=== PATIENT | female | born 1955 | race Caucasian/White ===

== ENCOUNTER → 2017-10-01 12:47 | Outpatient (CLI) | payer BC, SELFPAY ==
--- NOTE | 2017-10-01 12:58 | CT_ITS ---
STUDY: LOW DOSE CT LUNG CANCER SCREENING REASON FOR EXAM: Female, 62 years old. Tobacco use RADIATION DOSAGE (If Supplied By Facility): CTDIvol = ( 2.01 ) mGy, DLP = ( 61.43 ) mGycm TECHNIQUE: No contrast was administered. Low dose technique was utilized (average mAS-38 and kVp 120). 1.25 mm axial source images with a slice interval of 1.25-mm were reconstructed in lung windows. 2.5 mm axial source images with a slice interval of 2.5-mm were reconstructed in lung windows. 5.0 mm axial source images with a slice interval of 5.0-mm were reconstructed in soft tissue windows. Nodule measured using lung windows on PACS and/or independent workstation with automated measurement of minimum and maximum diameter. Nodule measurement reported as average diameter rounded to the nearest whole number. Growth is defined as an increase ins size of greater than 1.5 mm. COMPARISON: Chest, July 15, 2015. NODULES: Nodule #: 1 Density: Solid Lung location: Left upper lobe: Pleural-based Location in series: Series Number: 2 Image: 108 Size - D1 x D2 mm: 2 x 2 mm: 2 mm average diameter Margin: Smooth Shape: Round Calcification: Yes Fat: No Temporal comparison: None Total lung nodules (excluding granulomas): 0 Emphysema: There are mild emphysematous changes throughout the lungs. Endobronchial lesion: No Aorta: There is minimal atherosclerotic changes of the thoracic aorta without aneurysm. Coronary arteries: There are coronary artery calcifications. Heart: Normal in size. Pulmonary artery: Normal in size. Mediastinal nodes: None Other chest and abdominal findings: There are degenerative changes of the thoracic spine. CT/Low Dose CT Lung Screening IMPRESSION: Lung-RADS category 1 - Continue annual screening with LDCT in 12 months. IMPORTANT NOTES FOR USE: ACR Lung-RADS Version 1.0 Assessment Categories Release Date: October 30, 2013 Category: Coded 0-4 bases on nodule(s) with highest degree of suspicion. Negative screen is defined as categories 1 and 2; a positive screen is defined as categories 3 and 4. Category 3 and 4A nodules that are unchanged on interval CT should be coded as category 2, and individuals returned to screening in 12 months. Category 4X: Category 3 or 4 nodules with additional imaging findings that increase the suspicion of lung cancer, such as spiculation, GGN that doubles in size in 1 year, enlarged lymph notes, etc. Category Modifiers: S (significant finding unrelated to lung cancer) and C (prior history of treated lung cancer) may be added to the 0-4 Lung-RADS Electronically Signed: Pro Gregorio DO at 8:29 EDT Tel [phone], Service support ,
== END ==
PROVIDERS: Family Provider Family Medicine; PCP Family Medicine; Visit Provider Family Medicine
DX: Z12.2 Encounter for screening for malignant neoplasm of respiratory organs (principal); Z87.891 Personal history of nicotine dependence
CPT/HCPCS: G0297

== ENCOUNTER → 2018-03-29 14:45 | Outpatient (CLI) | payer BC, SELFPAY ==
[2018-03-29 17:43] LABS: Hematocrit 43.4 % (37-47); Hemoglobin 14.1 g/dl (12.0-15.0); Mean Corp Hgb Conc 32.5 g/gl (32-36); Mean Corpuscular Hgb 29.3 pg (27.0-32.0); Mean Platelet Vol. 10.4 fl (6.2-12.0); Platelet Count 262 K/mm3 (150-450); RBC Distribution Width CV 12.7 % (11.6-14.6); RBC Distribution Width SD 41.5 fl (35.1-43.9); Red Blood Count 4.82 M/mm3 (4.2-5.4); White Blood Count 9.5 K/mm3 (4.4-11.0)
[2018-03-29 17:46] LABS: Scan Indicated on CBC? Y/N NO
[2018-03-29 18:07] LABS: Vitamin D,25 Hydroxy 34.1 ng/mL (29.95-100.01)
[2018-03-29 18:29] LABS: ALB/GLOB Ratio 1.2 RATIO (0.9-2.4); AST(SGOT) 15 U/L (15-37); Alanine Aminotransfer ALT/SGPT 26 U/L (13-56); Alkaline Phosphatase 67 U/L (45-117); Anion Gap 11 (5-15); BUN 14 mg/dL (7-18); BUN/Creat Ratio 17.7 RATIO (10-20); Calcium,Total 9.5 mg/dL (8.5-10.1); Chloride 98 mmol/L (98-107); Creatinine, Serum 0.79 mg/dL (0.55-1.02); EST Glomerular Filtration Rate 79 mL/min (>60); Est Glom Filt Rate - Afr Amer 95 mL/min (>60); Globulin 3.3 g/dL (2.2-4.2); Glucose 84 mg/dL (74-106); Potassium 3.5 mmol/L (3.5-5.1); Protein, Total 7.3 g/dL (6.4-8.2); Sodium Level 136 mmol/L (136-145); T4 Free Direct 1.05 ng/dL (0.76-1.46); Thyroid Stim Hormone (TSH) 1.77 uIU/mL (0.358-3.74)
[2018-04-01 12:40] LABS: V-Zoster IgG (Immunity) 727 index (Immune >165)
== END ==
PROVIDERS: Family Provider Family Medicine; PCP Family Medicine; Visit Provider Family Medicine
DX: I10 Essential (primary) hypertension (principal); E03.9 Hypothyroidism, unspecified; R53.83 Other fatigue; Z78.9 Other specified health status
CPT/HCPCS: 36415; 80053; 82306; 84439; 84443; 85027; 86787

== ENCOUNTER → 2019-03-31 06:33 | Outpatient (CLI) | payer BC, SELFPAY ==
[2019-03-31 08:28] LABS: ALB/GLOB Ratio 1.5 RATIO (0.9-2.4); AST(SGOT) 10 U/L (15-37); Alanine Aminotransfer ALT/SGPT 18 U/L (13-56); Albumin, Serum 4.1 g/dL (3.2-5.0); Alkaline Phosphatase 64 U/L (45-117); Anion Gap 8 (5-15); BUN 14 mg/dL (7-18); BUN/Creat Ratio 17.6 RATIO (10-20); Calcium,Total 9.6 mg/dL (8.5-10.1); Chloride 102 mmol/L (98-107); Cholesterol 167 mg/dL (200); EST Glomerular Filtration Rate 78 mL/min (>60); Est Glom Filt Rate - Afr Amer 94 mL/min (>60); Globulin 2.8 g/dL (2.2-4.2); Glucose 98 mg/dL (74-106); High Density Lipoprotein 71 mg/dL; Potassium 3.6 mmol/L (3.5-5.1); Protein, Total 6.9 g/dL (6.4-8.2); Sodium Level 141 mmol/L (136-145); Thyroid Stim Hormone (TSH) 2.77 uIU/mL (0.358-3.74); Triglycerides 76 mg/dL; Very Low Density Lipoprotein 15 mg/dL (5-40)
[2019-03-31 09:21] LABS: Vitamin D,25 Hydroxy 41.8 ng/mL (29.95-100.01)
== END ==
PROVIDERS: Family Provider Family Medicine; PCP Family Medicine; Referring Provider Family Medicine; Visit Provider Family Medicine
DX: E03.9 Hypothyroidism, unspecified (principal); I10 Essential (primary) hypertension; Z13.1 Encounter for screening for diabetes mellitus; Z13.21 Encounter for screening for nutritional disorder; Z13.220 Encounter for screening for lipoid disorders
CPT/HCPCS: 36415; 80053; 80061; 82306; 84443

== ENCOUNTER → 2019-12-06 14:34 | Outpatient (CLI) | payer BC, SELFPAY ==
--- NOTE | 2019-12-06 14:37 | RAD_ITS ---
STUDY: X-RAY - RIGHT SHOULDER REASON FOR EXAM: Female, 64 years old. CHRONIC PAIN, NO INJURY TECHNIQUE: 4 view(s) of the shoulder. COMPARISON: July 15, 2015 chest x-ray FINDINGS: There is severe degenerative arthrosis of the glenohumeral articulation. There is minimal degenerative arthrosis of the acromioclavicular joint without inferior osseous spur formation. Normal acromion. There is degenerative change of the humeral head. There is a focal coarse calcification in the joint space or just inferior to the joint space suggesting a 2.4 x 1.8 cm osteochondral body. Normal visualized pulmonary apex. There is visualized degenerative change in the thoracic spine. RAD/Shoulder min 2 Views IMPRESSION: Advanced degenerative change of the right glenohumeral joint with osteochondral calcification or joint body. Electronically Signed: Daksha Meier MD at 0:56 EDT Tel , Service support ,
== END ==
PROVIDERS: PCP Family Medicine; Referring Provider Family Medicine; Visit Provider Family Medicine
DX: M25.511 Pain in right shoulder (principal); G89.29 Other chronic pain
CPT/HCPCS: 73030

== ENCOUNTER → 2020-03-20 14:20 | Outpatient (CLI) | payer BC, SELFPAY ==
--- NOTE | 2020-03-20 14:22 | RAD_ITS ---
STUDY: X-RAY - RIGHT FOOT CLINICAL: Right foot pain. TECHNIQUE: 3 view(s) of the foot. COMPARISON: None. FINDINGS: Normal talus, calcaneus, and tarsal bones. Normal visualized subtalar, talonavicular, calcaneocuboid, and tarsal articulations. There is joint space narrowing of the second and third tarsometatarsal articulations with dorsal osteophytes. Normal metatarsi. Normal metatarsophalangeal joint of the great toe. Normal tibial and fibular sesamoid bones. Normal interphalangeal joint of the great toe. Normal phalanges of the great toe. Normal second through fifth metatarsophalangeal joints. Normal interphalangeal joints and phalanges of the lesser toes. The soft tissue structures are unremarkable. RAD/Foot min 3 Views IMPRESSION: Arthrosis of the second and third tarsometatarsal articulations. Electronically Signed: Geovanni Barry MD at 15:21 EDT Tel , Service support ,
== END ==
PROVIDERS: PCP Family Medicine; Referring Provider Family Medicine; Visit Provider Family Medicine
DX: M19.071 Primary osteoarthritis, right ankle and foot (principal)
CPT/HCPCS: 73630

== ENCOUNTER → 2020-04-04 06:16 | Outpatient (CLI) | payer BC, SELFPAY ==
[2020-04-04 07:50] LABS: Anion Gap 3 (5-15); BUN 12 mg/dL (7-18); BUN/Creat Ratio 14.4 RATIO (10-20); Calcium,Total 10.2 mg/dL (8.5-10.1); Chloride 101 mmol/L (98-107); Cholesterol 209 mg/dL (200); Creatinine, Serum 0.84 mg/dL (0.55-1.02); EST Glomerular Filtration Rate 73 mL/min (>60); Est Glom Filt Rate - Afr Amer 88 mL/min (>60); Glucose 89 mg/dL (74-106); High Density Lipoprotein 79 mg/dL; Potassium 3.7 mmol/L (3.5-5.1); Sodium Level 137 mmol/L (136-145); Thyroid Stim Hormone (TSH) 4.77 uIU/mL (0.358-3.74); Triglycerides 91 mg/dL; Very Low Density Lipoprotein 18 mg/dL (5-40)
== END ==
PROVIDERS: PCP Family Medicine; Referring Provider Family Medicine; Visit Provider Family Medicine
DX: Z00.00 Encounter for general adult medical examination without abnormal findings (principal); I10 Essential (primary) hypertension; E03.9 Hypothyroidism, unspecified
CPT/HCPCS: 36415; 80048; 80061; 84443

== ENCOUNTER → 2020-07-25 14:20 | Outpatient (CLI) | payer BC, SELFPAY ==
[2020-07-25 17:31] LABS: Hematocrit 42.2 % (37-47); Hemoglobin 13.5 g/dL (12.0-15.0); Mean Corpuscular Hgb 27.4 pg (27.0-32.0); Mean Corpuscular Volume 85.8 fL (81-99); Mean Platelet Vol. 10.7 fl (6.2-12.0); Platelet Count 290 K/mm3 (150-450); RBC Distribution Width CV 12.4 % (11.6-14.6); RBC Distribution Width SD 38.8 fl (35.1-43.9); Red Blood Count 4.92 M/mm3 (4.2-5.4)
[2020-07-25 17:59] LABS: Erythrocyte Sedimentation Rate 2 mm/hr (0-30)
[2020-07-25 18:12] LABS: Iron 47 ug/dL (50-170); T4 Free Direct 1.36 ng/dL (0.76-1.46); Thyroid Stim Hormone (TSH) 0.37 uIU/mL (0.358-3.74); Vitamin B12 448 pg/mL (211-911)
[2020-07-31 15:27] LABS: Vitamin B1, Thiamine 118.4 nmol/L (66.5-200.0)
== END ==
PROVIDERS: PCP Family Medicine; Referring Provider Family Medicine; Visit Provider Family Medicine
DX: E03.9 Hypothyroidism, unspecified (principal); R53.83 Other fatigue
CPT/HCPCS: 36415; 82306; 82607; 83540; 84425; 84439; 84443; 85027; 85652

== ENCOUNTER 2020-09-17 17:21 | Outpatient (RCR) | payer BC, SELFPAY ==
[2020-09-17] MEDS: COVID-19 VACC, MRNA(PFIZER)/PF 30 MCG/0.3 ML SYRINGE IM (14:08)
[2020-10-08] MEDS: COVID-19 VACC, MRNA(PFIZER)/PF 30 MCG/0.3 ML SYRINGE IM (14:11)
== END 2020-09-17 23:59 ==
LOC: IMMUN 17:21
PROVIDERS: PCP Family Medicine; Visit Provider Family Medicine
DX: Z23 Encounter for immunization (principal)
CPT/HCPCS: 0001A; 0002A; 91300

== ENCOUNTER → 2020-11-11 07:45 | Outpatient (CLI) | payer BC, SELFPAY ==
--- NOTE | 2020-11-11 07:48 | CT_ITS ---
STUDY: CT RIGHT SHOULDER REASON FOR EXAM: Female, 65 years old. OSTEOARTHRITIS RADIATION DOSAGE (If Supplied By Facility): CTDIvol = ( 26.22 ) mGy, DLP = ( 511.11 ) mGycm TECHNIQUE: The patient was scanned in a multi detector CT scanner. High resolution transaxial imaging was performed without the administration of intravenous contrast material. Sagittal and coronal images were reconstructed. Individualized dose optimization techniques were used for this CT. COMPARISON: Comparison is made with prior shoulder radiograph dated 12/06/2019. FINDINGS: There is severe osteoarthritis, with severe articular joint space narrowing, osteoarthritic spurring, articular remodeling, and with articular erosions. There is evidence of subchondral sclerosis of the glenoid fossae with the a 1.3 cm subchondral cyst. There is evidence of degenerative spur formation involving the anterior and posterior aspects of the humeral head with subchondral cystic changes. There is a 2 cm x 2 cm partially ossified bony density in the inferior aspect of the right shoulder joint. This most likely represents an osteochondral ossification versus possible synovial osteochondromatosis. Normal visualized lateral clavicle. There is moderate osteoarthritis with articular joint space narrowing and with osteoarthritic spurring. There is a Type II morphology (curved), with a neutral orientation. Normal visualized muscles and soft tissue structures. CT/Extremity Upper without Contra IMPRESSION: Marked degree of joint space narrowing with degenerative changes of the glenohumeral joint involving both the humeral and glenoid components as described. 2 cm x 2 cm ossified density along the inferior aspect of the right shoulder joint. This may represent either an osteochondral body versus synovial osteochondromatosis. Electronically Signed: Bipin Pitt MD at 8:47 EDT , Service support ,
== END ==
PROVIDERS: PCP Family Medicine; Referring Provider Specialist; Visit Provider Specialist
DX: M19.211 Secondary osteoarthritis, right shoulder (principal)
CPT/HCPCS: 73200

== ENCOUNTER → 2020-12-13 15:51 | Outpatient (CLI) | payer BC, SELFPAY ==
--- NOTE | 2020-12-13 15:56 | RAD_ITS ---
STUDY: X-RAY CHEST REASON FOR EXAM: Female, 65 years old. encounter for other preprocedural examination TECHNIQUE: PA and lateral views of the chest. COMPARISON: 07/15/2015 FINDINGS: The lungs are clear and expanded. There is no demonstrated pleural abnormality. Normal size heart. Normal mediastinum and lily. Normal visualized pulmonary arteries. Normal visualized aortic arch and descending thoracic aorta. Normal visualized thoracic spine. Normal visualized ribs, clavicles, and shoulders. There is no demonstrated abnormality of the visualized soft tissue structures of the upper abdomen. RAD/Chest PA and Lateral IMPRESSION: Normal x-ray examination of the chest. Electronically Signed: Jake Perez MD at 12:15 EDT Tel , Service support ,
[2020-12-13 17:32] LABS: Hemoglobin 13.6 g/dL (12.0-15.0); Mean Corp Hgb Conc 33.2 g/dL (32-36); Mean Corpuscular Hgb 27.5 pg (27.0-32.0); Mean Platelet Vol. 10.7 fl (6.2-12.0); Platelet Count 306 K/mm3 (150-450); RBC Distribution Width CV 13.6 % (11.6-14.6); RBC Distribution Width SD 41.2 fl (35.1-43.9); Red Blood Count 4.94 M/mm3 (4.2-5.4); White Blood Count 9.3 K/mm3 (4.4-11.0)
[2020-12-13 17:41] LABS: Prothrombin Time (Protime)PT. 12.5 SECONDS (11.7-14.9)
[2020-12-13 17:42] LABS: Partial Thromboplast Time 28.1 Seconds (24.1-36.2)
[2020-12-13 18:01] LABS: Anion Gap 7 (5-15); BUN 15 mg/dL (7-18); BUN/Creat Ratio 22.7 RATIO (10-20); Calcium,Total 9.6 mg/dL (8.5-10.1); Chloride 102 mmol/L (98-107); Creatinine, Serum 0.66 mg/dL (0.55-1.02); EST Glomerular Filtration Rate 95 mL/min (>60); Est Glom Filt Rate - Afr Amer 115 mL/min (>60); Glucose 97 mg/dL (74-106); Potassium 3.8 mmol/L (3.5-5.1); Sodium Level 137 mmol/L (136-145)
== END ==
PROVIDERS: PCP Family Medicine; Referring Provider Family Medicine; Visit Provider Family Medicine
DX: I10 Essential (primary) hypertension (principal); E03.9 Hypothyroidism, unspecified; Z01.818 Encounter for other preprocedural examination
CPT/HCPCS: 36415; 71046; 80048; 84443; 85027; 85610; 85730

== ENCOUNTER → 2021-04-22 15:10 | Outpatient (CLI) | payer BC, SELFPAY ==
[2021-04-22 18:09] LABS: Hematocrit 44.4 % (37-47); Hemoglobin 14.1 g/dL (12.0-15.0); Mean Corp Hgb Conc 31.8 g/dL (32-36); Mean Corpuscular Hgb 27.2 pg (27.0-32.0); Mean Corpuscular Volume 85.7 fL (81-99); Mean Platelet Vol. 10.7 fl (6.2-12.0); Platelet Count 304 K/mm3 (150-450); RBC Distribution Width CV 13.3 % (11.6-14.6); RBC Distribution Width SD 41.3 fl (35.1-43.9); Red Blood Count 5.18 M/mm3 (4.2-5.4); White Blood Count 8.3 K/mm3 (4.4-11.0)
[2021-04-22 18:31] LABS: Erythrocyte Sedimentation Rate 2 mm/hr (0-30)
[2021-04-22 18:35] LABS: ALB/GLOB Ratio 1.4 RATIO (0.9-2.4); AST(SGOT) 13 U/L (15-37); Alanine Aminotransfer ALT/SGPT 19 U/L (13-56); Albumin, Serum 4.2 g/dL (3.2-5.0); Alkaline Phosphatase 67 U/L (45-117); Anion Gap 9 (5-15); BUN 9 mg/dL (7-18); BUN/Creat Ratio 13.5 RATIO (10-20); Chloride 99 mmol/L (98-107); Creatinine, Serum 0.67 mg/dL (0.55-1.02); EST Glomerular Filtration Rate 94 mL/min (>60); Est Glom Filt Rate - Afr Amer 114 mL/min (>60); Globulin 2.9 g/dL (2.2-4.2); Glucose 97 mg/dL (74-106); Iron 85 ug/dL (50-170); Potassium 3.6 mmol/L (3.5-5.1); Protein, Total 7.1 g/dL (6.4-8.2); Sodium Level 138 mmol/L (136-145); Thyroid Stim Hormone (TSH) 0.39 uIU/mL (0.358-3.74)
[2021-04-23 12:45] LABS: Vitamin B12 387 pg/mL (211-911); Vitamin D,25 Hydroxy 43.2 ng/mL
== END ==
PROVIDERS: PCP Family Medicine; Referring Provider Family Medicine; Visit Provider Family Medicine
DX: R53.83 Other fatigue (principal)
CPT/HCPCS: 36415; 80053; 82306; 82607; 83540; 84443; 85027; 85652

== ENCOUNTER → 2021-05-02 | Outpatient (CLI) | payer BC, SELFPAY | END | disposition home or self-care (01) | PROVIDERS: PCP Family Medicine; Visit Provider Family Medicine | DX: Z20.822 Contact with and (suspected) exposure to COVID-19 (principal) | CPT/HCPCS: 87635; U0005; U0003 ==

== ENCOUNTER → 2021-05-06 15:50 | Outpatient (CLI) | payer BC, SELFPAY ==
[2021-05-09 15:36] LABS: HPV APTIMA, High Risk Negative (Negative); HPV Reflexed? YES, CHARGE PATIENT
== END ==
PROVIDERS: PCP Family Medicine; Visit Provider Nurse Practitioner Family
DX: Z12.4 Encounter for screening for malignant neoplasm of cervix (principal)
CPT/HCPCS: 87624; 88175; G0145

== ENCOUNTER → 2021-05-14 06:29 | Outpatient (CLI) | payer BC, SELFPAY ==
--- NOTE | 2021-05-14 06:35 | MRI_ITS ---
STUDY: MRI BRAIN WITHOUT CONTRAST REASON FOR EXAM: Female, 66 years old. TONGUE DEVIATION, HEADACHES TECHNIQUE: Standardized multiplanar fat and water weighted pulse sequences were obtained. COMPARISON: None. FINDINGS: Normal size of the ventricles and extra-axial spaces for the patient''s age. Normal white matter tracts of the supratentorial brain. There is no evidence for recent intracranial ischemia or other cause of cytotoxic edema on diffusion weighted imaging (DWI). Normal T2* images of the brain without demonstrated susceptibility artifact. There is no demonstrated hemosiderin stain. Normal bilateral basal ganglia. Normal thalami. There is no extra-axial fluid accumulation. Normal flow voids within the major intracranial circulation suggesting patency by spin echo criteria. Normal sella turcica, pituitary gland, infundibular stalk, optic chiasm and hypothalamus. Normal tectal plate and pineal gland. Normal midbrain, delfin and medulla. Normal cerebellum. Normal basal cisterns. Normal bilateral temporal bones. Normal bilateral internal auditory canals. No demonstrated orbital abnormality, within the constraints of a routine brain study. Normal visualized paranasal sinuses. Normal calvarium and skull base. Normal visualized soft tissue structures. Normal visualized upper cervical spine. MRI/Brain without Contrast IMPRESSION: Involutional changes of the brain, as described above. Electronically Signed: Jake Perez MD at 10:28 EST Tel , Service support ,
== END ==
PROVIDERS: PCP Family Medicine; Referring Provider Family Medicine; Visit Provider Family Medicine
DX: K14.8 Other diseases of tongue (principal); Z87.891 Personal history of nicotine dependence
CPT/HCPCS: 70551

== ENCOUNTER → 2021-05-22 06:48 | Outpatient (CLI) | payer BC, SELFPAY ==
--- NOTE | 2021-05-22 06:52 | CT_ITS ---
STUDY: LOW DOSE CT LUNG CANCER SCREENING REASON FOR EXAM: Female, 66 years old. The patient smokes 1 pack per day for 30 years. RADIATION DOSAGE (If Supplied By Facility): CTDIvol = ( 2.01 ) mGy, DLP = ( 65.95 ) mGycm TECHNIQUE: No contrast was administered. Low dose technique was utilized (average mAS-38 and kVp 120). 1.25 mm axial source images with a slice interval of 1.25-mm were reconstructed in lung windows. 2.5 mm axial source images with a slice interval of 2.5-mm were reconstructed in lung windows. 5.0 mm axial source images with a slice interval of 5.0-mm were reconstructed in soft tissue windows. Nodule measured using lung windows on PACS and/or independent workstation with automated measurement of minimum and maximum diameter. Nodule measurement reported as average diameter rounded to the nearest whole number. Growth is defined as an increase ins size of greater than 1.5 mm. COMPARISON: Comparison is made with prior examination of 10/01/2017. The patient is status post right shoulder replacement. NODULES: Stable 2 mm calcified granuloma in the anterior lateral aspect of the left upper lobe. Emphysema: Hyperinflation. Emphysematous changes are seen in both lungs more prominent in the upper lobes. Endobronchial lesion: None Aorta: Atherosclerotic calcific plaque of the aortic arch and descending thoracic aorta. Coronary arteries: Coronary artery calcification. Heart: Unremarkable Pulmonary artery: Unremarkable Mediastinal nodes: Unremarkable Other chest and abdominal findings: CT/Low Dose CT Lung Screening IMPRESSION: Lung-RADS category 2 - Continue annual screening with LDCT in 12 months. IMPORTANT NOTES FOR USE: ACR Lung-RADS Version 1.1 Assessment Categories Release Date: 2018 Category: Coded 0-4 bases on nodule(s) with highest degree of suspicion. Negative screen is defined as categories 1 and 2; a positive screen is defined as categories 3 and 4. Category 3 and 4A nodules that are unchanged on interval CT should be coded as category 2, and individuals returned to screening in 12 months. Category 4X: Category 3 or 4 nodules with additional imaging findings that increase the suspicion of lung cancer, such as spiculation, GGN that doubles in size in 1 year, enlarged lymph notes, etc. Category Modifiers: S (significant finding unrelated to lung cancer) Electronically Signed: Bipin Pitt MD at 9:11 EST , Service support ,
== END ==
PROVIDERS: PCP Family Medicine; Referring Provider Family Medicine; Visit Provider Family Medicine
DX: Z87.891 Personal history of nicotine dependence (principal)
CPT/HCPCS: 71271

== ENCOUNTER → 2021-05-27 07:46 | Outpatient (CLI) | payer BC, SELFPAY ==
--- NOTE | 2021-05-27 07:48 | BI_ITS ---
MAMMOGRAPHY - BILATERAL SCREENING REASON FOR EXAM: Female, 66 years old. Routine annual screening examination. PERTINENT HISTORY: Aunt with breast cancer. TECHNIQUE: Digital bilateral breast marilu (3D mammographic acquisition) in the CC and MLO projections. 2-D mediolateral oblique (MLO) and craniocaudad (CC) views of both breasts were obtained. CAD: Full Field Digital Mammography with Computer Added Detection was performed. COMPARISON: Comparison is made with prior outside examination dated 11/06/2013. FINDINGS: Breast Composition: The breasts are almost entirely fatty. There are no dominant masses or suspicious calcifications stable small benign-appearing bilateral axillary lymph nodes. Stable 2 mm nodule in the upper lateral aspect of the right breast.. No other significant abnormalities are identified. There has been no significant change since the prior study. BI/SCREENING MAMM (CAD), BILAT IMPRESSION: Stable bilateral screening mammogram. Yearly follow-up mammogram recommended. (A) ASSESSMENT CATEGORY: BIRADS Category 2: Benign. A letter regarding these results will be sent to the patient by the facility within 30 days. Approximately 10% of breast cancers are not detected by mammography. A normal mammogram should not delay biopsy of a clinically suspicious abnormality. [id number] Electronically Signed: Bipin Pitt MD at 8:48 EST , Service support ,
--- NOTE | 2021-05-27 08:09 | BD_ITS ---
STUDY: DUAL ENERGY X-RAY ABSORPTIOMETRY / DXA REASON FOR EXAM: Female, 66 years old. [id number]. Patient is postmenopausal. TECHNIQUE: Bone Mineral Density (BMD) measurements of lumbar spine and bilateral hips were obtained. COMPARISON: Comparison is made with prior study dated 05/18/2017. FINDINGS: Lumbar Spine (L1-L4): g/cm2 (0.852) / T-score (-1.2) / Z-score (0.5) Findings are suggestive of osteopenia with a low fracture risk. Left Femur Total: g/cm2 (0.797) / T-score (-1.2) / Z-score (0.0) Left Femoral Neck: g/cm2 (0.643) / T-score (-1.9) / Z-score (-0.3) Right Femur Total: g/cm2 (0.852) / T-score (-0.7) / Z-score (0.5) Right Femoral Neck: g/cm2 (0.651) / T-score (-1.8) / Z-score (-0.3) The T-Scores on the most recent prior examination were: Lumbar Spine (L1-L4): There has been worsening of bone density since the previous examination. Left Femur Total: which represents a worsening of 7.6%. Right Femur Total: which represents a worsening of 1.9%. BD/Dexa Bone Density Study IMPRESSION: The patient is considered osteopenic as outlined below according to World Ulices Organization (WHO) criteria with a moderate fracture risk. There has been worsening of bone density since the previous examination. Reference Information: The T-score is the number of standard deviations above or below the standard which is normal for young adults at their peak bone mineral density. The World Health Organization (WHO) interprets the T-scores as follows: Above -1 Normal bone density Between -1 and -2.5 Osteopenia Equal to / or below -2.5 Osteoporosis As a practical clinical guideline, osteopenia may be graded as follows: Mild -1 through -1.5 Moderate -1.6 through -2.0 Severe -2.1 through -2.4 The Z-score is the number of standard deviations above or below age-matched controls. A Z-score of less than -1.5 would be considered abnormal. References: 1. NIH Osteoporosis and Related Bone Diseases www osteo.org 2. International Society for Clinical Densitometry www iscd.org 3. National Osteoporosis Foundation www nof.org Electronically Signed: Bipin Pitt MD at 14:21 EST , Service support ,
== END ==
PROVIDERS: PCP Family Medicine; Referring Provider Family Medicine; Visit Provider Family Medicine
DX: Z12.31 Encounter for screening mammogram for malignant neoplasm of breast (principal); Z78.0 Asymptomatic menopausal state
CPT/HCPCS: 77067; 77080

== ENCOUNTER → 2022-05-01 | Outpatient (CLI) | payer BC, SELFPAY ==
[2022-05-01 11:22] LABS: Hematocrit 42.2 % (37-47); Hemoglobin 14.2 g/dL (12.0-15.0); Mean Corp Hgb Conc 33.6 g/dL (32-36); Mean Corpuscular Hgb 28.3 pg (27.0-32.0); Mean Corpuscular Volume 84.2 fL (81-99); Mean Platelet Vol. 10.6 fl (6.2-12.0); Platelet Count 250 K/mm3 (150-450); RBC Distribution Width CV 13.2 % (11.6-14.6); RBC Distribution Width SD 40.7 fl (35.1-43.9); Red Blood Count 5.01 M/mm3 (4.2-5.4); White Blood Count 6.8 K/mm3 (4.4-11.0)
[2022-05-01 11:49] LABS: ALB/GLOB Ratio 1.3 RATIO (0.9-2.4); AST(SGOT) 16 U/L (15-37); Alanine Aminotransfer ALT/SGPT 23 U/L (13-56); Albumin, Serum 4.2 g/dL (3.2-5.0); Alkaline Phosphatase 68 U/L (45-117); Anion Gap 6 (5-15); BUN 11 mg/dL (7-18); BUN/Creat Ratio 15.6 RATIO (10-20); Calcium,Total 9.9 mg/dL (8.5-10.1); Chloride 102 mmol/L (98-107); Cholesterol 196 mg/dL (200); EST Glomerular Filtration Rate 88 mL/min (>60); Est Glom Filt Rate - Afr Amer 107 mL/min (>60); Globulin 3.2 g/dL (2.2-4.2); Glucose 94 mg/dL (74-106); High Density Lipoprotein 78 mg/dL; Potassium 3.6 mmol/L (3.5-5.1); Protein, Total 7.4 g/dL (6.4-8.2); Sodium Level 139 mmol/L (136-145); T4 Free Direct 1.28 ng/dL (0.76-1.46); Thyroid Stim Hormone (TSH) 1.35 uIU/mL (0.358-3.74); Triglycerides 93 mg/dL; Very Low Density Lipoprotein 19 mg/dL (5-40)
[2022-05-01 11:50] LABS: Vitamin B12 > 2000 pg/mL (211-911); Vitamin D,25 Hydroxy 31.4 ng/mL
[2022-05-05 18:30] LABS: H. Pylori Antibody (IgG) 0.41 (0.00-0.79); Zinc, Plasma or Serum 102 ug/dL (44-115)
== END | disposition home or self-care (01) ==
LOC: LAB 10:05
PROVIDERS: PCP Family Medicine; Referring Provider Family Medicine; Visit Provider Family Medicine
DX: R53.83 Other fatigue (principal); I10 Essential (primary) hypertension; K21.9 Gastro-esophageal reflux disease without esophagitis; E03.9 Hypothyroidism, unspecified; L65.9 Nonscarring hair loss, unspecified
CPT/HCPCS: 36415; 80053; 80061; 82306; 82607; 84439; 84443; 84630; 85027; 86677

== ENCOUNTER → 2022-06-04 | Outpatient (CLI) | payer BC, SELFPAY ==
--- NOTE | 2022-06-04 15:35 | BI_ITS ---
MAMMOGRAPHY - BILATERAL SCREENING REASON FOR EXAM: Female, 67 years old. Routine annual screening examination. PERTINENT HISTORY: Aunt with breast cancer. TECHNIQUE: Digital bilateral breast melva (3D mammographic acquisition) in the CC and MLO projections. 2-D mediolateral oblique (MLO) and craniocaudad (CC) views of both breasts were obtained. CAD: Full Field Digital Mammography with Computer Added Detection was performed. COMPARISON: Comparison is made with prior study dated 05/27/2021. FINDINGS: Breast Composition: The breasts are almost entirely fatty. There are no dominant masses or suspicious calcifications. Stable small benign appearing axillary lymph nodes. Stable 2 mm nodule in the lateral aspect of the right breast. This may represent a small lymph node. No other significant abnormalities are identified. There has been no significant change since the prior study. BI/SCRN MAMM (CAD)W/MELVA BILAT IMPRESSION: Stable bilateral screening mammogram. Yearly follow-up mammogram recommended. (A) ASSESSMENT CATEGORY: BIRADS Category 2: Benign. A letter regarding these results will be sent to the patient by the facility within 30 days. Approximately 10% of breast cancers are not detected by mammography. A normal mammogram should not delay biopsy of a clinically suspicious abnormality. [id number] Electronically Signed: Bipin Pitt MD at 8:37 EST ,
== END | disposition home or self-care (01) ==
LOC: OPBI 15:34
PROVIDERS: PCP Family Medicine; Referring Provider Family Medicine; Visit Provider Family Medicine
DX: Z12.31 Encounter for screening mammogram for malignant neoplasm of breast (principal)
CPT/HCPCS: 77063; 77067

== ENCOUNTER → 2023-04-29 | Outpatient (CLI) | payer BC, SELFPAY ==
[2023-04-29 10:58] LABS: Hematocrit 39.6 % (37-47); Mean Corp Hgb Conc 30.3 g/dL (32-36); Mean Corpuscular Hgb 25.2 pg (27.0-32.0); Mean Corpuscular Volume 83.2 fL (81-99); Mean Platelet Vol. 10.9 fl (6.2-12.0); Platelet Count 279 K/mm3 (150-450); RBC Distribution Width CV 14.5 % (11.6-14.6); RBC Distribution Width SD 43.8 fl (35.1-43.9); Red Blood Count 4.76 M/mm3 (4.2-5.4); White Blood Count 6.8 K/mm3 (4.4-11.0)
[2023-04-29 11:31] LABS: Vitamin B12 408 pg/mL (211-911)
[2023-04-29 11:40] LABS: Anion Gap 4 (5-15); BUN 14 mg/dL (7-18); BUN/Creat Ratio 20.7 RATIO (10-20); Calcium,Total 9.6 mg/dL (8.5-10.1); Chloride 103 mmol/L (98-107); Cholesterol 167 mg/dL (200); Creatinine, Serum 0.68 mg/dL (0.55-1.02); EST Glomerular Filtration Rate 93 mL/min (>60); Est Glom Filt Rate - Afr Amer 112 mL/min (>60); Glucose 103 mg/dL (74-106); High Density Lipoprotein 69 mg/dL; Potassium 3.6 mmol/L (3.5-5.1); Sodium Level 138 mmol/L (136-145); Thyroid Stim Hormone (TSH) 0.47 uIU/mL (0.358-3.74); Triglycerides 81 mg/dL; Very Low Density Lipoprotein 16 mg/dL (5-40)
== END | disposition home or self-care (01) ==
LOC: MFPLAB 09:24
PROVIDERS: PCP Family Medicine; Visit Provider Family Medicine
DX: I10 Essential (primary) hypertension (principal); E03.9 Hypothyroidism, unspecified; E53.8 Deficiency of other specified B group vitamins; D64.9 Anemia, unspecified
CPT/HCPCS: 36415; 80048; 80061; 82607; 84443; 85027

== ENCOUNTER → 2024-07-29 | Outpatient (CLI) | payer BC, SELFPAY ==
[2024-07-29 10:01] LABS: Hematocrit 34.2 % (37-47); Hemoglobin 10.3 g/dL (12.0-15.0); Mean Corp Hgb Conc 30.1 g/dL (32-36); Mean Corpuscular Hgb 22.4 pg (27.0-32.0); Mean Corpuscular Volume 74.5 fL (81-99); Mean Platelet Vol. 9.6 fl (6.2-12.0); Platelet Count 310 K/mm3 (150-450); RBC Distribution Width CV 15.4 % (11.6-14.6); RBC Distribution Width SD 41.4 fl (35.1-43.9); Red Blood Count 4.59 M/mm3 (4.2-5.4); White Blood Count 7.4 K/mm3 (4.4-11.0)
[2024-07-29 10:38] LABS: ALB/GLOB Ratio 1.2 RATIO (0.9-2.4); AST(SGOT) 22 U/L (15-37); Alanine Aminotransfer ALT/SGPT 22 U/L (13-56); Albumin, Serum 3.7 g/dL (3.2-5.0); Alkaline Phosphatase 69 U/L (45-117); Anion Gap 4 (5-15); BUN 8 mg/dL (7-18); BUN/Creat Ratio 11.5 RATIO (10-20); Calcium,Total 9.5 mg/dL (8.5-10.1); Chloride 104 mmol/L (98-107); Cholesterol 164 mg/dL (200); Creatinine, Serum 0.69 mg/dL (0.55-1.02); EST Glomerular Filtration Rate 89 mL/min (>60); Est Glom Filt Rate - Afr Amer 108 mL/min (>60); Ferritin 4 ng/mL (8-252); Glucose 104 mg/dL (74-106); High Density Lipoprotein 66 mg/dL; Iron 21 ug/dL (50-170); Potassium 3.8 mmol/L (3.5-5.1); Protein, Total 6.7 g/dL (6.4-8.2); Sodium Level 138 mmol/L (136-145); Triglycerides 83 mg/dL; Very Low Density Lipoprotein 17 mg/dL (5-40)
[2024-07-31 12:58] LABS: Vitamin B12 575 pg/mL (211-911)
== END | disposition home or self-care (01) ==
LOC: LAB 09:31
PROVIDERS: PCP Family Medicine; Referring Provider Family Medicine; Visit Provider Family Medicine
DX: I10 Essential (primary) hypertension (principal); E03.9 Hypothyroidism, unspecified; D64.9 Anemia, unspecified; M85.80 Other specified disorders of bone density and structure, unspecified site
CPT/HCPCS: 36415; 80053; 80061; 82607; 82728; 83540; 84439; 84443; 85027

== ENCOUNTER → 2024-08-04 | Outpatient (CLI) | payer BC, SELFPAY ==
--- NOTE | 2024-08-04 14:57 | CT_ITS ---
PROCEDURE: LOW DOSE CT LUNG SCREENING REASON FOR EXAM: Nicotine dependence. 50 pack-year history TECHNIQUE: Low Dose CT Lung Screening without contrast COMPARISON: No prior examinations are currently available for comparison. FINDINGS: PULMONARY NODULES: (Only nodules >6mm are reported) Nodules described below are on series 2 unless otherwise specified. Pulmonary Nodules: No concerning pulmonary nodules. Hardware:Right shoulder arthroplasty. Lymph Nodes:No mediastinal hilar or axillary lymphadenopathy. Heart and Vasculature:Normal heart size. No pericardial effusion.Vascular calcifications within the thoracic aorta. Main pulmonary artery is of normal caliber. Coronary artery calcifications are noted. Lungs and Airways: [id number]-[id number] emphysematous changes most prominent of the upper lobes. Linear atelectasis or scarring within the lingula. No focal airspace consolidation identified. Pleura:No pleural effusion. No pneumothorax. Upper Abdomen:Visualized upper abdomen appears within normal limits. Bones:Osseous thorax appears intact. Mild spondylotic change involving the thoracic spine. Right shoulder arthroplasty. CT/Low Dose CT Lung Screening IMPRESSION: 1. BASED ON THE ACR LUNG RADS FOR THE MOST SUSPICIOUS NODULE (IF ANY) DESCRIBE D IN THIS REPORT, THE OVERALL LUNG RADS SCORE IS 1. RECOMMEND 12-MONTH SCREENING LDCT.. 2. SMOKING CESSATION COUNSELING IS RECOMMENDED IF THE PATIENT IS STILL SMOKING . 3. Umim-de-tnrushef emphysematous changes most prominent of the upper lobes. No focal airspace consolidation. 4. Right shoulder arthroplasty.. One or more dose reduction techniques were used (e.g., Automated exposure contr ol, adjustment of the mA and/or kV according to patient size, use of iterative reconstruction technique). The following information is provided for reference:Lung-RADS 202 Assessment C ategories. Additional information involving Lung-RADS is available at www.acr.org. 0-INCOMPLETE 1-NEGATIVE:No nodules or definitely benign nodules. Complete, central, popcorn , or centric ring calcifications OR fat containing 2-BENIGN APPEARANCE (based on imaging features or indolent behavior). Juxtaple ural nodule: < 10mm AND solid; smooth margins; oval, lentiform, or triangular shape Solid nodule: <6mm at baseline or new< 4mm Part solid Nodule: < 6mm total mean diameter at baseline Nonsolid nodule:(GGN) < 30mm OR >=30mm stable or slowly growing Airway nodule, subsegmental at baseline, new, or stable Category 3 nodule stabl e or decreased in size at 6-month follow-up CT or Category 3 or 4A nodules that resolve on follow-up OR category 4B findings prov en to be benign following diagnotic work up. 3 - Probably Benign (Based on imaging features or behavior) Solid Nodule: >= 6 to <8mm at baseline OR new 4 to <6mm Part-solid nodule: >= 6mm toal mean diam. with solid component <6mm at baseline OR new < 6mm total mean diam. Non-solid nodule: GGN >= 30mm at baseline or new Atypical pulmonary cyst: Growing cystic component (mean diam.) of thick-walled cyst Category 4A nodule stable or decreased in size at 3-month follow-up CT (excl.ai rway). 4A - Suspicious Solid nodule: >=8 to < 15mm at baseline OR growing < 8mm OR new 6 to < 8mm Part solid nodule: >= 6mm total mean diam. w/ solid component >=6mm to < 8mm at baseline OR new or growing < 4mm solid component Airway nodule, segmental or more proximal at baseline or new Atypical pulmonary cyst: Thick-walled OR multilocular at baseline OR becomes mu ltilocular 4B - Very Suspicious Airway nodule, segmental or more proximal, and stable or growing Solid nodule: >= 15mm at baseline OR new or growing >= 8mm Part solid nodule: Solid component >= 8mm OR new or growing >= 4mm solid compon ent Atypical pulmonary cyst: Thick-walled with growing wall thickness/nodularity OR Growing multilocular (mean diam.) OR Multilocular with increased loculation or new/increased opacity Slow-growing solid or part solid nodule w/ growth over multiple screening exams 4X - Very Suspicious Category 3 or 4 nodules with additional features that increase the suspicion fo r lung cancer. S - Clinically Significant or potentially significant findings (non-lung cancer ) Reading [facility]
== END | disposition home or self-care (01) ==
LOC: CT 14:55
PROVIDERS: PCP Family Medicine; Referring Provider Family Medicine; Visit Provider Family Medicine
DX: Z87.891 Personal history of nicotine dependence (principal)
CPT/HCPCS: 71271

== ENCOUNTER → 2024-08-15 | Outpatient (CLI) | payer BC, SELFPAY ==
--- NOTE | 2024-08-15 15:18 | BI_ITS ---
PROCEDURE: SCRN MAMM (CAD)W/MELVA BILAT REASON FOR EXAM: F, Age 69 y/o, routine annual mammogram. Aunt with breast cancer. TECHNIQUE: Bilateral screening digital breast tomosynthesis with 2D and 3D images. Computer aided detection. COMPARISON: Prior exam(s) dating back to May 27, 2021 in June 04, 2022... FINDINGS: The breasts are almost entirely fatty. Stable 2 mm well-defined nodule in the upper deep lateral aspect of the right breast. No suspicious masses, areas of developing architectural distortion, or suspicious calcifications. Stable examination. BI/SCRN MAMM (CAD)W/MELVA BILAT IMPRESSION: BI-RADS 2: BENIGN. RECOMMEND ANNUAL MAMMOGRAPHIC SCREENING. Follow-up code: Routine Follow-up The patient will be notified of the results by letter. Reading Location: [place] [id number]
--- NOTE | 2024-08-15 15:22 | BD_ITS ---
PROCEDURE: DEXA BONE DENSITY STUDY REASON FOR EXAM: F, age 69 y/o . Postmenopausal. TECHNIQUE: DEXA scan of the lumbar spine and both hips. COMPARISON: Comparison is made with prior study dated May 27, 2021. FINDINGS: Lumbar Spine (L1-L4): g/cm2 (0.912)/T-score (-0.6)/Z-score (1.3) findings are suggestive of normal with a low fracture risk. Left Femur Total: g/cm2 (0.784)/T-score (-1.3)/Z-score (0.1) Left Femoral Neck: g/cm2 (0.621)/T-score (-2.1)/Z-score (-0.4) Right Femur Total: g/cm2 (0.841)/T-score (-0.8)/Z-score (0.6) Right Femoral Neck: g/cm2 (0.649)/T-score (-1.8)/Z-score (-0.1) The T-Scores on the most recent prior examination were: Lumbar Spine (L1-L4): There has been improvement of bone density since the previous examination. Left Femur Total: Loss of 1.6%. Right Femur Total: Loss of 1.3%. BD/Dexa Bone Density Study IMPRESSION: The patient is considered osteopenia as outlined below according to World Ulices Organization (WHO) criteria with a moderate fracture risk. There has been worsening of bone density since the previous exa mination. Reading Location: [place] [address]
== END | disposition home or self-care (01) ==
LOC: OPBD 15:17
PROVIDERS: PCP Family Medicine; Referring Provider Family Medicine; Visit Provider Family Medicine
DX: Z12.31 Encounter for screening mammogram for malignant neoplasm of breast (principal); Z78.0 Asymptomatic menopausal state; M85.80 Other specified disorders of bone density and structure, unspecified site; Z80.3 Family history of malignant neoplasm of breast
CPT/HCPCS: 77063; 77067; 77080

== ENCOUNTER 2024-10-08 09:23 | Emergency (ER) | payer BC, SELFPAY ==
[2024-10-08 09:24] VITALS: BP 166/77; PULSE 72; RESP 16; TEMP 35.8; O2SAT 99; BMI 22.6
--- NOTE | 2024-10-08 09:35 | ED.VIS.LOWEX ---
HPI History of Present Illness HPI Narrative: Patient presents with left foot pain that began after a fall 3 days ago. Patient states she was on a step and she fell off of that. Patient is unsure if she inverted or everted her foot. Patient states the pain is sharp. Patient states pain is worse with any weightbearing. Patient states the pain radiates up the lateral aspect of her left lower leg. Patient denies any paresthesias or weakness. Patient states she did hit her head but denies any loss of consciousness. Patient denies any other injuries. Chief Complaint: Lower Extremity Injury Informant: patient Occured/Mechanism Mechanism/Context: Yes fall Onset/Context/Timing Onset: Days (3 days ago) Context: Sudden Onset Timing: Continuous Quality of Pain: Sharp Location: Left foot Worsened by: Weightbearing Relieved by: Rest Associated Symptoms Associated Symptoms: Negative for Parasthesia, Weakness or Loss of Funtion PFSH PFSH Medical History (Updated 10/08/24 @ 10:[address] Tuan Jean, ) Insomnia Anxiety Hyperthyroidism GERD (gastroesophageal reflux disease) Hypertension Medical History no medical history Home Medications ?Medication ?Instructions ?Recorded ?Last Taken ?Type Omeprazole [Prilosec] 40 mg PO DAILY 07/15/15 07/14/15 History hydrochlorothiazide 25 mg tablet 25 mg PO DAILY 07/15/15 07/14/15 History levothyroxine 50 mcg tablet 50 mcg PO DAILY 07/15/15 07/14/15 History celecoxib 100 mg capsule 100 mg PO BID 10/08/24 Unknown History hydrocodone-acetaminophen 5-325mg 1 tab PO Q6H PRN PRN Pain 3 days 10/08/24 Unknown Rx 5mg-325mg #10 TABLETS levothyroxine 88 mcg tablet 88 mcg PO DAILY 10/08/24 Unknown History (Synthroid) trazodone 100 mg tablet 150 mg PO DAILY 10/08/24 Unknown History Allergy/AdvReac Type Severity Reaction Status Date / Time No Known Allergies Allergy Verified 07/15/15 01:40 Family History no significant family his Surgical History (Updated 10/08/24 @ 09:38 by Bryanna Gonsalves) History of right shoulder replacement Surgical History no surgical history Social History Smoking Status: Former smoker ROS ROS ED Constitutional Constitutional ED: Denies chills or fever(s) Eyes Eyes: Denies blurry vision or change in vision ENT ENT ED: Denies rhinorrhea or sore throat Cardiovascular Cardiovascular: Denies chest pain or palpitations Respiratory/Chest Respiratory/Chest: Denies cough or dyspnea Gastrointestinal Gastrointestinal: Denies abdominal pain Musculoskeletal Musculoskeletal: Denies back pain or neck pain Integumentary Denies abscess or rash Neurologic Neurologic: Denies headache(s) or weakness Allergic/Immunologic Allergic/Immunologic ED: Denies mouth swelling or urticaria EXAM Physical Exam Const Vital Signs: 10/08/24 09:24 10/08/24 10:39 Temperature 96.4 F L 96.4 F L Temperature Source Temporal Pulse Rate 72 72 Respiratory Rate 16 16 Blood Pressure 166/77 H 166/77 H Blood Pressure Mean 106 106 Pulse Ox 99 99 Oxygen Delivery Method Room Air Positive well nourished and well developed Constitutional Narrative: BMI is 22.6 General Appearance ED: well developed and NAD HEENT Reports moist mucous membranes Neck full ROM and supple Extremity Extremity Narrative: There is tenderness, edema, and ecchymosis of the distal metatarsals of the left foot. There is no obvious deformity noted. Range of motion was limited in all motions of the left foot secondary to pain. Sensation was intact to light touch in all digits. Capillary refill was less than 2 seconds in all digits. Pedal pulses are equal bilaterally. Neuro oriented x3, CN's II-XII intact bilaterally, moves all extremities and no sensory deficits noted Sensorium / Orientation: alert Motor Exam: strength 5/5 throughout Psych mental status grossly normal MDM MDM MDM Narrative Medical decision making narrative: Differential diagnosis includes fracture, sprain, and contusion. X-rays of the left foot will be obtained to assess for fracture. Patient was concerned that there is a blood clot in her left leg. Patient was advised that since she has no calf tenderness or lower extremity edema, I do not feel that there is a DVT. I feel that her pain that is radiating up from her foot is due to muscle strain. Patient understands and is agreeable with this. Radiography Diagnostic Testing: Clinical Impression(s) from Imaging Studies Foot X-Ray 10/08/24 09:41 IMPRESSION: See above. Reading [facility] X-rays of the left foot were obtained. There are 3 views. On my independent interpretation, there is a oblique fracture of the shaft of the fifth metatarsal. There is minimal displacement. There is no angulation. Radiologist also interpreted the x-ray and agrees. Treatment and Re-Evaluation Narrative: Patient was advised of her findings. Patient was instructed to ice and elevate the left foot. Patient was given a walking boot and crutches. Patient was given a prescription for [place]. Patient was given a referral for podiatry for follow-up care. Patient was instructed to return if worse in any way. Patient understood and was agreeable with the plan. All questions were answered. Discharge Plan Triage Chief Complaint: Lower Extremity Injury ED Provider: Tuan Jean Dx/Rx/DC Orders Clinical Impression: Closed nondisplaced fracture of fifth left metatarsal bone, Fall Instructions: ED Fracture, Foot Prescriptions: New hydrocodone-acetaminophen 5-325 mg tablet 1 tab PO Q6H PRN PRN (Reason: Pain) 3 Days Qty: 10 0RF No Action levothyroxine 50 MCG tablet 50 mcg PO DAILY hydrochlorothiazide 25 MG tablet 25 mg PO DAILY Omeprazole [Prilosec] 40 MG capsule 40 mg PO DAILY levothyroxine [Synthroid] 88 mcg tablet 88 mcg PO DAILY trazodone 100 mg tablet 150 mg PO DAILY celecoxib 100 mg capsule 100 mg PO BID Primary Care Provider: Monty Talley Referrals: Monty Talley MD [Primary Care Provider] - 5-7 Days Pastor Faust DPM [Med Staff - Active Staff] - 3-5 Days Print Language: Moroccan Disposition Disposition: Home, Self Care
--- NOTE | 2024-10-08 09:41 | RAD_ITS ---
EXAM: Left foot radiographic evaluation, three views CLINICAL HISTORY: Bruise on top and bottom left foot after fall on . Initial encounter. COMPARISON: None. TECHNIQUE: AP frontal, oblique and lateral radiographs obtained of the left foot. FINDINGS: Oblique fracture, mildly displaced goes through the distal half of the 5th metatarsal. No dislocation. RAD/Foot min 3 Views IMPRESSION: See above. Reading Location: [facility]
[2024-10-08 10:39] VITALS: BP 166/77; PULSE 72; RESP 16; TEMP 35.8; O2SAT 99
== END 2024-10-08 11:07 | disposition home or self-care (01) ==
PROVIDERS: Emergency Provider Emergency Medicine; PCP Family Medicine; Visit Provider Emergency Medicine
DX: S92.352A Displaced fracture of fifth metatarsal bone, left foot, initial encounter for closed fracture (principal); W10.9XXA Fall (on) (from) unspecified stairs and steps, initial encounter; I10 Essential (primary) hypertension; E05.90 Thyrotoxicosis, unspecified without thyrotoxic crisis or storm; K21.9 Gastro-esophageal reflux disease without esophagitis; Z79.890 Hormone replacement therapy; Z79.899 Other long term (current) drug therapy; Z87.891 Personal history of nicotine dependence
CPT/HCPCS: 73630; 99284

== ENCOUNTER → 2024-12-29 | Outpatient (CLI) | payer BC, SELFPAY ==
[2024-12-29 15:02] LABS: Hematocrit 39.2 % (37-47); Hemoglobin 12.8 g/dL (12.0-15.0); Mean Corp Hgb Conc 32.7 g/dL (32-36); Mean Corpuscular Hgb 26.9 pg (27.0-32.0); Mean Corpuscular Volume 82.5 fL (81-99); Mean Platelet Vol. 9.3 fl (6.2-12.0); Platelet Count 346 K/mm3 (150-450); RBC Distribution Width SD 59.6 fl (35.1-43.9); Red Blood Count 4.75 M/mm3 (4.2-5.4); Reticulocyte Count 2.39 % (0.5-1.5); White Blood Count 7.5 K/mm3 (4.4-11.0)
[2024-12-29 15:57] LABS: Anion Gap 10 (5-15); BUN 9 mg/dL (4-19); Calcium,Total 10.2 mg/dL (7.6-11.0); Chloride 93 mmol/L (98-108); Creatinine, Serum 0.61 mg/dL (0.70-1.20); EST Glomerular Filtration Rate 97 (>60); Ferritin 45 ng/mL (22-378); Glucose 118 mg/dL (70-99); Iron 52 ug/dL (50-170); Potassium 3.2 mmol/L (3.3-5.1); Sodium Level 132 mmol/L (133-145); Thyroid Stim Hormone (TSH) 0.653 uIU/mL (0.300-4.200)
--- OUTSIDE RECORDS SUMMARY | 2024-12-29 19:30 | XMS RPT_ITS | CCD ---
Author Organization [facility] Care Team Providers Care Donkey Doctor Name Role Phone GERRI HENSLEY, DR TALBOT Primary Care Physician Gerri HENSLEY, Antione Bach Primary Care Provider Gerri HENSLEY, Antione Bach Primary Care Provider Antione Talley MD Primary Care Provider Gerri HENSLEY, Dr. Talbot Primary Care Provider Gerri HENSLEY, Dr. Talbot Attending Provider Dr. Antione Talley MD Referring Provider 1( [phone] Dr. Tuan Jean DO Emergency Provider Antione Talley Attending Unavailable Antione Talley Referring Unavailable Antione Talley Primary Care Unavailable Antione Talley Referring Unavailable Antione Talley Primary Care Unavailable Antione Talley Attending Unavailable Antione Talley Primary Care Unavailable Tuan Jean Attending Unavailable Antione Talley Attending Unavailable Antione Talley Referring Unavailable Antione Talley Primary Care Unavailable GERRI HENSLEY, DR TALBOT Primary Care Physician GERRI HENSLEY, DR TALBOT Primary Care TIAGO Kong DO Attending Unavailable REJI HENSLEY, BRIE Admitting Unavailable REJI HENSLEY, BRIE Consulting Unavailable MIGUEL ANGEL DUCKWORTH DO Consulting Unavailgal HOWE MD, SABI Mitchell Consulting Unavailable EDER HENSLEY, DR GUERRERO Consulting Unavailable NUHA HENSLEY, JORY Guillen Consulting Unavailable GERRI HENSLEY, DR TALBOT Primary Care Toi GEORGE MD, DR ASHLEY Santo Attending Unavailab lida MENDOZA MD, BRIE Consulting Unavailable GERRI HENSLEY, DR TALBOT Primary Care Toi VEGA MD, GAYLE Murphy Attending Gabriela GEORGE MD, DR ASHLEY Santo Attending Navarro Sandoval MD, DR TALBOT Primary Care Toi TALLEY MD, DR TALBOT Primary Care Toi GEORGE MD, DR ASHLEY Santo Attending Navarro Sandoval MD, DR TALBOT Primary Care Toi GEORGE MD, DR ASHLEY Santo Attending Navarro hilton Allergies Allergy Classification Reported Allergen(s) Allergy Type Date of Onset Reaction(s) Facility (6 sources) Amoxicillin; Translations: [amoxicillin] Drug Allergy [facility] Medications Current Medications Medication Drug Class(es) Dates Sig (Normalized) Sig (Original) acetaminophen 500 mg oral tablet (3 sources) Start: 12-12-2024 take 1 tablet by mouth once daily Tylenol Extra Strength 500 mg oral tablet Dose : 1,000 mg = 2 tab(s), Oral, TID, not to exceed 3000 mg/day Start Date: 12/12/24 Status: Ordered Repeat number: 1 acetaminophen 325 mg / HYDROcodone bitartrate 5 mg oral tablet (1 source) Opioid Agonist Start: 10-08-2024 take 1 tablet by mouth every six hours as needed for pain Hydrocodone-Aceta minophen 5-325 mg tablet Active 1 {tbl} PO EVERY 6 HOURS NEEDED as needed for Pain 10 October 08, 2024 Start: 10-08-2024 take 1 tablet by phani th every six hours as needed for pain Hydrocodone-Acetaminophen 5-325 mg table t Active 1 {tbl} PO EVERY 6 HOURS NEEDED as needed for Pain 10 October 08, 2024 aspirin 81 mg delayed release oral tablet (3 sources) Platelet Aggregation Inhibitor, Nonsteroidal Anti-inflammatory Drug Start: 12-13-2024 End: 12-26-2024 aspirin 81 mg oral delayed release tablet Dose : 81 mg = 1 tab(s), Oral, BID Start Date: 12/13/24 Stop Date: 12/26/24 Status: Ordered Repeat number: 1 celecoxib 100 mg oral capsule (1 source) Nonsteroidal Anti-inflammatory Drug Start: 10-08-2024 take 1 capsule by mouth twice daily Celecoxib 100 mg capsule Active 100 mg PO TWICE A DAY October 08, 2024 12:00am diphenhydrAMINE hydrochloride 25 mg oral capsule (3 sources) Histamine-1 Receptor Antagonist Start: 12-12-2024 Benadryl 25 mg oral capsule Dose : 25 mg = 1 cap(s), Oral, q6hr, PRN as needed for itching, 0 Refill(s) Start Date: 12/12/24 Status: Ordered Repeat number: 1 famotidine 20 mg oral tablet (3 sources) Histamine-2 Receptor Antagonist Start: 12-12-2024 End: 12-26-2024 famotidine 20 mg oral tablet Dose : 20 mg = 1 tab(s), Oral, qDay Start Date: 12/12/24 Stop Date: 12/26/24 Status: Ordered Repeat number: 1 herbal/nutritional product (6 sources) Start: 12-20-2020 take 1 capsule by mouth once daily herbal/nutritio nal product 1 capsule, Oral, Daily, 0 Refill(s) Start Date: 12/20/20 Status: Ordered Repeat number: 1 Start: 12-20-2020 take 1 capsule by [facility] once daily herbal/nutritional product 1 capsule, Oral, Daily, 0 Refill(s) Start Date: 12/20/20 Status: Ordered hydroCHLOROthiazide 25 mg oral tablet (12 sources) Thiazide Diuretic Start: 07-15-2015 hydroCHLOROthiazide 25 mg oral tablet Dose : 25 mg = 1 tab(s), Oral, Daily, 0 Refill(s) Start Date: 12/20/20 Status: Ordered Repeat number: 1 Comment on above: Take 1 tablet by [facility] once daily. lactulose 667 mg/ml oral solution (1 source) Osmotic Laxative Start: 12-16-2024 lactulose 10 g/15 mL oral syrup Dose : 20 gram(s) = 30 mL, Oral, qDay, PRN as needed for constipation, Okay to change quantity based on packaging, # 500 mL, 0 Refill(s), 152.4, cm, 12/13/24 22:04:00 EDT, Height, kg, 12/13/24 22:04:00 EDT, Dosing Weight Start Date: 12/16/24 Status: Ordered Quantity: 500.0 Unit: mL Repeat number: 1 levothyroxine sodium 0.075 mg oral tablet (15 sources) l-Thyroxine Start: 12-16-2024 Synthroid 75 m cg (0.075 mg) oral tablet Dose : 75 mcg = 1 tab(s), Oral, qDayAC, # 30 tab(s), 0 Refill(s), 152.4, cm, 12/13/24 22:04:00 EDT, Height, kg, 12/13/24 22:04:00 EDT, Dosing Weight Start Date: 12/16/24 Status: Ordered Quantity: 30.0 Unit: tab(s) Repeat number: 1 Start: 10-08-2024 take 1 tablet by phani th once daily Levothyroxine (Levothyroxine 88 Mcg Tablet) 88 mcg tablet Active 88 ug PO DAILY October 08, 2024 12:00am Start: 03-27-2022 take 1 tablet by phani th once daily SYNTHROID 88 mcg tablet Take 88 mcg by mouth once daily. 03/27/2022 Active Start: 12-20-2020 Synthroid 88 m cg (0.088 mg) oral tablet Dose : 88 mcg = 1 tab(s), Oral, qDayAC, 0 Refill(s) Start Date: 12/20/20 Status: Ordered Repeat number: 1 Start: 12-11-2016 End: 04-15-2022 SYNTHROID 75 mcg tablet Start: 07-15-2015 take 1 tablet by phani th once daily Levothyroxine 50 MCG tablet Active 50 ug PO DAILY July 15, 2015 1:00am Comment on above: Take 88 mcg by mouth once daily. lisinopril 20 mg oral tablet (13 sources) Angiotensin Converting Enzyme Inhibitor Start: 07-15-2015 End: 10-08-2024 lisinopril 20 mg oral tablet Dose : 20 mg = 1 tab(s), Oral, Daily, 0 Refill(s) Start Date: 07/15/15 Status: Ordered Repeat number: 1 Comment on above: Take 1 tablet by phani th once daily. meloxicam 7.5 mg oral tablet (6 sources) Nonsteroidal Anti-inflammatory Drug Start: 11-13-2024 meloxicam 7.5 mg oral tablet Dose : 7.5 mg = 1 tab(s), Oral, BID, Take with food/milk. Start 12/13/24, # 30 tab(s), 0 Refill(s) Start Date: 11/13/24 Status: Ordered Quantity: 30.0 Unit: tab(s) Repeat number: 1 Start: 12-20-2020 meloxicam 15 m g oral tablet Dose : 15 mg = 1 tab(s), Oral, qDay, Take with food/milk, # 30 tab(s), 0 Refill(s) Start Date: 12/20/20 Status: Ordered Milk of Magnesia 8% oral suspension (3 sources) Start: 12-12-2024 Milk of Magnesia 8% oral suspension 2.4 gram(s) Dose = 30 mL, Oral, qHS, PRN for constipation, 0 Refill(s) Start Date: 12/12/24 Status: Ordered Repeat number: 1 omeprazole 40 mg delayed release oral capsule (13 sources) Proton Pump Inhibitor Start: 07-15-2015 omeprazole 40 mg oral delayed release capsule (NF) Dose : 40 mg = 1 cap(s), Oral, qDayAC, 0 Refill(s) Start Date: 07/15/15 Status: Ordered Repeat number: 1 Comment on above: Take 1 capsule by [facility] once daily. ondansetron 4 mg disintegrating oral tablet (3 sources) Serotonin-3 Receptor Antagonist Start: 12-12-2024 ondansetron 4 mg oral tablet, disintegrating Dose : 4 mg = 1 tab(s), Oral, TID, PRN Pain, 1-2 tabs, 0 Refill(s) Start Date: 12/12/24 Status: Ordered Repeat number: 1 oxyCODONE hydrochloride 5 mg oral tablet (3 sources) Opioid Agonist Start: 12-12-2024 oxyCODONE 5 mg oral tablet ( IMMEDIATE release ) Dose : 5 mg = 1 tab(s), Oral, q4h, PRN as needed for pain, 1-2 tabs, 0 Refill(s), 53 Start Date: 12/12/24 Status: Ordered Repeat number: 1 polyethylene glycol 3350 [id number] mg powder for oral solution (1 source) Osmotic Laxative Start: 12-16-2024 take 17 doses by mouth once daily MiraLax oral powder for reconstitution Dose : 17 gram(s) =, Oral, Daily, OTC okay, okay to change quantity based on packaging, # 238 gram(s), 0 Refill(s), 152.4, cm, 12/13/24 22:04:00 EDT, Height, kg, 12/13/24 22:04:00 EDT, Dosing Weight Start Date: 12/16/24 Status: Ordered Quantity: 238.0 Unit: g Repeat number: 1 sennosides, residential 8.6 mg oral tablet (3 sources) Start: 12-12-2024 Senokot 8.6 mg oral tablet Dose : 17.2 mg = 2 tab(s), Oral, BID, PRN as needed for constipation Start Date: 12/12/24 Status: Ordered Repeat number: 1 traMADol hydrochloride 50 mg oral tablet (3 sources) Opioid Agonist Start: 12-20-2020 traMADol 50 mg oral tablet Dose : 50 mg = 1 tab(s), Oral, q6h, PRN for pain, # 12 tab(s), 0 Refill(s), 58.9 Start Date: 12/20/20 Status: Ordered Quantity: 12.0 Unit: tab(s) Repeat number: 1 traZODone hydrochloride 100 mg oral tablet (12 sources) Serotonin Reuptake Inhibitor Start: 10-08-2024 Trazodone 100 mg tablet Active 150 mg PO DAILY October 08, 2024 12:00am Start: 03-27-2022 traZODone (ROBERTO YREL) 100 mg tablet Take 50 mg by mouth daily at bedtime. 0 03/27/2022 Active Start: 12-20-2020 traZODone 100 mg oral tablet Dose : 100 mg = 1 tab(s), Oral, qHS, 0 Refill(s) Start Date: 12/20/20 Status: Ordered Repeat number: 1 Start: 11-25-2015 End: 09-01-2022 take 1 tablet by mouth once daily at bedtime traZODone (DESYREL) 50 mg tablet Take 1 tablet by mouth daily at bedtime. 90 tablet 3 11/25/2015 09/01/2022 Discontinued Comment on above: Take 1 tablet by phani th daily at bedtime. Take 50 mg by mouth daily at bedtime. Take 100 mg by mouth daily at bedtime. Vitamin D3 (5 sources) Start: 11-13-2024 Vitamin D3 Dos e : 100 mcg = 1 tab(s), Oral, Daily, # 90 tab(s), 0 Refill(s) Start Date: 11/13/24 Status: Ordered Quantity: 90.0 Unit: tab(s) Repeat number: 1 Completed/Discontinued Medications Medication Drug Class(es) Dates Sig (Normalized) Sig (Original) Calcium Carbonate / vitamin D3 (2 sources) End: 09-01-2022 calcium carbonate/vitamin D3 (CALCIUM WITH VITAMIN D3 ORAL) Take by mouth once daily. 0 09/01/2022 Discontinued calcium carbonat e/vitamin D3 (CALCIUM WITH VITAMIN D3 ORAL) Take by mouth once daily. 0 Active Comment on above: Take by mouth once d aily. ferrous gluconate 324 mg oral tablet (1 source) Start: 10-19-2012 End: 04-15-2022 take 1 tablet by mouth once daily Ferrous Gluconate 324 mg (36 mg iron) Tab Indications: Iron deficiency anemia, unspecified Take 1 tablet by mouth once daily. 30 tablet 11 10/19/2012 04/15/2022 Discontinued Comment on above: Take 1 tablet by phani once daily. ferrous sulfate 325 mg oral tablet (4 sources) Start: 07-15-2015 End: 10-08-2024 take 1 tablet by mouth once daily Ferrous Sulfate 325 MG tablet Discontinued 325 mg PO DAILY July 15, 2015 1:00am October 08, 2024 9:38am iron/vit B comp/liver extract ([id number] ORAL) (2 sources) End: 09-01-2022 take 2500 ug by mouth once daily iron/vit B comp/liver extract ([id number] ORAL) Take 2,500 mcg by mouth once daily. 0 09/01/2022 Discontinued take 2500 ug by mouth once daily iron/vit B comp/liver extract ([id number] ORAL) Take 2,500 mcg by mouth once daily. 0 Active Comment on above: Take 2,500 mcg by mo [facility] once daily. sucralfate 1000 mg oral tablet (1 source) Aluminum Complex Start: 12-16-2024 End: 12-30-2024 Carafate 1 g oral tablet Dose : 1 gram(s) = 1 tab(s), Oral, QID, # 56 tab(s), 0 Refill(s), 152.4, cm, 12/13/24 22:04:00 EDT, Height, kg, 12/13/24 22:04:00 EDT, Dosing Weight Start Date: 12/16/24 Stop Date: 12/30/24 Status: Ordered Quantity: 56.0 Unit: tab(s) Repeat number: 1 Problems Active Problems Problem Classification Problem Date Documented Date Episodic/Chronic Abdominal hernia (3 sources) Diaphragmatic hernia; Translations: [Diaphragmatic hernia without obstruction or gangrene] 06-10-2007 Episodic Biliary tract disease (2 sources) Cholelithiasis without obstruction; Translations: [Calculus of gallbladder without cholecystitis without obstruction] Onset: 12-13-2024 Episodic Disorders of lipid metabolism (3 sources) Hyperlipidemia; Translations: [Hyperlipidemia, unspecified] Onset: 06-10-2007 06-10-2007 Chronic Diverticulosis and diverticulitis (2 sources) Diverticula of intestine; Translations: [Diverticulosis of large intestine without perforation or abscess without bleeding] Onset: 12-13-2024 Chronic E Codes: Fall (1 source) Fall; Translations: [Unspecified fall, initial encounter] 10-08-2024 Episodic Esophageal disorders (10 sources) Gastroesophageal reflux disease; Translations: [Gastro-esophageal reflux disease without esophagitis] 07-16-2015 Chronic Essential hypertension (12 sources) Hypertensive disorder; Translations: [Benign essential hypertension] Onset: 08-15-2024 07-16-2015 Chronic Fluid and electrolyte disorders (14 sources) Hyponatremia; Translations: [Acute hyponatremia] Onset: 07-15-2015 07-16-2015 Episodic Fracture of lower limb (1 source) Closed fracture of fifth metatarsal bone; Translations: [Nondisplaced fracture of fifth metatarsal bone, left foot, initial encounter for closed fracture] 10-08-2024 Episodic Gastritis and duodenitis (1 source) Chronic superficial gastritis; Translations: [Chronic superficial gastritis without bleeding] Chronic Headache; including migraine (3 sources) Tension-type headache; Translations: [Tension-type headache, unspecified, not intractable] 09-29-2012 Chronic Mood disorders (1 source) Depressive disorder; Translations: [Depression, unspecified] Chronic Mood disorders (1 source) Mood disorders; Translations: [Depression, unspecified] Onset: 12-13-2024 Nausea and vomiting (4 sources) Nausea and vomiting; Translations: [Nausea with vomiting, unspecified] 07-16-2015 Episodic Other aftercare (1 source) Drug therapy finding; Translations: [Other remote computer terminal operator (current) drug therapy] Episodic Other connective tissue disease (1 source) Shoulder joint prosthesis present; 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] Chronic Other connective tissue disease (1 source) Pain in left foot; Translations: [Pain in left foot] Onset: 10-12-2024 Episodic Other diseases of kidney and ureters (1 source) Disorder of kidney and/or ureter; Translations: [Other specified disorders of kidney and ureter] Chronic Other diseases of kidney and ureters (1 source) Other specified disorders of kidney and ureter; Translations: [Other specified disorders of kidney and ureter] Onset: 12-13-2024 Chronic Other screening for suspected conditions (not mental disorders or infectious disease) (2 sources) Patient encounter status; Translations: [Encounter for screening for malignant neoplasm of colon] Onset: 08-29-2024 Episodic Other upper respiratory disease (3 sources) Chronic rhinitis; Translations: [Chronic rhinitis] Onset: 06-10-2007 06-10-2007 Chronic Screening and history of mental health and substance abuse codes (1 source) Personal history of nicotine dependence; Translations: [Personal history of nicotine dependence] Onset: 08-17-2024 Episodic Substance-related disorders (3 sources) Tobacco user; Translations: [Nicotine dependence, unspecified, uncomplicated] Onset: 07-30-2008 07-30-2008 Chronic Thyroid disorders (11 sources) Hypothyroidism; Translations: [Hypothyroidism, unspecified] Onset: 06-10-2007 07-16-2015 Chronic Unclassified (3 sources) PMH - PAST MEDICAL HISTORY OF 06-10-2007 Past or Other Problems Problem Classification Problem Date Documented Da te Episodic/Chronic Deficiency and other anemia (3 sources) Iron deficiency anemia; Translations: [Iron deficiency anemia, unspecified] Onset: 09-04-2011 09-04-2011 Episodic Gastritis and duodenitis (4 sources) Intestinal metaplasia of gastric mucosa; Translations: [Gastritis, unspecified, without bleeding] Onset: 09-04-2011 Episodic Other and unspecified benign neoplasm (3 sources) Benign neoplasm of colon; Translations: [Benign neoplasm of colon, unspecified] Onset: 09-04-2011 09-04-2011 Episodic Residual codes; unclassified (5 sources) Family history of cancer of colon; Translations: [Family history of malignant neoplasm of digestive organs] Onset: 08-12-2011 Episodic Skin and subcutaneous tissue infections (1 source) Abscess; Translations: [Cellulitis, unspecified] Onset: 09-02-2009 Resolved: 08-12-2011 08-12-2011 Episodic Results Test Name Value Interpretation Reference Range Facility .Auto Diffon 12-16-2024 Basophil, Absolute 0.0 10 3/mcL Normal 0.0-0.3 [facility] Comment on above: Performed By: #### A TERESA, ADIFF, PHOS, MORPH, CAION, GFR, CBC, MG, CMP ####[address] [address] Basophils/100 WBC (Bld) 0.6 % Normal 0.0-2.5 [facility] Comment on above: Performed By: #### A TERESA, ADIFF, PHOS, MORPH, CAION, GFR, CBC, MG, CMP ####[address] [address] Eosinophil, Absolute 0.1 10 3/mcL Normal 0.0-0.7 [facility] Comment on above: Performed By: #### A TERESA, ADIFF, PHOS, MORPH, CAION, GFR, CBC, MG, CMP ####[address] [address] Eosinophils/100 WBC (Bld) 1.6 % Normal 0.0-6.0 [facility] Comment on above: Performed By: #### A TERESA, ADIFF, PHOS, MORPH, CAION, GFR, CBC, MG, CMP ####[address] [address] Lymphocyte, Absolute 0.9 10 3/mcL Normal 0.9-4.3 [facility] Comment on above: Performed By: #### A TERESA, ADIFF, PHOS, MORPH, CAION, GFR, CBC, MG, CMP ####[address] [address] Lymphocytes/100 WBC (Bld) 14.8 % Low 20.0-40.0 [facility] Comment on above: Performed By: #### A TERESA, ADIFF, PHOS, MORPH, CAION, GFR, CBC, MG, CMP ####[address] [address] Monocyte, Absolute 0.8 10 3/mcL Normal 0.1-1.4 [facility] Comment on above: Performed By: #### A TERESA, ADIFF, PHOS, MORPH, CAION, GFR, CBC, MG, CMP ####[address] [address] Monocytes/100 WBC (Bld) 12.7 % Normal 2.0-13.0 [facility] Comment on above: Performed By: #### A TERESA, ADIFF, PHOS, MORPH, CAION, GFR, CBC, MG, CMP ####[address] [address] Neutrophils/100 WBC (Bld) 70.3 % Normal 50.0-75.0 [facility] Comment on above: Performed By: #### A TERESA, ADIFF, PHOS, MORPH, CAION, GFR, CBC, MG, CMP ####[place] [id number] .GFRon 12-16-2024 Estimated Glomerular Filtration Rate 107 ml/min/1.73sqm [facility] MAIN Comment on above: Result Comment: Stages of Chronic Kidney Disease (CKD) Stage Description eGFR(ml/min/1.73 sq.m.) CKD 1 Normal kidney function or >=90 normal kindney function with possible kidney damage (ex. Proteinuria) CKD 2 Kidney damage with mild loss 60-89 of kidney function CKD 3a Mild to moderate loss of kidney 45-59 function CKD 3b Moderate to severe loss of 30-44 of kindey function CKD 4 Severe loss of kidney function 15-29 CKD 5 Kidney failure <15 Note: (go live 2024) the eGFR calculation was updated to the 2020 CKD-EPI creatinine equation without a race factor to calculate the eGFR results. Performed By: #### A TERESA, ADIFF, PHOS, MORPH, CAION, GFR, CBC, MG, CMP ####[address] [address] .Morphon 12-16-2024 Anisocytosis Ql (Bld) 2+ Normal [facility] MA[facility] Comment on above: Performed By: #### A TERESA, ADIFF, PHOS, MORPH, CAION, GFR, CBC, MG, CMP ####[place] [address] Microcytosis 1+ Normal [facility] Comment on above: Performed By: #### A TERESA, ADIFF, PHOS, MORPH, CAION, GFR, CBC, MG, CMP ####[place] [address] Platelet Estimate Normal Normal [facility] Comment on above: Performed By: #### A TERESA, ADIFF, PHOS, MORPH, CAION, GFR, CBC, MG, CMP ####[place] [address] .NEUABSon 12-16-2024 Neutrophil, Absolute 4.2 10 3/mcL Normal 2.3-8.1 [facility] Comment on above: Performed By: #### A TERESA, ADIFF, PHOS, MORPH, CAION, GFR, CBC, MG, CMP ####[place] [address] CAIONon 12-16-2024 Calcium Ionized 1.28 mmol/L Normal 1.12-1.32 [facility] Comment on above: Performed By: #### A TERESA, ADIFF, PHOS, MORPH, CAION, GFR, CBC, MG, CMP ####[place] [address] CBCon 12-16-2024 Erythrocyte distribution width (RBC) [Ratio] 25.5 % High 11.5-15.5 [facility] Comment on above: Performed By: #### A TERESA, ADIFF, PHOS, MORPH, CAION, GFR, CBC, MG, CMP ####[place] [address] Hematocrit (Bld) [Volume fraction] 36.8 % Normal 34.0-46.0 [facility] Comment on above: Performed By: #### A TERESA, ADIFF, PHOS, MORPH, CAION, GFR, CBC, MG, CMP ####[place] [address] Hgb 12.5 G/dL Normal 12.0-16.0 [facility] Comment on above: Performed By: #### A TERESA, ADIFF, PHOS, MORPH, CAION, GFR, CBC, MG, CMP ####[place] [address] MCH (RBC) [Entitic mass] 26.7 pg Low 27.0-33.0 [facility] Comment on above: Performed By: #### A TERESA, ADIFF, PHOS, MORPH, CAION, GFR, CBC, MG, CMP ####[place] [address] MCHC 33.9 G/dL Normal 32.0-36.0 [facility] Comment on above: Performed By: #### A TERESA, ADIFF, PHOS, MORPH, CAION, GFR, CBC, MG, CMP ####[place] [address] MCV (RBC) [Entitic vol] 78.8 fL Low 80.0-99.0 [facility] Comment on above: Performed By: #### A TERESA, ADIFF, PHOS, MORPH, CAION, GFR, CBC, MG, CMP ####[place] [address] Platelet 196 10 3/mcL Normal 150-450 [facility] Comment on above: Performed By: #### A TERESA, ADIFF, PHOS, MORPH, CAION, GFR, CBC, MG, CMP ####[place] [address] Platelet mean volume (Bld) [Entitic vol] 7.6 fL Normal 6.6-10.5 [facility] Comment on above: Performed By: #### A TERESA, ADIFF, PHOS, MORPH, CAION, GFR, CBC, MG, CMP ####[place] [address] RBC 4.67 10 6/mcL Normal 4.10-5.30 [facility] Comment on above: Performed By: #### A TERESA, ADIFF, PHOS, MORPH, CAION, GFR, CBC, MG, CMP ####[place] [id number] WBC 6.0 10 3/mcL Normal 4.5-10.8 [facility] Comment on above: Performed By: #### A TERESA, ADIFF, PHOS, MORPH, CAION, GFR, CBC, MG, CMP ####[place] [id number] CMPon 12-16-2024 Albumin Level 3.3 G/dL Normal 3.2-4.8 [facility] Comment on above: Performed By: #### A TERESA, ADIFF, PHOS, MORPH, CAION, GFR, CBC, MG, CMP ####[place] [address] Albumin/Globulin [Mass ratio] 1.3 {ratio} Normal 0.9-1.6 [facility] Comment on above: Performed By: #### A TERESA, ADIFF, PHOS, MORPH, CAION, GFR, CBC, MG, CMP ####[place] [address] ALP [Catalytic activity/Vol] 47 U/L Normal 38-126 [facility] Comment on above: Performed By: #### A TERESA, ADIFF, PHOS, MORPH, CAION, GFR, CBC, MG, CMP ####[place] [address] ALT [Catalytic activity/Vol] 9 U/L Low 10-49 [facility] Comment on above: Performed By: #### A TERESA, ADIFF, PHOS, MORPH, CAION, GFR, CBC, MG, CMP ####[place] [id number] AST [Catalytic activity/Vol] 13 U/L Normal 8-34 [facility] Comment on above: Performed By: #### A TERESA, ADIFF, PHOS, MORPH, CAION, GFR, CBC, MG, CMP ####[place] [address] Bili Total 0.50 mg/dL Normal 0.20-1.20 [facility] Comment on above: Result Comment: Use of this assay is not recommended for patients undergoing treatment with eltrombopag due to the potential for falsely elevated results. Performed By: #### A TERESA, ADIFF, PHOS, MORPH, CAION, GFR, CBC, MG, CMP ####[place] [id number] Calcium [Mass/Vol] 9.9 mg/dL Normal 8.7-10.4 [facility] Comment on above: Performed By: #### A TERESA, ADIFF, PHOS, MORPH, CAION, GFR, CBC, MG, CMP ####[place] [id number] Chloride [Moles/Vol] 99 mmol/L Normal 98-110 [facility] MA[facility] Comment on above: Performed By: #### A TERESA, ADIFF, PHOS, MORPH, CAION, GFR, CBC, MG, CMP ####[place] [id number] CO2 [Moles/Vol] 26 mmol/L Normal 22-32 [facility] Comment on above: Performed By: #### A TERESA, ADIFF, PHOS, MORPH, CAION, GFR, CBC, MG, CMP ####[place] [address] Creatinine [Mass/Vol] 0.41 mg/dL Low 0.50-1.20 [facility] Comment on above: Result Comment: Test ing performed on [employer] analyzer using enzymatic creatinine methodology. Performed By: #### A TERESA, ADIFF, PHOS, MORPH, CAION, GFR, CBC, MG, CMP ####[place] [address] Electrolyte Balance 10.0 mEq/L Normal 4.0-15.0 [facility] Comment on above: Performed By: #### A TERESA, ADIFF, PHOS, MORPH, CAION, GFR, CBC, MG, CMP ####[place] [address] Globulin 2.6 G/dL Normal 2.5-4.2 [facility] Comment on above: Performed By: #### A TERESA, ADIFF, PHOS, MORPH, CAION, GFR, CBC, MG, CMP ####[place] [address] Glucose [Mass/Vol] 100 mg/dL Normal 82-115 [facility] Comment on above: Performed By: #### A TERESA, ADIFF, PHOS, MORPH, CAION, GFR, CBC, MG, CMP ####[address] [address] Potassium [Moles/Vol] 3.5 mmol/L Normal 3.5-5.0 [facility] Comment on above: Performed By: #### A TERESA, ADIFF, PHOS, MORPH, CAION, GFR, CBC, MG, CMP ####[place] [address] Sodium [Moles/Vol] 135 mmol/L Low 136-145 [facility] Comment on above: Performed By: #### A TERESA, ADIFF, PHOS, MORPH, CAION, GFR, CBC, MG, CMP ####[place] [address] Total Protein 5.9 G/dL Normal 5.7-8.2 [facility] Comment on above: Performed By: #### A TERESA, ADIFF, PHOS, MORPH, CAION, GFR, CBC, MG, CMP ####[address] [address] Urea nitrogen [Mass/Vol] mg/dL Low 8.0-22.0 [facility] Comment on above: Performed By: #### A TERESA, ADIFF, PHOS, MORPH, CAION, GFR, CBC, MG, CMP ####[address] [address] Urea nitrogen/Creatinine [Mass ratio] mg/mg Normal 10.0-22.0 [facility] Comment on above: Performed By: #### A TERESA, ADIFF, PHOS, MORPH, CAION, GFR, CBC, MG, CMP ####[place] [address] CT ABDOMEN/PELVIS W/ORAL CON TRAST ONLYon 12-16-2024 CT ABDOMEN/PELVIS W/ORAL CONTRAST ONLY ORIGINAL EXAMINATION: CT OF THE ABDOMEN AND PELVIS WITHOUT CONTRAST 12/15/2024 9:27 pm TECHNIQUE: CT of the abdomen and pelvis was performed without the administration of intravenous contrast. Multiplanar reformatted images are provided for review. Automated exposure control, iterative reconstruction, and/or weight based adjustment of the mA/kV was utilized to reduce the radiation dose to as low as reasonably achievable. COMPARISON: 12/13/2024. HISTORY: ORDERING SYSTEM PROVIDED HISTORY: Reason for Exam: r/o bowel obstruction, complains of abd pain, n/v Bowel obstruction suspected FINDINGS: Mild atelectatic changes, right lung base. Trace right pleural effusion. Tiny nonobstructive right renal calculus Cholelithiasis. No bowel dilatation or bowel wall edema. Normal appendix. Scattered diverticulosis. Focal soft tissue swelling, left lower ventral abdominal wall, likely related to injection. IMPRESSION: No evidence of bowel obstruction. No acute findings. Improved pleural effusions, trace fluid remaining on the right Interpreted by: Frantz Ramirez Preliminary Report By: Frantz Ramirez Electronically signed By Frantz Ramirez Dictated Date: 12/16/2024 7:40:49 AM Prelim Date: 12/16/2024 7:47:00 AM Sign Date: 12/16/2024 7:47:00 AM Ordering Provider: TIAGO MOORE [facility] MAIN LABORATORYOrdered By: SYSTEM SYSTEM on 12-16-2024 Albumin BCP dye [Mass/Vol] 3.3 G/dL Normal 3.2 - 4.8 G/dL ADM SS Albumin/Globulin [Mass ratio] 1.3 {ratio} Normal 0.9 - 1.6 ratio ADM SS ALP [Catalytic activity/Vol] 47 U/L Normal 38 - 126 U/L ADM SS ALT No additional P-5'-P [Catalytic activity/Vol] 9 U/L Low 10 - 49 U/L ADM SS Anisocytosis Ql (Bld) 2+ *NA* (12/16/24 5:16 AM) Invalid Interpretation Code Workflow SS AST [Catalytic activity/Vol] 13 U/L Normal 8 - 34 U/L AH ADM SS Basophils (Bld) [#/Vol] 0.0 103/mcL Normal 0.0 - 0.3 10^3/mcL AH Workflow SS Basophils/100 WBC (Bld) 0.6 % Normal 0.0 - 2.5 % AH Workflow SS Bilirubin [Mass/Vol] 0.50 mg/dL Normal 0.20 - 1.20 mg/dL ADM SS Comment on above: Interpretive Data: U se of this assay is not recommended for patients undergoing treatment with eltrombopag due to the potential for falsely elevated results. Calcium [Mass/Vol] 9.9 mg/dL Normal 8.7 - 10. 4 mg/dL ADM SS Chloride [Moles/Vol] 99 mmol/L Normal 98 - 11 0 mEq/L ADM SS CO2 [Moles/Vol] 26 mmol/L Normal 22 - 32 mEq/L ADM SS Creatinine [Mass/Vol] 0.41 mg/dL Low 0.50 - 1.20 mg/dL ADM SS Comment on above: Interpretive Data: T esting performed on [employer] analyzer using enzymatic creatinine methodology. Electrolyte Balance 10.0 mEq/L Normal 4.0 - 15 .0 mEq/L ADM SS Eosinophils (Bld) [#/Vol] 0.1 103/mcL Normal 0.0 - 0.7 10^3/mcL Workflow SS Eosinophils/100 WBC (Bld) 1.6 % Normal 0.0 - 6.0 % Workflow SS Erythrocyte distribution width (RBC) [Ratio] 25.5 % High 11.5 - 15.5 % Workflow SS Estimated Glomerular Filtration Rate 107 ml/min/1.73sqm Invalid Interpretation Code Chemistry S Comment on above: Interpretive Data: Stages of Chronic Kidney Disease (CKD) Stage Description eGFR(ml/min/1.73 sq.m.) CKD 1 Normal kidney function or >=90 normal kindney function with possible kidney damage (ex. Proteinuria) CKD 2 Kidney damage with mild loss 60-89 of kidney function CKD 3a Mild to moderate loss of kidney 45-59 function CKD 3b Moderate to severe loss of 30-44 of kindey function CKD 4 Severe loss of kidney function 15-29 CKD 5 Kidney failure <15 Note: (go live 2024) the eGFR calculation was updated to the 2020 CKD-EPI creatinine equation without a race factor to calculate the eGFR results. Globulin 2.6 G/dL Normal 2.5 - 4.2 G/dL ADM SS Glucose [Mass/Vol] 100 mg/dL Normal 82 - 115 mg/dL ADM SS Hematocrit (Bld) [Volume fraction] 36.8 % Normal 34.0 - 46.0 % Workflow SS Hemoglobin (Bld) [Mass/Vol] 12.5 G/dL Normal 12.0 - 16.0 G/dL AH Workflow SS Lymphocytes (Bld) [#/Vol] 0.9 103/mcL Normal 0.9 - 4.3 10^3/mcL AH Workflow SS Lymphocytes/100 WBC (Bld) 14.8 % Low 20.0 - 40.0 % AH Workflow SS Magnesium [Mass/Vol] 2.3 mg/dL Normal 1.6 - 2 .4 mg/dL AH ADM SS MCH (RBC) [Entitic mass] 26.7 pg Low 27.0 - 33.0 pg AH Workflow SS MCHC 33.9 G/dL Normal 32.0 - 36.0 G/dL AH Workflow SS MCV (RBC) [Entitic vol] 78.8 fL Low 80.0 - 99.0 fL AH Workflow SS Microcytes Ql (Bld) 1+ *NA* (12/16/24 5:16 AM) Invalid Interpretation Code Workflow SS Monocytes (Bld) [#/Vol] 0.8 103/mcL Normal 0.1 - 1.4 10^3/mcL AH Workflow SS Monocytes/100 WBC (Bld) 12.7 % Normal 2.0 - 13.0 % AH Workflow SS Neutrophils (Bld) [#/Vol] 4.2 103/mcL Normal 2.3 - 8.1 10^3/mcL AH Workflow SS Neutrophils/100 WBC (Bld) 70.3 % Normal 50.0 - 75.0 % AH Workflow SS Phosphate [Mass/Vol] 2.4 mg/dL Normal 2.4 - 5 .1 mg/dL ADM SS Platelet mean volume (Bld) [Entitic vol] 7.6 fL Normal 6.6 - 10.5 fL AH Workflow SS Platelets (Bld) [#/Vol] 196 103/mcL Normal 150 - 450 10^3/mcL AH Workflow SS Platelets LM Ql (Bld) Normal *NA* (12/16/24 5:16 AM) Invalid Interpretation Code Workflow SS Potassium [Moles/Vol] 3.5 mmol/L Normal 3.5 - 5.0 mEq/L ADM SS Protein [Mass/Vol] 5.9 G/dL Normal 5.7 - 8.2 G/dL ADM SS RBC (Bld) [#/Vol] 4.67 106/mcL Normal 4.10 - 5.3 0 10^6/mcL AH Workflow SS Sodium [Moles/Vol] 135 mmol/L Low 136 - 145 mEq/L AH ADM SS Urea nitrogen [Mass/Vol] mg/dL Low 8.0 - 22.0 mg/dL AH ADM SS Urea nitrogen/Creatinine [Mass ratio] ratio Normal 10.0 - 22.0 ratio AH ADM SS WBC (Bld) [#/Vol] 6.0 103/mcL Normal 4.5 - 10.8 10^3/mcL AH Workflow SS LABORATORYOrdered By: Kitty Constantino on 12-16-2024 Calcium Ionized 1.28 mmol/L Normal 1.12 - 1.32 mmol/L Main Rapid Comm SS MGon 12-16-2024 Magnesium [Mass/Vol] 2.3 mg/dL Normal 1.6-2.4 [facility] Comment on above: Performed By: #### A TERESA, ADIFF, PHOS, MORPH, CAION, GFR, CBC, MG, CMP ####[place] [address] PHOSon 12-16-2024 Phosphate [Mass/Vol] 2.4 mg/dL Normal 2.4-5.1 [facility] Comment on above: Performed By: #### A TERESA, ADIFF, PHOS, MORPH, CAION, GFR, CBC, MG, CMP ####[place] [address] US ABDOMEN COMPLETEon 2024 US ABDOMEN COMPLETE ORIGINAL EXAMINATION: COMPLETE ABDOMINAL ULTRASOUND 12/15/2024 4:55 pm COMPARISON: None. HISTORY: ORDERING SYSTEM PROVIDED HISTORY: Reason for Exam: intractable nausea vomiting FINDINGS: LIVER: The liver demonstrates normal echogenicity without evidence of intrahepatic biliary ductal dilatation. BILIARY SYSTEM: Gallbladder appropriately distended containing shadowing stones. There is no sludge or pericholecystic edema. Negative sonographic Leija's sign. Common bile duct is within normal limits measuring 2.9 mm. KIDNEYS: The kidneys are unremarkable in appearance without evidence of hydronephrosis. Right and left kidneys measure 10.6 x 5.7 x 4.5 cm, and 10.7 x 5.1 x 5.0 cm respectively. PANCREAS: Visualized portions of the pancreas are unremarkable. SPLEEN: The spleen is unremarkable in appearance. Spleen is within normal limits in size. IVC: The IVC is patent. AORTA: Aorta is patent without aneurysm. OTHER: No evidence of ascites. IMPRESSION: Cholelithiasis without evidence for acute cholecystitis. Interpreted by: Yo Torres DO Preliminary Report By: Yo Torres DO Electronically signed By Yo Torres DO Dictated Date: 12/16/2024 8:57:58 AM Prelim Date: 12/16/2024 9:10:04 AM Sign Date: 12/16/2024 9:10:04 AM Ordering Provider: TIAGO Salinas [facility] .Auto Diffon 12-15-2024 Basophil, Absolute 0.0 10 3/mcL Normal 0.0-0.3 [facility] MAIN Comment on above: Performed By: #### M ORPH, OSMOS, ALC, MG, FT4, CBC, LIPID, LAC, ADIFF, ANEU, TSHR, CMP, GFR #### [address] [address] Basophils/100 WBC (Bld) 0.6 % Normal 0.0-2.5 [facility] MAIN Comment on above: Performed By: #### M ORPH, OSMOS, ALC, MG, FT4, CBC, LIPID, LAC, ADIFF, ANEU, TSHR, CMP, GFR #### [address] [address] Eosinophil, Absolute 0.1 10 3/mcL Normal 0.0-0.7 [facility] MAIN Comment on above: Performed By: #### M ORPH, OSMOS, ALC, MG, FT4, CBC, LIPID, LAC, ADIFF, ANEU, TSHR, CMP, GFR #### [address] [address] Eosinophils/100 WBC (Bld) 2.0 % Normal 0.0-6.0 [facility] Comment on above: Performed By: #### M ORPH, OSMOS, ALC, MG, FT4, CBC, LIPID, LAC, ADIFF, ANEU, TSHR, CMP, GFR #### [address] [address] Lymphocyte, Absolute 1.0 10 3/mcL Normal 0.9-4.3 [facility] Comment on above: Performed By: #### M ORPH, OSMOS, ALC, MG, FT4, CBC, LIPID, LAC, ADIFF, ANEU, TSHR, CMP, GFR #### [address] [address] Lymphocytes/100 WBC (Bld) 13.5 % Low 20.0-40.0 [facility] Comment on above: Performed By: #### M ORPH, OSMOS, ALC, MG, FT4, CBC, LIPID, LAC, ADIFF, ANEU, TSHR, CMP, GFR #### [address] [address] Monocyte, Absolute 1.0 10 3/mcL Normal 0.1-1.4 [facility] MAIN Comment on above: Performed By: #### M ORPH, OSMOS, ALC, MG, FT4, CBC, LIPID, LAC, ADIFF, ANEU, TSHR, CMP, GFR #### [address] [address] Monocytes/100 WBC (Bld) 13.4 % High 2.0-13.0 [facility] Comment on above: Performed By: #### M ORPH, OSMOS, ALC, MG, FT4, CBC, LIPID, LAC, ADIFF, ANEU, TSHR, CMP, GFR #### [address] [address] Neutrophils/100 WBC (Bld) 70.5 % Normal 50.0-75.0 [facility] Comment on above: Performed By: #### M ORPH, OSMOS, ALC, MG, FT4, CBC, LIPID, LAC, ADIFF, ANEU, TSHR, CMP, GFR #### [address] [address] .GFRon 12-15-2024 Estimated Glomerular Filtration Rate 105 ml/min/1.73sqm [facility] MAIN Comment on above: Result Comment: Stages of Chronic Kidney Disease (CKD) Stage Description eGFR(ml/min/1.73 sq.m.) CKD 1 Normal kidney function or >=90 normal kindney function with possible kidney damage (ex. Proteinuria) CKD 2 Kidney damage with mild loss 60-89 of kidney function CKD 3a Mild to moderate loss of kidney 45-59 function CKD 3b Moderate to severe loss of 30-44 of kindey function CKD 4 Severe loss of kidney function 15-29 CKD 5 Kidney failure <15 Note: ( live 08/08/2024) the eGFR calculation was updated to the 2020 CKD-EPI creatinine equation without a race factor to calculate the eGFR results. Performed By: #### M ORPH, OSMOS, ALC, MG, FT4, CBC, LIPID, LAC, ADIFF, ANEU, TSHR, CMP, GFR #### [place] [address] Estimated Glomerular Filtration Rate 107 ml/min/1.73sqm [facility] MAIN Comment on above: Result Comment: Stages of Chronic Kidney Disease (CKD) Stage Description eGFR(ml/min/1.73 sq.m.) CKD 1 Normal kidney function or >=90 normal kindney function with possible kidney damage (ex. Proteinuria) CKD 2 Kidney damage with mild loss 60-89 of kidney function CKD 3a Mild to moderate loss of kidney 45-59 function CKD 3b Moderate to severe loss of 30-44 of kindey function CKD 4 Severe loss of kidney function 15-29 CKD 5 Kidney failure <15 Note: ( live 08/08/2024) the eGFR calculation was updated to the 2020 CKD-EPI creatinine equation without a race factor to calculate the eGFR results. Performed By: #### M ORPH, OSMOS, ALC, MG, FT4, CBC, LIPID, LAC, ADIFF, ANEU, TSHR, CMP, GFR #### [address] [address] .Morphon 12-15-2024 Anisocytosis Ql (Bld) 2+ Normal [facility] MAIN Comment on above: Performed By: #### M ORPH, OSMOS, ALC, MG, FT4, CBC, LIPID, LAC, ADIFF, ANEU, TSHR, CMP, GFR #### [address] [address] Microcytosis 1+ Normal [facility] Comment on above: Performed By: #### M ORPH, OSMOS, ALC, MG, FT4, CBC, LIPID, LAC, ADIFF, ANEU, TSHR, CMP, GFR #### [address] [address] Platelet Estimate Normal Normal [facility] Comment on above: Performed By: #### M ORPH, OSMOS, ALC, MG, FT4, CBC, LIPID, LAC, ADIFF, ANEU, TSHR, CMP, GFR #### [address] [address] .NEUABSon 12-15-2024 Neutrophil, Absolute 5.1 10 3/mcL Normal 2.3-8.1 [facility] MAIN Comment on above: Performed By: #### M ORPH, OSMOS, ALC, MG, FT4, CBC, LIPID, LAC, ADIFF, ANEU, TSHR, CMP, GFR #### [address] [address] BMPon 12-15-2024 Calcium [Mass/Vol] 10.0 mg/dL Normal 8.7-10.4 [facility] MAIN Comment on above: Order Comment: Call Nephrology (Dr. Duckworth) at [phone] if Na < 123 or > 130. Performed By: #### B MP, GFR ####[place] [address] Chloride [Moles/Vol] 89 mmol/L Low 98-110 [facility] MAIN Comment on above: Order Comment: Call Nephrology (Dr. Duckworth) at [phone] if Na < 123 or > 130. Performed By: #### B MP, GFR ####[place] [id number] CO2 [Moles/Vol] 27 mmol/L Normal 22-32 [facility] Comment on above: Order Comment: Call Nephrology (Dr. Duckworth) at [phone] if Na < 123 or > 130. Performed By: #### B MP, GFR ####[place] [id number] Creatinine [Mass/Vol] 0.45 mg/dL Low 0.50-1.20 [facility] MAIN Comment on above: Order Comment: Call Nephrology (Dr. Duckworth) at [phone] if Na < 123 or > 130. Result Comment: Test ing performed on [employer] analyzer using enzymatic creatinine methodology. Performed By: #### B MP, GFR ####[place] [address] Electrolyte Balance 9.0 mEq/L Normal 4.0-15.0 [facility] MAIN Comment on above: Order Comment: Call Nephrology (Dr. Duckworth) at [phone] if Na < 123 or > 130. Performed By: #### B MP, GFR ####[place] [address] Glucose [Mass/Vol] 108 mg/dL Normal 82-115 [facility] MAIN Comment on above: Order Comment: Call Nephrology (Dr. Duckworth) at [phone] if Na < 123 or > 130. Performed By: #### B MP, GFR ####[place] [address] Potassium [Moles/Vol] 4.1 mmol/L Normal 3.5-5.0 [facility] Comment on above: Order Comment: Call Nephrology (Dr. Duckworth) at [phone] if Na < 123 or > 130. Performed By: #### B MP, GFR ####[place] [address] Sodium [Moles/Vol] 125 mmol/L Low 136-145 [facility] MA[facility] Comment on above: Order Comment: Call Nephrology (Dr. Duckworth) at [phone] if Na < 123 or > 130. Performed By: #### B MP, GFR ####[place] [address] Urea nitrogen [Mass/Vol] mg/dL Low 8.0-22.0 [facility] Comment on above: Order Comment: Call Nephrology (Dr. Duckworth) at [phone] if Na < 123 or > 130. Performed By: #### B MP, GFR ####[place] [address] BUN/Creatinine Ratio see comment Normal 10.0-22.0 [facility] MAIN Comment on above: Order Comment: Call Nephrology (Dr. Duckworth) at [phone] if Na < 123 or > 130. Result Comment: Unab le to calculate this test result accurately. Results used to calculate this test are outside the reportable range. Performed By: #### B MP, GFR ####[place] [address] BUN/Creatinine Ratio Unable to Calculate Normal 10.0-2 2.0 [facility] Comment on above: Result Comment: Unab le to calculate this test result accurately. Results used to calculate this test are outside the reportable range. Performed By: #### M ORPH, OSMOS, ALC, MG, FT4, CBC, LIPID, LAC, ADIFF, ANEU, TSHR, CMP, GFR #### [address] [address] Urea nitrogen [Mass/Vol] mg/dL Low 8.0-22.0 [facility] Comment on above: Performed By: #### M ORPH, OSMOS, ALC, MG, FT4, CBC, LIPID, LAC, ADIFF, ANEU, TSHR, CMP, GFR #### [place] [id number] Calcium [Mass/Vol] 8.7 mg/dL Normal 8.7-10.4 [facility] MAIN Comment on above: Performed By: #### M ORPH, OSMOS, ALC, MG, FT4, CBC, LIPID, LAC, ADIFF, ANEU, TSHR, CMP, GFR #### [address] [address] Chloride [Moles/Vol] 91 mmol/L Low 98-110 [facility] MAIN Comment on above: Performed By: #### M ORPH, OSMOS, ALC, MG, FT4, CBC, LIPID, LAC, ADIFF, ANEU, TSHR, CMP, GFR #### [address] [address] CO2 [Moles/Vol] 28 mmol/L Normal 22-32 [facility] Comment on above: Performed By: #### M ORPH, OSMOS, ALC, MG, FT4, CBC, LIPID, LAC, ADIFF, ANEU, TSHR, CMP, GFR #### [address] [address] Creatinine [Mass/Vol] 0.41 mg/dL Low 0.50-1.20 [facility] MAIN Comment on above: Result Comment: Test ing performed on [employer] analyzer using enzymatic creatinine methodology. Performed By: #### M ORPH, OSMOS, ALC, MG, FT4, CBC, LIPID, LAC, ADIFF, ANEU, TSHR, CMP, GFR #### [place] [address] Electrolyte Balance 4.0 mEq/L Normal 4.0-15.0 [facility] MAIN Comment on above: Performed By: #### M ORPH, OSMOS, ALC, MG, FT4, CBC, LIPID, LAC, ADIFF, ANEU, TSHR, CMP, GFR #### [place] [address] Glucose [Mass/Vol] 112 mg/dL Normal 82-115 [facility] Comment on above: Performed By: #### M ORPH, OSMOS, ALC, MG, FT4, CBC, LIPID, LAC, ADIFF, ANEU, TSHR, CMP, GFR #### [place] [address] Potassium [Moles/Vol] 3.7 mmol/L Normal 3.5-5.0 [facility] MAIN Comment on above: Performed By: #### M ORPH, OSMOS, ALC, MG, FT4, CBC, LIPID, LAC, ADIFF, ANEU, TSHR, CMP, GFR #### [place] [id number] Sodium [Moles/Vol] 123 mmol/L Low 136-145 [facility] MA[facility] Comment on above: Performed By: #### M ORPH, OSMOS, ALC, MG, FT4, CBC, LIPID, LAC, ADIFF, ANEU, TSHR, CMP, GFR #### [place] [id number] CBCon 12-15-2024 Erythrocyte distribution width (RBC) [Ratio] 25.3 % High 11.5-15.5 [facility] Comment on above: Performed By: #### M ORPH, OSMOS, ALC, MG, FT4, CBC, LIPID, LAC, ADIFF, ANEU, TSHR, CMP, GFR #### [place] [id number] Hematocrit (Bld) [Volume fraction] 34.8 % Normal 34.0-46.0 [facility] Comment on above: Performed By: #### M ORPH, OSMOS, ALC, MG, FT4, CBC, LIPID, LAC, ADIFF, ANEU, TSHR, CMP, GFR #### [place] [id number] Hgb 12.0 G/dL Normal 12.0-16.0 [facility] Comment on above: Performed By: #### M ORPH, OSMOS, ALC, MG, FT4, CBC, LIPID, LAC, ADIFF, ANEU, TSHR, CMP, GFR #### [place] [id number] MCH (RBC) [Entitic mass] 26.8 pg Low 27.0-33.0 [facility] Comment on above: Performed By: #### M ORPH, OSMOS, ALC, MG, FT4, CBC, LIPID, LAC, ADIFF, ANEU, TSHR, CMP, GFR #### [place] [id number] MCHC 34.4 G/dL Normal 32.0-36.0 [facility] Comment on above: Performed By: #### M ORPH, OSMOS, ALC, MG, FT4, CBC, LIPID, LAC, ADIFF, ANEU, TSHR, CMP, GFR #### [place] [id number] MCV (RBC) [Entitic vol] 78.1 fL Low 80.0-99.0 [facility] MAIN Comment on above: Performed By: #### M ORPH, OSMOS, ALC, MG, FT4, CBC, LIPID, LAC, ADIFF, ANEU, TSHR, CMP, GFR #### [place] [id number] Platelet 170 10 3/mcL Normal 150-450 [facility] Comment on above: Performed By: #### M ORPH, OSMOS, ALC, MG, FT4, CBC, LIPID, LAC, ADIFF, ANEU, TSHR, CMP, GFR #### [address] [address] Platelet mean volume (Bld) [Entitic vol] 8.2 fL Normal 6.6-10.5 [facility] Comment on above: Performed By: #### M ORPH, OSMOS, ALC, MG, FT4, CBC, LIPID, LAC, ADIFF, ANEU, TSHR, CMP, GFR #### [place] [id number] [address] [place] [address] RBC 4.45 10 6/mcL Normal 4.10-5.30 [facility] Comment on above: Performed By: #### M ORPH, OSMOS, ALC, MG, FT4, CBC, LIPID, LAC, ADIFF, ANEU, TSHR, CMP, GFR #### [place] [address] WBC 7.3 10 3/mcL Normal 4.5-10.8 [facility] Comment on above: Performed By: #### M ORPH, OSMOS, ALC, MG, FT4, CBC, LIPID, LAC, ADIFF, ANEU, TSHR, CMP, GFR #### [place] [address] LABORATORYOrdered By: SYSTEM SYSTEM on 12-15-2024 Calcium [Mass/Vol] 10.0 mg/dL Normal 8.7 - 10. 4 mg/dL ADM SS Chloride [Moles/Vol] 89 mmol/L Low 98 - 11 0 mEq/L ADM SS CO2 [Moles/Vol] 27 mmol/L Normal 22 - 32 mEq/L ADM SS Creatinine [Mass/Vol] 0.45 mg/dL Low 0.50 - 1.20 mg/dL ADM SS Comment on above: Interpretive Data: T esting performed on [employer] analyzer using enzymatic creatinine methodology. Electrolyte Balance 9.0 mEq/L Normal 4.0 - 15 .0 mEq/L ADM SS Estimated Glomerular Filtration Rate 105 ml/min/1.73sqm Invalid Interpretation Code Chemistry S Comment on above: Interpretive Data: Stages of Chronic Kidney Disease (CKD) Stage Description eGFR(ml/min/1.73 sq.m.) CKD 1 Normal kidney function or >=90 normal kindney function with possible kidney damage (ex. Proteinuria) CKD 2 Kidney damage with mild loss 60-89 of kidney function CKD 3a Mild to moderate loss of kidney 45-59 function CKD 3b Moderate to severe loss of 30-44 of kindey function CKD 4 Severe loss of kidney function 15-29 CKD 5 Kidney failure <15 Note: (go live 2024) the eGFR calculation was updated to the 2020 CKD-EPI creatinine equation without a race factor to calculate the eGFR results. Glucose [Mass/Vol] 108 mg/dL Normal 82 - 115 mg/dL AH ADM SS Potassium [Moles/Vol] 4.1 mmol/L Normal 3.5 - 5.0 mEq/L AH ADM SS Sodium [Moles/Vol] 125 mmol/L Low 136 - 145 mEq/L AH ADM SS Urea nitrogen [Mass/Vol] mg/dL Low 8.0 - 22.0 mg/dL AH ADM SS Anisocytosis Ql (Bld) 2+ *NA* (12/15/24 6:51 AM) Invalid Interpretation Code AH Workflow SS Basophils (Bld) [#/Vol] 0.0 103/mcL Normal 0.0 - 0.3 10^3/mcL AH Workflow SS Basophils/100 WBC (Bld) 0.6 % Normal 0.0 - 2.5 % AH Workflow SS Calcium [Mass/Vol] 8.7 mg/dL Normal 8.7 - 10. 4 mg/dL AH ADM SS Chloride [Moles/Vol] 91 mmol/L Low 98 - 11 0 mEq/L AH ADM SS CO2 [Moles/Vol] 28 mmol/L Normal 22 - 32 mEq/L AH ADM SS Creatinine [Mass/Vol] 0.41 mg/dL Low 0.50 - 1.20 mg/dL AH ADM SS Comment on above: Interpretive Data: T esting performed on [employer] CH analyzer using enzymatic creatinine methodology. Electrolyte Balance 4.0 mEq/L Normal 4.0 - 15 .0 mEq/L AH ADM SS Eosinophils (Bld) [#/Vol] 0.1 103/mcL Normal 0.0 - 0.7 10^3/mcL AH Workflow SS Eosinophils/100 WBC (Bld) 2.0 % Normal 0.0 - 6.0 % Workflow SS Erythrocyte distribution width (RBC) [Ratio] 25.3 % High 11.5 - 15.5 % AH Workflow SS Estimated Glomerular Filtration Rate 107 ml/min/1.73sqm Invalid Interpretation Code [facility] SS Comment on above: Interpretive Data: Stages of Chronic Kidney Disease (CKD) Stage Description eGFR(ml/min/1.73 sq.m.) CKD 1 Normal kidney function or >=90 normal kindney function with possible kidney damage (ex. Proteinuria) CKD 2 Kidney damage with mild loss 60-89 of kidney function CKD 3a Mild to moderate loss of kidney 45-59 function CKD 3b Moderate to severe loss of 30-44 of kindey function CKD 4 Severe loss of kidney function 15-29 CKD 5 Kidney failure <15 Note: (go live 2024) the eGFR calculation was updated to the 2020 CKD-EPI creatinine equation without a race factor to calculate the eGFR results. Glucose [Mass/Vol] 112 mg/dL Normal 82 - 115 mg/dL [facility] SS Hematocrit (Bld) [Volume fraction] 34.8 % Normal 34.0 - 46.0 % Workflow SS Hemoglobin (Bld) [Mass/Vol] 12.0 G/dL Normal 12.0 - 16.0 G/dL Workflow SS Lipase [Catalytic activity/Vol] 17 U/L Normal 12 - 53 U/L [facility] SS Lymphocytes (Bld) [#/Vol] 1.0 103/mcL Normal 0.9 - 4.3 10^3/mcL Workflow SS Lymphocytes/100 WBC (Bld) 13.5 % Low 20.0 - 40.0 % Workflow SS Magnesium [Mass/Vol] 1.8 mg/dL Normal 1.6 - 2 .4 mg/dL [facility] SS MCH (RBC) [Entitic mass] 26.8 pg Low 27.0 - 33.0 pg Workflow SS MCHC 34.4 G/dL Normal 32.0 - 36.0 G/dL Workflow SS MCV (RBC) [Entitic vol] 78.1 fL Low 80.0 - 99.0 fL Workflow SS Microcytes Ql (Bld) 1+ *NA* (12/15/24 6:51 AM) Invalid Interpretation Code Workflow SS Monocytes (Bld) [#/Vol] 1.0 103/mcL Normal 0.1 - 1.4 10^3/mcL Workflow SS Monocytes/100 WBC (Bld) 13.4 % High 2.0 - 13.0 % Workflow SS Neutrophils (Bld) [#/Vol] 5.1 103/mcL Normal 2.3 - 8.1 10^3/mcL Workflow SS Neutrophils/100 WBC (Bld) 70.5 % Normal 50.0 - 75.0 % Workflow SS Platelet mean volume (Bld) [Entitic vol] 8.2 fL Normal 6.6 - 10.5 fL AH Workflow SS Platelets (Bld) [#/Vol] 170 103/mcL Normal 150 - 450 10^3/mcL Workflow SS Platelets LM Ql (Bld) Normal *NA* (12/15/24 6:51 AM) Invalid Interpretation Code Workflow SS Potassium [Moles/Vol] 3.7 mmol/L Normal 3.5 - 5.0 mEq/L ADM SS RBC (Bld) [#/Vol] 4.45 106/mcL Normal 4.10 - 5.3 0 10^6/mcL Workflow SS Sodium [Moles/Vol] 123 mmol/L Low 136 - 145 mEq/L ADM SS WBC (Bld) [#/Vol] 7.3 103/mcL Normal 4.5 - 10.8 10^3/mcL Workflow SS LABORATORYOrdered By: Antoinette Upton on 12-15-2024 Urea nitrogen/Creatinine [Mass ratio] see comment Invalid Interpretation Code 10.0 - 22.0 Chemistry S Comment on above: Result Comment: Unab le to calculate this test result accurately. Results used to calculate this test are outside the reportable range. LABORATORYOrdered By: Nneka webb on 12-15-2024 Urea nitrogen [Mass/Vol] mg/dL Low 8.0 - 22.0 mg/dL [facility] Urea nitrogen/Creatinine [Mass ratio] Unable to Calculate Invalid Interpretation Code 10.0 - 22.0 [facility] Comment on above: Result Comment: Unab le to calculate this test result accurately. Results used to calculate this test are outside the reportable range. LIPon 12-15-2024 Lipase Level 17 U/L Normal 12-53 [facility] Comment on above: Performed By: #### M ORPH, OSMOS, ALC, MG, FT4, CBC, LIPID, LAC, ADIFF, ANEU, TSHR, CMP, GFR #### [facility] [address] [place] [id number] MGon 12-15-2024 Magnesium [Mass/Vol] 1.8 mg/dL Normal 1.6-2.4 [facility] MAIN Comment on above: Performed By: #### M ORPH, OSMOS, ALC, MG, FT4, CBC, LIPID, LAC, ADIFF, ANEU, TSHR, CMP, GFR #### [address] [address] XR CHEST 1 VIEWon 12-15-2024 XR CHEST 1 VIEW ORIGINAL EXAMINATION: ONE XRAY VIEW OF THE CHEST TECHNIQUE: CHEST ONE VIEW AP/PA COMPARISON: None. HISTORY: ORDERING SYSTEM PROVIDED HISTORY: Reason for Exam: nausea/vomiting, rule out atypical PNA FINDINGS: The cardiomediastinal silhouette is within normal limits. There is no focal consolidation or pneumothorax. Small right pleural effusion and right basilar atelectasis. No central vascular congestion. No aggressive osseous lesions. Bilateral shoulder replacements. IMPRESSION: Small right pleural effusion and right basilar atelectasis. I have personally reviewed the images of this examination and agree with the resident's findings and interpretation. Interpreted by: Yo Torres DO Preliminary Report By: Duncan Urrutia Electronically signed By Yo Torres DO Dictated Date: 12/15/2024 11:03:33 AM Prelim Date: 12/15/2024 11:17:53 AM Sign Date: 12/15/2024 11:17:53 AM Ordering Provider: TIAGO Salinas [facility] .Auto Diffon 12-14-2024 Basophil, Absolute 0.0 10 3/mcL Normal 0.0-0.3 [facility] Comment on above: Performed By: #### M ORPH, OSMOS, ALC, MG, FT4, CBC, LIPID, LAC, ADIFF, ANEU, TSHR, CMP, GFR #### [address] [address] Basophils/100 WBC (Bld) 0.3 % Normal 0.0-2.5 [facility] Comment on above: Performed By: #### M ORPH, OSMOS, ALC, MG, FT4, CBC, LIPID, LAC, ADIFF, ANEU, TSHR, CMP, GFR #### [address] [address] Eosinophil, Absolute 0.0 10 3/mcL Normal 0.0-0.7 [facility] Comment on above: Performed By: #### M ORPH, OSMOS, ALC, MG, FT4, CBC, LIPID, LAC, ADIFF, ANEU, TSHR, CMP, GFR #### [address] [address] Eosinophils/100 WBC (Bld) 0.3 % Normal 0.0-6.0 [facility] Comment on above: Performed By: #### M ORPH, OSMOS, ALC, MG, FT4, CBC, LIPID, LAC, ADIFF, ANEU, TSHR, CMP, GFR #### [place] [id number] Lymphocyte, Absolute 1.1 10 3/mcL Normal 0.9-4.3 [facility] Comment on above: Performed By: #### M ORPH, OSMOS, ALC, MG, FT4, CBC, LIPID, LAC, ADIFF, ANEU, TSHR, CMP, GFR #### [address] [address] Lymphocytes/100 WBC (Bld) 11.1 % Low 20.0-40.0 [facility] Comment on above: Performed By: #### M ORPH, OSMOS, ALC, MG, FT4, CBC, LIPID, LAC, ADIFF, ANEU, TSHR, CMP, GFR #### [address] [address] Monocyte, Absolute 1.2 10 3/mcL Normal 0.1-1.4 [facility] Comment on above: Performed By: #### M ORPH, OSMOS, ALC, MG, FT4, CBC, LIPID, LAC, ADIFF, ANEU, TSHR, CMP, GFR #### [address] [address] Monocytes/100 WBC (Bld) 12.6 % Normal 2.0-13.0 [facility] Comment on above: Performed By: #### M ORPH, OSMOS, ALC, MG, FT4, CBC, LIPID, LAC, ADIFF, ANEU, TSHR, CMP, GFR #### [address] [address] Neutrophils/100 WBC (Bld) 75.7 % High 50.0-75.0 [facility] Comment on above: Performed By: #### M ORPH, OSMOS, ALC, MG, FT4, CBC, LIPID, LAC, ADIFF, ANEU, TSHR, CMP, GFR #### [address] [address] Basophil, Absolute 0.0 10 3/mcL Normal 0.0-0.3 [facility] Comment on above: Performed By: #### M ORPH, OSMOS, ALC, MG, FT4, CBC, LIPID, LAC, ADIFF, ANEU, TSHR, CMP, GFR ####[address] [address] Basophils/100 WBC (Bld) 0.3 % Normal 0.0-2.5 [facility] Comment on above: Performed By: #### M ORPH, OSMOS, ALC, MG, FT4, CBC, LIPID, LAC, ADIFF, ANEU, TSHR, CMP, GFR ####[address] [address] Eosinophil, Absolute 0.0 10 3/mcL Normal 0.0-0.7 [facility] Comment on above: Performed By: #### M ORPH, OSMOS, ALC, MG, FT4, CBC, LIPID, LAC, ADIFF, ANEU, TSHR, CMP, GFR ####[address] [address] Eosinophils/100 WBC (Bld) 0.2 % Normal 0.0-6.0 [facility] Comment on above: Performed By: #### M ORPH, OSMOS, ALC, MG, FT4, CBC, LIPID, LAC, ADIFF, ANEU, TSHR, CMP, GFR ####[address] [address] Lymphocyte, Absolute 0.8 10 3/mcL Low 0.9-4.3 [facility] Comment on above: Performed By: #### M ORPH, OSMOS, ALC, MG, FT4, CBC, LIPID, LAC, ADIFF, ANEU, TSHR, CMP, GFR ####[place] [id number] [address] [place] [address] Lymphocytes/100 WBC (Bld) 8.9 % Low 20.0-40.0 [facility] Comment on above: Performed By: #### M ORPH, OSMOS, ALC, MG, FT4, CBC, LIPID, LAC, ADIFF, ANEU, TSHR, CMP, GFR ####[address] [address] Monocyte, Absolute 0.7 10 3/mcL Normal 0.1-1.4 [facility] Comment on above: Performed By: #### M ORPH, OSMOS, ALC, MG, FT4, CBC, LIPID, LAC, ADIFF, ANEU, TSHR, CMP, GFR ####[address] [address] Monocytes/100 WBC (Bld) 8.3 % Normal 2.0-13.0 [facility] Comment on above: Performed By: #### M ORPH, OSMOS, ALC, MG, FT4, CBC, LIPID, LAC, ADIFF, ANEU, TSHR, CMP, GFR ####[address] [address] Neutrophils/100 WBC (Bld) 82.3 % High 50.0-75.0 [facility] Comment on above: Performed By: #### M ORPH, OSMOS, ALC, MG, FT4, CBC, LIPID, LAC, ADIFF, ANEU, TSHR, CMP, GFR ####[address] [address] .GFRon 12-14-2024 Estimated Glomerular Filtration Rate 101 ml/min/1.73sqm Normal [facility] Comment on above: Result Comment: Stages of Chronic Kidney Disease (CKD) Stage Description eGFR(ml/min/1.73 sq.m.) CKD 1 Normal kidney function or >=90 normal kindney function with possible kidney damage (ex. Proteinuria) CKD 2 Kidney damage with mild loss 60-89 of kidney function CKD 3a Mild to moderate loss of kidney 45-59 function CKD 3b Moderate to severe loss of 30-44 of kindey function CKD 4 Severe loss of kidney function 15-29 CKD 5 Kidney failure <15 Note: ( live 08/08/2024) the eGFR calculation was updated to the 2020 CKD-EPI creatinine equation without a race factor to calculate the eGFR results. Performed By: #### M ORPH, OSMOS, ALC, MG, FT4, CBC, LIPID, LAC, ADIFF, ANEU, TSHR, CMP, GFR #### [address] [address] Estimated Glomerular Filtration Rate 103 ml/min/1.73sqm [facility] MAIN Comment on above: Result Comment: Stages of Chronic Kidney Disease (CKD) Stage Description eGFR(ml/min/1.73 sq.m.) CKD 1 Normal kidney function or >=90 normal kindney function with possible kidney damage (ex. Proteinuria) CKD 2 Kidney damage with mild loss 60-89 of kidney function CKD 3a Mild to moderate loss of kidney 45-59 function CKD 3b Moderate to severe loss of 30-44 of kindey function CKD 4 Severe loss of kidney function 15-29 CKD 5 Kidney failure <15 Note: ([facility] 08/08/2024) the eGFR calculation was updated to the 2020 CKD-EPI creatinine equation without a race factor to calculate the eGFR results. Performed By: #### B MP, GFR ####[address] [address] Estimated Glomerular Filtration Rate 104 ml/min/1.73sqm [facility] MAIN Comment on above: Result Comment: Stages of Chronic Kidney Disease (CKD) Stage Description eGFR(ml/min/1.73 sq.m.) CKD 1 Normal kidney function or >=90 normal kindney function with possible kidney damage (ex. Proteinuria) CKD 2 Kidney damage with mild loss 60-89 of kidney function CKD 3a Mild to moderate loss of kidney 45-59 function CKD 3b Moderate to severe loss of 30-44 of kindey function CKD 4 Severe loss of kidney function 15-29 CKD 5 Kidney failure <15 Note: ( live 08/08/2024) the eGFR calculation was updated to the 2020 CKD-EPI creatinine equation without a race factor to calculate the eGFR results. Performed By: #### M ORPH, OSMOS, ALC, MG, FT4, CBC, LIPID, LAC, ADIFF, ANEU, TSHR, CMP, GFR #### [place] [address] Estimated Glomerular Filtration Rate 102 ml/min/1.73sqm [facility] MAIN Comment on above: Result Comment: Stages of Chronic Kidney Disease (CKD) Stage Description eGFR(ml/min/1.73 sq.m.) CKD 1 Normal kidney function or >=90 normal kindney function with possible kidney damage (ex. Proteinuria) CKD 2 Kidney damage with mild loss 60-89 of kidney function CKD 3a Mild to moderate loss of kidney 45-59 function CKD 3b Moderate to severe loss of 30-44 of kindey function CKD 4 Severe loss of kidney function 15-29 CKD 5 Kidney failure <15 Note: (go live 2024) the eGFR calculation was updated to the 2020 CKD-EPI creatinine equation without a race factor to calculate the eGFR results. Performed By: #### B MP, GFR ####[place] [address] .Morphon 12-14-2024 Anisocytosis Ql (Bld) 2+ Normal [facility] MAIN Comment on above: Performed By: #### M ORPH, OSMOS, ALC, MG, FT4, CBC, LIPID, LAC, ADIFF, ANEU, TSHR, CMP, GFR #### [place] [address] Microcytosis 1+ [facility] MAIN Comment on above: Performed By: #### M ORPH, OSMOS, ALC, MG, FT4, CBC, LIPID, LAC, ADIFF, ANEU, TSHR, CMP, GFR #### [place] [address] Platelet Estimate Normal [facility] MAIN Comment on above: Performed By: #### M ORPH, OSMOS, ALC, MG, FT4, CBC, LIPID, LAC, ADIFF, ANEU, TSHR, CMP, GFR #### [place] [address] Anisocytosis Ql (Bld) 1+ Normal [facility] MA[facility] Comment on above: Performed By: #### M ORPH, OSMOS, ALC, MG, FT4, CBC, LIPID, LAC, ADIFF, ANEU, TSHR, CMP, GFR ####[place] [address] Microcytosis 1+ Normal [facility] Comment on above: Performed By: #### M ORPH, OSMOS, ALC, MG, FT4, CBC, LIPID, LAC, ADIFF, ANEU, TSHR, CMP, GFR ####[place] [address] Platelet Estimate Normal Normal [facility] Comment on above: Performed By: #### M ORPH, OSMOS, ALC, MG, FT4, CBC, LIPID, LAC, ADIFF, ANEU, TSHR, CMP, GFR ####[place] [address] .NEUABSon 12-14-2024 Neutrophil, Absolute 7.2 10 3/mcL Normal 2.3-8.1 [facility] MA[facility] Comment on above: Performed By: #### M ORPH, OSMOS, ALC, MG, FT4, CBC, LIPID, LAC, ADIFF, ANEU, TSHR, CMP, GFR #### [place] [address] Neutrophil, Absolute 7.2 10 3/mcL Normal 2.3-8.1 [facility] MA[facility] Comment on above: Performed By: #### M ORPH, OSMOS, ALC, MG, FT4, CBC, LIPID, LAC, ADIFF, ANEU, TSHR, CMP, GFR ####[place] [address] BMPon 12-14-2024 BUN/Creatinine Ratio 11.5 ratio Normal 10.0-22.0 [facility] MA[facility] Comment on above: Performed By: #### M ORPH, OSMOS, ALC, MG, FT4, CBC, LIPID, LAC, ADIFF, ANEU, TSHR, CMP, GFR #### [place] [address] Calcium [Mass/Vol] 8.9 mg/dL Normal 8.7-10.4 [facility] Comment on above: Performed By: #### M ORPH, OSMOS, ALC, MG, FT4, CBC, LIPID, LAC, ADIFF, ANEU, TSHR, CMP, GFR #### [address] [address] Chloride [Moles/Vol] 94 mmol/L Low 98-110 [facility] MA[facility] Comment on above: Performed By: #### M ORPH, OSMOS, ALC, MG, FT4, CBC, LIPID, LAC, ADIFF, ANEU, TSHR, CMP, GFR #### [address] [address] CO2 [Moles/Vol] 30 mmol/L Normal 22-32 [facility] Comment on above: Performed By: #### M ORPH, OSMOS, ALC, MG, FT4, CBC, LIPID, LAC, ADIFF, ANEU, TSHR, CMP, GFR #### [place] [id number] Creatinine [Mass/Vol] 0.52 mg/dL Normal 0.50-1.20 [facility] MA[facility] Comment on above: Result Comment: Test ing performed on [employer] analyzer using enzymatic creatinine methodology. Performed By: #### M ORPH, OSMOS, ALC, MG, FT4, CBC, LIPID, LAC, ADIFF, ANEU, TSHR, CMP, GFR #### [place] [id number] Electrolyte Balance 4.0 mEq/L Normal 4.0-15.0 [facility] MAIN Comment on above: Performed By: #### M ORPH, OSMOS, ALC, MG, FT4, CBC, LIPID, LAC, ADIFF, ANEU, TSHR, CMP, GFR #### [address] [address] Glucose [Mass/Vol] 93 mg/dL Normal 82-115 [facility] MAIN Comment on above: Performed By: #### M ORPH, OSMOS, ALC, MG, FT4, CBC, LIPID, LAC, ADIFF, ANEU, TSHR, CMP, GFR #### [address] [address] Potassium [Moles/Vol] 4.0 mmol/L Normal 3.5-5.0 [facility] Comment on above: Performed By: #### M ORPH, OSMOS, ALC, MG, FT4, CBC, LIPID, LAC, ADIFF, ANEU, TSHR, CMP, GFR #### [address] [address] Sodium [Moles/Vol] 128 mmol/L Low 136-145 [facility] MA[facility] Comment on above: Performed By: #### M ORPH, OSMOS, ALC, MG, FT4, CBC, LIPID, LAC, ADIFF, ANEU, TSHR, CMP, GFR #### [address] [address] Urea nitrogen [Mass/Vol] 6.0 mg/dL Low 8.0-22.0 [facility] Comment on above: Performed By: #### M ORPH, OSMOS, ALC, MG, FT4, CBC, LIPID, LAC, ADIFF, ANEU, TSHR, CMP, GFR #### [address] [address] BUN/Creatinine Ratio Unable to Calculate Normal 10.0-2 2.0 [facility] Comment on above: Result Comment: Unab le to calculate this test result accurately. Results used to calculate this test are outside the reportable range. Performed By: #### B MP, GFR ####[address] [address] Urea nitrogen [Mass/Vol] mg/dL Low 8.0-22.0 [facility] Comment on above: Performed By: #### B MP, GFR ####[address] [address] Calcium [Mass/Vol] 9.6 mg/dL Normal 8.7-10.4 [facility] MA[facility] Comment on above: Performed By: #### B MP, GFR ####[address] [address] Chloride [Moles/Vol] 94 mmol/L Low 98-110 [facility] MA[facility] Comment on above: Performed By: #### B MP, GFR ####[address] [address] CO2 [Moles/Vol] 31 mmol/L Normal 22-32 [facility] Comment on above: Performed By: #### B MP, GFR ####[address] [address] Creatinine [Mass/Vol] 0.48 mg/dL Low 0.50-1.20 [facility] MA[facility] Comment on above: Result Comment: Test ing performed on [employer] analyzer using enzymatic creatinine methodology. Performed By: #### B MP, GFR ####[address] [address] Electrolyte Balance 5.0 mEq/L Normal 4.0-15.0 [facility] MAIN Comment on above: Performed By: #### B MP, GFR ####[address] [address] Glucose [Mass/Vol] 130 mg/dL High 82-115 [facility] MA[facility] Comment on above: Performed By: #### B MP, GFR ####[address] [address] Potassium [Moles/Vol] 3.7 mmol/L Normal 3.5-5.0 [facility] MA[facility] Comment on above: Performed By: #### B MP, GFR ####[place] [phone] Sodium [Moles/Vol] 130 mmol/L Low 136-145 [facility] Comment on above: Performed By: #### B MP, GFR ####[place] [phone] BUN/Creatinine Ratio 10.6 ratio Normal 10.0-22.0 [facility] MA[facility] Comment on above: Performed By: #### M ORPH, OSMOS, ALC, MG, FT4, CBC, LIPID, LAC, ADIFF, ANEU, TSHR, CMP, GFR #### [address] [address] Calcium [Mass/Vol] 9.4 mg/dL Normal 8.7-10.4 [facility] Comment on above: Performed By: #### M ORPH, OSMOS, ALC, MG, FT4, CBC, LIPID, LAC, ADIFF, ANEU, TSHR, CMP, GFR #### [address] [address] Chloride [Moles/Vol] 96 mmol/L Low 98-110 [facility] MA[facility] Comment on above: Performed By: #### M ORPH, OSMOS, ALC, MG, FT4, CBC, LIPID, LAC, ADIFF, ANEU, TSHR, CMP, GFR #### [address] [address] CO2 [Moles/Vol] 27 mmol/L Normal 22-32 [facility] Comment on above: Performed By: #### M ORPH, OSMOS, ALC, MG, FT4, CBC, LIPID, LAC, ADIFF, ANEU, TSHR, CMP, GFR #### [place] [id number] Creatinine [Mass/Vol] 0.47 mg/dL Low 0.50-1.20 [facility] MA[facility] Comment on above: Result Comment: Test ing performed on [employer] analyzer using enzymatic creatinine methodology. Performed By: #### M ORPH, OSMOS, ALC, MG, FT4, CBC, LIPID, LAC, ADIFF, ANEU, TSHR, CMP, GFR #### [place] [id number] Electrolyte Balance 10.0 mEq/L Normal 4.0-15.0 [facility] MA[facility] Comment on above: Performed By: #### M ORPH, OSMOS, ALC, MG, FT4, CBC, LIPID, LAC, ADIFF, ANEU, TSHR, CMP, GFR #### [place] [id number] Glucose [Mass/Vol] 93 mg/dL Normal 82-115 [facility] Comment on above: Performed By: #### M ORPH, OSMOS, ALC, MG, FT4, CBC, LIPID, LAC, ADIFF, ANEU, TSHR, CMP, GFR #### [place] [phone] Potassium [Moles/Vol] 3.6 mmol/L Normal 3.5-5.0 [facility] Comment on above: Performed By: #### M ORPH, OSMOS, ALC, MG, FT4, CBC, LIPID, LAC, ADIFF, ANEU, TSHR, CMP, GFR #### [place] [id number] Sodium [Moles/Vol] 133 mmol/L Low 136-145 [facility] Comment on above: Performed By: #### M ORPH, OSMOS, ALC, MG, FT4, CBC, LIPID, LAC, ADIFF, ANEU, TSHR, CMP, GFR #### [address] [address] Urea nitrogen [Mass/Vol] 5.0 mg/dL Low 8.0-22.0 [facility] Comment on above: Performed By: #### M ORPH, OSMOS, ALC, MG, FT4, CBC, LIPID, LAC, ADIFF, ANEU, TSHR, CMP, GFR #### [address] [address] BUN/Creatinine Ratio 10.0 ratio Normal 10.0-22.0 [facility] Comment on above: Performed By: #### B MP, GFR ####[place] [address] Calcium [Mass/Vol] 9.6 mg/dL Normal 8.7-10.4 [facility] Comment on above: Performed By: #### B MP, GFR ####[address] [address] Chloride [Moles/Vol] 94 mmol/L Low 98-110 [facility] Comment on above: Performed By: #### B MP, GFR ####[address] [address] CO2 [Moles/Vol] 26 mmol/L Normal 22-32 [facility] Comment on above: Performed By: #### B MP, GFR ####[address] [address] Creatinine [Mass/Vol] 0.50 mg/dL Normal 0.50-1.20 [facility] Comment on above: Result Comment: Test ing performed on [employer] analyzer using enzymatic creatinine methodology. Performed By: #### B MP, GFR ####[address] [address] Electrolyte Balance 8.0 mEq/L Normal 4.0-15.0 [facility] Comment on above: Performed By: #### B MP, GFR ####[address] [address] Glucose [Mass/Vol] 97 mg/dL Normal 82-115 [facility] Comment on above: Performed By: #### B MP, GFR ####[place] [address] Potassium [Moles/Vol] 3.5 mmol/L Normal 3.5-5.0 [facility] Comment on above: Performed By: #### B MP, GFR ####[place] [address] Sodium [Moles/Vol] 128 mmol/L Low 136-145 [facility] Comment on above: Performed By: #### B MP, GFR ####[place] [address] Urea nitrogen [Mass/Vol] 5.0 mg/dL Low 8.0-22.0 [facility] Comment on above: Performed By: #### B MP, GFR ####[place] [address] CBCon 12-14-2024 Erythrocyte distribution width (RBC) [Ratio] 25.4 % High 11.5-15.5 [facility] Comment on above: Performed By: #### M ORPH, OSMOS, ALC, MG, FT4, CBC, LIPID, LAC, ADIFF, ANEU, TSHR, CMP, GFR #### [place] [address] Hematocrit (Bld) [Volume fraction] 37.4 % Normal 34.0-46.0 [facility] Comment on above: Performed By: #### M ORPH, OSMOS, ALC, MG, FT4, CBC, LIPID, LAC, ADIFF, ANEU, TSHR, CMP, GFR #### [place] [address] Hgb 12.7 G/dL Normal 12.0-16.0 [facility] Comment on above: Performed By: #### M ORPH, OSMOS, ALC, MG, FT4, CBC, LIPID, LAC, ADIFF, ANEU, TSHR, CMP, GFR #### [place] [address] MCH (RBC) [Entitic mass] 26.3 pg Low 27.0-33.0 [facility] Comment on above: Performed By: #### M ORPH, OSMOS, ALC, MG, FT4, CBC, LIPID, LAC, ADIFF, ANEU, TSHR, CMP, GFR #### [place] [address] MCHC 34.1 G/dL Normal 32.0-36.0 [facility] Comment on above: Performed By: #### M ORPH, OSMOS, ALC, MG, FT4, CBC, LIPID, LAC, ADIFF, ANEU, TSHR, CMP, GFR #### [place] [address] MCV (RBC) [Entitic vol] 77.1 fL Low 80.0-99.0 [facility] Comment on above: Performed By: #### M ORPH, OSMOS, ALC, MG, FT4, CBC, LIPID, LAC, ADIFF, ANEU, TSHR, CMP, GFR #### [place] [address] Platelet 227 10 3/mcL Normal 150-450 [facility] Comment on above: Performed By: #### M ORPH, OSMOS, ALC, MG, FT4, CBC, LIPID, LAC, ADIFF, ANEU, TSHR, CMP, GFR #### [place] [address] Platelet mean volume (Bld) [Entitic vol] 8.0 fL Normal 6.6-10.5 [facility] Comment on above: Performed By: #### M ORPH, OSMOS, ALC, MG, FT4, CBC, LIPID, LAC, ADIFF, ANEU, TSHR, CMP, GFR #### [place] [address] RBC 4.85 10 6/mcL Normal 4.10-5.30 [facility] Comment on above: Performed By: #### M ORPH, OSMOS, ALC, MG, FT4, CBC, LIPID, LAC, ADIFF, ANEU, TSHR, CMP, GFR #### [facility] [address] [place] [id number] WBC 9.5 10 3/mcL Normal 4.5-10.8 [facility] Comment on above: Performed By: #### M ORPH, OSMOS, ALC, MG, FT4, CBC, LIPID, LAC, ADIFF, ANEU, TSHR, CMP, GFR #### [facility] [address] [place] [id number] LABORATORYOrdered By: SYSTEM SYSTEM on 12-14-2024 Lactate [Moles/Vol] 1.7 mmol/L Normal 0.5 - 2. 2 mmol/L ADM SS Lactate [Moles/Vol] 1.1 mmol/L Normal 0.5 - 2. 2 mmol/L ADM SS Anisocytosis Ql (Bld) 2+ *NA* (12/14/24 2:49 AM) Invalid Interpretation Code Workflow SS Basophils (Bld) [#/Vol] 0.0 103/mcL Normal 0.0 - 0.3 10^3/mcL Workflow SS Basophils/100 WBC (Bld) 0.3 % Normal 0.0 - 2.5 % Workflow SS Eosinophils (Bld) [#/Vol] 0.0 103/mcL Normal 0.0 - 0.7 10^3/mcL Workflow SS Eosinophils/100 WBC (Bld) 0.3 % Normal 0.0 - 6.0 % Workflow SS Erythrocyte distribution width (RBC) [Ratio] 25.4 % High 11.5 - 15.5 % Workflow SS Hematocrit (Bld) [Volume fraction] 37.4 % Normal 34.0 - 46.0 % AH Workflow SS Hemoglobin (Bld) [Mass/Vol] 12.7 G/dL Normal 12.0 - 16.0 G/dL Workflow SS Lactate [Moles/Vol] 1.1 mmol/L Normal 0.5 - 2. 2 mmol/L ADM SS Lymphocytes (Bld) [#/Vol] 1.1 103/mcL Normal 0.9 - 4.3 10^3/mcL Workflow SS Lymphocytes/100 WBC (Bld) 11.1 % Low 20.0 - 40.0 % Workflow SS Magnesium [Mass/Vol] 2.3 mg/dL Normal 1.6 - 2 .4 mg/dL AH ADM SS MCH (RBC) [Entitic mass] 26.3 pg Low 27.0 - 33.0 pg AH Workflow SS MCHC 34.1 G/dL Normal 32.0 - 36.0 G/dL AH Workflow SS MCV (RBC) [Entitic vol] 77.1 fL Low 80.0 - 99.0 fL AH Workflow SS Microcytes Ql (Bld) 1+ *NA* (12/14/24 2:49 AM) Invalid Interpretation Code AH Workflow SS Monocytes (Bld) [#/Vol] 1.2 103/mcL Normal 0.1 - 1.4 10^3/mcL AH Workflow SS Monocytes/100 WBC (Bld) 12.6 % Normal 2.0 - 13.0 % AH Workflow SS Neutrophils (Bld) [#/Vol] 7.2 103/mcL Normal 2.3 - 8.1 10^3/mcL AH Workflow SS Neutrophils/100 WBC (Bld) 75.7 % High 50.0 - 75.0 % AH Workflow SS Platelet mean volume (Bld) [Entitic vol] 8.0 fL Normal 6.6 - 10.5 fL AH Workflow SS Platelets (Bld) [#/Vol] 227 103/mcL Normal 150 - 450 10^3/mcL AH Workflow SS Platelets LM Ql (Bld) Normal *NA* (12/14/24 2:49 AM) Invalid Interpretation Code Workflow SS RBC (Bld) [#/Vol] 4.85 106/mcL Normal 4.10 - 5.3 0 10^6/mcL AH Workflow SS WBC (Bld) [#/Vol] 9.5 103/mcL Normal 4.5 - 10.8 10^3/mcL Workflow SS LACon 12-14-2024 Lactic Acid Lvl 1.7 mmol/L Normal 0.5-2.2 [facility] Comment on above: Performed By: #### M ORPH, OSMOS, ALC, MG, FT4, CBC, LIPID, LAC, ADIFF, ANEU, TSHR, CMP, GFR #### [facility] [address] [place] [address] Lactic Acid Lvl 1.1 mmol/L Normal 0.5-2.2 [facility] Comment on above: Performed By: #### M ORPH, OSMOS, ALC, MG, FT4, CBC, LIPID, LAC, ADIFF, ANEU, TSHR, CMP, GFR #### [place] [address] Lactic Acid Lvl 1.1 mmol/L Normal 0.5-2.2 [facility] Comment on above: Performed By: #### M ORPH, OSMOS, ALC, MG, FT4, CBC, LIPID, LAC, ADIFF, ANEU, TSHR, CMP, GFR #### [place] [address] MGon 12-14-2024 Magnesium [Mass/Vol] 2.3 mg/dL Normal 1.6-2.4 [facility] Comment on above: Performed By: #### M ORPH, OSMOS, ALC, MG, FT4, CBC, LIPID, LAC, ADIFF, ANEU, TSHR, CMP, GFR #### [place] [address] .GFRon 12-13-2024 Estimated Glomerular Filtration Rate 104 ml/min/1.73sqm [facility] Comment on above: Result Comment: Stages of Chronic Kidney Disease (CKD) Stage Description eGFR(ml/min/1.73 sq.m.) CKD 1 Normal kidney function or >=90 normal kindney function with possible kidney damage (ex. Proteinuria) CKD 2 Kidney damage with mild loss 60-89 of kidney function CKD 3a Mild to moderate loss of kidney 45-59 function CKD 3b Moderate to severe loss of 30-44 of kindey function CKD 4 Severe loss of kidney function 15-29 CKD 5 Kidney failure <15 Note: (go live 2024) the eGFR calculation was updated to the 2020 CKD-EPI creatinine equation without a race factor to calculate the eGFR results. Performed By: #### M ORPH, OSMOS, ALC, MG, FT4, CBC, LIPID, LAC, ADIFF, ANEU, TSHR, CMP, GFR #### [place] [address] Estimated Glomerular Filtration Rate 101 ml/min/1.73sqm Normal [facility] Comment on above: Result Comment: Stages of Chronic Kidney Disease (CKD) Stage Description eGFR(ml/min/1.73 sq.m.) CKD 1 Normal kidney function or >=90 normal kindney function with possible kidney damage (ex. Proteinuria) CKD 2 Kidney damage with mild loss 60-89 of kidney function CKD 3a Mild to moderate loss of kidney 45-59 function CKD 3b Moderate to severe loss of 30-44 of kindey function CKD 4 Severe loss of kidney function 15-29 CKD 5 Kidney failure <15 Note: (go live 2024) the eGFR calculation was updated to the 2020 CKD-EPI creatinine equation without a race factor to calculate the eGFR results. Performed By: #### A YOON BRUMFIELD #### [place] [address] .MDWon 12-13-2024 Monocyte Distribution Width 20.39 High 0.00-20.00 [facility] Comment on above: Result Comment: For adults in ED, MDW>20.0 may be associated with a higher risk of sepsis during the first 12hrs of hospital admission Performed By: #### A YOON BRUMFIELD #### [place] [address] .Manual Diffon 12-13-2024 Bands 1.0 % Normal 0.0-5.0 [facility] Comment on above: Performed By: #### A YOON BRUMFIELD #### [place] [address] Basophil %, Manual 0.0 % Normal 0.0-2.[address] [facility] Comment on above: Performed By: #### A YOON BRUMFIELD #### [place] [address] Basophil, Abs Manual 0.0 10 3/mcL Normal 0.0-0.3 [facility] Comment on above: Performed By: #### A YOON BRUMFIELD #### [place] [address] Eosinophil %, Manual 0.0 % Normal 0.0-6.0 [facility] Comment on above: Performed By: #### A YOON BRUMFIELD #### [place] [address] [place], [place] [address] Eosinophil, Abs Manual 0.0 10 3/mcL Normal 0.0-0.7 [facility] Comment on above: Performed By: #### A BRISSA ABSGEL #### [address] [address] Lymphocyte %, Manual 3.0 % Low 20.0-40.0 [facility] Comment on above: Performed By: #### A BRISSA ABSGEL #### [address] [address] Lymphocyte, Abs Manual 0.4 10 3/mcL Low 0.9-4.3 [facility] Comment on above: Performed By: #### A BRISSA ABSGEL #### [place] [address] Monocyte %, Manual 7.0 % Normal 2.0-13.[address] [facility] Comment on above: Performed By: #### A BRISSA ABSGEL #### [place] [address] Monocyte, Abs Manual 0.9 10 3/mcL Normal 0.1-1.4 [facility] Comment on above: Performed By: #### A BRISSA ABSGEL #### [address] [address] Neutrophil %, Manual 89.0 % High 50.0-75.0 [facility] Comment on above: Performed By: #### A BRISSA ABSGEL #### [address] [address] Neutrophil, Abs Manual 11.5 10 3/mcL High 2.3-8.1 [facility] Comment on above: Performed By: #### A BRISSA ABSGEL #### [place] [address] Nucleated RBC 0.0 /100 WBC Normal [facility] Comment on above: Performed By: #### A BRISSA ABSGEL #### [place] [address] .Morphon 12-13-2024 Anisocytosis Ql (Bld) 2+ Normal [facility] Comment on above: Performed By: #### A YOON BRUMFIELD #### [address] [address] Platelet Estimate Normal Normal [facility] Comment on above: Performed By: #### A YOON BRUMFIELD #### [place] [address] [place], [place] [address] Jesus 12-13-2024 Ethanol Level <10.0 Normal [facility] Comment on above: Performed By: #### M ORPH, OSMOS, ALC, MG, FT4, CBC, LIPID, LAC, ADIFF, ANEU, TSHR, CMP, GFR #### [place] [id number] CBCon 12-13-2024 Erythrocyte distribution width (RBC) [Ratio] 25.4 % High 11.5-15.5 [facility] Comment on above: Performed By: #### M ORPH, OSMOS, ALC, MG, FT4, CBC, LIPID, LAC, ADIFF, ANEU, TSHR, CMP, GFR #### [place] [address] Hematocrit (Bld) [Volume fraction] 35.8 % Normal 34.0-46.0 [facility] Comment on above: Performed By: #### M ORPH, OSMOS, ALC, MG, FT4, CBC, LIPID, LAC, ADIFF, ANEU, TSHR, CMP, GFR #### [place] [address] Hgb 12.4 G/dL Normal 12.0-16.0 [facility] Comment on above: Performed By: #### M ORPH, OSMOS, ALC, MG, FT4, CBC, LIPID, LAC, ADIFF, ANEU, TSHR, CMP, GFR #### [place] [id number] MCH (RBC) [Entitic mass] 26.2 pg Low 27.0-33.0 [facility] Comment on above: Performed By: #### M ORPH, OSMOS, ALC, MG, FT4, CBC, LIPID, LAC, ADIFF, ANEU, TSHR, CMP, GFR #### [place] [id number] MCHC 34.6 G/dL Normal 32.0-36.0 [facility] Comment on above: Performed By: #### M ORPH, OSMOS, ALC, MG, FT4, CBC, LIPID, LAC, ADIFF, ANEU, TSHR, CMP, GFR #### [place] [address] MCV (RBC) [Entitic vol] 75.8 fL Low 80.0-99.0 [facility] Comment on above: Performed By: #### M ORPH, OSMOS, ALC, MG, FT4, CBC, LIPID, LAC, ADIFF, ANEU, TSHR, CMP, GFR #### [place] [address] Platelet 210 10 3/mcL Normal 150-450 [facility] Comment on above: Performed By: #### M ORPH, OSMOS, ALC, MG, FT4, CBC, LIPID, LAC, ADIFF, ANEU, TSHR, CMP, GFR #### [place] [address] Platelet mean volume (Bld) [Entitic vol] 8.1 fL Normal 6.6-10.5 [facility] Comment on above: Performed By: #### M ORPH, OSMOS, ALC, MG, FT4, CBC, LIPID, LAC, ADIFF, ANEU, TSHR, CMP, GFR #### [place] [id number] RBC 4.72 10 6/mcL Normal 4.10-5.30 [facility] Comment on above: Performed By: #### M ORPH, OSMOS, ALC, MG, FT4, CBC, LIPID, LAC, ADIFF, ANEU, TSHR, CMP, GFR #### [place] [address] WBC 8.8 10 3/mcL Normal 4.5-10.8 [facility] Comment on above: Performed By: #### M ORPH, OSMOS, ALC, MG, FT4, CBC, LIPID, LAC, ADIFF, ANEU, TSHR, CMP, GFR #### [facility] [address] [place] [address] Erythrocyte distribution width (RBC) [Ratio] 25.4 % High 11.5-15.5 [facility] Comment on above: Performed By: #### A YOON BRUMFIELD #### [place] [address] [place], [place] [address] Hematocrit (Bld) [Volume fraction] 35.0 % Normal 34.0-46.0 [facility] Comment on above: Performed By: #### A YOON BRUMFIELD #### [address] [address] Hgb 12.0 G/dL Normal 12.0-16.0 [facility] Comment on above: Performed By: #### A YOON BRUMFIELD #### [address] [address] MCH (RBC) [Entitic mass] 26.3 pg Low 27.0-33.0 [facility] Comment on above: Performed By: #### A YOON BRUMFIELD #### [address] [address] MCHC 34.2 G/dL Normal 32.0-36.0 [facility] Comment on above: Performed By: #### A YOON BRUMFIELD #### [address] [address] MCV (RBC) [Entitic vol] 76.7 fL Low 80.0-99.0 [facility] Comment on above: Performed By: #### A YOON BRUMFIELD #### [address] [address] Platelet 208 10 3/mcL Normal 150-450 [facility] Comment on above: Performed By: #### A YOON BRUMFIELD #### [address] [address] Platelet mean volume (Bld) [Entitic vol] 7.8 fL Normal 6.6-10.5 [facility] Comment on above: Performed By: #### A YOON BRUMFIELD #### [place] [address] [place], [place] [address] RBC 4.57 10 6/mcL Normal 4.10-5.30 [facility] Comment on above: Performed By: #### A YOON BRUMFIELD #### [place] [address] [place], [place] [address] WBC 12.8 10 3/mcL High 4.5-10.8 [facility] Comment on above: Performed By: #### A YOON BRUMFIELD #### [address] [address] CMPon 12-13-2024 Albumin Level 3.7 G/dL Normal 3.2-4.8 [facility] Comment on above: Performed By: #### M ORPH, OSMOS, ALC, MG, FT4, CBC, LIPID, LAC, ADIFF, ANEU, TSHR, CMP, GFR #### [address] [address] Albumin/Globulin [Mass ratio] 1.6 {ratio} Normal 0.9-1.6 [facility] Comment on above: Performed By: #### M ORPH, OSMOS, ALC, MG, FT4, CBC, LIPID, LAC, ADIFF, ANEU, TSHR, CMP, GFR #### [address] [address] ALP [Catalytic activity/Vol] 47 U/L Normal 38-126 [facility] Comment on above: Performed By: #### M ORPH, OSMOS, ALC, MG, FT4, CBC, LIPID, LAC, ADIFF, ANEU, TSHR, CMP, GFR #### [address] [address] ALT [Catalytic activity/Vol] 11 U/L Normal 10-49 [facility] Comment on above: Performed By: #### M ORPH, OSMOS, ALC, MG, FT4, CBC, LIPID, LAC, ADIFF, ANEU, TSHR, CMP, GFR #### [address] [address] AST [Catalytic activity/Vol] 21 U/L Normal 8-34 [facility] Comment on above: Performed By: #### M ORPH, OSMOS, ALC, MG, FT4, CBC, LIPID, LAC, ADIFF, ANEU, TSHR, CMP, GFR #### [place] [id number] Bili Total 0.90 mg/dL Normal 0.20-1.20 [facility] Comment on above: Result Comment: Use of this assay is not recommended for patients undergoing treatment with eltrombopag due to the potential for falsely elevated results. Performed By: #### M ORPH, OSMOS, ALC, MG, FT4, CBC, LIPID, LAC, ADIFF, ANEU, TSHR, CMP, GFR #### [place] [address] BUN/Creatinine Ratio 13.0 ratio Normal 10.0-22.0 [facility] Comment on above: Performed By: #### M ORPH, OSMOS, ALC, MG, FT4, CBC, LIPID, LAC, ADIFF, ANEU, TSHR, CMP, GFR #### [place] [address] Calcium [Mass/Vol] 9.7 mg/dL Normal 8.7-10.4 [facility] Comment on above: Performed By: #### M ORPH, OSMOS, ALC, MG, FT4, CBC, LIPID, LAC, ADIFF, ANEU, TSHR, CMP, GFR #### [place] [id number] Chloride [Moles/Vol] 89 mmol/L Low 98-110 [facility] Comment on above: Performed By: #### M ORPH, OSMOS, ALC, MG, FT4, CBC, LIPID, LAC, ADIFF, ANEU, TSHR, CMP, GFR #### [address] [address] CO2 [Moles/Vol] 26 mmol/L Normal 22-32 [facility] Comment on above: Performed By: #### M ORPH, OSMOS, ALC, MG, FT4, CBC, LIPID, LAC, ADIFF, ANEU, TSHR, CMP, GFR #### [address] [address] Creatinine [Mass/Vol] 0.46 mg/dL Low 0.50-1.20 [facility] Comment on above: Result Comment: Test ing performed on [employer] analyzer using enzymatic creatinine methodology. Performed By: #### M ORPH, OSMOS, ALC, MG, FT4, CBC, LIPID, LAC, ADIFF, ANEU, TSHR, CMP, GFR #### [place] [id number] Electrolyte Balance 9.0 mEq/L Normal 4.0-15.0 [facility] Comment on above: Performed By: #### M ORPH, OSMOS, ALC, MG, FT4, CBC, LIPID, LAC, ADIFF, ANEU, TSHR, CMP, GFR #### [place] [id number] Globulin 2.3 G/dL Low 2.5-4.2 [facility] Comment on above: Performed By: #### M ORPH, OSMOS, ALC, MG, FT4, CBC, LIPID, LAC, ADIFF, ANEU, TSHR, CMP, GFR #### [place] [id number] Glucose [Mass/Vol] 111 mg/dL Normal 82-115 [facility] Comment on above: Performed By: #### M ORPH, OSMOS, ALC, MG, FT4, CBC, LIPID, LAC, ADIFF, ANEU, TSHR, CMP, GFR #### [place] [id number] Potassium [Moles/Vol] 3.4 mmol/L Low 3.5-5.0 [facility] Comment on above: Performed By: #### M ORPH, OSMOS, ALC, MG, FT4, CBC, LIPID, LAC, ADIFF, ANEU, TSHR, CMP, GFR #### [place] [id number] Sodium [Moles/Vol] 124 mmol/L Low 136-145 [facility] Comment on above: Performed By: #### M ORPH, OSMOS, ALC, MG, FT4, CBC, LIPID, LAC, ADIFF, ANEU, TSHR, CMP, GFR #### [address] [address] Total Protein 6.0 G/dL Normal 5.7-8.2 [facility] Comment on above: Performed By: #### M ORPH, OSMOS, ALC, MG, FT4, CBC, LIPID, LAC, ADIFF, ANEU, TSHR, CMP, GFR #### [address] [address] Urea nitrogen [Mass/Vol] 6.0 mg/dL Low 8.0-22.0 [facility] Comment on above: Performed By: #### M ORPH, OSMOS, ALC, MG, FT4, CBC, LIPID, LAC, ADIFF, ANEU, TSHR, CMP, GFR #### [place] [address] Albumin Level 3.2 G/dL Low 3.4-4.8 [facility] Comment on above: Performed By: #### A YOON BRUMFIELD #### [address] [address] Albumin/Globulin [Mass ratio] 1.2 {ratio} Normal 1.1-2.5 [facility] Comment on above: Performed By: #### YOON LAN #### [address] [address] ALP [Catalytic activity/Vol] 50 U/L Normal 40-135 [facility] Comment on above: Performed By: #### A YOON BRUMFIELD #### [address] [address] ALT [Catalytic activity/Vol] 21 U/L Normal 14-59 [facility] Comment on above: Performed By: #### A YOON BRUMFIELD #### [address] [address] AST [Catalytic activity/Vol] 15 U/L Normal 10-40 [facility] Comment on above: Performed By: #### A YOON BRUMFIELD #### [address] [address] Bili Total 0.9 mg/dL Normal 0.2-1.0 [facility] Comment on above: Result Comment: Use of this assay is not recommended for patients undergoing treatment with eltrombopag due to the potential for falsely elevated results. Performed By: #### A YOON BRUMFIELD #### [address] [address] BUN/Creatinine Ratio 12 ratio Normal 7-27 [facility] Comment on above: Performed By: #### A YOON BRUMFIELD #### [address] [address] Calcium [Mass/Vol] 9.0 mg/dL Normal 8.4-10.[address] [facility] Comment on above: Performed By: #### A YOON BRUMFIELD #### [address] [address] Chloride [Moles/Vol] 82 mmol/L Low 98-107 [facility] Comment on above: Performed By: #### A YOON BRUMFIELD #### [address] [address] CO2 [Moles/Vol] 28 mmol/L Normal 23-31 [facility] Comment on above: Performed By: #### A YOON BRUMFIELD #### [address] [address] Creatinine [Mass/Vol] 0.52 mg/dL Normal 0.51-0.95 [facility] Comment on above: Performed By: #### A YOON BRUMFIELD #### [address] [address] Electrolyte Balance 6.0 mEq/L Normal 4.0-15.0 [facility] Comment on above: Performed By: #### A YOON BRUMFIELD #### [address] [address] Globulin 2.6 G/dL Low 2.7-4.4 [facility] Comment on above: Performed By: #### A YOON BRUMFIELD #### [place] [address] [place], [place] [address] Glucose [Mass/Vol] 129 mg/dL High 80-[address] [facility] Comment on above: Performed By: #### A YOON BRUMFIELD #### [place] [address] [place], [place] [address] Potassium [Moles/Vol] 3.6 mmol/L Normal 3.5-5.1 [facility] Comment on above: Performed By: #### A YOON BRUMFIELD #### [place] [address] [place], [place] [address] Sodium [Moles/Vol] 116 mmol/L Critically abnormal 136-145 [facility] Comment on above: Performed By: #### A YOON BRUMFIELD #### [address] [address] Total Protein 5.8 G/dL Low 6.4-8.2 [facility] Comment on above: Performed By: #### A YOON BRUMFIELD #### [address] [address] Urea nitrogen [Mass/Vol] 6 mg/dL Low 7-18 [facility] Comment on above: Performed By: #### A YOON BRUMFIELD #### [address] [address] CRURon 12-13-2024 U Creatinine 7.4 mg/dL Normal [facility] Comment on above: Performed By: #### M ORPH, OSMOS, ALC, MG, FT4, CBC, LIPID, LAC, ADIFF, ANEU, TSHR, CMP, GFR #### [address] [address] [address] ABD/PELVIS W/ IV CONTRAST ONLYon 12-13-2024 CT ABD/PELVIS W/ IV CONTRAST ONLY ORIGINAL EXAMINATION: CT OF THE ABDOMEN AND PELVIS WITH CONTRAST 12/13/2024 6:20 pm TECHNIQUE: CT of the abdomen and pelvis was performed with the administration of intravenous contrast. Multiplanar reformatted images are provided for review. Automated exposure control, iterative reconstruction, and/or weight based adjustment of the mA/kV was utilized to reduce the radiation dose to as low as reasonably achievable. COMPARISON: None. HISTORY: ORDERING SYSTEM PROVIDED HISTORY: Reason for Exam: Abdominal pain, acute, nonlocalized FINDINGS: Lower Chest: Lower thorax demonstrates small right basilar effusion. There is mild bibasilar atelectasis. There are coronary arterial calcifications. Correlation with clinical findings may be useful. Organs: There is normal in size without biliary duct dilatation. There is mild periportal edema. There is small hypodense region at the anterior liver adjacent to falciform fissure compatible with focal fatty infiltration. There are small calcified gallstones without gross wall thickening. There is small volume fluid at the liver hilum in gallbladder fossa. The pancreas demonstrates no evidence of mass, ductal dilatation, or inflammatory process. Spleen is normal in size. Adrenal glands are normal in size. The kidneys demonstrate no hydronephrosis or renal calculi. There are small bilateral renal cortical hypodense cysts, largest at the medial left kidney measuring 1.2 x 1.1 cm. There is mild bilateral perinephric stranding. Ureters are normal in caliber bilaterally. GI/Bowel: Stomach and duodenal sweep demonstrate no acute abnormality. Small bowel and colon are normal in caliber. There is moderate sigmoid diverticulosis without diverticulitis. Appendix is normal in caliber without gross wall thickening or inflammatory change. Pelvis: Urinary bladder is within normal limits. Uterus and ovaries are grossly normal in morphology. Peritoneum/Retroperito neum: Aorta is normal in caliber without acute abnormality. There are moderate calcified plaques of the aorta. Bones/Soft Tissues: Osseous structures are intact with degenerative changes. IMPRESSION: 1. Cholelithiasis without gross cholecystitis. Follow-up ultrasound study may be useful for further evaluation, as clinically indicated. 2. Moderate sigmoid diverticulosis without diverticulitis. 3. Mild bilateral perinephric stranding. Correlate with urinalysis to exclude urinary tract infection. Interpreted by: Con Gomez Preliminary Report By: Con Gomez Electronically signed By Con Gomez Dictated Date: 12/13/2024 6:36:19 PM Prelim Date: 12/13/2024 6:48:05 PM Sign Date: 12/13/2024 6:48:05 PM Ordering Provider: PATTI LEIJA [facility] FT4on 12-13-2024 Free T4 [Mass/Vol] 2.29 ng/dL High 0.89-1.76 [facility] Comment on above: Order Comment: Order ed by Discern Result Comment: No te - New Reference Range in effect 20 Performed By: #### M ORPH, OSMOS, ALC, MG, FT4, CBC, LIPID, LAC, ADIFF, ANEU, TSHR, CMP, GFR ####[facility] [place] [address] LABORATORYOrdered By: SYSTEM SYSTEM on 12-13-2024 Albumin BCP dye [Mass/Vol] 3.7 G/dL Normal 3.2 - 4.8 G/dL AH ADM SS Albumin/Globulin [Mass ratio] 1.6 {ratio} Normal 0.9 - 1.6 ratio AH ADM SS ALP [Catalytic activity/Vol] 47 U/L Normal 38 - 126 U/L AH ADM SS ALT No additional P-5'-P [Catalytic activity/Vol] 11 U/L Normal 10 - 49 U/L AH ADM SS AST [Catalytic activity/Vol] 21 U/L Normal 8 - 34 U/L AH ADM SS Bilirubin [Mass/Vol] 0.90 mg/dL Normal 0.20 - 1.20 mg/dL AH ADM SS Comment on above: Interpretive Data: U se of this assay is not recommended for patients undergoing treatment with eltrombopag due to the potential for falsely elevated results. Ethanol [Mass/Vol] mg/dL Invalid Interpretation Code AH ADM SS Free T4 [Mass/Vol] 2.29 ng/dL High 0.89 - 1. 76 ng/dL AH ADM SS Comment on above: Interpretive Data: * *Note - New Reference Range in effect 20 Globulin 2.3 G/dL Low 2.5 - 4.2 G/dL AH ADM SS Protein [Mass/Vol] 6.0 G/dL Normal 5.7 - 8.2 G/dL AH ADM SS TSH Qn 0.537 mIU/mL Low 0.550 - 4.780 mIU/mL AH ADM SS Albumin BCP dye [Mass/Vol] 3.2 G/dL Low 3.4 - 4.8 G/dL AO ADM SS Albumin/Globulin [Mass ratio] 1.2 {ratio} Normal 1.1 - 2.5 ratio AO ADM SS ALP [Catalytic activity/Vol] 50 U/L Normal 40 - 135 U/L AO ADM SS ALT With P-5'-P [Catalytic activity/Vol] 21 U/L Normal 14 - 59 U/L AO ADM SS Anisocytosis Ql (Bld) 2+ *NA* (12/13/24 5:53 PM) Invalid Interpretation Code AO Workflow SS AST With P-5'-P [Catalytic activity/Vol] 15 U/L Normal 10 - 40 U/L AO ADM SS Band form neutrophils/100 WBC (Bld) 1.0 % Normal 0.0 - 5.0 % AO Workflow SS Basophil %, Manual 0.0 % Normal 0.0 - 2.5 % AO Wo rkflow SS Basophils (Bld) [#/Vol] 0.0 103/mcL Normal 0.0 - 0.3 10^3/mcL AO Workflow SS Bilirubin [Mass/Vol] 0.9 mg/dL Normal 0.2 - 1 .0 mg/dL AO ADM SS Comment on above: Interpretive Data: U se of this assay is not recommended for patients undergoing treatment with eltrombopag due to the potential for falsely elevated results. Calcium [Mass/Vol] 9.0 mg/dL Normal 8.4 - 10. 2 mg/dL AO ADM SS Chloride [Moles/Vol] 82 mmol/L Low 98 - 10 7 mmol/L AO ADM SS CO2 [Moles/Vol] 28 mmol/L Normal 23 - 31 mmol/L AO ADM SS Creatinine [Mass/Vol] 0.52 mg/dL Normal 0.51 - 0.95 mg/dL AO ADM SS Electrolyte Balance 6.0 mEq/L Normal 4.0 - 15 .0 mEq/L AO ADM SS Eosinophil %, Manual 0.0 % Normal 0.0 - 6.0 % AO Workflow SS Eosinophils (Bld) [#/Vol] 0.0 103/mcL Normal 0.0 - 0.7 10^3/mcL AO Workflow SS Erythrocyte distribution width (RBC) [Ratio] 25.4 % High 11.5 - 15.5 % AO Workflow SS Estimated Glomerular Filtration Rate 101 ml/min/1.73sqm Invalid Interpretation Code AO Chemistry S Comment on above: Interpretive Data: Stages of Chronic Kidney Disease (CKD) Stage Description eGFR(ml/min/1.73 sq.m.) CKD 1 Normal kidney function or >=90 normal kindney function with possible kidney damage (ex. Proteinuria) CKD 2 Kidney damage with mild loss 60-89 of kidney function CKD 3a Mild to moderate loss of kidney 45-59 function CKD 3b Moderate to severe loss of 30-44 of kindey function CKD 4 Severe loss of kidney function 15-29 CKD 5 Kidney failure <15 Note: (go live 2024) the eGFR calculation was updated to the 2020 CKD-EPI creatinine equation without a race factor to calculate the eGFR results. Globulin 2.6 G/dL Low 2.7 - 4.4 G/dL AO ADM SS Glucose [Mass/Vol] 129 mg/dL High 80 - 115 mg/dL AO ADM SS Hematocrit (Bld) [Volume fraction] 35.0 % Normal 34.0 - 46.0 % AO Workflow SS Hemoglobin (Bld) [Mass/Vol] 12.0 G/dL Normal 12.0 - 16.0 G/dL AO Workflow SS Lipase [Catalytic activity/Vol] 11 U/L Low 16 - 77 U/L AO ADM SS Lymphocytes (Bld) [#/Vol] 0.4 103/mcL Low 0.9 - 4.3 10^3/mcL AO Workflow SS Lymphocytes/100 WBC (Bld) 3.0 % Low 20.0 - 40.0 % AO Workflow SS MCH (RBC) [Entitic mass] 26.3 pg Low 27.0 - 33.0 pg AO Workflow SS MCHC 34.2 G/dL Normal 32.0 - 36.0 G/dL AO Workflow SS MCV (RBC) [Entitic vol] 76.7 fL Low 80.0 - 99.0 fL AO Workflow SS Monocyte distribution width Auto (Bld) [Entitic vol] 20.39 1 High 0.00 - 20.00 AO Workflow SS Comment on above: Result Comment: For adults in ED, MDW>20.0 may be associated with a higher risk of sepsis during the first 12hrs of hospital admission Monocytes (Bld) [#/Vol] 0.9 103/mcL Normal 0.1 - 1.4 10^3/mcL AO Workflow SS Monocytes/100 WBC (Bld) 7.0 % Normal 2.0 - 13.0 % AO Workflow SS Neutrophils (Bld) [#/Vol] 11.5 103/mcL High 2.3 - 8.1 10^3/mcL AO Workflow SS Neutrophils/100 WBC (Bld) 89.0 % High 50.0 - 75.0 % AO Workflow SS Nucleated RBC 0.0 /100 WBC Invalid Interpretation Code AO Workflow SS Platelet mean volume (Bld) [Entitic vol] 7.8 fL Normal 6.6 - 10.5 fL AO Workflow SS Platelets (Bld) [#/Vol] 208 103/mcL Normal 150 - 450 10^3/mcL AO Workflow SS Platelets LM Ql (Bld) Normal *NA* (12/13/24 5:53 PM) Invalid Interpretation Code AO Workflow SS Potassium [Moles/Vol] 3.6 mmol/L Normal 3.5 - 5.1 mmol/L AO ADM SS Protein [Mass/Vol] 5.8 G/dL Low 6.4 - 8.2 G/dL AO ADM SS RBC (Bld) [#/Vol] 4.57 106/mcL Normal 4.10 - 5.3 0 10^6/mcL AO Workflow SS Sodium [Moles/Vol] 116 mmol/L Invalid Interpretation Code 136 - 145 mmol/L AO ADM SS Urea nitrogen [Mass/Vol] 6 mg/dL Low 7 - 18 mg/dL AO ADM SS Urea nitrogen/Creatinine [Mass ratio] 12 ratio Normal 7 - 27 ratio AO ADM SS WBC (Bld) [#/Vol] 12.8 103/mcL High 4.5 - 10.8 10^3/mcL AO Workflow SS LABORATORYOrdered By: Connie Shelley on 12-13-2024 Cholesterol [Mass/Vol] 144 mg/dL Normal 50 - 199 mg/dL AH ADM SS Comment on above: Interpretive Data: C holesterol Reference Interval: Less than 200 Desirable 200-239 Borderline high risk 240 and above High risk Cholesterol in HDL [Mass/Vol] 60 mg/dL High 40 - 59 mg/dL AH ADM SS Cholesterol in LDL [Mass/Vol] 63 mg/dL Normal 0 - 129 mg/dL AH ADM SS Triglyceride [Mass/Vol] 103 mg/dL Normal 3 - 149 mg/dL AH ADM SS Creatinine (U) [Mass/Vol] 7.4 mg/dL Invalid Interpretation Code AH ADM SS Sodium (U) [Moles/Vol] 24 mmol/L Invalid Interpretation Code AH ADM SS LABORATORYOrdered By: Kitty Constantino on 12-13-2024 Osmolality [Osmolality] 254 mosm/kg Low 275 - 300 mOsm/kg Manual Chem SS Appearance (U) Clear (12/13/24 10:22 PM) Normal Clear AH Auto Urine SS Bilirubin Ql (U) Negative (12/13/24 10:22 PM) Normal Neg-Trace AH Auto Urine SS Color (U) Yellow (12/13/24 10:22 PM) Normal AH Auto Urine SS Glucose Test strip (U) [Mass/Vol] Negative Normal Negative AH Auto Urine SS Hemoglobin Auto test strip (U) [Mass/Vol] Negative (12/13/24 10:22 PM) Normal Neg-Trace AH Auto Urine SS Ketones Ql (U) Negative Normal Neg-Trace AH Auto Urine SS Osmolality (U) [Osmolality] 94 mosm/kg Low 390 - 1090 mOsm/kg Manual Chem SS UA Leuk Est Negative (12/13/24 10:22 PM) Normal Negative Auto Urine SS UA Nitrite Negative (12/13/24 10:22 PM) Normal Negative AH Auto Urine SS UA pH 7.5 (12/13/24 10:22 PM) Normal 5.0 - 8.0 AH Auto Urine SS UA Protein Negative Normal Negative AH Auto Urine SS UA Spec Grav <=1.005 *ABN* (12/13/24 10:22 PM) Invalid Interpretation Code 1.006-1.029 AH Auto Urine SS UA Specimen Type Clean Catch (12/13/24 10:22 PM) Normal Auto Urine SS UA Urobilinogen 0.2 E.U./dL Normal 0.2-1.0 Auto Urine SS LABORATORYOrdered By: Robyn Frances on 12-13-2024 Blood Glucose Testing Reason Routine (12/13/24 9:39 PM) [facility] Work Phone: Glucose [Mass/Vol] 123 mg/dL High 82 - 115 mg/dL [facility] Work Phone: LACon 12-13-2024 Lactic Acid Lvl 1.0 mmol/L Normal 0.5-2.2 [facility] Comment on above: Performed By: #### M ORPH, OSMOS, ALC, MG, FT4, CBC, LIPID, LAC, ADIFF, ANEU, TSHR, CMP, GFR #### [facility] [address] [place] [address] LIPon 12-13-2024 Lipase Level 11 U/L Low 16-77 [facility] Comment on above: Performed By: #### A YOON BRUMFIELD #### [facility] [address] [place], [place] [address] LIPIDon 12-13-2024 Cholesterol [Mass/Vol] 144 mg/dL Normal 50-199 [facility] Comment on above: Result Comment: Chol esterol Reference Interval: Less than 200 Desirable 200-239 Borderline high risk 240 and above High risk Performed By: #### M ORPH, OSMOS, ALC, MG, FT4, CBC, LIPID, LAC, ADIFF, ANEU, TSHR, CMP, GFR ####[address] [address] Cholesterol in HDL [Mass/Vol] 60 mg/dL High 40-59 [facility] Comment on above: Performed By: #### M ORPH, OSMOS, ALC, MG, FT4, CBC, LIPID, LAC, ADIFF, ANEU, TSHR, CMP, GFR ####[address] [address] Cholesterol in LDL [Mass/Vol] 63 mg/dL Normal 0-129 [facility] Comment on above: Performed By: #### M ORPH, OSMOS, ALC, MG, FT4, CBC, LIPID, LAC, ADIFF, ANEU, TSHR, CMP, GFR ####[address] [address] Triglyceride [Mass/Vol] 103 mg/dL Normal 3-149 [facility] Comment on above: Performed By: #### M ORPH, OSMOS, ALC, MG, FT4, CBC, LIPID, LAC, ADIFF, ANEU, TSHR, CMP, GFR ####[address] [address] MGon 12-13-2024 Magnesium [Mass/Vol] 1.5 mg/dL Low 1.6-2.4 [facility] Comment on above: Performed By: #### M ORPH, OSMOS, ALC, MG, FT4, CBC, LIPID, LAC, ADIFF, ANEU, TSHR, CMP, GFR #### [address] [address] NAURon 12-13-2024 Sodium [Moles/Vol] 24 mmol/L Normal [facility] Comment on above: Performed By: #### M ORPH, OSMOS, ALC, MG, FT4, CBC, LIPID, LAC, ADIFF, ANEU, TSHR, CMP, GFR #### [place] [id number] OSMOSon 12-13-2024 Osmolality [Osmolality] 254 mosm/kg Low 275-300 [facility] Comment on above: Performed By: #### M ORPH, OSMOS, ALC, MG, FT4, CBC, LIPID, LAC, ADIFF, ANEU, TSHR, CMP, GFR ####[place] [address] OSMOUon 12-13-2024 U Osmolality 94 mOsm/kg Low 390-1090 [facility] Comment on above: Performed By: #### M ORPH, OSMOS, ALC, MG, FT4, CBC, LIPID, LAC, ADIFF, ANEU, TSHR, CMP, GFR #### [address] [address] TSHRon 12-13-2024 TSH 0.537 mIU/mL Low 0.550-4.780 [facility] Comment on above: Performed By: #### M ORPH, OSMOS, ALC, MG, FT4, CBC, LIPID, LAC, ADIFF, ANEU, TSHR, CMP, GFR #### [address] [address] UAon 12-13-2024 Color (U) Yellow Normal [facility] Comment on above: Performed By: #### M ORPH, OSMOS, ALC, MG, FT4, CBC, LIPID, LAC, ADIFF, ANEU, TSHR, CMP, GFR #### [place] [id number] Glucose (U) [Mass/Vol] Negative Normal Negative [facility] Comment on above: Performed By: #### M ORPH, OSMOS, ALC, MG, FT4, CBC, LIPID, LAC, ADIFF, ANEU, TSHR, CMP, GFR #### [place] [address] Ketones Ql (U) Negative Normal Neg-Trace [facility] Comment on above: Performed By: #### M ORPH, OSMOS, ALC, MG, FT4, CBC, LIPID, LAC, ADIFF, ANEU, TSHR, CMP, GFR #### [place] [address] UA Appear Clear Normal Clear [facility] Comment on above: Performed By: #### M ORPH, OSMOS, ALC, MG, FT4, CBC, LIPID, LAC, ADIFF, ANEU, TSHR, CMP, GFR #### [place] [address] UA Blood Negative Normal Neg-Trace [facility] Comment on above: Performed By: #### M ORPH, OSMOS, ALC, MG, FT4, CBC, LIPID, LAC, ADIFF, ANEU, TSHR, CMP, GFR #### [place] [address] UA Leuk Est Negative Normal Negative [facility] Comment on above: Performed By: #### M ORPH, OSMOS, ALC, MG, FT4, CBC, LIPID, LAC, ADIFF, ANEU, TSHR, CMP, GFR #### [place] [address] UA Nitrite Negative Normal Negative [facility] Comment on above: Performed By: #### M ORPH, OSMOS, ALC, MG, FT4, CBC, LIPID, LAC, ADIFF, ANEU, TSHR, CMP, GFR #### [place] [address] UA pH 7.5 Normal 5.0 - 8.0 [facility] Comment on above: Performed By: #### M ORPH, OSMOS, ALC, MG, FT4, CBC, LIPID, LAC, ADIFF, ANEU, TSHR, CMP, GFR #### [place] [address] UA Protein Negative Normal Negative [facility] Comment on above: Performed By: #### M ORPH, OSMOS, ALC, MG, FT4, CBC, LIPID, LAC, ADIFF, ANEU, TSHR, CMP, GFR #### [place] [address] UA Spec Grav <=1.005 Abnormal 1.006-1.029 [facility] Comment on above: Performed By: #### M ORPH, OSMOS, ALC, MG, FT4, CBC, LIPID, LAC, ADIFF, ANEU, TSHR, CMP, GFR #### [place] [address] UA Specimen Type Clean Catch Normal [facility] Comment on above: Performed By: #### M ORPH, OSMOS, ALC, MG, FT4, CBC, LIPID, LAC, ADIFF, ANEU, TSHR, CMP, GFR #### [place] [address] UA Urobilinogen 0.2 E.U./dL Normal 0.2-1.0 [facility] Comment on above: Performed By: #### M ORPH, OSMOS, ALC, MG, FT4, CBC, LIPID, LAC, ADIFF, ANEU, TSHR, CMP, GFR #### [place] [address] Urobilinogen (U) [Mass/Vol] Negative Normal Neg-Trace [facility] Comment on above: Performed By: #### M ORPH, OSMOS, ALC, MG, FT4, CBC, LIPID, LAC, ADIFF, ANEU, TSHR, CMP, GFR #### [place] [address] XR SHOULDER MINIMUM 2 VIEWS LEFTon 12-13-2024 XR SHOULDER MINIMUM 2 VIEWS LEFT ORIGINAL EXAMINATION: TWO XRAY VIEWS OF THE LEFT SHOULDER 12/12/2024 9:43 am COMPARISON: CT 11/13/2024 HISTORY: ORDERING SYSTEM PROVIDED HISTORY: Reason for Exam: Status Post Arthroplasty FINDINGS: Status post left reverse total shoulder arthroplasty. Appropriate alignment. Expected postoperative soft tissue swelling and air. IMPRESSION: Left reverse TSA Interpreted by: Frantz Ramirez Preliminary Report By: Frantz Ramirez Electronically signed By Frantz Ramirez Dictated Date: 12/13/2024 7:12:42 AM Prelim Date: 12/13/2024 7:13:43 AM Sign Date: 12/13/2024 7:13:43 AM Ordering Provider: ASHLEY GEORGE Normal [facility] ABO/Rh (Gel)on 12-12-2024 ABO/Rh Interp Negative Invalid Interpretation Code [facility] Comment on above: Performed By: #### A BRISSA ABSGEL #### [address] [address] ABS (Gel)on 12-12-2024 ABSC Interp (Gel) Negative Normal [facility] Comment on above: Performed By: #### A BRISSA ABSGEL #### [address] [address] LABORATORYOrdered By: Iliana Starr on 12-12-2024 ABO and Rh group Nom (Bld) Blood group A Rh(D) negative Invalid Interpretation Code AO BB Auto SS Blood group antibody screen Ql Negative ABSC (12/12/24 6:59 AM) Normal AO BB Auto SS US ANESTHESIA BLOCKon 2024 US ANESTHESIA BLOCK ORIGINAL Images acquired, not reported on this accession number. Normal [facility] .Auto Diffon 11-13-2024 Basophil, Absolute 0.1 10 3/mcL Normal 0.0-0.3 [facility] Comment on above: Performed By: #### A BSGEL, BMP, ALB, GFR, CBC, ADIFF, ANEU, ABOGEL #### [address] [address] Basophils/100 WBC (Bld) 1.1 % Normal 0.0-2.5 [facility] Comment on above: Performed By: #### A BSGEL, BMP, ALB, GFR, CBC, ADIFF, ANEU, ABOGEL #### [address] [address] Eosinophil, Absolute 0.2 10 3/mcL Normal 0.0-0.7 [facility] Comment on above: Performed By: #### A BSGEL, BMP, ALB, GFR, CBC, ADIFF, ANEU, ABOGEL #### [place] [address] [place], [place] [address] Eosinophils/100 WBC (Bld) 2.0 % Normal 0.0-6.0 [facility] Comment on above: Performed By: #### A BSGEL, BMP, ALB, GFR, CBC, ADIFF, ANEU, ABOGEL #### [address] [address] Lymphocyte, Absolute 1.4 10 3/mcL Normal 0.9-4.3 [facility] Comment on above: Performed By: #### A BSGEL, BMP, ALB, GFR, CBC, ADIFF, ANEU, ABOGEL #### [address] [address] Lymphocytes/100 WBC (Bld) 17.1 % Low 20.0-40.0 [facility] Comment on above: Performed By: #### A BSGEL, BMP, ALB, GFR, CBC, ADIFF, ANEU, ABOGEL #### [address] [address] Monocyte, Absolute 0.8 10 3/mcL Normal 0.1-1.4 [facility] Comment on above: Performed By: #### A BSGEL, BMP, ALB, GFR, CBC, ADIFF, ANEU, ABOGEL #### [address] [address] Monocytes/100 WBC (Bld) 10.3 % Normal 2.0-13.0 [facility] Comment on above: Performed By: #### A BSGEL, BMP, ALB, GFR, CBC, ADIFF, ANEU, ABOGEL #### [address] [address] Neutrophils/100 WBC (Bld) 69.5 % Normal 50.0-75.0 [facility] Comment on above: Performed By: #### A BSGEL, BMP, ALB, GFR, CBC, ADIFF, ANEU, ABOGEL #### [address] [address] .GFRon 11-13-2024 Estimated Glomerular Filtration Rate 94 ml/min/1.73sqm Normal [facility] Comment on above: Result Comment: Stages of Chronic Kidney Disease (CKD) Stage Description eGFR(ml/min/1.73 sq.m.) CKD 1 Normal kidney function or >=90 normal kindney function with possible kidney damage (ex. Proteinuria) CKD 2 Kidney damage with mild loss 60-89 of kidney function CKD 3a Mild to moderate loss of kidney 45-59 function CKD 3b Moderate to severe loss of 30-44 of kindey function CKD 4 Severe loss of kidney function 15-29 CKD 5 Kidney failure <15 Note: (go live 2024) the eGFR calculation was updated to the 2020 CKD-EPI creatinine equation without a race factor to calculate the eGFR results. Performed By: #### A BSGEL, BMP, ALB, GFR, CBC, ADIFF, ANEU, ABOGEL #### [address] [address] .NEUABSon 11-13-2024 Neutrophil, Absolute 5.5 10 3/mcL Normal 2.3-8.1 [facility] Comment on above: Performed By: #### A BSGEL, BMP, ALB, GFR, CBC, ADIFF, ANEU, ABOGEL #### [address] [address] ABO/Rh (Gel)on 11-13-2024 ABO/Rh Interp Negative Invalid Interpretation Code [facility] Comment on above: Order Comment: SURG MARVIN 6/10 -AC Performed By: #### A BSGEL, BMP, ALB, GFR, CBC, ADIFF, ANEU, ABOGEL #### [address] [address] ABS (Gel)on 11-13-2024 ABSC Interp (Gel) Negative Normal [facility] Comment on above: Order Comment: SURG MARVIN 6/10 -AC Performed By: #### A BOGEL, ABSGEL #### [address] [address] ALBon 11-13-2024 Albumin Level 4.0 G/dL Normal 3.4-4.8 [facility] Comment on above: Performed By: #### A BSGEL, BMP, ALB, GFR, CBC, ADIFF, ANEU, ABOGEL #### [address] [address] BMPon 11-13-2024 BUN/Creatinine Ratio 16 ratio Normal 7-27 [facility] Comment on above: Performed By: #### A BSGEL, BMP, ALB, GFR, CBC, ADIFF, ANEU, ABOGEL #### [address] [address] Calcium [Mass/Vol] 9.9 mg/dL Normal 8.4-10.[address] [facility] Comment on above: Performed By: #### A BSGEL, BMP, ALB, GFR, CBC, ADIFF, ANEU, ABOGEL #### [place] [address] Chloride [Moles/Vol] 99 mmol/L Normal 98-107 [facility] Comment on above: Performed By: #### A BSGEL, BMP, ALB, GFR, CBC, ADIFF, ANEU, ABOGEL #### [place] [address] CO2 [Moles/Vol] 31 mmol/L Normal 23-31 [facility] Comment on above: Performed By: #### A BSGEL, BMP, ALB, GFR, CBC, ADIFF, ANEU, ABOGEL #### [address] [address] Creatinine [Mass/Vol] 0.69 mg/dL Normal 0.51-0.95 [facility] Comment on above: Performed By: #### A BSGEL, BMP, ALB, GFR, CBC, ADIFF, ANEU, ABOGEL #### [address] [address] Electrolyte Balance 8.0 mEq/L Normal 4.0-15.0 [facility] Comment on above: Performed By: #### A BSGEL, BMP, ALB, GFR, CBC, ADIFF, ANEU, ABOGEL #### [place] [address] Glucose [Mass/Vol] 97 mg/dL Normal 80-[address] [facility] Comment on above: Performed By: #### A BSGEL, BMP, ALB, GFR, CBC, ADIFF, ANEU, ABOGEL #### [address] [address] Potassium [Moles/Vol] 3.9 mmol/L Normal 3.5-5.1 [facility] Comment on above: Performed By: #### A BSGEL, BMP, ALB, GFR, CBC, ADIFF, ANEU, ABOGEL #### [place] [address] Sodium [Moles/Vol] 138 mmol/L Normal 136-[address] [facility] Comment on above: Performed By: #### A BSGEL, BMP, ALB, GFR, CBC, ADIFF, ANEU, ABOGEL #### [place] [address] Urea nitrogen [Mass/Vol] 11 mg/dL Normal 7-18 [facility] Comment on above: Performed By: #### A BSGEL, BMP, ALB, GFR, CBC, ADIFF, ANEU, ABOGEL #### [place] [address] CBCon 11-13-2024 Erythrocyte distribution width (RBC) [Ratio] 18.4 % High 11.5-15.5 [facility] Comment on above: Order Comment: Pre-A dmission Testing Performed By: #### A BSGEL, BMP, ALB, GFR, CBC, ADIFF, ANEU, ABOGEL #### [place] [address] Hematocrit (Bld) [Volume fraction] 33.2 % Low 34.0-46.0 [facility] Comment on above: Order Comment: Pre-A dmission Testing Performed By: #### A BSGEL, BMP, ALB, GFR, CBC, ADIFF, ANEU, ABOGEL #### [place] [address] Hgb 10.6 G/dL Low 12.0-16.0 [facility] Comment on above: Order Comment: Pre-A dmission Testing Performed By: #### A BSGEL, BMP, ALB, GFR, CBC, ADIFF, ANEU, ABOGEL #### [address] [address] MCH (RBC) [Entitic mass] 22.3 pg Low 27.0-33.0 [facility] Comment on above: Order Comment: Pre-A dmission Testing Performed By: #### A BSGEL, BMP, ALB, GFR, CBC, ADIFF, ANEU, ABOGEL #### [address] [address] MCHC 32.0 G/dL Normal 32.0-36.0 [facility] Comment on above: Order Comment: Pre-A dmission Testing Performed By: #### A BSGEL, BMP, ALB, GFR, CBC, ADIFF, ANEU, ABOGEL #### [address] [address] MCV (RBC) [Entitic vol] 69.8 fL Low 80.0-99.0 [facility] Comment on above: Order Comment: Pre-A dmission Testing Performed By: #### A BSGEL, BMP, ALB, GFR, CBC, ADIFF, ANEU, ABOGEL #### [address] [address] Platelet 289 10 3/mcL Normal 150-450 [facility] Comment on above: Order Comment: Pre-A dmission Testing Performed By: #### A BSGEL, BMP, ALB, GFR, CBC, ADIFF, ANEU, ABOGEL #### [address] [address] Platelet mean volume (Bld) [Entitic vol] 8.3 fL Normal 6.6-10.5 [facility] Comment on above: Order Comment: Pre-A dmission Testing Performed By: #### A BSGEL, BMP, ALB, GFR, CBC, ADIFF, ANEU, ABOGEL #### [address] [address] RBC 4.75 10 6/mcL Normal 4.10-5.30 [facility] Comment on above: Order Comment: Pre-A dmission Testing Performed By: #### A BSGEL, BMP, ALB, GFR, CBC, ADIFF, ANEU, ABOGEL #### [facility] [address] [place], [place] [address] WBC 7.9 10 3/mcL Normal 4.5-10.8 [facility] Comment on above: Order Comment: Pre-A dmission Testing Performed By: #### A BSGEL, BMP, ALB, GFR, CBC, ADIFF, ANEU, ABOGEL #### [facility] [address] [place], [place] [address] CT SHOULDER W/O CONTRAST LEF Ton 11-13-2024 CT SHOULDER W/O CONTRAST LEFT ORIGINAL EXAMINATION: CT OF THE LEFT SHOULDER WITHOUT CONTRAST 11/13/2024 2:33 pm TECHNIQUE: CT of the left shoulder was performed without the administration of intravenous contrast. Multiplanar reformatted images are provided for review. Automated exposure control, iterative reconstruction, and/or weight based adjustment of the mA/kV was utilized to reduce the radiation dose to as low as reasonably achievable. COMPARISON: None. HISTORY ORDERING SYSTEM PROVIDED HISTORY: Reason for Exam: OSTEOARTHRITIS OF LEFT SHOULDER chronic shoulder pain. 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 There is no suspicious lytic or blastic osseous lesion. There is no aggressive periosteal reaction. Mild AC joint degenerative changes. Severe joint degenerative change most pronounced in the posterior joint space where there is subchondral sclerosis, bony hypertrophy and subchondral cysts. Type 1 acromial undersurface. There is no evidence of solid or cystic soft tissue mass. No definite joint effusion. Limited evaluation of the neurovascular structures lack of contrast. Aortic atherosclerosis. Partially visualized coronary artery calcifications. There is a 4 mm left apical subpleural ground-glass opacity on series 3, image 55 IMPRESSION: 1. Severe glenohumeral joint degenerative change in patient presenting for preop planning. 2. 4 mm left apical subpleural ground-glass opacity. 3. Additional incidental findings as above. Interpreted by: Tab Nicholas Preliminary Report By: Tab Nicholas Electronically signed By Tab Nicholas Dictated Date: 11/13/2024 2:46:36 PM Prelim Date: 11/13/2024 2:53:21 PM Sign Date: 11/13/2024 2:53:21 PM Ordering Provider: ASHLEY Salinas [facility] LABORATORYOrdered By: Edwin Leija on 11-13-2024 ABO and Rh group Nom (Bld) Blood group A Rh(D) negative Invalid Interpretation Code AO BB Auto SS Blood group antibody screen Ql Negative ABSC (11/13/24 2:02 PM) Normal AO BB Auto SS LABORATORYOrdered By: SYSTEM SYSTEM on 11-13-2024 Albumin BCP dye [Mass/Vol] 4.0 G/dL Normal 3.4 - 4.8 G/dL AO ADM SS Basophils (Bld) [#/Vol] 0.1 103/mcL Normal 0.0 - 0.3 10^3/mcL AO Workflow SS Basophils/100 WBC (Bld) 1.1 % Normal 0.0 - 2.5 % AO Workflow SS Calcium [Mass/Vol] 9.9 mg/dL Normal 8.4 - 10. 2 mg/dL AO ADM SS Chloride [Moles/Vol] 99 mmol/L Normal 98 - 10 7 mmol/L AO ADM SS CO2 [Moles/Vol] 31 mmol/L Normal 23 - 31 mmol/L AO ADM SS Creatinine [Mass/Vol] 0.69 mg/dL Normal 0.51 - 0.95 mg/dL AO ADM SS Electrolyte Balance 8.0 mEq/L Normal 4.0 - 15 .0 mEq/L AO ADM SS Eosinophil, Absolute 0.2 103/mcL Normal 0.0 - 0 .7 10^3/mcL AO Workflow SS Eosinophils/100 WBC (Bld) 2.0 % Normal 0.0 - 6.0 % AO Workflow SS Erythrocyte distribution width (RBC) [Ratio] 18.4 % High 11.5 - 15.5 % AO Workflow SS Estimated Glomerular Filtration Rate 94 ml/min/1.73sqm Invalid Interpretation Code AO Chemistry S Comment on above: Interpretive Data: Stages of Chronic Kidney Disease (CKD) Stage Description eGFR(ml/min/1.73 sq.m.) CKD 1 Normal kidney function or >=90 normal kindney function with possible kidney damage (ex. Proteinuria) CKD 2 Kidney damage with mild loss 60-89 of kidney function CKD 3a Mild to moderate loss of kidney 45-59 function CKD 3b Moderate to severe loss of 30-44 of kindey function CKD 4 Severe loss of kidney function 15-29 CKD 5 Kidney failure <15 Note: (go live 2024) the eGFR calculation was updated to the 2020 CKD-EPI creatinine equation without a race factor to calculate the eGFR results. Glucose [Mass/Vol] 97 mg/dL Normal 80 - 115 mg/dL AO ADM SS Hematocrit (Bld) [Volume fraction] 33.2 % Low 34.0 - 46.0 % AO Workflow SS Hemoglobin (Bld) [Mass/Vol] 10.6 G/dL Low 12.0 - 16.0 G/dL AO Workflow SS Lymphocytes (Bld) [#/Vol] 1.4 103/mcL Normal 0.9 - 4.3 10^3/mcL AO Workflow SS Lymphocytes/100 WBC (Bld) 17.1 % Low 20.0 - 40.0 % AO Workflow SS MCH (RBC) [Entitic mass] 22.3 pg Low 27.0 - 33.0 pg AO Workflow SS MCHC 32.0 G/dL Normal 32.0 - 36.0 G/dL AO Workflow SS MCV (RBC) [Entitic vol] 69.8 fL Low 80.0 - 99.0 fL AO Workflow SS Monocytes (Bld) [#/Vol] 0.8 103/mcL Normal 0.1 - 1.4 10^3/mcL AO Workflow SS Monocytes/100 WBC (Bld) 10.3 % Normal 2.0 - 13.0 % AO Workflow SS Neutrophils (Bld) [#/Vol] 5.5 103/mcL Normal 2.3 - 8.1 10^3/mcL AO Workflow SS Neutrophils/100 WBC (Bld) 69.5 % Normal 50.0 - 75.0 % AO Workflow SS Platelet mean volume (Bld) [Entitic vol] 8.3 fL Normal 6.6 - 10.5 fL AO Workflow SS Platelets (Bld) [#/Vol] 289 103/mcL Normal 150 - 450 10^3/mcL AO Workflow SS Potassium [Moles/Vol] 3.9 mmol/L Normal 3.5 - 5.1 mmol/L AO ADM SS RBC (Bld) [#/Vol] 4.75 106/mcL Normal 4.10 - 5.3 0 10^6/mcL AO Workflow SS Sodium [Moles/Vol] 138 mmol/L Normal 136 - 145 mmol/L AO ADM SS Urea nitrogen [Mass/Vol] 11 mg/dL Normal 7 - 18 mg/dL AO ADM SS Urea nitrogen/Creatinine [Mass ratio] 16 ratio Normal 7 - 27 ratio AO ADM SS WBC (Bld) [#/Vol] 7.9 103/mcL Normal 4.5 - 10.8 10^3/mcL AO Workflow SS LABORATORYOrdered By: Anthony Nguyen on 11-13-2024 MRSA (PCR) Not Detected 1 (11/13/24 2:02 PM) Normal Not Detected Auto Viro/Sero SS Comment on above: Result Comment: [place] [id number] MRSA PCR Int MRSA DNA not detecte d by Real-Time Polymerase Chain Reaction (PCR). A negative result may be due to intermittent colonization. Colonization may vary depending on patient treatment, patient status, or exposure to high-risk environments. As with all PCR based in vitro diagnostic tests, extremely low levels of target below the limit of detection of the assay may be detected, but results may not be reproducible. Invalid Interpretation Code Auto Viro/Sero SS MRSAPCRon 11-13-2024 MRSA (PCR) Not detected Normal Not Detected [facility] Comment on above: Result Comment: Note [place] [id number] Performed By: #### M RSAPCR #### [address] [address] MRSA PCR Int Normal [facility] Comment on above: Result Comment: MRSA DNA not detected by Real-Time Polymerase Chain Reaction (PCR). A negative result may be due to intermittent colonization. Colonization may vary depending on patient treatment, patient status, or exposure to high-risk environments. As with all PCR based in vitro diagnostic tests, extremely low levels of target below the limit of detection of the assay may be detected, but results may not be reproducible. See Below Performed By: #### M RSAPCR #### [address] [address] Emergency Department Summary on 10-08-2024 Emergency Department Summary [facility] Medical Records Department [address] [place] [address] Emergency Department Summary 10/08/24 MR#: [id number] Acct: [id number] Name: GLORIA TORIBIO Rep #: [id number] : 1955 69 From: Tuan Jean DO PCP: Dr. Antione Talley MD Status:DEP ER Location: ED HPI History of Present Illness HPI Narrative: Patient presents with left foot pain that began after a fall 3 days ago. Patient states she was on a step and she fell off of that. Patient is unsure if she inverted or everted her foot. Patient states the pain is sharp. Patient states pain is worse with any weightbearing. Patient states the pain radiates up the lateral aspect of her left lower leg. Patient denies any paresthesias or weakness. Patient states she did hit her head but denies any loss of consciousness. Patient denies any other injuries. Chief Complaint: Lower Extremity Injury Informant: patient Occured/Mechanism Mechanism/Context: Yes fall Onset/Context/Timing Onset: Days (3 days ago) Context: Sudden Onset Timing: Continuous Quality of Pain: Sharp Location: Left foot Worsened by: Weightbearing Relieved by: Rest Associated Symptoms Associated Symptoms: Negative for Parasthesia, Weakness or Loss of Funtion PFSH PFS Medical History (Updated 10/08/24 @ 10:[address] Tuan Jean, ) Insomnia Anxiety Hyperthyroidism GERD (gastroesophageal reflux disease) Hypertension Medical History no medical history Home Medications ???Medication ???Instructions ???Recorded ???Last Taken ???Type Omeprazole [Prilosec] 40 mg PO DAILY 07/15/15 07/14/15 H istory hydrochlorothiazide 25 mg tablet 25 mg PO DAILY 07/15/15 07/14/15 H istory levothyroxine 50 mcg tablet 50 mcg PO DAILY 07/15/15 07/14/15 History celecoxib 100 mg capsule 100 mg PO BID 10/08/24 Unknown His tory hydrocodone-acetaminop hen 5-325mg 1 tab PO Q6H PRN PRN Pain 3 days 10/08/24 Unknown Rx 5mg-325mg #10 TABLETS levothyroxine 88 mcg tablet 88 mcg PO DAILY 10/08/24 Unknown H istory (Synthroid) trazodone 100 mg tablet 150 mg PO DAILY 10/08/24 Unknown H istory Allergy/AdvReac Type Severity Reaction Status Date / Time No Known Allergies Allergy Verified 07/15/15 01:40 Family History no significant family his Surgical History (Updated 10/08/24 @ 09:38 by Bryanna Gonsalves) History of right shoulder replacement Surgical History no surgical history Social History Smoking Status: Former smoker ROS ROS ED Constitutional Constitutional ED: Denies chills or fever(s) Eyes Eyes: Denies blurry vision or change in vision ENT ENT ED: Denies rhinorrhea or sore throat Cardiovascular Cardiovascular: Denies chest pain or palpitations Respiratory/Chest Respiratory/Chest: Denies cough or dyspnea Gastrointestinal Gastrointestinal: Denies abdominal pain Musculoskeletal Musculoskeletal: Denies back pain or neck pain Integumentary Denies abscess or rash Neurologic Neurologic: Denies headache(s) or weakness Allergic/Immunologic Allergic/Immunologic ED: Denies mouth swelling or urticaria EXAM Physical Exam Const Vital Signs: 10/08/24 09:24 10/08/24 10:39 Temperature 96.4 F L 96.4 F L Temperature Source Temporal Pulse Rate 72 72 Respiratory Rate 16 16 Blood Pressure 166/77 H 166/77 H Blood Pressure Mean 106 106 Pulse Ox 99 99 Oxygen Delivery Method Room Air Positive well nourished and well developed Constitutional Narrative: BMI is 22.6 General Appearance ED: well developed and NAD HEENT Reports moist mucous membranes Neck full ROM and supple Extremity Extremity Narrative: There is tenderness, edema, and ecchymosis of the distal metatarsals of the left foot. There is no obvious deformity noted. Range of motion was limited in all motions of the left foot secondary to pain. Sensation was intact to light touch in all digits. Capillary refill was less than 2 seconds in all digits. Pedal pulses are equal bilaterally. Neuro oriented x3, CN's II-XII intact bilaterally, moves all extremities and no sensory deficits noted Sensorium / Orientation: alert Motor Exam: strength 5/5 throughout Psych mental status grossly normal MDM MDM MDM Narrative Medical decision making narrative: Differential diagnosis includes fracture, sprain, and contusion. X-rays of the left foot will be obtained to assess for fracture. Patient was concerned that there is a blood clot in her left leg. Patient was advised that since she has no calf tenderness or lower extremity edema, I do not feel that there is a DVT. I feel that her pain that is radiating up from her foot is due to muscle strain. Patient understands and is agreeable with this. Radiography Diagnos (more content not included)... Normal [facility] Foot min 3 Viewson 5 Foot min 3 Views [facility] Imaging Services [address] [place] [address] Foot min 3 Views MR#: [id number] Acct: [id number] Name: GLORIA TORIBIO Rep #: [id number] : 1955 F 69 From: Kulwinder Hurd DO PCP: Dr. Antione Talley MD Status: REG ER Study: Foot min 3 Views Date of Exam: 10/08/24 Exam# [id number] Ordering Dr: Tuan Jean DO EXAM: Left foot radiographic evaluation, three views CLINICAL HISTORY: Bruise on top and bottom left foot after fall on . Initial encounter. COMPARISON: None. TECHNIQUE: AP frontal, oblique and lateral radiographs obtained of the left foot. FINDINGS: Oblique fracture, mildly displaced goes through the distal half of the 5th metatarsal. No dislocation. RAD/Foot min 3 Views IMPRESSION: See above. Reading [facility] CC: Dr. Antione Talley MD; Dr. Tuan Jean DO Wharf Labourer: Signed Normal [facility] Dexa Bone Density Studyon Dexa Bone Density Study [facility] Imaging Services [address] [place], [place] [address] Dexa Bone Density Study MR#: [id number] Acct: [id number] Name: GLORIA TORIBIO Rep #: [id number] : 1955 F 69 From: Bipin ruiz MD PCP: Dr. Antione Talley MD Status: REG CLI Study: Dexa Bone Density Study Date of Exam: 08/15/24 Exam# [id number] Ordering Dr: Antione Talley PROCEDURE: DEXA BONE DENSITY STUDY REASON FOR EXAM: F, age 69 y/o . Postmenopausal. TECHNIQUE: DEXA scan of the lumbar spine and both hips. COMPARISON: Comparison is made with prior study dated May 27, 2021. FINDINGS: Lumbar Spine (L1-L4): g/cm2 (0.912)/T-score (-0.6)/Z-score (1.3) findings are suggestive of normal with a low fracture risk. Left Femur Total: g/cm2 (0.784)/T-score (-1.3)/Z-score (0.1) Left Femoral Neck: g/cm2 (0.621)/T-score (-2.1)/Z-score (-0.4) Right Femur Total: g/cm2 (0.841)/T-score (-0.8)/Z-score (0.6) Right Femoral Neck: g/cm2 (0.649)/T-score (-1.8)/Z-score (-0.1) The T-Scores on the most recent prior examination were: Lumbar Spine (L1-L4): There has been improvement of bone density since the previous examination. Left Femur Total: Loss of 1.6%. Right Femur Total: Loss of 1.3%. BD/Dexa Bone Density Study IMPRESSION: The patient is considered osteopenia as outlined below according to World U[employer] Organization (WHO) criteria with a moderate fracture risk. There has been worsening of bone density since the previous examination. Reading Location: [place] [address] CC: Dr. Antione Talley MD Wharf Labourer: Signed Normal [facility] SCRN MAMM (CAD)W/MELVA BILATo n 08-15-2024 SCRN MAMM (CAD)W/MELVA BILAT [facility] Imaging Services [address] [place], [place] [id number] SCRN MAMM (CAD)W/MELVA BILAT MR#: [id number] Acct: [id number] Name: GLORIA TORIBIO Rep #: [id number] : 1955 F 69 From: Bipin ruiz MD PCP: Dr. Antione Talley MD Status: REG I Study: SCRN MAMM (CAD)W/MELVA BILAT Date of Exam: 08/05 07/29 Exam# [id number] Ordering Dr: Antione Talley PROCEDURE: SCRN MAMM (CAD)W/MELVA BILAT REASON FOR EXAM: F, Age 69 y/o, routine annual mammogram. Aunt with breast cancer. TECHNIQUE: Bilateral screening digital breast tomosynthesis with 2D and 3D images. Computer aided detection. COMPARISON: Prior exam(s) dating back to May 27, 2021 in June 04, 2022... FINDINGS: The breasts are almost entirely fatty. Stable 2 mm well-defined nodule in the upper deep lateral aspect of the right breast. No suspicious masses, areas of developing architectural distortion, or suspicious calcifications. Stable examination. BI/SCRN MAMM (CAD)W/MELVA BILAT IMPRESSION: BI-RADS 2: BENIGN. RECOMMEND ANNUAL MAMMOGRAPHIC SCREENING. Follow-up code: Routine Follow-up The patient will be notified of the results by letter. Reading Location: [place] [address] CC: Dr. 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 Electronically faxed to . 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 - traZODone (DESYREL) 100 mg tablet Take 100 mg by mouth daily at bedtime. - hydrochlorothiazide (HYDRODIURIL, ESIDRIX) 25 mg tablet Take 1 tablet by mouth once daily. - lisinopril (ZESTRIL, PRINIVIL) 20 mg tablet Take 1 tablet by mouth once daily. - Omeprazole (PRILOSEC) 40 mg capsule Take 1 capsule by mouth once daily. Problem List As Of Date 08/11/2024 Noted Resolved BENIGN HYPERTENSION [I10] DIAPHRAGMATIC HERNIA [K44.9] ESOPHAGEAL REFLUX [K21.9] PMH - PAST MEDICAL HISTORY OF Tension type headache [G44.209] HYPERLIPIDEMIA [E78.5] 06/10/2007 HYPOTHYROIDISM PRIMARY [E03.9] 06/10/2007 CHRONIC RHINITIS [J31.0] 06/10/2007 TOBACCO USE DISORDER [F17.200] 07/30/2008 Cellulitis and abscess of unspecified site [L03*09/02/2009 08/12/2011 Family history of colon cancer [Z80.0] 08/12/2011 Gastritis/duodenitis [K29.70, K29.90] 09/04/2011 Benign neoplasm of colon [D12.6] 09/04/2011 Iron deficiency anemia, unspecified [D50.9] 09/04/2011 Encounter Status:Closed by KELLI CRUZ on 08/11/24 Normal [facility] Low Dose CT Lung Screeningon 08-04-[address] Lung Screening [facility] Imaging Services [address] [place] [address] Lung Screening MR#: [id number] Acct: [id number] Name: GLORIA TORIBIO Rep #: [id number] : 1955 F 69 From: Felix Krmaer DO PCP: Dr. Antione Talley MD Status: [facility] CL Study: Low Dose CT Lung Screening Date of Exam: 08/04 Exam# [id number] Ordering Dr: Antione Talley PROCEDURE: LOW DOSE CT LUNG SCREENING REASON FOR EXAM: Nicotine dependence. 50 pack-year history TECHNIQUE: Low Dose CT Lung Screening without contrast COMPARISON: No prior examinations are currently available for comparison. FINDINGS: PULMONARY NODULES: (Only nodules >6mm are reported) Nodules described below are on series 2 unless otherwise specified. Pulmonary Nodules: No concerning pulmonary nodules. Hardware:Right shoulder arthroplasty. Lymph Nodes:No mediastinal hilar or axillary lymphadenopathy. Heart and Vasculature:Normal heart size. No pericardial effusion.Vascular calcifications within the thoracic aorta. Main pulmonary artery is of normal caliber. Coronary artery calcifications are noted. Lungs and Airways: Xsdf-pr-kcahavjy emphysematous changes most prominent of the upper lobes. Linear atelectasis or scarring within the lingula. No focal airspace consolidation identified. Pleura:No pleural effusion. No pneumothorax. Upper Abdomen:Visualized upper abdomen appears within normal limits. Bones:Osseous thorax appears intact. Mild spondylotic change involving the thoracic spine. Right shoulder arthroplasty. CT/Low Dose CT Lung Screening IMPRESSION: 1. BASED ON THE ACR LUNG RADS FOR THE MOST SUSPICIOUS NODULE (IF ANY) DESCRIBED IN THIS REPORT, THE OVERALL LUNG RADS SCORE IS 1. RECOMMEND 12-MONTH SCREENING LDCT.. 2. SMOKING CESSATION COUNSELING IS RECOMMENDED IF THE PATIENT IS STILL SMOKING. 3. Ynhj-mb-donxqssb emphysematous changes most prominent of the upper lobes. No focal airspace consolidation. 4. Right shoulder arthroplasty.. One or more dose reduction techniques were used (e.g., Automated exposure control, adjustment of the mA and/or kV according to patient size, use of iterative reconstruction technique). The following information is provided for reference:Lung-RADS 2022 Assessment Categories. Additional information involving Lung-RADS is available at www.acr.org. 0-INCOMPLETE 1-NEGATIVE:No nodules or definitely benign nodules. Complete, central, popcorn, or centric ring calcifications OR fat containing 2-BENIGN APPEARANCE (based on imaging features or indolent behavior). Juxtapleural nodule: < 10mm AND solid; smooth margins; oval, lentiform, or triangular shape Solid nodule: <6mm at baseline or new< 4mm Part solid Nodule: < 6mm total mean diameter at baseline Nonsolid nodule:(GGN) < 30mm OR >=30mm stable or slowly growing Airway nodule, subsegmental at baseline, new, or stable Category 3 nodule stable or decreased in size at 6-month follow-up CT or Category 3 or 4A nodules that resolve on follow-up OR category 4B findings proven to be benign following diagnotic work up. 3 - Probably Benign (Based on imaging features or behavior) Solid Nodule: >= 6 to <8mm at baseline OR new 4 to <6mm Part-solid nodule: >= 6mm toal mean diam. with solid component <6mm at baseline OR new < 6mm total mean diam. Non-solid nodule: GGN >= 30mm at baseline or new Atypical pulmonary cyst: Growing cystic component (mean diam.) of thick-walled cyst Category 4A nodule stable or decreased in size at 3-month follow-up CT (excl.airway). 4A - Suspicious Solid nodule: >=8 to < 15mm at baseline OR growing < 8mm OR new 6 to < 8mm Part solid nodule: >= 6mm total mean diam. w/ solid component >=6mm to < 8mm at baseline OR new or growing < 4mm solid component Airway nodule, segmental or more proximal at baseline or new Atypical pulmonary cyst: Thick-walled OR multilocular at baseline OR becomes multilocular 4B - Very Suspicious Airway nodule, segmental or more proximal, and stable or growing Solid nodule: >= 15mm at baseline OR new or growing >= 8mm Part solid nodule: Solid component >= 8mm OR new or growing >= 4mm solid component Atypical pulmonary cyst: Thick-walled with growing wall thickness/nodularity OR Growing multilocular (mean diam.) OR Multilocular with increased loculation or new/increased opacity Slow-growing solid or part solid nodule w/ growth over multiple screening exams 4X - Very Suspicious Category 3 or 4 nodules with additional features that increase the suspicion for lung cancer. S - Clinically Significant or potentially significant findings (non-lung cancer) Reading Location: [place] CC: Dr. 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 Order Date: 07/17/24 Order Info: [id number] - B12 Order Info: [id number] - VITD25 Performed By: #### L 503.0105, L500.4100, L500.4050, L506.0400, L503.6150, L503.6550, L501.9520, L100.0500 #### [facility] Laboratory [address] [place], [address] Albumin to globulin ratioOrd ered By: Antione Talley on 07-29-2024 Albumin/Globulin [Mass ratio] 1.2 {ratio} 0.9-2.4 [facility] Bilirubin, totalOrdered By: Antione Talley on 07-29-2024 Bilirubin [Mass/Vol] 0.50 mg/dL 0.20-1.00 [facility] Comment on above: For patients on eltr ombopag therapy, use of Dimension [place] TBIL is not recommended. Blood urea nitrogen (BUN)/cr eatinine ratioOrdered By: Antione Talley on 07-29-2024 Urea nitrogen/Creatinine [Mass ratio] 11.5 mg/mg 10-20 [facility] CBC-Complete Blood Cnt No Di ffon 07-29-2024 Erythrocyte distribution width (RBC) [Ratio] 15.4 % High 11.6-14.6 [facility] Comment on above: Order Comment: Order Date: 07/17/24 Order Info: [id number] - CBC Performed By: #### L 503.0105, L500.4100, L500.4050, L506.0400, L503.6150, L503.6550, L501.9520, L100.0500 #### [facility] [address] [place], [address] Hematocrit (Bld) [Volume fraction] 34.2 % Low 37-47 [facility] Comment on above: Order Comment: Order Date: 07/17/24 Order Info: [id number] - CBC Performed By: #### L 503.0105, L500.4100, L500.4050, L506.0400, L503.6150, L503.6550, L501.9520, L100.0500 #### [facility] [address] [place], [address] Hemoglobin (Bld) [Mass/Vol] 10.3 g/dL Low 12.0-15.0 [facility] Comment on above: Order Comment: Order Date: 07/17/24 Order Info: [id number] - CBC Performed By: #### L 503.0105, L500.4100, L500.4050, L506.0400, L503.6150, L503.6550, L501.9520, L100.0500 #### [facility] [address] [place], [address] MCH (RBC) [Entitic mass] 22.4 pg Low 27.0-32.0 [facility] Comment on above: Order Comment: Order Date: 07/17/24 Order Info: [id number] - CBC Performed By: #### L 503.0105, L500.4100, L500.4050, L506.0400, L503.6150, L503.6550, L501.9520, L100.0500 #### [facility] [address] [place], [address] MCHC (RBC) [Mass/Vol] 30.1 g/dL Low 32-36 [facility] Comment on above: Order Comment: Order Date: 07/17/24 Order Info: [id number] - CBC Performed By: #### L 503.0105, L500.4100, L500.4050, L506.0400, L503.6150, L503.6550, L501.9520, L100.0500 #### [facility] [address] [place], [address] MCV (RBC) [Entitic vol] 74.5 fL Low 81-99 [facility] Comment on above: Order Comment: Order Date: 07/17/24 Order Info: [id number] - CBC Performed By: #### L 503.0105, L500.4100, L500.4050, L506.0400, L503.6150, L503.6550, L501.9520, L100.0500 #### [facility] [address] [place], [address] Platelet mean volume (Bld) [Entitic vol] 9.6 fL Normal 6.2-12.0 [facility] Comment on above: Order Comment: Order Date: 07/17/24 Order Info: [id number] - CBC Performed By: #### L 503.0105, L500.4100, L500.4050, L506.0400, L503.6150, L503.6550, L501.9520, L100.0500 #### [facility] [address] [place], [address] Platelets (Bld) [#/Vol] 310 10*3/uL Normal 150-450 [facility] Comment on above: Order Comment: Order Date: 07/17/24 Order Info: [id number] - CBC Performed By: #### L 503.0105, L500.4100, L500.4050, L506.0400, L503.6150, L503.6550, L501.9520, L100.0500 #### [facility] [address] [place], [address] RBC (Bld) [#/Vol] 4.59 10*6/uL Normal 4.2-5.4 [facility] Comment on above: Order Comment: Order Date: 07/17/24 Order Info: [id number] - CBC Performed By: #### L 503.0105, L500.4100, L500.4050, L506.0400, L503.6150, L503.6550, L501.9520, L100.0500 #### [facility] [address] [place], [address] RDW SD 41.4 fl Normal 35.1-43.9 [facility] Comment on above: Order Comment: Order Date: 07/17/24 Order Info: [id number] - CBC Performed By: #### L 503.0105, L500.4100, L500.4050, L506.0400, L503.6150, L503.6550, L501.9520, L100.0500 #### [facility] [address] [place], [address] WBC (Bld) [#/Vol] 7.4 10*3/uL Normal 4.4-11.0 [facility] Comment on above: Order Comment: Order Date: 07/17/24 Order Info: [id number] - CBC Performed By: #### L 503.0105, L500.4100, L500.4050, L506.0400, L503.6150, L503.6550, L501.9520, L100.0500 #### [facility] [address] [place], [place], [address] Carbon dioxide measurementOr dered By: Antione Talley on 07-29-2024 CO2 [Moles/Vol] 30.0 mmol/L 21.0-32.0 [facility] Chloride measurementOrdered By: Antione Talley on 07-29-2024 Chloride [Moles/Vol] 104 mmol/L 98-107 [facility] Comprehensive Metabolic Prof ilon 07-29-2024 Albumin [Mass/Vol] 3.7 g/dL Normal 3.2-5.0 [facility] Comment on above: Order Comment: Order Date: 07/17/24 Order Info: [id number] - CMP Order Info: [id number] - LIPID Order Info: [id number] - TSH Order Info: 2498-4 - FE Order Info: 2276-4 - MARTIN Order Info: 3024-7 - T4F Performed By: #### L 503.0105, L500.4100, L500.4050, L506.0400, L503.6150, L503.6550, L501.9520, L100.0500 #### [facility] [address] [place], [place], [address] Albumin/Globulin [Mass ratio] 1.2 {ratio} Normal 0.9-2.4 [facility] Comment on above: Order Comment: Order Date: 07/17/24 Order Info: 86-1 - CMP Order Info: [id number] - LIPID Order Info: 3 - TSH Order Info: [id number] - FE Order Info: [id number] - MARTIN Order Info: [id number] - T4F Performed By: #### L 503.0105, L500.4100, L500.4050, L506.0400, L503.6150, L503.6550, L501.9520, L100.0500 #### [facility] [address] [place], [address] ALK P 69 U/L Normal 45-117 [facility] Comment on above: Order Comment: Order Date: 07/17/24 Order Info: [id number]- - CMP Order Info: - LIPID Order Info: 3 - TSH Order Info: [id number] - FE Order Info: [id number] - MARTIN Order Info: [id number] - T4F Performed By: #### L 503.0105, L500.4100, L500.4050, L506.0400, L503.6150, L503.6550, L501.9520, L100.0500 #### [facility] [address] [place], [address] ALT [Catalytic activity/Vol] 22 U/L Normal 13-56 [facility] Comment on above: Order Comment: Order Date: 07/17/24 Order Info: 86-1 - CMP Order Info: [id number] - LIPID Order Info: 3 - TSH Order Info: [id number] - FE Order Info: [id number] - MARTIN Order Info: 3024-7 - T4F Performed By: #### L 503.0105, L500.4100, L500.4050, L506.0400, L503.6150, L503.6550, L501.9520, L100.0500 #### [facility] [address] [place], [place], [address] AST [Catalytic activity/Vol] 22 U/L Normal 15-37 [facility] Comment on above: Order Comment: Order Date: 07/17/24 Order Info: [id number]- - CMP Order Info: [id number] - LIPID Order Info: 3 - TSH Order Info: [id number] - FE Order Info: [id number] - MARTIN Order Info: [id number] - T4F Performed By: #### L 503.0105, L500.4100, L500.4050, L506.0400, L503.6150, L503.6550, L501.9520, L100.0500 #### [facility] [address] [address] [place], [place], [id number] Bilirubin [Mass/Vol] 0.50 mg/dL Normal 0.20-1.00 [facility] Comment on above: Order Comment: Order Date: 07/17/24 Order Info: 0786 - CMP Order Info: - LIPID Order Info: [id number] - TSH Order Info: 2497-10 - FE Order Info: 2275-10 - MARTIN Order Info: 3024-01 - T4F Result Comment: For patients on eltrombopag therapy, use of Dimension [place] TBIL is not recommended. Performed By: #### L 503.0105, L500.4100, L500.4050, L506.0400, L503.6150, L503.6550, L501.9520, L100.0500 #### [facility] [address] [place], [place], [id number] BUN/CRE 11.5 RATIO Normal 10-20 [facility] Comment on above: Order Comment: Order Date: 07/17/24 Order Info: [id number] - CMP Order Info: [id number] - LIPID Order Info: 3 - TSH Order Info: 2497-10 - FE Order Info: 2275-10 - MARTIN Order Info: 3024-01 - T4F Performed By: #### L 503.0105, L500.4100, L500.4050, L506.0400, L503.6150, L503.6550, L501.9520, L100.0500 #### [facility] [address] [place], [address] CA,Total 9.5 mg/dL Normal 8.5-10.1 [facility] Comment on above: Order Comment: Order Date: 07/17/24 Order Info: 86-1 - CMP Order Info: [id number] - LIPID Order Info: [id number] - TSH Order Info: 2497-10 - FE Order Info: 4 - MARTIN Order Info: 3024-7 - T4F Performed By: #### L 503.0105, L500.4100, L500.4050, L506.0400, L503.6150, L503.6550, L501.9520, L100.0500 #### [facility] [address] [place], [address] Chloride [Moles/Vol] 104 mmol/L Normal 98-107 [facility] Comment on above: Order Comment: Order Date: 07/17/24 Order Info: 785-1 - CMP Order Info: [id number] - LIPID Order Info: [id number] - TSH Order Info: 2497-10 - FE Order Info: 2275-10 - MARTIN Order Info: 4-7 - T4F Performed By: #### L 503.0105, L500.4100, L500.4050, L506.0400, L503.6150, L503.6550, L501.9520, L100.0500 #### [facility] [address] [place], [address] CO2 [Moles/Vol] 30.0 mmol/L Normal 21.0-32.0 [facility] Comment on above: Order Comment: Order Date: 07/17/24 Order Info: 86-1 - CMP Order Info: [id number] - LIPID Order Info: [id number] - TSH Order Info: 24902-05 - FE Order Info: 2275-10 - MARTIN Order Info: 3024-7 - T4F Performed By: #### L 503.0105, L500.4100, L500.4050, L506.0400, L503.6150, L503.6550, L501.9520, L100.0500 #### [facility] [address] [place], [address] Creatinine [Mass/Vol] 0.69 mg/dL Normal 0.55-1.02 [facility] Comment on above: Order Comment: Order Date: 07/17/24 Order Info: 0786-1 - CMP Order Info: [id number] - LIPID Order Info: [id number] - TSH Order Info: 2497-10 Order Info: 2275-10 MARTIN Order Info: 3024-01 - T4 Result Comment: The validity of the calculated GFR GFRAA in patients over 70 years has not been determined. Clinical correlation is essential. Performed By: #### L 503.0105, L500.4100, L500.4050, L506.0400, L503.6150, L503.6550, L501.9520, L100.0500 #### [facility] [address] [place], [address] EST GFR - AA 108 mL/min Normal >60 [facility] Comment on above: Order Comment: Order Date: 07/17/24 Order Info: 0786-1 - CMP Order Info: [id number] - LIPID Order Info: [id number] - TSH Order Info: 2497-10 Order Info: 2275-10 MARTIN Order Info: 3024-01 T4 Result Comment: Afri can [place] GFR Calc Performed By: #### L 503.0105, L500.4100, L500.4050, L506.0400, L503.6150, L503.6550, L501.9520, L100.0500 #### [facility] [address] [place], [address] GAP 4 Low 5-15 [facility] Comment on above: Order Comment: Order Date: 07/17/24 Order Info: 0786- - CMP Order Info: [id number] - LIPID Order Info: [id number] - TSH Order Info: 2497-10 - FE Order Info: 2275-10 - MARTIN Order Info: 3024-01 - T4F Performed By: #### L 503.0105, L500.4100, L500.4050, L506.0400, L503.6150, L503.6550, L501.9520, L100.0500 #### [facility] [address] [place], [place], [phone] GFR/1.73 sq M.predicted among non-blacks MDRD (S/P/Bld) [Vol rate/Area] 89 mL/min/{1.73_m2} Normal >60 [facility] Comment on above: Order Comment: Order Date: 07/17/24 Order Info: 07 - CMP Order Info: - LIPID Order Info: [id number] - TSH Order Info: 2497-10 - FE Order Info: 2275-10 - MARTIN Order Info: 3024-01 - T4F Result Comment: Non- GFR Calc Performed By: #### L 503.0105, L500.4100, L500.4050, L506.0400, L503.6150, L503.6550, L501.9520, L100.0500 #### [facility] [address] [place], [address] Globulin (S) [Mass/Vol] 3.0 g/dL Normal 2.2-4.2 [facility] Comment on above: Order Comment: Order Date: 07/17/24 Order Info: 0786 - CMP Order Info: - LIPID Order Info: [id number] - TSH Order Info: 2497-10 - FE Order Info: 2275-10 - MARTIN Order Info: 3024-01 - T4F Performed By: #### L 503.0105, L500.4100, L500.4050, L506.0400, L503.6150, L503.6550, L501.9520, L100.0500 #### [facility] [address] [place], [address] Glucose [Mass/Vol] 104 mg/dL Normal 74-106 [facility] Comment on above: Order Comment: Order Date: 07/17/24 Order Info: 0786-1 - CMP Order Info: [id number] - LIPID Order Info: 6-3 - TSH Order Info: 4 - FE Order Info: 4 - MARTIN Order Info: 3024-7 - T4F Result Comment: Fast ing Glucose result from 100 to 125 mg/dL suggests IMPAIRED HOMEOSTASIS per A.D.A. criteria. Performed By: #### L 503.0105, L500.4100, L500.4050, L506.0400, L503.6150, L503.6550, L501.9520, L100.0500 #### [facility] [address] [place], [address] Potassium [Moles/Vol] 3.8 mmol/L Normal 3.5-5.1 [facility] Comment on above: Order Comment: Order Date: 07/17/24 Order Info: 0786-1 - CMP Order Info: [id number] - LIPID Order Info: 3 - TSH Order Info: 2497-10 - FE Order Info: 4 - MARTIN Order Info: 3024-7 - T4F Performed By: #### L 503.0105, L500.4100, L500.4050, L506.0400, L503.6150, L503.6550, L501.9520, L100.0500 #### [facility] [address] [place], [address] Sodium [Moles/Vol] 138 mmol/L Normal 136-145 [facility] Comment on above: Order Comment: Order Date: 07/17/24 Order Info: 0786-1 - CMP Order Info: [id number] - LIPID Order Info: [id number] - TSH Order Info: 2497-10 - FE Order Info: 4 - MARTIN Order Info: 3024-7 - T4F Performed By: #### L 503.0105, L500.4100, L500.4050, L506.0400, L503.6150, L503.6550, L501.9520, L100.0500 #### [facility] [address] [place], [place], [id number] T PROT 6.7 g/dL Normal 6.4-8.2 [facility] Comment on above: Order Comment: Order Date: 07/17/24 Order Info: 0786-1 - CMP Order Info: [id number] - LIPID Order Info: 3 - TSH Order Info: 2497-10 - FE Order Info: 2275-10 - MARTIN Order Info: 3024-01 - T4F Performed By: #### L 503.0105, L500.4100, L500.4050, L506.0400, L503.6150, L503.6550, L501.9520, L100.0500 #### [facility] [address] [place], [place], [id number] Urea nitrogen [Mass/Vol] 8 mg/dL Normal 7-18 [facility] Comment on above: Order Comment: Order Date: 07/17/24 Order Info: 0786-1 - CMP Order Info: [id number] - LIPID Order Info: 3 - TSH Order Info: 2497-10 - FE Order Info: 2275-10 - MARTIN Order Info: 7 - T4F Performed By: #### L 503.0105, L500.4100, L500.4050, L506.0400, L503.6150, L503.6550, L501.9520, L100.0500 #### [facility] [address] [place], [place], [id number] Direct serum free thyroxine (FT4) measurementOrdered By: Antione Talley on 07-29-2024 Free T4 [Mass/Vol] 1.40 ng/dL 0.76-1.46 [facility] Erythrocyte distribution wid th (RBC) [Ratio]Ordered By: Antione Talley on 07-29-2024 Erythrocyte distribution width (RBC) [Entitic vol] 41.4 fL 35.1-43.9 [facility] Erythrocyte distribution wid th ratioOrdered By: Antione Talley on 07-29-2024 Erythrocyte distribution width (RBC) [Ratio] 15.4 % High 11.6-14.6 [facility] Estimated glomerular filtrat ion rate (GFR) AmericanOrdered By: Antione Talley on 07-29-2024 Estimated GFR (MDRD) Amer 108 mL/min >60 [facility] Comment on above: GFR Calc Ferritinon 07-29-2024 Ferritin [Mass/Vol] 4 ng/mL Low 8-252 [facility] Comment on above: Order Comment: Order Date: 07/17/24 Order Info: 0786-1 - CMP Order Info: [id number] - LIPID Order Info: [id number] - TSH Order Info: 2498-4 - FE Order Info: 2276-4 - MARTIN Order Info: 3024-7 - T4F Performed By: #### L 503.0105, L500.4100, L500.4050, L506.0400, L503.6150, L503.6550, L501.9520, L100.0500 #### [facility] [address] [facility] [place], [address] Ferritin measurementOrdered By: Antione Talley on 07-29-2024 Ferritin [Mass/Vol] 4 ng/mL Low 8-252 [facility] Glomerular filtration rate ( GFR) estimationOrdered By: Antione Talley on 07-29-2024 Estimated GFR (MDRD) Non-Af Amer 89 mL/min >60 [facility] Comment on above: Non- GFR Calc Glucose measurementOrdered B y: Antione Talley on 07-29-2024 Glucose [Mass/Vol] 104 mg/dL 74-106 [facility] Comment on above: Fasting Glucose resu lt from 100 to 125 mg/dL suggests IMPAIRED HOMEOSTASIS per A.D.A. criteria. Hematocrit Auto (Bld) [Volum e fraction]Ordered By: Antione Talley on 07-29-2024 Hematocrit (Bld) [Volume fraction] 34.2 % Low 37-47 [facility] Hemoglobin measurementOrdere d By: Antione Talley on 07-29-2024 Hemoglobin (Bld) [Mass/Vol] 10.3 g/dL Low 12.0-15.0 [facility] High density lipoprotein (HD L) measurementOrdered By: Antione Talley on 07-29-2024 Cholesterol in HDL [Mass/Vol] 66 mg/dL >40 [facility] Comment on above: The drugs N-Acetylcy steine and Metamizole may falsely depress this assay. Reference Range HDL <40 mg/dL Low HDL Cholesterol HDL >or= 60 mg/dL High HDL Cholesterol Ironon 07-29-2024 Iron [Mass/Vol] 21 ug/dL Low 50-170 [facility] Comment on above: Order Comment: Order Date: 07/17/24 Order Info: 0786-1 - CMP Order Info: [id number] - LIPID Order Info: [id number] - TSH Order Info: 2498-4 - FE Order Info: 2276-4 - MARTIN Order Info: 3024-7 - T4F Performed By: #### L 503.0105, L500.4100, L500.4050, L506.0400, L503.6150, L503.6550, L501.9520, L100.0500 #### [facility] [place], [address] Iron (Unsp spec) [Mass/Mass] Ordered By: Antione Talley on 07-29-2024 Iron [Mass/Vol] 21 ug/dL Low 50-170 [facility] - Chemistry and C hemistry - challengeOrdered By: Antione Talley on 07-29-2024 AST [Catalytic activity/Vol] 22 U/L 15-37 [facility] Lipid Profileon 07-29-2024 Cholesterol [Mass/Vol] 164 mg/dL Normal 200 [facility] Comment on above: Order Comment: Order Date: 07/17/24 Order Info: 0786-1 - CMP Order Info: [id number] - LIPID Order Info: [id number] - TSH Order Info: 2498-4 - FE Order Info: 2275-10 MARTIN Order Info: 3024-01 T4F Result Comment: <200 mg/dL Desirable 200-240 mg/dL Borderline >240 mg/dL High Risk Performed By: #### L 503.0105, L500.4100, L500.4050, L506.0400, L503.6150, L503.6550, L501.9520, L100.0500 #### [facility] [address] [place], [address] Cholesterol in HDL [Mass/Vol] 66 mg/dL Normal [facility] Comment on above: Order Comment: Order Date: 07/17/24 Order Info: 0786- - CMP Order Info: [id number] - LIPID Order Info: [id number] - TSH Order Info: 2497-10 Order Info: 2275-10 MARTIN Order Info: 3024-01 T4F Result Comment: The drugs N-Acetylcysteine and Metamizole may falsely depress this assay. Reference Range HDL <40 mg/dL Low HDL Cholesterol HDL >or= 60 mg/dL High HDL Cholesterol Performed By: #### L 503.0105, L500.4100, L500.4050, L506.0400, L503.6150, L503.6550, L501.9520, L100.0500 #### [facility] [address] [place], [address] Cholesterol in LDL [Mass/Vol] 81 mg/dL Normal 0-130 [facility] Comment on above: Order Comment: Order Date: 07/17/24 Order Info: 0786- - CMP Order Info: [id number] - LIPID Order Info: [id number] - TSH Order Info: 2497-10 Order Info: 2275-10 MARTIN Order Info: 3024-01 T4F Performed By: #### L 503.0105, L500.4100, L500.4050, L506.0400, L503.6150, L503.6550, L501.9520, L100.0500 #### [facility] [address] [place], [place], [address] Cholesterol in VLDL [Mass/Vol] 17 mg/dL Normal 5-40 [facility] Comment on above: Order Comment: Order Date: 07/17/24 Order Info: 0786-1 - CMP Order Info: [id number] - LIPID Order Info: [id number] - TSH Order Info: 2497-10 - FE Order Info: 2275-10 - MARTIN Order Info: 3023-7 - T4F Performed By: #### L 503.0105, L500.4100, L500.4050, L506.0400, L503.6150, L503.6550, L501.9520, L100.0500 #### [facility] [address] [place], [place], [id number] Triglyceride [Mass/Vol] 83 mg/dL Normal [facility] Comment on above: Order Comment: Order Date: 07/17/24 Order Info: 0786-1 - CMP Order Info: [id number] - LIPID Order Info: 301-3 - TSH Order Info: 2497-10 - FE Order Info: 4 - MARTIN Order Info: 7 - T4F Result Comment: The drugs N-Acetylcysteine and Metamizole may falsely depress this assay. Serum Triglycerides Reference Interval Normal <150 mg/dL Borderline high 150 - 199 mg/dL High 200 - 499 mg/dL Very High > or = 500 mg/dL Performed By: #### L 503.0105, L500.4100, L500.4050, L506.0400, L503.6150, L503.6550, L501.9520, L100.0500 #### [facility] [address] [place], [place], [id number] Low density lipoprotein (LDL ) cholesterol measurementOrdered By: Antione Talley on 07-29-2024 Cholesterol in LDL [Mass/Vol] 81 mg/dL 0-130 [facility] MCV (mean corpuscular volume ) determinationOrdered By: Antione Talley on 07-29-2024 MCV (RBC) [Entitic vol] 74.5 fL Low 81-99 [facility] Mean corpuscular hemoglobin (MCH) determinationOrdered By: Antione Talley on 07-29-2024 MCH (RBC) [Entitic mass] 22.4 pg Low 27.0-32.0 [facility] Mean corpuscular hemoglobin concentration (MCHC) determinationOrdered By: Antione Talley on 07-29-2024 MCHC (RBC) [Mass/Vol] 30.1 g/dL Low 32-36 [facility] Mean platelet volume determi nationOrdered By: Antione Talley on 07-29-2024 Platelet mean volume (Bld) [Entitic vol] 9.6 fL 6.2-12.0 [facility] Platelet countOrdered By: Valarie Talley on 07-29-2024 Platelets (Bld) [#/Vol] 310 10*3/uL 150-450 [facility] Potassium measurementOrdered By: Antione Talley on 07-29-2024 Potassium [Moles/Vol] 3.8 mmol/L 3.5-5.1 [facility] RBC Auto (Bld) [#/Vol]Ordere d By: Antione Talley on 07-29-2024 RBC (Bld) [#/Vol] 4.59 10*6/uL 4.2-5.4 [facility] Serum anion gap measurementO rdered By: Antione Talley on 07-29-2024 Anion gap [Moles/Vol] 4 mmol/L Low 5-15 [facility] Serum globulin measurementOr dered By: Antione Talley on 07-29-2024 Globulin (S) [Mass/Vol] 3.0 g/dL 2.2-4.2 [facility] Serum or plasma alanine burks otransferase (ALT) measurementOrdered By: Antione Talley on 07-29-2024 ALT [Catalytic activity/Vol] 22 U/L 13-56 [facility] Serum or plasma albumin simone urement (mass/volume)Ordered By: Antione Talley on 07-29-2024 Albumin [Mass/Vol] 3.7 g/dL 3.2-5.0 [facility] Serum or plasma alkaline ryann sphatase measurementOrdered By: Antione Talley on 07-29-2024 ALP [Catalytic activity/Vol] 69 U/L 45-117 [facility] Serum or plasma calcium simone urement (mass/volume)Ordered By: Antione Talley on 07-29-2024 Calcium [Mass/Vol] 9.5 mg/dL 8.5-10.1 [facility] Serum or plasma cholesterol measurement (mass/volume)Ordered By: Antione Talley on 07-29-2024 Cholesterol [Mass/Vol] 164 mg/dL <200 [facility] Comment on above: <200 mg/dL Desirable 200-240 mg/dL Borderline >240 mg/dL High Risk Serum or plasma creatinine m easurement (mass/volume)Ordered By: Antione Talley on 07-29-2024 Creatinine [Mass/Vol] 0.69 mg/dL 0.55-1.02 [facility] Comment on above: The validity of the calculated GFR & GFRAA in patients over 70 years has not been determined. Clinical correlation is essential. Serum or plasma urea nitroge n measurement (mass/volume)Ordered By: Antione Talley on 07-29-2024 Urea nitrogen [Mass/Vol] 8 mg/dL 7-18 [facility] Sodium levelOrdered By: Morgan Talley on 07-29-2024 Sodium [Moles/Vol] 138 mmol/L 136-145 [facility] T4 Free Directon 07-29-2024 T4 FREE DIRECT 1.40 ng/dL Normal 0.76-1.46 [facility] Comment on above: Order Comment: Order Date: 07/17/24 Order Info: 0786-1 - CMP Order Info: [id number] - LIPID Order Info: [id number] - TSH Order Info: 2498-4 - FE Order Info: 2276-4 - MARTIN Order Info: 3024-7 - T4F Performed By: #### L 503.0105, L500.4100, L500.4050, L506.0400, L503.6150, L503.6550, L501.9520, L100.0500 #### [facility] [address] [place], [place], [id number] TSH QnOrdered By: Calvin Talley on 07-29-2024 Thyroid Stimulating Hormone (TSH) 0.890 uIU/mL 0.358-3.740 [facility] Thyroid Stim Hormone (TSH)on 07-29-2024 TSH 0.890 uIU/mL Normal 0.358-3.740 [facility] Comment on above: Order Comment: Order Date: 07/17/24 Order Info: [id number] - CMP Order Info: [id number] - LIPID Order Info: [id number] - TSH Order Info: 2498-4 - FE Order Info: 2276-4 - MARTIN Order Info: 3024-7 - T4F Performed By: #### L 503.0105, L500.4100, L500.4050, L506.0400, L503.6150, L503.6550, L501.9520, L100.0500 #### [facility] [address] [place], [place], [id number] Total proteinOrdered By: Lela Talley on 07-29-2024 Protein [Mass/Vol] 6.7 g/dL 6.4-8.2 [facility] Triglycerides measurementOrd ered By: Antione Talley on 07-29-2024 Triglyceride [Mass/Vol] 83 mg/dL <199 [facility] Comment on above: The drugs N-Acetylcy steine and Metamizole may falsely depress this assay.Serum Triglycerides Reference Interval Normal <150 mg/dL Borderline high 150 - 199 mg/dL High 200 - 499 mg/dL Very High > or = 500 mg/dL Very low density lipoprotein (VLDL) cholesterol measurementOrdered By: Antione Talley on 07-29-2024 VLDL Cholesterol 17 mg/dL 5-40 [facility] Vitamin B12 measurementOrder ed By: Antione Talley on 07-29-2024 Cobalamin (Vitamin B12) [Mass/Vol] 575 pg/mL 211-911 [facility] White blood cell (WBC) count Ordered By: Antione Talley on 07-29-2024 WBC (Bld) [#/Vol] 7.4 10*3/uL 4.4-11.0 [facility] Basophil percentageOrdered B y: Calvin Talley on 04-29-2023 Chloride [Moles/Vol] 103 mmol/L 98-107 [facility] Cholesterol [Mass/Vol] 167 mg/dL <200 [facility] Comment on above: <200 mg/dL Desirable 200-240 mg/dL Borderline >240 mg/dL High Risk Glucose [Mass/Vol] 103 mg/dL 74-106 [facility] Comment on above: Fasting Glucose resu lt from 100 to 125 mg/dL suggests IMPAIRED HOMEOSTASIS per A.D.A. criteria. Potassium [Moles/Vol] 3.6 mmol/L 3.5-5.1 [facility] Sodium [Moles/Vol] 138 mmol/L 136-145 [facility] Triglyceride [Mass/Vol] 81 mg/dL <199 [facility] Comment on above: The drugs N-Acetylcy steine and Metamizole may falsely depress this assay.Serum Triglycerides Reference Interval Normal <150 mg/dL Borderline high 150 - 199 mg/dL High 200 - 499 mg/dL Very High > or = 500 mg/dL WBC (Bld) [#/Vol] 6.8 10*3/uL 4.4-11.0 [facility] Blood erythrocytes count (nu mber/volume)Ordered By: Calvin Talley on 04-29-2023 RBC (Bld) [#/Vol] 4.76 10*6/uL 4.2-5.4 [facility] Blood hemoglobin measurement (mass/volume)Ordered By: Calvin Talley on 04-29-2023 Hemoglobin (Bld) [Mass/Vol] 12.0 g/dL 12.0-15.0 [facility] Blood platelet mean volumeOr dered By: Calvin Talley on 04-29-2023 Platelet mean volume (Bld) [Entitic vol] 10.9 fL 6.2-12.0 [facility] Determination of erythrocyte mean corpuscular volume (MCV)Ordered By: Calvin Talley on 04-29-2023 MCV (RBC) [Entitic vol] 83.2 fL 81-99 [facility] Hematocrit Auto (Bld) [Volum e fraction]Ordered By: Calvin Talley on 04-29-2023 Hematocrit (Bld) [Volume fraction] 39.6 % 37-47 [facility] - Chemistry and C hemistry - challengeOrdered By: Calvin Talley on 04-29-2023 CO2 [Moles/Vol] 31.0 mmol/L 21.0-32.0 [facility] Cobalamin (Vitamin B12) [Mass/Vol] 408 pg/mL 211-911 [facility] Urea nitrogen/Creatinine [Mass ratio] 20.7 mg/mg 10-20 [facility] - Hematology and Cell countsOrdered By: Calvin Talley on 04-29-2023 Erythrocyte distribution width (RBC) [Entitic vol] 43.8 fL 35.1-43.9 [facility] Erythrocyte distribution width (RBC) [Ratio] 14.5 % 11.6-14.6 [facility] MCH (RBC) [Entitic mass] 25.2 pg 27.0-32.0 [facility] MCHC Auto (RBC) [Mass/Vol]Or dered By: Calvin Talley on 04-29-2023 MCHC (RBC) [Mass/Vol] 30.3 g/dL 32-36 [facility] No Panel InformationOrdered By: Calvin Talley on 04-29-2023 Estimated GFR (MDRD) Amer 112 mL/min >60 [facility] Comment on above: GFR Calc Estimated GFR (MDRD) Non-Af Amer 93 mL/min >60 [facility] Comment on above: Non- GFR Calc Thyroid Stimulating Hormone (TSH) 0.47 uIU/mL 0.358-3.74 [facility] Platelets bldOrdered By: Lela Talley on 04-29-2023 Platelets (Bld) [#/Vol] 279 10*3/uL 150-450 [facility] Serum or plasma calcium simone urement (mass/volume)Ordered By: Calvin Talley on 04-29-2023 Calcium [Mass/Vol] 9.6 mg/dL 8.5-10.1 [facility] Serum or plasma cholesterol in HDL measurement (mass/volume)Ordered By: Calvin Talley on 04-29-2023 Cholesterol in HDL [Mass/Vol] 69 mg/dL >40 [facility] Comment on above: The drugs N-Acetylcy steine and Metamizole may falsely depress this assay. Reference Range HDL <40 mg/dL Low HDL Cholesterol HDL >or= 60 mg/dL High HDL Cholesterol Serum or plasma cholesterol in VLDL measurement (mass/volume)Ordered By: Calvin Talley on 04-29-2023 Cholesterol in VLDL [Mass/Vol] 16 mg/dL 5-40 [facility] Serum or plasma creatinine m easurement (mass/volume)Ordered By: Calvin Talley on 04-29-2023 Creatinine [Mass/Vol] 0.68 mg/dL 0.55-1.02 [facility] Comment on above: The validity of the calculated GFR & GFRAA in patients over 70 years has not been determined. Clinical correlation is essential. Serum or plasma low density lipoprotein (LDL) cholesterol measurement (mass/volume)Ordered By: Calvin Talley on 04-29-2023 Cholesterol in LDL [Mass/Vol] 82 mg/dL 0-130 [facility] Serum or plasma urea nitroge n measurement (mass/volume)Ordered By: Calvin Talley on 04-29-2023 Urea nitrogen [Mass/Vol] 14 mg/dL 7-18 [facility] Thin prep Papanicolaou smear with manual screeningOrdered By: Calvin Talley on 04-29-2023 Thin prep Papanicolaou smear with manual screening 4 5-15 [facility] Basophil percentageon 2021 Bilirubin [Mass/Vol] 0.50 mg/dL 0.20-1.00 [facility] Work Phone: Comment on above: For patients on eltr ombopag therapy, use of Dimension [place] TBIL is not recommended. Chloride [Moles/Vol] 102 mmol/L 98-107 [facility] Work Phone: Cholesterol [Mass/Vol] 196 mg/dL <200 [facility] Work Phone: Comment on above: <200 mg/dL Desirable 200-240 mg/dL Borderline >240 mg/dL High Risk Glucose [Mass/Vol] 94 mg/dL 74-106 [facility] Work Phone: Potassium [Moles/Vol] 3.6 mmol/L 3.5-5.1 [facility] Work Phone: [phone] Protein [Mass/Vol] 7.4 g/dL 6.4-8.2 [facility] Work Phone: [phone] Sodium [Moles/Vol] 139 mmol/L 136-145 [facility] Work Phone: [phone] Triglyceride [Mass/Vol] 93 mg/dL <199 [facility] Work Phone: [phone] Comment on above: The drugs N-Acetylcy steine and Metamizole may falsely depress this assay.Serum Triglycerides Reference Interval Normal <150 mg/dL Borderline high 150 - 199 mg/dL High 200 - 499 mg/dL Very High > or = 500 mg/dL WBC (Bld) [#/Vol] 6.8 10*3/uL 4.4-11.0 [facility] Work Phone: [phone] Blood erythrocytes count (nu mber/volume)on 05-01-2022 RBC (Bld) [#/Vol] 5.01 10*6/uL 4.2-5.4 [facility]: [phone] Blood hemoglobin measurement (mass/volume)on 05-01-2022 Hemoglobin (Bld) [Mass/Vol] 14.2 g/dL 12.0-15.0 [facility] Work Phone: [phone] Blood platelet mean volumeon 05-01-2022 Platelet mean volume (Bld) [Entitic vol] 10.6 fL 6.2-12.0 [facility] Work Phone: [phone] Determination of erythrocyte mean corpuscular volume (MCV)on 05-01-2022 MCV (RBC) [Entitic vol] 84.2 fL 81-99 [facility] Work Phone: [phone] Hematocrit Auto (Bld) [Volum e fraction]on 05-01-2022 Hematocrit (Bld) [Volume fraction] 42.2 % 37-47 [facility] Work Phone: [phone] Laboratory - Chemistry and C hemistry - challengeon 05-01-2022 ALP [Catalytic activity/Vol] 68 U/L 45-117 [facility] Work Phone: [phone] ALT [Catalytic activity/Vol] 23 U/L 13-56 [facility] Work Phone: [phone] CO2 [Moles/Vol] 31.0 mmol/L 21.0-32.0 [facility] Work Phone: [phone] Free T4 [Mass/Vol] 1.28 ng/dL 0.76-1.46 [facility] Work Phone: [phone] Globulin (S) [Mass/Vol] 3.2 g/dL 2.2-4.2 [facility] Work Phone: [phone] Urea nitrogen/Creatinine [Mass ratio] 15.6 mg/mg 10-20 [facility] Work Phone: [phone] Laboratory - Hematology and Cell countson 05-01-2022 Erythrocyte distribution width (RBC) [Entitic vol] 40.7 fL 35.1-43.9 [facility] Work Phone: [phone] Erythrocyte distribution width (RBC) [Ratio] 13.2 % 11.6-14.6 [facility] Work Phone: [phone] MCH (RBC) [Entitic mass] 28.3 pg 27.0-32.0 [facility] Work Phone: [phone] MCHC Auto (RBC) [Mass/Vol]on 05-01-2022 MCHC (RBC) [Mass/Vol] 33.6 g/dL 32-36 [facility] Work Phone: [phone] No Panel Informationon 05-01 Estimated GFR (MDRD) Amer 107 mL/min >60 [facility] Work Phone: [phone] Comment on above: GFR Calc Estimated GFR (MDRD) Non-Af Amer 88 mL/min >60 [facility] Work Phone: [phone] Comment on above: Non- GFR Calc Thyroid Stimulating Hormone (TSH) 1.35 uIU/mL 0.358-3.74 [facility] Work Phone: [phone] Vitamin B12 Level > 2000 pg/mL 211-911 [facility] Work Phone: [phone] Vitamin D 25-Hydroxy 31.4 ng/mL [facility] Work Phone: Comment on above: Vitamin D 25(OH) Sta tus Range Deficiency <20 ng/mL (50nmol/L) Insufficiency 20 - 30 ng/mL (50 - 75 nmol/L) Sufficiency 30 - 100 ng/mL (75 - 250 nmol/L) Toxicity >100 ng/mL (>250 nmol/L) Platelets bldon 05-01-2022 Platelets (Bld) [#/Vol] 250 10*3/uL 150-450 [facility] Work Phone: [phone] Serum Helicobacter pylori Ig G antibody assay (units/volume)on 05-01-2022 H. pylori IgG Qn (S) 0.41 0.00-0.79 [facility] Work Phone: Comment on above: Result Units: Index Value Negative <0.80 Equivocal 0.80 - 0.89 Positive >0.89 Serum or plasma albumin simone urement (mass/volume)on 05-01-2022 Albumin [Mass/Vol] 4.2 g/dL 3.2-5.0 [facility] Work Phone: [phone] Serum or plasma albumin/glob ulin mass ratioon 05-01-2022 Albumin/Globulin [Mass ratio] 1.3 {ratio} 0.9-2.4 [facility] Work Phone: [phone] Serum or plasma calcium simone urement (mass/volume)on 05-01-2022 Calcium [Mass/Vol] 9.9 mg/dL 8.5-10.1 [facility] Work Phone: [phone] Serum or plasma cholesterol in HDL measurement (mass/volume)on 05-01-2022 Cholesterol in HDL [Mass/Vol] 78 mg/dL >40 [facility] Work Phone: Comment on above: The drugs N-Acetylcy steine and Metamizole may falsely depress this assay. Reference Range HDL <40 mg/dL Low HDL Cholesterol HDL >or= 60 mg/dL High HDL Cholesterol Serum or plasma cholesterol in VLDL measurement (mass/volume)on 05-01-2022 Cholesterol in VLDL [Mass/Vol] 19 mg/dL 5-40 [facility] Work Phone: Serum or plasma creatinine m easurement (mass/volume)on 05-01-2022 Creatinine [Mass/Vol] 0.70 mg/dL 0.55-1.02 [facility] Work Phone: Comment on above: The validity of the calculated GFR & GFRAA in patients over 70 years has not been determined. Clinical correlation is essential. Serum or plasma low density lipoprotein (LDL) cholesterol measurement (mass/volume)on 05-01-2022 Cholesterol in LDL [Mass/Vol] 99 mg/dL 0-130 [facility] Work Phone: Serum or plasma urea nitroge n measurement (mass/volume)on 05-01-2022 Urea nitrogen [Mass/Vol] 11 mg/dL 7-18 [facility] Work Phone: Serum or plasma zinc measure ment (mass/volume)on 05-01-2022 Zinc [Mass/Vol] 102 ug/dL 44-115 [facility] Work Phone: Comment on above: Detection Limit = 5P erformed at: [facility] [address] [id number] Director: Joel Pascual PhD, Phone: [phone] at: [facility] [address] [id number] Director: Phill Acosta MD, Phone: [phone] Thin prep Papanicolaou smear with manual screeningon 05-01-2022 Thin prep Papanicolaou smear with manual screening 16 U/L 15-37 [facility] Work Phone: [phone] Thin prep Papanicolaou smear with manual screening 6 5-15 [facility] Work Phone: XR SHOULDER MINIMUM 2 VIEWS RIGHTon 01-07-2021 XR SHOULDER MINIMUM 2 VIEWS RIGHT ORIGINAL EXAMINATION: TWO XRAY VIEWS OF THE RIGHT SHOULDER 01/07/2021 9:51 am COMPARISON: None. 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 Postoperative soft tissue edema and subcutaneous emphysema is present. IMPRESSION: Right shoulder reverse arthroplasty with anatomic alignment. Interpreted by: Rylan Mcdaniels MD Preliminary Report By: Rylan Mcdaniels MD Electronically signed By Rylan Mcdaniels MD Dictated Date: 01/07/2021 9:53:58 AM Prelim Date: 01/07/2021 9:57:06 AM Sign Date: 01/07/2021 9:57:06 AM Ordering Provider: ASHLEY Salinas [facility] ([place]) Vital Signs Date Time Vital Sign Value Performing Clinician Guillaume piper 11-13-2024 13:40-[address] ASHLEY GEORGE MD [facility] 11-13-2024 13:40-[address] ASHLEY GEORGE MD [facility] 11-13-2024 13:40-0400 Body height [address] ASHLEY GEORGE MD [facility] 11-13-2024 13:40-0400 Body weight [address] ASHLEY GEORGE MD [facility] 11-13-2024 13:40-0400 Body weight 22.64 kg/m2 DR ASHLEY GEORGE MD [facility] 11-13-2024 13:40-0400 Diastolic Blood Pressure Non-Invasive 82 mm[Hg] DR ASHLEY GEORGE MD [facility] 11-13-2024 13:40-0400 Heart rate 70 /min DR ASHLEY GEORGE MD [facility] 11-13-2024 13:40-0400 Respiratory rate 18 /min DR ASHLEY GEORGE MD [facility] 11-13-2024 13:40-0400 Systolic Blood Pressure Non-Invasive 145 mm[Hg] DR ASHLEY GEORGE MD [facility] 10-08-2024 10:39-0400 Body temperature 96.4 [degF] Dr. Antione Talley MD Work Phone: [facility] 10-08-2024 10:39-0400 Diastolic blood pressure 77 mm[Hg] Dr. Antione Talley MD Work Phone: [facility] 10-08-2024 10:39-0400 Heart rate 72 /min Dr. Antione Talley MD Work Phone: [facility] 10-08-2024 10:39-0400 Respiratory rate 16 /min Dr. Antione Talley MD Work Phone: [facility] 10-08-2024 10:39-0400 SaO2% (BldA) [Mass fraction] 99 % Dr. Antione Talley MD Work Phone: [facility] 10-08-2024 10:39-0400 Systolic blood pressure 166 mm[Hg] Dr. Antione Talley MD Work Phone: [facility] 10-08-2024 09:24-0400 Body height [address] Antione Talley MD Work Phone: [facility] 10-08-2024 09:24-0400 Body mass index (BMI) [Ratio] 22.6 kg/m2 Dr. Antione Talley MD Work Phone: [facility] 10-08-2024 09:24-0400 Body weight 53.[address] Antione Talley MD Work Phone: [facility] 09-01-2022 14:57-0500 Body height 152.4 cm Kylee RENE-C Work Phone: [facility] 09-01-2022 14:57-0500 Body temperature 98.4 [degF] Kylee Frederica PA-C Work Phone: [facility] 09-01-2022 14:57-0500 Body weight 50.35 kg Kylee Sallie PA-C Work Phone: [facility] 09-01-2022 14:57-0500 Diastolic blood pressure 88 mm[Hg] Kylee Sallie PA-C Work Phone: [facility] 09-01-2022 14:57-0500 Heart rate 83 /min Kylee Sallie PA-C Work Phone: [facility] 09-01-2022 14:57-0500 SaO2% (BldA) [Mass fraction] 97 % Kylee Frederica PA-C Work Phone: [facility] 09-01-2022 14:57-0500 Systolic blood pressure 138 mm[Hg] Kylee Sallie PA-C Work Phone: [facility] 04-15-2022 14:18-0400 Diastolic blood pressure 78 mm[Hg] Kylee Sallie PA-C Work Phone: [facility] 04-15-2022 14:18-0400 Systolic blood pressure 142 mm[Hg] Kylee Sallie PA-C Work Phone: [facility] 04-15-2022 13:35-0400 Body height 154.3 cm Kylee Sallie PA-C Work Phone: [facility] 04-15-2022 13:35-0400 Body temperature 97.59 [degF] Kylee Sallie PA-C Work Phone: [facility] 04-15-2022 13:35-0400 Body weight 50.17 kg Kylee Frederica PA-C Work Phone: [facility] 04-15-2022 13:35-0400 Heart rate 67 /min Kylee Sallie PA-C Work Phone: [facility] 04-15-2022 13:35-0400 SaO2% (BldA) [Mass fraction] 96 % Kylee Frederica PA-C Work Phone: [facility] Encounters Encounter Date Encounter Type Care Provider Facility Start: 12-27-[address] ANTIONE TALLEY MD Facility:[facility] Start: 12-13-2024 End: 12-16-2024 Evaluation and management of inpatient BIRE MENDOZA MD [facility] Start: 12-13-2024 End: 12-13-2024 Emergency department patient visit SHANE SEE DO [facility] Start: 12-11-2024 End: 12-12-[address] ASHLEY GEORGE MD Facility:[facility] Start: 12-11-2024 End: 12-12-[address] ASHLEY GEORGE MD [facility] Start: 11-13-2024 End: 11-13-[address] ASHLEY GEORGE MD [facility] Start: 11-13-2024 End: 11-13-[address] ASHLEY GEORGE MD [facility] Start: 11-13-2024 End: 11-13-[address] ANTIONE TALLEY MD Facility:[facility] Start: 10-08-2024 End: 10-08-2024 Emergency department patient visit Dr. Antione Talley MD Work Phone: -Emergency Department Work Phone: Start: 08-15-2024 End: 08-15-[address] Antione Talley MD -Outpatient Bone Densitometry Work Phone: Start: 08-15-2024 End: 08-15-2024 ambulatory Antione Talley Facility:[facility] Start: 08-11-2024 End: 08-11-2024 Telephone encounter Rosalio Pedraza MD Work Phone: General Surgery Comment on above: [employer] - [employer] Start: 08-04-2024 End: 08-04-[address] Antione Talley MD -Cat Scan, [facility] Work Phone: Start: 08-04-2024 End: 08-04-2024 [facility] Facility[facility] Start: 07-29-2024 End: 07-29-[address] Antione Talley MD -Laboratory Work Phone: Start: 07-29-2024 End: 07-29-[facility] Start: 04-29-2023 End: 04-29-2023 ambulatory [facility] Work Phone: Start: 04-29-2023 End: 04-29-2023 Patient encounter procedure [facility]-Laboratory, [facility] Start: 09-01-2022 End: 09-01-2022 Patient encounter procedure Kylee Rizo PA-C Work Phone: General Surgery Comment on above: Family history of co lin cancer (Primary Dx); Gastroesophageal reflux disease with esophagitis without hemorrhage; Chronic superficial gastritis without bleeding Start: 06-04-2022 End: 06-04-2022 ambulatory [facility] Work Phone: Start: 06-04-2022 End: 06-04-2022 Patient encounter procedure [facility]-Outpatient Breast Imaging Start: 05-01-2022 End: 05-01-2022 ambulatory [facility] Work Phone: Start: 05-01-2022 End: 05-01-2022 Patient encounter procedure [facility]-Laboratory Start: 04-15-2022 End: 04-15-2022 Patient encounter procedure Kylee Rizo PA-C Work Phone: General Surgery Comment on above: 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 Antione Talley MD Work Phone: Start: 08-15-2024 Dual energy X-ray absorptiometry Dr. Antione Talley MD Work Phone: Start: 08-15-2024 Screening mammography Gwendolyn Talley MD Work Phone: Start: 08-04-[address] Abelardo Talley MD Work Phone: Start: 08-25-2022 Colonoscopy Kylee Gra f PA-C Work Phone: Start: 06-04-2022 Screening mammography Start: 01-07-2021 Arthroplasty of righ t shoulder RAY ESHENAUR PA-C Start: 04-02-2017 Colonoscopy Kylee Gra f PA-C Work Phone: Start: 12-07-2015 Lipid 1996 panel - S seymour or Plasma Rosalio Pedraza MD Work Phone: Start: 11-06-2013 Mammography Kylee Gra f PA-C Work Phone: Colonoscopy RAY ESHENAUR PA -C Decompression of med greg nerve RAY ESHENAUR PA-C Comment on above: Right Excision of bunion RAY ESHEN AUR PA-C Comment on above: Left Laparoscopic excisio n of cyst of right ovary RAY ESHENAUR PA-C Nasal septoplasty RAY ESHENA UR PA-C Tonsillectomy JEANIE Lazo Urethroplasty rcnstj female urethra JEANIE DAVIS PA-C Plan of Treatment Date Care Activity Detail Author Start: 2031 RSV Vaccine (1 - 1-d ose 75+ series) RSV Vaccine (1 - 1-dose 75+ series) [facility] Start: 04-06-2029 Urine microalbumin profile DTaP,Tdap,Td Vaccine (3 - Td or Tdap) [facility] Start: 08-25-2027 Colonoscopy COLONOSCOPY [facility] Start: 08-25-2027 COLORECTAL CANCER SCREENING COLORECTAL CANCER SCREENING [facility] Start: 08-25-2027 Screening for malign ant neoplasm of colon [facility] Start: 10-08-2024 [facility] Start: 07-05-2024 Advance Directive Discussion Advance Directive Discussion [facility] Start: 03-05-2024 Covid-19 Vaccine () Covid-19 Vaccine () [facility] Start: 03-05-2024 Influenza vaccination Influenza Vacc ine (#1) [facility] Start: 07-05-2022 ADVANCE DIRECTIVE DISCUSSION ADVANCE DIRECTIVE DISCUSSION [facility] Start: 07-05-2022 DEPRESSION ASSESSMENT DEPRESSION ASS ESSMENT [facility] Start: 04-22-2022 Pneumococcal Vaccine : 50+ (2 of 2 - PCV) Pneumococcal Vaccine: 50+ (2 of 2 - PCV) [facility] Start: 04-02-2022 Colonoscopy COLONOSCOPY [facility] Start: 04-02-2022 COLORECTAL CANCER SCREENING COLORECTAL CANCER SCREENING [facility] Start: 03-05-2022 Influenza vaccination INFLUENZA (#1) [facility] Start: 09-17-2021 COVID-19 VACCINE (5 - Booster for Pfizer series) COVID-19 VACCINE (5 - Booster for Pfizer series) [facility] Start: 07-05-2021 ADVANCE DIRECTIVE DISCUSSION ADVANCE DIRECTIVE DISCUSSION [facility] Start: 07-05-2021 DEPRESSION ASSESSMENT DEPRESSION ASS ESSMENT [facility] Start: 2021 BONE DENSITY BONE DENSITY [facility] Start: 2021 Screening for osteoporosis Bone Density Screening [facility] Start: 12-06-2020 Lipid panel Lipid Screening [facility] Start: 12-06-2020 LIPID SCREEN LIPID SCREEN [facility] Start: 12-06-2018 DIABETES SCREEN DIABETES SCREEN [facility] Start: 12-06-2018 Diabetes Screening Diabetes Screenin g [facility] Start: 06-10-2017 Urine microalbumin profile DTAP,TDAP,TD (2 - Td or Tdap) [facility] Start: 11-17-2015 PNEUMOCOCCAL: 65+ (2 - PCV) PNEUMOCOCCAL: 65+ (2 - PCV) [facility] Start: 11-06-2014 Mammography MAMMOGRAM [facility] Start: 11-06-2014 Screening for malign ant neoplasm of breast Mammogram Screening [facility] Start: 08-19-2012 FECAL OCCULT BLOOD FECAL OCCULT BLOO D [facility] Start: 08-19-2012 Screening for malign ant neoplasm of colon Fecal Occult Blood [facility] Start: 2006 SHINGRIX VACCINE (1 of 2) SHINGRIX VACCINE (1 of 2) [facility] Start: 2001 COLOGUARD (FIT-DNA) COLOGUARD (FIT-D NA) [facility] Start: [address] COLONOGRAPHY [facility] Start: 2001 Screening for malign ant neoplasm of colon [facility] Start: 2001 SIGMOIDOSCOPY SIGMOIDOSCOPY [facility] Start: 1974 ANNUAL PCP TEAM CURTAIN STITCHER JASON DISEASE VISIT ANNUAL PCP TEAM CHRONIC DISEASE VISIT [facility] Start: 1974 Anxiety Screening Anxiety Screening [facility] Start: 1974 BP CONTROLLED (<130/80) BP CONTROLLE D (<130/80) [facility] Start: 1974 Depression Screening Depression Scre ening [facility] End: 04-21-2023 EGD DIAGNOSTIC EGD DIAGNOSTIC Endoscopy Routine Gastritis with intestinal metaplasia of stomach Current use of proton pump inhibitor 1 Occurrences starting 04/21/2022 until 04/21/2023 [facility] Work Phone: Comment on above: 1 Occurrences starti ng 04/21/2022 until 04/21/2023 Patient Education ED Fracture, [facility] Work Phone: [facility] Immun[facility] Immunization Date Immunization Notes Care Provider Fa cility 04-28-2022 influenza virus vacc ine, unspecified formulation Rosalio Pedraza MD Work Phone: [facility] 10-08-2020 Covid (Pfizer) [facility] 09-17-2020 Covid (Pfizer) [facility] 11-16-2014 pneumococcal polysaccharide vaccine, 23 valent Kylee RENE-Kevin Work Phone: [facility] 06-10-2007 influenza virus vacc ine, unspecified formulation Kylee RENE-Kevin Work Phone: [facility] Work Phone: 06-10-2007 tetanus toxoid, redu hayden diphtheria toxoid, and acellular pertussis vaccine, adsorbed Kylee RENE-Kevin Work Phone: [facility] Work Phone: Payers Date Payer Category Payer Medicare [id number] 2024 Medicare [id number] 2024 Private Health Insurance [facility] [id number] 2024 Self-pay [id number] 2024 Self-pay [id number] 2016 Unknown [id number] 2008 Unknown [id number] 1956 Unknown [id number] 2.16. [id number] 1956 Unknown [id number] 2.16. [id number] 1956 Unknown [id number] 2.16. [id number] 1956 Unknown [id number] 2.16. [id number] 1956 Unknown [id number] 2.16.8 [id number] 1956 Unknown [id number] 2.16.8 [id number] Unknown [id number] 2.16.8 [id number] Unknown [id number] 2.16.8 [id number] Unknown [id number] 2.16.8 [id number] Unknown [id number] 2.16.8 [id number] Social History Date Type Detail Facility Start: 12-20-2020 Light tobacco smoker (finding) [facility] Sex Assigned At [facility] Start: 04-15-2022 End: 10-08-2024 Tobacco smoking status NHIS Ex-smoker [facility] History of tobacco use Current smoker [facility] History of tobacco use Cigarette Smoker C [facility] Start: 04-15-2022 End: 07-20-2022 Cigarettes smoked current (pack per day) - Reported 0.5 [facility] Start: 04-15-2022 End: 08-25-2022 Tobacco use and exposure Smokeless tobacco non-user [facility] Start: 04-15-2022 End: 09-08-2022 Alcohol intake Current drinker of alcohol (finding) [facility] Start: 04-15-2022 Tobacco Comment now 1/2 ppd or less [facility] Start: 1955 Sex Assigned At Not on file C [facility] Start: 04-05-2022 End: 04-15-2022 Exposure to SARS-CoV-2 (event) Not sure [facility] Start: 07-15-2015 End: 07-15-2015 Tobacco smoking status NHIS Unknown if ever smoked [facility] Start: 1955 Sex Assigned At Female [facility] Start: 08-25-2022 Tobacco smoking stat us NHIS Occasional tobacco smoker [facility] Start: 08-25-2022 Tobacco Comment couple cigs per day [facility] Start: 07-20-2022 End: 09-08-2022 Tobacco use panel [facility] National Score (1-10 0), lower number is lower risk 47 [facility] Start: 07-15-2015 End: 10-08-2024 Sex Female (finding) [facility] Functional Status Date Assessment Result Facility 11-13-2024 Functional Status Sensory Deficits None A [facility] Clinical Notes 09-02-2009 to 12-16-2024 Note Date & Type Note Facility 12-16-2024 Hospital Discharge instructions Patient Education 12/16/2024 14:16:18 Hyponatremia Hyponatremia Hyponatremia is when the amount of salt (sodium) in your blood is too low. When sodium levels are low, your cells absorb extra water, which causes them to swell. The swelling happens throughout the body, but it mostly affects the brain. What are the causes? This condition may be caused by: Certain medical conditions, such as: ?Heart, kidney, or liver problems. ?Thyroid problems. ?Adrenal gland problems. ?Metabolic conditions, such as Dominguez disease or syndrome of inappropriate antidiuretic hormone (SIADH). Severe vomiting or diarrhea. Certain medicines or illegal drugs. Dehydration. Drinking too much water. Eating a diet that is low in sodium. Large davis on your body. Excessive sweating. What increases the risk? You are more likely to develop this condition if you: Have long-term (chronic) kidney disease. Have heart failure. Have a medical condition that causes frequent or excessive diarrhea. Participate in intense physical activities, such as marathon running. Take certain medicines that affect the sodium and fluid balance in the blood. Some of these medicine types include: ?Diuretics. ?NSAIDs. ?Some opioid pain medicines. ?Some antidepressants. ?Some seizure prevention medicines. What are the signs or symptoms? Symptoms of this condition include: Headache. Nausea and vomiting. Being very tired (lethargic). Muscle weakness and cramping. Loss of appetite. Feeling weak or light-headed. Severe symptoms of this condition include: Confusion. Agitation. Having a rapid heart rate. Passing out (fainting). Seizures. Coma. How is this diagnosed? This condition is diagnosed based on: A physical exam. Your medical history. Tests, including: ?Blood tests. ?Urine tests. How is this treated? Treatment for this condition depends on the cause. Treatment may include: Getting fluids through an IV that is inserted into one of your veins. Medicines to correct the sodium imbalance. If medicines are causing the condition, the medicines will need to be adjusted. Limiting your water or fluid intake to get the correct sodium balance. Monitoring in the hospital setting to closely watch your symptoms for improvement. Follow these instructions at home: Take fghl-dvu-zfxiffi and prescription medicines only as told by your health care provider. Many medicines can make this condition worse. Talk with your health care provider about any medicines that you are currently taking. Carefully follow a recommended diet as told by your health care provider. Carefully follow instructions from your health care provider about fluid restrictions. Do not drink alcohol. Keep all follow-up visits as told by your health care provider. This is important. Contact a health care provider if: You develop worsening nausea, fatigue, headache, confusion, or weakness. Your symptoms go away and then return. You have problems following the recommended diet. Get help right away if: You have a seizure. You pass out. You have ongoing diarrhea or vomiting. Summary Hyponatremia is when the amount of salt (sodium) in your blood is too low. When sodium levels are low, your cells absorb extra water, which causes them to swell. The swelling happens throughout the body, but it mostly affects the brain. Treatment for this condition depends on the cause. It may include IV fluids, medicines, and limiting your fluid intake. This information is not intended to replace advice given to you by your health care provider. Make sure you discuss any questions you have with your health care provider. Document Released: 06/11/2003 Document Revised: 05/05/2019 Document Reviewed: 05/05/2019 [employer] Patient Education 2020 [email or web address]. Follow Up Care 12/13/2024 19:45:47 With:ANTIONE TALLEY MD Address: [address] [facility] [address] [place], [place] [address]- [phone] When:3-7 days Comments:Please call the office to schedule a hospital follow up appointment. With:MIGUEL ANGEL DUCKWORTH DO Address: [address] [facility] [place] [address]- [phone] When:Within 2 Week(s) Comments:Hyponatremia follow-up With:[facility] [employer] Address: [address] [place] [address]- When:Within 2 Week(s) Comments:Call for appointment [facility] 12-16-2024 Note Discharge Instructions Thank you for allowing [facility] to assist you with your healthcare needs. The following is important discharge information regarding your hospital visit. Your Care Team ANTIONE TALLEY MD What to do next Instructions From Your Doctor - I would recommend continuing your significant GI prophylaxis with omeprazole/famotidine. Will add 14 days of Carafate given your significant GI symptoms on presentation. -Levothyroxine was reduced due to low TSH and elevated free T4. -Recommend continued aggressive bowel regimen with routine daily MiraLAX/senna. Milk of magnesia/lactulose provided in case you do not have a bowel movement for 1 to 2 days. -HCTZ discontinued due to hyponatremia. -Repeat lab work in 1 week to ensure stability of the sodium level - Follow-up with orthopedics for your arm Scheduled Follow-Up Appointments Appointment Type When With Where Contact Information StatusPT Outpatient Evaluation 12/27/2024 08:00 AM Juan Jose Pagan PT Physical Therapy [phone] Confirmed Follow Up Appointments Follow Up with ANTIONE TALLEY MD When:Within 3-7 days Where:[address] [facility] [address] [place], [place] [id number]- [phone] Additional Information: Please call the office to schedule a hospital follow up appointment. Follow Up with MIGUEL ANGEL DUCKWORTH DO When:In 2 weeks Where:[address] [facility] [place] [address]- [phone] Additional Information: Hyponatremia follow-up Follow Up with [facility] [employer] When:In 2 weeks Where:[address] [id number]- Additional Information: Call for appointment The Following Activity and Diet Have Been Ordered for You Discharge Activity - Ordered -- NO activity restrictions, 12/16/24 13:56:00 EDT Discharge Diet - Ordered -- Type of Diet: Regular, 12/16/24 13:56:00 EDT The Following Treatments Have Been Ordered for You Discharge Labs Discharge Outpatient Labwork - Ordered -- BMP, monitor sodium, follow-up within: 1-2 weeks, Results Notify to: MIGUEL ANGEL DUCKWORTH DO Results Notify to: ANTIONE TALLEY MD, 12/16/24 13:56:00 EDT Discharge Radiology No qualifying data available. Other Therapies No qualifying data available. Post Acute Orders No qualifying data available. Allergies amoxicillin Hives Medications Please ask your primary doctor or pharmacist before taking any other medication not listed, including over the counter drugs, herbal medications, vitamins and or supplements as they may interact with your home medications. What How Much When Instructions Last Dose New lactulose (lactulose 10 g/ 15 mL oral syrup) 30 Milliliter by mouth Once a day as needed for as needed for constipation Okay to change quantity based on packaging Printed Prescription New polyethylene glycol 3350 (MiraLax oral powder for reconstitution) 17 gram(s) by mouth Every day OTC joshua lewis to change quantity based on packaging Printed Prescription New sucralfate (Carafate 1 g oral tablet) 1 tab(s) by mouth Four (4) times a day Duration: 14 Days Printed Prescription Changed levothyroxine (Synthroid 75 mcg (0.075 mg) oral tablet) 1 tab(s) by mouth Once a day before a meal Printed Prescription Unchanged acetaminophen (Tylenol Extra Strength 500 mg oral tablet) 2 tab(s) by mouth Three (3) times a day not to exceed 3000 mg/ day Unchanged aspirin (aspirin 81 mg oral delayed release tablet) 1 tab(s) by mouth Two (2) times a day Duration: 14 Days Unchanged cholecalciferol (Vitamin D3) 100 Microgram by mouth Every day Unchanged diphenhydrAMINE (Benadryl 25 mg oral capsule) 1 cap by mouth Every 6 hours as needed for as needed for itching Unchanged famotidine (famotidine 20 mg oral tablet) 1 tab(s) by mouth Once a day Duration: 14 Days Unchanged herbal/ nutritional product 1 capsule by mouth Every day Unchanged lisinopril (lisinopril 20 mg oral tablet) 1 tab(s) by mouth Every day Unchanged magnesium hydroxide (Milk of Magnesia 8% oral suspension) 30 Milliliter by mouth Daily at bedtime as needed for for constipation Unchanged meloxicam (meloxicam 7.5 mg oral tablet) 1 tab(s) by mouth Two (2) times a day Take with food/ milk. Start Unchanged omeprazole (NF) (omeprazole 40 mg oral delayed release capsule (NF)) 1 cap by mouth Once a day before a meal Unchanged ondansetron (ondansetron 4 mg oral tablet, disintegrating) 1 tab(s) by mouth Three (3) times a day as needed for Pain 1-2 tabs Unchanged oxyCODONE (oxyCODONE 5 mg oral tablet ( IMMEDIATE release )) 1 tab(s) by mouth Every 4 hours as needed for as needed for pain 1-2 tabs Unchanged senna (Senokot 8.6 mg oral tablet) 2 tab(s) by mouth Two (2) times a day as needed for as needed for constipation Unchanged traZODone (traZODone 100 mg oral tablet) 1 tab(s) by mouth Daily at bedtime What How Much When Comments Stop Taking hydroCHLOROthiazide (hydroCHLOROthiazide 25 mg oral tablet) 1 tab(s) by mouth Every day Please take this list to your next doctor s visit. Bring all medications you take, including over the counter medications, herbals and other supplements with you to your doctor s visit. Patients and families are reminded to discard old lists and to update any records with all medication providers or retail pharmacies. Medication Leaflets lactulose (oral) (LAK too lose) Constulose, Generlac, Kristalose What is the most important information I should know about lactulose? Use only as directed. Tell your doctor if you use other medicines or have other medical conditions or allergies. What is lactulose? Lactulose is used to treat chronic constipation. Lactulose is sometimes used to treat or prevent certain conditions of the brain that are caused by liver failure. These conditions can lead to confusion, problems with memory or thinking, behavior changes, tremors, feeling irritable, sleep problems, loss of coordination, and loss of consciousness. Lactulose may also be used for purposes not listed in this medication guide. What should I discuss with my healthcare provider before taking lactulose? You should not use lactulose if you are on a special diet low in galactose (milk sugar). Tell your doctor if you have ever had: diabetes; or if you need to have any type of intestinal test using a scope (such as a colonoscopy). Tell your doctor if you are or . How should I take lactulose? Follow all directions on your prescription label and read all medication guides or instruction sheets. Use the medicine exactly as directed. Mix lactulose powder with at least 4 ounces of water, milk, or fruit juice. Measure liquid medicine with the supplied measuring device (not a kitchen spoon). Lactulose should produce a bowel movement within 24 to 48 hours. If you use this medicine long-term, you may need frequent medical tests. Tell your doctor if you have a planned colonoscopy or proctoscopy procedure. Store tightly closed at room temperature, away from moisture and heat. Avoid freezing. The liquid may turn darker in color, but this will not affect the medicine. Do not use the medicine if it becomes very dark or gets thicker or thinner in texture. What happens if I miss a dose? Take the medicine as soon as you can, but skip the missed dose if it is almost time for your next dose. Do not take two doses at one time. What happens if I overdose? Seek emergency medical attention or call the Poison Help line at . Overdose may cause nausea, vomiting, diarrhea, and stomach cramps, or symptoms of low blood potassium or low blood sodium (confusion, weakness, constipation, irregular heartbeats, fluttering in your chest, increased thirst or urination, numbness or tingling, muscle weakness or limp feeling). What should I avoid while taking lactulose? Ask your doctor before taking any other laxative or an antacid, and take only the type your doctor recommends. What are the possible side effects of lactulose? Get emergency medical help if you have signs of an allergic reaction: hives; difficult breathing; swelling of your face, lips, tongue, or throat. Stop using lactulose and call your doctor at once if you have severe or ongoing diarrhea. Common side effects may include: bloating, gas; stomach pain; diarrhea; or nausea, vomiting. This is not a complete list of side effects and others may occur. Call your doctor for medical advice about side effects. You may report side effects to FDA at 2-113-YCC-3874. What other drugs will affect lactulose? Other drugs may affect lactulose, including prescription and bkpl-rce-frhymvb medicines, vitamins, and herbal products. Tell your doctor about all other medicines you use. Where can I get more information? Your pharmacist can provide more information about lactulose. Remember, keep this and all other medicines out of the reach of children, never share your medicines with others, and use this medication only for the indication prescribed. Every effort has been made to ensure that the information provided by [employer]. [employer]') is accurate, up-to-date, and complete, but no guarantee is made to that effect. Drug information contained herein may be time sensitive. [employer] information has been compiled for use by healthcare practitioners and consumers in the [place] and therefore [employer] does not warrant that uses outside of the [place] are appropriate, unless specifically indicated otherwise. [employer] drug information does not endorse drugs, diagnose patients or recommend therapy. [employer] drug information is an informational resource designed to assist licensed healthcare practitioners in caring for their patients and/or to serve consumers viewing this service as a supplement to, and not a substitute for, the expertise, skill, knowledge and judgment of healthcare practitioners. The absence of a warning for a given drug or drug combination in no way should be construed to indicate that the drug or drug combination is safe, effective or appropriate for any given patient. [employer] does not assume any responsibility for any aspect of healthcare administered with the aid of information [employer] provides. The information contained herein is not intended to cover all possible uses, directions, precautions, warnings, drug interactions, allergic reactions, or adverse effects. If you have questions about the drugs you are taking, check with your doctor, nurse or pharmacist. Copyright 4557-6344 [employer]. Version: 3.01. Revision Date: 04/08/2021. sucralfate (oral) (dane ROSAS fate) Carafate What is the most important information I should know about sucralfate? The liquid form of sucralfate should never be injected through a needle into the body, or may occur. What is sucralfate? Sucralfate is used short-term (up to 8 weeks) to treat an active duodenal ulcer. Sucralfate works mainly in the lining of the stomach and is not highly absorbed into the body. This medicine adheres to ulcer sites and protects them from acids, enzymes, and bile salts. Sucralfate can heal an active ulcer, but it will not prevent future ulcers from occurring. Sucralfate may also be used for purposes not listed in this medication guide. What should I discuss with my healthcare provider before taking sucralfate? You should not use sucralfate if you are allergic to it. Tell your doctor if you have ever had: diabetes; kidney disease (or if you are on dialysis); or trouble swallowing tablets. Older adults may be more sensitive to the effects of this medicine. Tell your doctor if you are or . Do not give this medicine to a child without medical advice. How should I take sucralfate? Follow all directions on your prescription label and read all medication guides or instruction sheets. Use the medicine exactly as directed. Take sucralfate on an empty stomach. Shake the oral suspension (liquid) before you measure a dose. Use the dosing syringe provided, or use a medicine dose-measuring device (not a kitchen spoon). If you are diabetic, check your blood sugar regularly. Your doctor may adjust your dose based on your blood sugar levels. The liquid from of this medicine should never be injected through a needle into the body, or may occur. Sucralfate oral suspension is to be taken only by mouth. It may take 2 to 8 weeks before you receive the full benefit of taking sucralfate. Use this medicine for the full prescribed length of time, even if your symptoms quickly improve. Your doctor may want you to keep taking sucralfate at a lower dose once your active ulcer has healed. Follow your doctor's dosing instructions very carefully. Store at room temperature away from moisture and heat. Do not allow the liquid medicine to freeze. What happens if I miss a dose? Take the medicine as soon as you can, but skip the missed dose if it is almost time for your next dose. Do not take two doses at one time. What happens if I overdose? Seek emergency medical attention or call the Poison Help line at . What should I avoid while taking sucralfate? Avoid taking any other medications within 2 hours before or after you take sucralfate. Sucralfate can make it harder for your body to absorb other medications you take by mouth. Ask your doctor before using an antacid, and use only the type your doctor recommends. Some antacids can make it harder for sucralfate to work in your stomach. Avoid taking an antacid within 30 minutes before or after taking sucralfate. What are the possible side effects of sucralfate? Get emergency medical help if you have signs of an allergic reaction: hives; difficult breathing; swelling of your face, lips, tongue, or throat. Common side effects may include: constipation, diarrhea; nausea, vomiting, gas, indigestion; itching, rash; dizziness, drowsiness; sleep problems (insomnia); headache; or back pain. This is not a complete list of side effects and others may occur. Call your doctor for medical advice about side effects. You may report side effects to FDA at 6-228-SPO-9765. What other drugs will affect sucralfate? Other drugs may affect sucralfate, including prescription and mavr-jkw-awtfgyk medicines, vitamins, and herbal products. Tell your doctor about all your current medicines and any medicine you start or stop using. Where can I get more information? Your pharmacist can provide more information about sucralfate. Remember, keep this and all other medicines out of the reach of children, never share your medicines with others, and use this medication only for the indication prescribed. Every effort has been made to ensure that the information provided by [employer]. ('[employer]') is accurate, up-to-date, and complete, but no guarantee is made to that effect. Drug information contained herein may be time sensitive. [employer] information has been compiled for use by healthcare practitioners and consumers in the [place] and therefore [employer] does not warrant that uses outside of the [place] are appropriate, unless specifically indicated otherwise. [employer]'s drug information does not endorse drugs, diagnose patients or recommend therapy. [employer] drug information is an informational resource designed to assist licensed healthcare practitioners in caring for their patients and/or to serve consumers viewing this service as a supplement to, and not a substitute for, the expertise, skill, knowledge and judgment of healthcare practitioners. The absence of a warning for a given drug or drug combination in no way should be construed to indicate that the drug or drug combination is safe, effective or appropriate for any given patient. [facility] does not assume any responsibility for any aspect of healthcare administered with the aid of information [facility] provides. The information contained herein is not intended to cover all possible uses, directions, precautions, warnings, drug interactions, allergic reactions, or adverse effects. If you have questions about the drugs you are taking, check with your doctor, nurse or pharmacist. Copyright 2316-0039 [facility] [employer]. Version: 04.04. Revision Date: 09/05/2020. Education Materials Hyponatremia Hyponatremia is when the amount of salt (sodium) in your blood is too low. When sodium levels are low, your cells absorb extra water, which causes them to swell. The swelling happens throughout the body, but it mostly affects the brain. What are the causes? This condition may be caused by: Certain medical conditions, such as: ? Heart, kidney, or liver problems. ? Thyroid problems. ? Adrenal gland problems. ? Metabolic conditions, such as Dominguez disease or syndrome of inappropriate antidiuretic hormone (SIADH). Severe vomiting or diarrhea. Certain medicines or illegal drugs. Dehydration. Drinking too much water. Eating a diet that is low in sodium. Large davis on your body. Excessive sweating. What increases the risk? You are more likely to develop this condition if you: Have long-term (chronic) kidney disease. Have heart failure. Have a medical condition that causes frequent or excessive diarrhea. Participate in intense physical activities, such as marathon running. Take certain medicines that affect the sodium and fluid balance in the blood. Some of these medicine types include: ? Diuretics. ? NSAIDs. ? Some opioid pain medicines. ? Some antidepressants. ? Some seizure prevention medicines. What are the signs or symptoms? Symptoms of this condition include: Headache. Nausea and vomiting. Being very tired (lethargic). Muscle weakness and cramping. Loss of appetite. Feeling weak or light-headed. Severe symptoms of this condition include: Confusion. Agitation. Having a rapid heart rate. Passing out (fainting). Seizures. Coma. How is this diagnosed? This condition is diagnosed based on: A physical exam. Your medical history. Tests, including: ? Blood tests. ? Urine tests. How is this treated? Treatment for this condition depends on the cause. Treatment may include: Getting fluids through an IV that is inserted into one of your veins. Medicines to correct the sodium imbalance. If medicines are causing the condition, the medicines will need to be adjusted. Limiting your water or fluid intake to get the correct sodium balance. Monitoring in the hospital setting to closely watch your symptoms for improvement. Follow these instructions at home: Take werd-gdi-xjufvgv and prescription medicines only as told by your health care provider. Many medicines can make this condition worse. Talk with your health care provider about any medicines that you are currently taking. Carefully follow a recommended diet as told by your health care provider. Carefully follow instructions from your health care provider about fluid restrictions. Do not drink alcohol. Keep all follow-up visits as told by your health care provider. This is important. Contact a health care provider if: You develop worsening nausea, fatigue, headache, confusion, or weakness. Your symptoms go away and then return. You have problems following the recommended diet. Get help right away if: You have a seizure. You pass out. You have ongoing diarrhea or vomiting. Summary Hyponatremia is when the amount of salt (sodium) in your blood is too low. When sodium levels are low, your cells absorb extra water, which causes them to swell. The swelling happens throughout the body, but it mostly affects the brain. Treatment for this condition depends on the cause. It may include IV fluids, medicines, and limiting your fluid intake. This information is not intended to replace advice given to you by your health care provider. Make sure you discuss any questions you have with your health care provider. Document Released: 06/11/2003 Document Revised: 05/05/2019 Document Reviewed: 05/05/2019 [employer] Patient Education 2020 [employer] Additional Information VACCINATE! IT SAVES LIVES! Members of the community who have not yet received the COVID-19 vaccine and would like to receive it can visit one of [facility] vaccine clinics. There are many vaccine clinic locations within the [facility]. For locations and available times, please visit https://gettheshot.coronavirus.[place].gov/. It is important to note that some COVID mobile vaccine clinics are held outdoors and may be canceled in rainy or stormy conditions. To learn more about pediatric vaccinations (ages 5-11), we invite you to visit the [facility] webpage. https://www.[facility].org/pag es/4079-Mjefo-Cgbcvlyyeto-Frequent ih-Akxkm-Nwpbpatrb.html To learn more about the COVID-19 vaccine, we invite you to visit the CDC website for a list of frequently asked questions.https://www.cdc.gov/haley navirus/2019-ncov/vaccines/faq.htm l [employer] Patient Portal Access Instructions: Stay connected with your healthcare team and access your personal medical information anytime with the [facility] Patient Portal. Please follow the directions below to create your [employer] account: 1.Access the email account you provided upon registration to the hospital/physician office.2.Look for an invitation email from [facility].3.Open the email and access the invitation link: Accept Invitation to [facility].4.Fill in the required fine to create your account. To access your account, visit [employer]. Click the blue button labeled Access Patient Portal and then log in with the username and password that you created in the steps above. You will be able to view your test results, lab results, a summary of your visits, upcoming appointments and more. There is also a convenient messaging option where you can send secure messages to your provider. In addition, you will have the ability to download any documents or summaries to your computer and/or send the information securely to a physician. Remember that your healthcare information is confidential, so carefully consider who you will allow to register on the [employer] Patient Portal for access to your information. You can also access the [employer] Patient Portal on the [employer] diana. Simply click on Patient Portal and then log into your account. If you would like to receive a full copy of your medical records, please contact the [facility] Medical Records Department by calling [phone], Wednesday through Wednesday between 8 a.m. and 4:30 p.m. HOW TO SAFELY DISPOSE OF PRESCRIPTION MEDICATIONS Please use one of the following methods to safely dispose of your unused medications. 1.Use a drug disposal kit: the drug disposal pouch allows you to safely discard your old and unused drugs. Ask your nurse to give you one when you are discharged.2.Visit a local take-back location: Many local pharmacies and police departments have programs that collect old and unwanted prescription drugs. Call your local pharmacy or go to http://[employer]/0I1Se3b to find one close to you.3.Make use of household items: Use cat litter or old coffee grounds to dispose medications if other options are not available. Mix your drugs with these household products, seal them in an airtight container and throw it into the garbage. Call [facility]: [phone] to be sure your drugs can be disposed of in this way. Some medicines may require a different approach.4.Never flush your medications down the toilet. IF YOU HAVE BEEN PRESCRIBED AN OPIOID FOR PAIN If you have been prescribed an opioid (such as hydrocodone, oxycodone or morphine), it is critical to understand the possible side effects and risks of opioid pain medications. Even when taken as directed, opioids can have several side effects including: Tolerance, meaning you might need to take more of a medication for the same pain relief. Nausea, vomiting and/or constipation. Sleepiness, dizziness, dry mouth, confusion, depression or itching. Physical dependence, meaning you have withdrawal symptoms when a medication is stopped, can develop within a few days. KNOW YOUR RESPONSIBILITIES It is important to know exactly how much and how often to take the opioid pain medications you are prescribed. Never take opioids in higher amounts or more often than prescribed. Do not combine opioids with alcohol or other drugs that cause drowsiness, such as benzodiazepines, also known as benzos, including diazepam and alprazolam, muscle relaxants or sleep aids. Never sell or share prescription opioids. This is illegal. Store opioids in a secure place and out of reach of others (including children, family, friends and visitors). The last page of this document has been signed and retained as a CHART COPY. Signatures Patient Education Materials Hyponatremia Medication Leaflets lactulose (oral), sucralfate (oral) My discharge plan and instructions have been reviewed and explained to me and I,SEEL, GLORIA understand my current condition and have read and understand these discharge instructions. I have received a written copy of the plan/instructions. If I have questions, I am aware that I should contact my doctor. Patient/[employer] 2[employer] Shift Signature: Date/Time: Relationship to Patient: ___ Witness Name/Signature: Date/Time: [facility] 12-16-2024 Discharge summary Date of Service 12/16/24 Discharge Diagnosis Hyponatremia Intractable nausea and vomiting Constipation Hypothyroidism Depression Hospital Course 69-year-old female with past medical history significant for hypertension, hypothyroidism, depression, constipation presented to [facility] today secondary to abdominal pain, nausea and vomiting. Patient states the abdominal pain started acutely when she woke up this morning and had multiple episodes of nonbloody emesis. Patient states her abdominal pain is diffusely present, 8 out of 10 intensity, burning and stabbing in nature, nonradiating and associated with nausea and vomiting. She also endorses increasing urinary frequency for the past 3 to 4 days but denies any burning with urination. Patient denies any ill contacts, recent illness, changes in bowel habits but states she had left shoulder surgery on Wednesday this week. Patient denies smoking history but endorses drinking 2 glasses of whiskey 3 times a week and denies recreational drug use. At [facility] ED blood pressure was 147/76, respiratory rate 18, heart rate 60, afebrile and saturating 96% on room air. CBC significant for white count of 12.8 otherwise unremarkable. CMP significant for sodium [address] Lipase 11[address] abdomen pelvis with contrast showed cholelithiasis without gross cholecystitis. Moderate sigmoid diverticulosis without diverticulitis. Mild bilateral perinephric stranding (UA was completed without evidence of infection, leukocytosis resolved). EKG shows normal sinus rhythm. At [facility] ED patient received 2 L normal saline bolus, morphine and Zofran. Given hyponatremia patient will be transferred to [place] MICU for further evaluation and management. After presenting to the ICU, subsequently was placed on D5W and had received 2 doses of desmopressin. Initially sodium improved however by 12/15/2024, sodium had worsened to 123. This was likely because patient was on D5 W for correction from the ICU. Therefore D5W was stopped. Additionally she was complaining of severe constipation after her surgery. Workup was completed with CT abdomen pelvis with Gastrografin contrast. Bowel obstruction was ruled out. It actually showed improvement of her pleural effusions. No acute findings. Abdominal ultrasound was also completed to rule out biliary pathology. She does have cholelithiasis but no evidence of cholecystitis. Given these findings an aggressive bowel regiment was started with a dose of lactulose. Lactulose plus Gastrografin resulted in a bowel movement. After having a bowel movement, her nausea improved significantly and she started on a diet. Between stopping D5W and encouraging oral intake, patient's sodium improved to 135. On day of discharge, patient was having bowel movements, tolerating oral intake, sodium had improved to 135, and she had a normal appetite. On discharge, -Because patient is on both aspirin and Mobic, I would recommend continuing her significant GI prophylaxis with omeprazole/famotidine. Will add 14 days of Carafate given her significant GI symptoms on presentation. -Levothyroxine was reduced due to low TSH and elevated free T4. -Recommend continued aggressive bowel regimen with routine daily MiraLAX/senna. Milk of magnesia/lactulose provided in case patient does not have a bowel movement for 1 to 2 days. -HCTZ discontinued due to hyponatremia. Mildly hyponatremia is likely due to hypovolemia I recommend increasing lisinopril if needed for blood pressure in the future and avoiding electrolyte modifying drugs. Patient is now tolerating diet. -Repeat lab work in 1 week to ensure stability of the sodium level Allergies amoxicillin Hives Consults Consult to Physician (Physician Consult) - Ordered -- 12/13/24 22:07:00 JANETHT, MIGUEL ANGEL DUCKWORTH DO, Routine, severe hyponatremia 116 Imaging Results and Diagnostics CT Abdomen/Pelvis w/Oral Contrast Only Result Date: December 15, 2024 Verified By: FRANTZ RAMIREZ MD CLINICAL STATEMENT: IMPRESSION: No evidence of bowel obstruction. No acute findings. Improved pleural effusions, trace fluid remaining on the right US Abdomen Complete Result Date: December 15, 2024 Verified By: YO TORRES DO CLINICAL STATEMENT: IMPRESSION: Cholelithiasis without evidence for acute cholecystitis. XR Chest 1 View Result Date: December 15, 2024 Verified By: YO TORRES DO CLINICAL STATEMENT: IMPRESSION: Small right pleural effusion and right basilar atelectasis. I have personally reviewed the images of this examination and agree with theresident's findings and interpretation. Objective Vitals and Measurements T: 36.9 C (Oral) TMIN: 36.3 C (Oral) TMAX: 37.0 C (Oral) HR: 73 RR: 18 BP: 109/67 SpO2: 94% Weight Dosing Weight: 59.6 kg (12/13/24) Constitutional - well nourished, alert, no gross deformities Head atraumatic, normocephalic Eyes Pupils equal, round, reactive to light, no conjunctival injection, extra ocular movements grossly intact, no scleral icterus Ears, Nose, and Throat trachea midline no lesions Respiratory Clear to auscultation without rales, rhonchi, wheezing or diminished breath sounds Cardiovascular regular rate and rhythm without murmurs. Normal S1 and S2. No cyanosis or edema Gastrointestinal (Abdomen) Bowel sounds present. Soft, nonsurgical abdomen, mildly distended Musculoskeletal no obvious deformity, (left arm in sling), no swelling, or clubbing. Skin: Skin normal color, texture and turgor with no lesions or eruptions Code Status Code Status - Ordered -- 12/13/24 22:23:00 EDT, Full Code, Constant Order Admission Date 12/13/24 Discharge Date 12/16/24 Patient Instructions - I would recommend continuing your significant GI prophylaxis with omeprazole/famotidine. Will add 14 days of Carafate given your significant GI symptoms on presentation. -Levothyroxine was reduced due to low TSH and elevated free T4. -Recommend continued aggressive bowel regimen with routine daily MiraLAX/senna. Milk of magnesia/lactulose provided in case you do not have a bowel movement for 1 to 2 days. -HCTZ discontinued due to hyponatremia. -Repeat lab work in 1 week to ensure stability of the sodium level - Follow-up with orthopedics for your arm Medications New Prescription lactulose (lactulose 10 g/15 mL oral syrup)30 Milliliter by mouth once a day as needed as needed for constipation. Okay to change quantity based on packaging. Refills: 0. polyethylene glycol 3350 (MiraLax oral powder for reconstitution)17 gram(s) by mouth every day. OTC okay, okay to change quantity based on packaging. Refills: 0. sucralfate (Carafate 1 g oral tablet)1 tab(s) by mouth four (4) times a day for 14 Days. Refills: 0. Changed levothyroxine (Synthroid 75 mcg (0.075 mg) oral tablet)1 tab(s) by mouth once a day before a meal. Refills: 0. Unchanged acetaminophen (Tylenol Extra Strength 500 mg oral tablet)2 tab(s) by mouth three (3) times a day. not to exceed 3000 mg/day. aspirin (aspirin 81 mg oral delayed release tablet)1 tab(s) by mouth two (2) times a day for 14 Days. cholecalciferol (Vitamin D3)100 Microgram by mouth every day. diphenhydrAMINE (Benadryl 25 mg oral capsule)1 cap by mouth every 6 hours as needed as needed for itching. famotidine (famotidine 20 mg oral tablet)1 tab(s) by mouth once a day for 14 Days. herbal/nutritional product1 capsule by mouth every day. lisinopril (lisinopril 20 mg oral tablet)1 tab(s) by mouth every day. magnesium hydroxide (Milk of Magnesia 8% oral suspension)30 Milliliter by mouth daily at bedtime as needed for constipation. meloxicam (meloxicam 7.5 mg oral tablet)1 tab(s) by mouth two (2) times a day. Take with food/milk. Start 12/13/24. omeprazole (NF) (omeprazole 40 mg oral delayed release capsule (NF))1 cap by mouth once a day before a meal. ondansetron (ondansetron 4 mg oral tablet, disintegrating)1 tab(s) by mouth three (3) times a day as needed Pain. 1-2 tabs. oxyCODONE (oxyCODONE 5 mg oral tablet ( IMMEDIATE release ))1 tab(s) by mouth every 4 hours as needed as needed for pain. 1-2 tabs. senna (Senokot 8.6 mg oral tablet)2 tab(s) by mouth two (2) times a day as needed as needed for constipation. traZODone (traZODone 100 mg oral tablet)1 tab(s) by mouth daily at bedtime. Discontinued hydroCHLOROthiazide (hydroCHLOROthiazide 25 mg oral tablet)1 tab(s) by mouth every day. Follow Up Follow Up with ANTIONE TALLEY MD When:Within 3-7 days Where:[address] [place] [address]- [phone] Additional Information: Please call the office to schedule a hospital follow up appointment. Follow Up with MIGUEL ANGEL DUCKWORTH DO When:In 2 weeks Where:[address] [facility] [place] [place] [address]- [phone] Additional Information: Hyponatremia follow-up Follow Up with Aliya Stratton When:In 2 weeks Where:[address] [place], [place] [address]- Additional Information: Call for appointment Follow Up Appointments No qualifying data available. Follow Up Labs/Studies Discharge Labs Discharge Outpatient Labwork - Ordered -- BMP, monitor sodium, follow-up within: 1-2 weeks, Results Notify to: MIGUEL ANGEL DUCKWORTH DO Results Notify to: ANTIONE TALLEY MD, 12/16/24 13:56:00 EDT Discharge Studies No Follow-up Studies Discharge Diet Discharge Diet - Ordered -- Type of Diet: Regular, 12/16/24 13:56:00 EDT Discharge Activity Discharge Activity - Ordered -- NO activity restrictions, 12/16/24 13:56:00 EDT Condition on Discharge Stable Readmission Risk/Palliative Score LACE Score: 10 (12/14/24 12:38:00) Discharge Disposition Home Information Provided To patient Time Spent >35 minutes with >50% of the time spent counseling patient and/or coordinating care Digitally Signed by TIAGO MOORE DO on 12/16/2024 01:57 PM [facility] 12-16-2024 Nephrology Progress note Date of Service 12/16 Subjective Patient sitting up in bed breathing comfortably. Denies pain or dyspnea. Objective Vitals and Measurements T: 36.8 C (Oral) TMIN: 36.3 C (Oral) TMAX: 37.0 C (Oral) HR: 71 RR: 18 BP: 120/66 SpO2: 93% Intake and Output 7AM Yesterday to 7AM Today Intake and Output (Last 24 hours) Intake Oral Intake 540.00 Supplement Intake 480.00 Output Urine Voided 0.00 Stool Count 1.00 Urine Count 15.00 Total Summary Total Intake 1020.00 Total Output 0.00 Fluid Balance 1020.00 Physical Exam Heart had a regular rhythm normal S1-S2 lungs are clear to auscultation posteriorly abdomen had bowel sounds positive x 4 soft nontender not distended extremities warm and dry with only trace pretibial edema bilaterally Weight Dosing Weight: 59.6 kg (12/13/24) Medications Medications (16) Active Scheduled: (9) aspirin 81 mg EC 81 mg 1 tab(s), Oral, BID cholecalciferol 50 mcg tablet (Vit D3 2000 unit(s)) 100 mcg 2 tab(s), Oral, Daily famotidine 20 mg tablet 20 mg 1 tab(s), Oral, qDay heparin 5,000 units/mL (1 mL) vial 5,000 unit(s) 1 mL, Subcutaneous, q8h levothyroxine 75 mcg tablet 75 mcg 1 tab(s), Oral, qDayAC lisinopril 20 mg tablet 20 mg 1 tab(s), Oral, Daily omeprazole [address] capsule 40 mg 1 cap(s), Oral, qDayAC sucralfate 1 gm tablet 1 gram(s) 1 tab(s), Oral, QID traZODONE 100 mg Tablet 100 mg 1 tab(s), Oral, qHS Continuous: (0) PRN: (7) acetaminophen 325 mg Tablet 650 mg 2 tab(s), Oral, q4h dextrose 50% Solution Disp syringe 50 mL 25 gram(s) 50 mL, IV Push, AsDirected insulin regular human recombinant 100 units/ml (10 mL) Solution sliding scale insulin, Subcutaneous, q4h magnesium hydroxide 8% Suspension 30 mL UD 30 mL, Oral, qHS ondansetron 2 mg/ 1 mL 2 mL INJ 2 mg 1 mL, IV Push, q6h oxycodone 5 mg tablet (immediate release) 5 mg 1 tab(s), Oral, q4h senna 8.6 mg Tablet 17.2 mg 2 tab(s), Oral, BID Lab Results 12/16 05:16 WBC: 6.0 Hgb: 12.5 Hct: 36.8 Platelet: 196 Neutrophil %: 70.3 Glucose Level: 100 Sodium Level: 135 L Potassium Level: 3.5 BUN: <5.0 L Creatinine Lvl (s): 0.41 L 12/15 15:15 Glucose Level: 108 Sodium Level: 125 L Potassium Level: 4.1 BUN: <5.0 L Creatinine Lvl (s): 0.45 L 12/15 06:51 WBC: 7.3 Hgb: 12.0 Hct: 34.8 Platelet: 170 Neutrophil %: 70.5 Glucose Level: 112 Sodium Level: 123 L Potassium Level: 3.7 BUN: <5.0 L Creatinine Lvl (s): 0.41 L EKG No qualifying data available. Assessment/Plan Assessment plan 1. Hypovolemic hyponatremia. Sodium is improved back to normal. No neurologic deficits noted. Patient feels well. Will follow-up in the office in [place]. Pandora for discharge from a renal standpoint. Digitally Signed by SABI HOWE MD on 12/16/2024 11:37 AM [facility] 12-15-2024 Note Exam Date Time Procedure Performing Provider Status 12/15/24 9:[address] Abdomen/Pelvis w/ Oral Contrast Only FRANTZ RAMIREZ MD; Auth (Verified) [id number] ORIGINAL EXAMINATION: CT OF THE ABDOMEN AND PELVIS WITHOUT CONTRAST 12/15/2024 9:27 pm TECHNIQUE: CT of the abdomen and pelvis was performed without the administration of intravenous contrast. Multiplanar reformatted images are provided for review. Automated exposure control, iterative reconstruction, and/or weight based adjustment of the mA/kV was utilized to reduce the radiation dose to as low as reasonably achievable. COMPARISON: 12/13/2024. HISTORY: ORDERING SYSTEM PROVIDED HISTORY: Reason for Exam: r/o bowel obstruction, complains of abd pain, n/v Bowel obstruction suspected FINDINGS: Mild atelectatic changes, right lung base. Trace right pleural effusion. Tiny nonobstructive right renal calculus Cholelithiasis. No bowel dilatation or bowel wall edema. Normal appendix. Scattered diverticulosis. Focal soft tissue swelling, left lower ventral abdominal wall, likely related to injection. IMPRESSION: No evidence of bowel obstruction. No acute findings. Improved pleural effusions, trace fluid remaining on the right Interpreted by: Frantz Ramirez Preliminary Report By: Frantz Ramirez Electronically signed By Frantz Ramirez Dictated Date: 12/16/2024 7:40:49 AM Prelim Date: 12/16/2024 7:47:00 AM Sign Date: 12/16/2024 7:47:00 AM Ordering Provider: [facility]06-13-2025 Note* Exam Date Time Procedure Performing Provider Status 12/15/24 4:55 PM US Abdomen Complete ANAYELI YO Islas DO ; Auth (Verified) [id number] ORIGINAL EXAMINATION: COMPLETE ABDOMINAL ULTRASOUND 12/15/2024 4:55 pm COMPARISON: None. HISTORY: ORDERING SYSTEM PROVIDED HISTORY: Reason for Exam: intractable nausea vomiting FINDINGS: LIVER: The liver demonstrates normal echogenicity without evidence of intrahepatic biliary ductal dilatation. BILIARY SYSTEM: Gallbladder appropriately distended containing shadowing stones. There is no sludge or pericholecystic edema. Negative sonographic Leija's sign. Common bile duct is within normal limits measuring 2.9 mm. KIDNEYS: The kidneys are unremarkable in appearance without evidence of hydronephrosis. Right and left kidneys measure 10.6 x 5.7 x 4.5 cm, and 10.7 x 5.1 x 5.0 cm respectively. PANCREAS: Visualized portions of the pancreas are unremarkable. SPLEEN: The spleen is unremarkable in appearance. Spleen is within normal limits in size. IVC: The IVC is patent. AORTA: Aorta is patent without aneurysm. OTHER: No evidence of ascites. IMPRESSION: Cholelithiasis without evidence for acute cholecystitis. Interpreted by: Yo Torres DO Preliminary Report By: Yo Torres DO Electronically signed By Yo Torres DO Dictated Date: 12/16/2024 8:57:58 AM Prelim Date: 12/16/2024 9:10:04 AM Sign Date: 12/16/2024 9:10:04 AM Ordering Provider: [facility]06-13-2025 Note* Exam Date Time Procedure Performing Provider Status 12/15/24 11:00 AM XR Chest 1 View YO TORRES DO; [place] (Verified) [id number] ORIGINAL EXAMINATION: ONE XRAY VIEW OF THE CHEST TECHNIQUE: CHEST ONE VIEW AP/PA COMPARISON: None. HISTORY: ORDERING SYSTEM PROVIDED HISTORY: Reason for Exam: nausea/vomiting, rule out atypical PNA FINDINGS: The cardiomediastinal silhouette is within normal limits. There is no focal consolidation or pneumothorax. Small right pleural effusion and right basilar atelectasis. No central vascular congestion. No aggressive osseous lesions. Bilateral shoulder replacements. IMPRESSION: Small right pleural effusion and right basilar atelectasis. I have personally reviewed the images of this examination and agree with the resident's findings and interpretation. Interpreted by: Yo Torres DO Preliminary Report By: Duncan Urrutia Electronically signed By Yo Torres DO Dictated Date: 12/15/2024 11:03:33 AM Prelim Date: 12/15/2024 11:17:53 AM Sign Date: 12/15/2024 11:17:53 AM Ordering Provider: [facility]06-13-2025 Nephrology Progress note Date of Service 12/15/2024. Purpose of this visit is follow-up in this patient who presented with hypovolemic hyponatremia. This note is a split/shared visit for services provided by Dr. Duckworth and myself. The following note summarizes the services I have provided. Please refer to his addendum/note for further recommendations. Subjective Reports she is not doing well. Has significant nausea with some wretching. Started not feeling welllast evening. Ate poorly for dinner and breakfast secondary to nausea and abdominal pain. Also has had no BM since Wednesday. Objective Vitals and Measurements T: 36.7 C (Oral) TMIN: 36.7 C (Oral) TMAX: 36.9 C (Oral) HR: 54 RR: 18 BP: 130/63 SpO2: 93% Intake and Output 7AM Yesterday to 7AM Today Intake and Output (Last 24 hours) Intake Oral Intake 480.00 Administration Information 1200.00 Supplement Intake 0.00 Output Urine Voided 1.00 Stool Count 0.00 Urine Count 3.00 Total Summary Total Intake 1680.00 Total Output 1.00 Fluid Balance 1679.00 Physical Exam General: Alert, oriented, and in no acute distress but looks uncomfortable with her nausea. Uncomfortable and unable to find a comfortable position. Skin: Warm and dry with normal color. No jaundice or cyanosis. Thorax / Lungs: Respiratory pattern regular and easy. Lung sounds clear. CV: Apical regular with normal S1 and S2. No murmurs, rubs or gallops appreciated. JVP normal. Abdomen: Abdomen very tender especially in the upper quadrants. Soft,non- distended. Bowel sounds active. Peripheral Vascular /Extremities: Warm. No edema. Pulses: Neuromuscular: Alert an oriented to person, place, time, and situation. Answers questions appropriately. Has a sling for right shoulder. Weight Dosing Weight: 59.6 kg (12/13/24) Medications Medications (13) Active Scheduled: (7) aspirin 81 mg EC 81 mg 1 tab(s), Oral, BID cholecalciferol 50 mcg tablet (Vit D3 2000 unit(s)) 100 mcg 2 tab(s), Oral, Daily famotidine 20 mg tablet 20 mg 1 tab(s), Oral, qDay heparin 5,000 units/mL (1 mL) vial 5,000 unit(s) 1 mL, Subcutaneous, q8h levothyroxine 88 mcg tablet 88 mcg 1 tab(s), Oral, qDayAC lisinopril 20 mg tablet 20 mg 1 tab(s), Oral, Daily Pharmacy To Dose 1 EA, Miscellaneous, Daily Continuous: (1) Dextrose 5% in Water 1,000 mL 1,000 mL, Intravenous, 75 mL/hr PRN: (5) acetaminophen 325 mg Tablet 650 mg 2 tab(s), Oral, q4h dextrose 50% Solution Disp syringe 50 mL 25 gram(s) 50 mL, IV Push, AsDirected insulin regular human recombinant 100 units/ml (10 mL) Solution sliding scale insulin, Subcutaneous, q4h ondansetron 2 mg/ 1 mL 2 mL INJ 2 mg 1 mL, IV Push, q6h oxycodone 5 mg tablet (immediate release) 5 mg 1 tab(s), Oral, q4h Lab Results 12/14 13:37 Glucose Level: 93 Sodium Level: 128 L Potassium Level: 4.0 BUN: 6.0 L Creatinine Lvl (s): 0.52 12/14 10:07 Glucose Level: 130 H Sodium Level: 130 L Potassium Level: 3.7 BUN: <5.0 L Creatinine Lvl (s): 0.48 L 12/14 06:30 Glucose Level: 93 Sodium Level: 133 L Potassium Level: 3.6 BUN: 5.0 L Creatinine Lvl (s): 0.47 L 12/14 02:49 WBC: 9.5 Hgb: 12.7 Hct: 37.4 Platelet: 227 Neutrophil %: 75.7 H Glucose Level: 97 Sodium Level: 128 L Potassium Level: 3.5 BUN: 5.0 L Creatinine Lvl (s): 0.50 12/13 22:28 WBC: 8.8 Hgb: 12.4 Hct: 35.8 Platelet: 210 Neutrophil %: 82.3 H Glucose Level: 111 Sodium Level: 124 L Potassium Level: 3.4 L BUN: 6.0 L Creatinine Lvl (s): 0.46 L EKG No qualifying data available. Assessment/Plan Nephrology assessment: 1. Hypovolemic hyponatremia: Presented with sodium of 116 (6.11.25) Trended up to 133 x 6 a.m. 6.12.25. Last dose of DDAVP 6.12.25 1 PM. IV D5W continues. Nephrology plan: 1. Stop IV fluids. Recheck sodium at 2 PM today. No fluid restriction. Will discuss with Dr. Duckworth. See his addendum for further discussion and orders. Digitally Signed by BEENA EMMANUEL on 12/15/2024 10:28 AM [id number] Note Date of Service 12/15/2024 Chief Complaint 87-year-old female with past medical history significant for hypertension, hypothyroidism, depression, constipation presented to [facility] today secondary to abdominal pain, nausea and vomiting. Patient states the abdominal pain started acutely when she woke up this morning and had multipleepisodes of nonbloody emesis. Patient states her abdominal pain is diffusely present, 8 out of 10 intensity, burning and stabbing in nature, nonradiating and associated with nausea and vomiting. She also endorses increasing urinary frequency for the past 3 to 4 days but denies any burning with urination. Patient denies any ill contacts, recent illness, changes in bowel habits but states she had left shoulder surgery on Wednesday this week. Patient denies smoking history but endorses drinking 2 glasses of whiskey 3 times a week and denies recreational drug use. At [facility] blood pressure was 147/76, respiratory rate 18, heart rate 60, afebrile and saturating 96% on room air. CBC significant for white count of 12.8 otherwise unremarkable. CMP significant for sodium 116 otherwise unremarkable. Lipase 11. CT abdomen pelvis with contrast showed cholelithiasis without gross cholecystitis. Moderate sigmoid diverticulosis without diverticulitis. Mild bilateral perinephric stranding (UA was completed without evidence of infection, leukocytosis resolved). EKG shows normal sinus rhythm. At [facility] patient received 2 L normal saline bolus, morphine and Zofran. Given hyponatremia patient will be transferred to [place] [facility] for further evaluation and man agement. After presenting to the ICU, subsequently was placed on D5W and had received 2 doses of desmopressin. Initially sodium improved however by 12/15/2024, sodium had worsened to 123. Subjective Patient seen and examined today. Reports she has not had a stool since Wednesday. Also reports burningepigastric pain. Essentially unable to tolerate any oral intake. Not actively vomiting but has thrown up twice prior to presentation. States she feels feverish but has not had any documented fevers. Objective Vitals and Measurements T: 36.6 C (Oral) TMIN: 36.6 C (Oral) TMAX: 36.9 C (Oral) HR: 66 RR: 18 BP: 137/118 SpO2: 95% Intake and Output 7AM Yesterday to 7AM Today Intake and Output (Last 24 hours) Intake Oral Intake 480.00 Administration Information 1200.00 Supplement Intake 0.00 Output Urine Voided 1.00 Stool Count 0.00 Urine Count 2.00 Total Summary Total Intake 1680.00 Total Output 1.00 Fluid Balance 1679.00 Physical Exam Constitutional - well nourished, alert, no gross deformities Head atraumatic, normocephalic Eyes Pupils equal, round, reactive to light, no conjunctival injection, extra ocular movements grossly intact, no scleral icterus Ears, Nose, and Throat trachea midline no lesions Respiratory Clear to auscultation without rales, rhonchi, wheezing or diminished breath sounds Cardiovascular regular rate and rhythm without murmurs. Normal S1 and S2. No cyanosis or edema Gastrointestinal (Abdomen) Bowel sounds present. Soft, nonsurgical abdomen, mildly distended Musculoskeletal no obvious deformity, (left arm in sling), no swelling, or clubbing. Skin: Skin normal color, texture and turgor with no lesions or eruptions Weight Dosing Weight: 59.6 kg (12/13/24) Medications Medications (12) Active Scheduled: (7) aspirin 81 mg EC 81 mg 1 tab(s), Oral, BID cholecalciferol 50 mcg tablet (Vit D3 2000 unit(s)) 100 mcg 2 tab(s), Oral, Daily famotidine 20 mg tablet 20 mg 1 tab(s), Oral, qDay heparin 5,000 units/mL (1 mL) vial 5,000 unit(s) 1 mL, Subcutaneous, q8h levothyroxine 88 mcg tablet 88 mcg 1 tab(s), Oral, qDayAC lisinopril 20 mg tablet 20 mg 1 tab(s), Oral, Daily magnesium sulfate PMX 2 gram(s) 50 mL, IV Piggyback, Once Continuous: (0) PRN: (5) acetaminophen 325 mg Tablet 650 mg 2 tab(s), Oral, q4h dextrose 50% Solution Disp syringe 50 mL 25 gram(s) 50 mL, IV Push, AsDirected insulin regular human recombinant 100 units/ml (10 mL) Solution sliding scale insulin, Subcutaneous, q4h ondansetron 2 mg/ 1 mL 2 mL INJ 2 mg 1 mL, IV Push, q6h oxycodone 5 mg tablet (immediate release) 5 mg 1 tab(s), Oral, q4h Lab Results 12/15 06:51 WBC: 7.3 Hgb: 12.0 Hct: 34.8 Platelet: 170 Glucose Level: 112 Sodium Level: 123 L Potassium Level: 3.7 BUN: <5.0 L Creatinine Lvl (s): 0.41 L 12/14 13:37 Glucose Level: 93 Sodium Level: 128 L Potassium Level: 4.0 BUN: 6.0 L Creatinine Lvl (s): 0.52 12/14 10:07 Glucose Level: 130 H Sodium Level: 130 L Potassium Level: 3.7 BUN: <5.0 L Creatinine Lvl (s): 0.48 L 12/14 06:30 Glucose Level: 93 Sodium Level: 133 L Potassium Level: 3.6 BUN: 5.0 L Creatinine Lvl (s): 0.47 L 12/14 02:49 WBC: 9.5 Hgb: 12.7 Hct: 37.4 Platelet: 227 Neutrophil %: 75.7 H Glucose Level: 97 Sodium Level: 128 L Potassium Level: 3.5 BUN: 5.0 L Creatinine Lvl (s): 0.50 12/13 22:28 WBC: 8.8 Hgb: 12.4 Hct: 35.8 Platelet: 210 Neutrophil %: 82.3 H Glucose Level: 111 Sodium Level: 124 L Potassium Level: 3.4 L BUN: 6.0 L Creatinine Lvl (s): 0.46 L EKG No qualifying data available. Assessment/Plan Hyponatremia Intractable nausea and vomiting Constipation Hypothyroidism Depression Sodium management/fluid management per nephrology. I would hold hydrochlorothiazide. Can continue lisinopril. levothyroxine decreased from 88 mcg. This is due to TSH of 0.537, free T4 of 2.29. Should be followed in 4 to 6 weeks by PCP. Complaining of significant epigastric pain with very poor appetite and 2 episodes of emesis. Hilda has not had a bowel movement since 12/11/2024. Rule out pancreatitis with lipase. Given her gallstones, repeat abdominal ultrasound. Possibly an ulceration. Continue famotidine/omeprazole, add Carafate. Small bowel follow-through to rule out obstruction given her recent surgery/opiate use. Lactulose/suppository for now. Sodium correction per nephrology. *Continue to follow closely, if sodium drops below 120, recommend transfer back to the ICU. Repeat BMP this afternoon. Level of Care Indication Regular Floor DVT Prophylaxis Heparin SQ Maintenance IVF Indication _Per nephrology Indwelling Urinary Catheter Indication NA No indwelling catheter Anticipated Timeline of Discharge 72+ hours -Unfortunately sodium is worsening and patient is essentially unable to tolerate diet at this point. Anticipated DC Disposition Home without services Digitally Signed by TIAGO MOORE DO on 12/15/2024 10:35 AM [id number] Nephrology Progress note Date of Service 12/15/2024. Purpose of this visit is follow-up in this patient who presented with hypovolemic hyponatremia. This note is a split/shared visit for services provided by Dr. Duckworth and myself. The following note summarizes the services I have provided. Please refer to his addendum/note for further recommendations. Subjective Reports she is not doing well. Has significant nausea with some wretching. Started not feeling welllast evening. Ate poorly for dinner and breakfast secondary to nausea and abdominal pain. Also has had no BM since Wednesday. Objective Vitals and Measurements T: 36.7 C (Oral) TMIN: 36.7 C (Oral) TMAX: 36.9 C (Oral) HR: 54 RR: 18 BP: 130/63 SpO2: 93% Intake and Output 7AM Yesterday to 7AM Today Intake and Output (Last 24 hours) Intake Oral Intake 480.00 Administration Information 1200.00 Supplement Intake 0.00 Output Urine Voided 1.00 Stool Count 0.00 Urine Count 3.00 Total Summary Total Intake 1680.00 Total Output 1.00 Fluid Balance 1679.00 Physical Exam General: Alert, oriented, and in no acute distress but looks uncomfortable with her nausea. Uncomfortable and unable to find a comfortable position. Skin: Warm and dry with normal color. No jaundice or cyanosis. Thorax / Lungs: Respiratory pattern regular and easy. Lung sounds clear. CV: Apical regular with normal S1 and S2. No murmurs, rubs or gallops appreciated. JVP normal. Abdomen: Abdomen very tender especially in the upper quadrants. Soft,non- distended. Bowel sounds active. Peripheral Vascular /Extremities: Warm. No edema. Pulses: Neuromuscular: Alert an oriented to person, place, time, and situation. Answers questions appropriately. Has a sling for right shoulder. Weight Dosing Weight: 59.6 kg (12/13/24) Medications Medications (13) Active Scheduled: (7) aspirin 81 mg EC 81 mg 1 tab(s), Oral, BID cholecalciferol 50 mcg tablet (Vit D3 2000 unit(s)) 100 mcg 2 tab(s), Oral, Daily famotidine 20 mg tablet 20 mg 1 tab(s), Oral, qDay heparin 5,000 units/mL (1 mL) vial 5,000 unit(s) 1 mL, Subcutaneous, q8h levothyroxine 88 mcg tablet 88 mcg 1 tab(s), Oral, qDayAC lisinopril 20 mg tablet 20 mg 1 tab(s), Oral, Daily Pharmacy To Dose 1 EA, Miscellaneous, Daily Continuous: (1) Dextrose 5% in Water 1,000 mL 1,000 mL, Intravenous, 75 mL/hr PRN: (5) acetaminophen 325 mg Tablet 650 mg 2 tab(s), Oral, q4h dextrose 50% Solution Disp syringe 50 mL 25 gram(s) 50 mL, IV Push, AsDirected insulin regular human recombinant 100 units/ml (10 mL) Solution sliding scale insulin, Subcutaneous, q4h ondansetron 2 mg/ 1 mL 2 mL INJ 2 mg 1 mL, IV Push, q6h oxycodone 5 mg tablet (immediate release) 5 mg 1 tab(s), Oral, q4h Lab Results 12/14 13:37 Glucose Level: 93 Sodium Level: 128 L Potassium Level: 4.0 BUN: 6.0 L Creatinine Lvl (s): 0.52 12/14 10:07 Glucose Level: 130 H Sodium Level: 130 L Potassium Level: 3.7 BUN: <5.0 L Creatinine Lvl (s): 0.48 L 12/14 06:30 Glucose Level: 93 Sodium Level: 133 L Potassium Level: 3.6 BUN: 5.0 L Creatinine Lvl (s): 0.47 L 12/14 02:49 WBC: 9.5 Hgb: 12.7 Hct: 37.4 Platelet: 227 Neutrophil %: 75.7 H Glucose Level: 97 Sodium Level: 128 L Potassium Level: 3.5 BUN: 5.0 L Creatinine Lvl (s): 0.50 12/13 22:28 WBC: 8.8 Hgb: 12.4 Hct: 35.8 Platelet: 210 Neutrophil %: 82.3 H Glucose Level: 111 Sodium Level: 124 L Potassium Level: 3.4 L BUN: 6.0 L Creatinine Lvl (s): 0.46 L EKG No qualifying data available. Assessment/Plan Nephrology assessment: 1. Hypovolemic hyponatremia: Presented with sodium of 116 (6.11.25) Trended up to 133 x 6 a.m. 6.12.25. Last dose of DDAVP 6.12.25 1 PM. IV D5W continues. Nephrology plan: 1. Stop IV fluids. Recheck sodium at 2 PM today. No fluid restriction. Will discuss with Dr. Duckworth. See his addendum for further discussion and orders. Digitally Signed by BEENA EMMANUEL on 12/15/2024 10:28 AM [facility] [id number] History and physical note Date of Service 12/13/2024 Chief Complaint Patient states that she had left-sided shoulder surgery yesterday and has been since experiencing nausea and vomiting. History of Present Illness 87-year-old female with past medical history significant for hypertension, hypothyroidism, depression, constipation presented to [facility] today secondary to abdominal pain, nausea and vomiting. Patient states the abdominal pain started acutely when she woke up this morning and had multipleepisodes of nonbloody emesis. Patient states her abdominal pain is diffusely present, 8 out of 10 intensity, burning and stabbing in nature, nonradiating and associated with nausea and vomiting. She also endorses increasing urinary frequency for the past 3 to 4 days but denies any burning with urination. Patient denies any ill contacts, recent illness, changes in bowel habits but states she had left shoulder surgery on Wednesday this week. Patient denies smoking history but endorses drinking 2 glasses of whiskey 3 times a week and denies recreational drug use. At [facility] blood pressure was 147/76, respiratory rate 18, heart rate 60, afebrile and saturating 96% on room air. CBC significant for white count of 12.8 otherwise unremarkable. CMP significant for sodium 116 otherwise unremarkable. Lipase 11. CT abdomen pelvis with contrast showed cholelithiasis without gross cholecystitis. Moderate sigmoid diverticulosis without diverticulitis. Mild bilateral perinephric stranding. EKG shows normal sinus rhythm. At [facility] patient received 2 L normalsaline bolus, morphine and Zofran. Given hyponatremia patient will be transferred to [place] [facility] for further evaluation and management. Review of Systems Negative other than HPI Physical Exam Vitals and Measurements No qualifying data available. General: Alert, oriented x3, NAD Head: Normocephalic and atraumatic Neck: Supple, trachea midline Eyes: Extraocular movements intact Respiratory: CTAP, no rhonchi, wheezing or diminished breath sounds. Cardiovascular: Regular rate and rhythm, no MGR Abdomen: Positive bowel sounds, nondistended, soft, diffusely tender on palpation, no guarding. No CVA tenderness Musculoskeletal: Left shoulder in a sling Skin: Hair: No color changes, Pigmentation or edema. Neurologic: No FND's, normal speech Psych: Cooperative and appropriate mood and affect. Lab Results No 36 Hour Lab Data Assessment/Plan Severe hyponatremia Intractable nausea and vomiting Intractable abdominal pain Bilateral perinephric stranding Concern for urinary tract infection Cholelithiasis without gross cholecystitis Leukocytosis History of hypertension, hypothyroidism, depression and constipation Plan Patient will be admitted to MICU Patient received 2 L normal saline bolus at [facility]. Will get STAT labs to follow-up on sodium and decide on further need for fluids. Will hold off on further IV fluids for now. Will obtain serum osmolality, urine osmolality, urine sodium, urine creatinine TSH and lipid panel Will obtain urinalysis Repeat BMP every 4 hours. If repeat BMP shows sodium of 128 or greater we will start D5W at 500 cc and/or desmopressin. Nephrology consulted. Goal to increase sodium initially by no more than 4 to 6 mEq/L during first 24 hours to prevent therisk of osmotic demyelination syndrome. If patient experiences seizures, altered mental status or respiratory distress can consider hypertonic 3% saline at a rate of 15 to 30 mL/h. Patient does take diuretics HCTZ and trazodone at home; could have contributed to hyponatremia. Will hold for now. Zofran IV ordered for nausea Patient did present with abdominal pain associated with nausea and vomiting which started suddenly today. CT abdomen pelvis with contrast showed mild bilateral perinephric stranding. Endorses urinaryfrequency for the past 3 to 4 days however denies any burning with urination. Will obtain urinalysis to further evaluate. If continues to have abdominal pain, can consider general surgery consult in AM. DVT prophylaxis heparin subcu CODE STATUS Full Diet n.p.o. Case discussed with gas distribution and emergency clerk, and additional information via addendum. 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 Arthroplasty of right shoulder: 01/07/21 Tonsillectomy Laparoscopic right ovarian cystectomy Nasal septoplasty Bunionectomy Urethroplasty, reconstruction of female urethra Colonoscopy Medications Home Medications (16) Active aspirin 81 mg oral delayed release tablet 81 mg = 1 tab(s), Oral, BID Benadryl 25 mg oral capsule 25 mg = 1 cap(s), PRN, Oral, q6hr famotidine 20 mg oral tablet 20 mg = 1 tab(s), Oral, qDay herbal/nutritional product 1 capsule, Oral, Daily hydroCHLOROthiazide 25 mg oral tablet 25 mg = 1 tab(s), Oral, Daily lisinopril 20 mg oral tablet 20 mg = 1 tab(s), Oral, Daily meloxicam 7.5 mg oral tablet 7.5 mg = 1 tab(s), Oral, BID Milk of Magnesia 8% oral suspension 2.4 gram(s) = 30 mL, PRN, Oral, qHS omeprazole 40 mg oral delayed release capsule (NF) 40 mg = 1 cap(s), Oral, qDayAC ondansetron 4 mg oral tablet, disintegrating 4 mg = 1 tab(s), PRN, Oral, TID oxyCODONE 5 mg oral tablet ( IMMEDIATE release ) 5 mg = 1 tab(s), PRN, Oral, q4h Senokot 8.6 mg oral tablet 17.2 mg = 2 tab(s), PRN, Oral, BID Synthroid 88 mcg (0.088 mg) oral tablet 88 mcg = 1 tab(s), Oral, qDayAC traZODone 100 mg oral tablet 100 mg = 1 tab(s), Oral, qHS Tylenol Extra Strength 500 mg oral tablet 1,000 mg = 2 tab(s), Oral, TID Vitamin D3 100 mcg = 1 tab(s), Oral, Daily Allergies amoxicillin Hives Social History Smoking Status - 07/15/2015 Former smoker Alcohol Use: Current. Frequency: 1-2 times per month., 12/20/2020 Home/Environment Domestic Concerns: None. Living situation: Home/Independent. 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 Lives In: Multilevel home, 2nd floor bedroom, 2nd floor bathroom. Current Home Treatments None. Professional Skilled Services or Special Community Resources None. Marital Status: Unmarried., 12/20/2020 Nutrition/Health Type of diet: Regular. Appetite Good. Eating Difficulties None. Skin Breakdown No., 12/20/2020 Substance Abuse Use: Never., 12/20/2020 Tobacco Nicotine Use: 5-9 cigarettes (between 1/4 to 1/2 pack)/day in last 30 days. Type: Cigarettes. Number of years: 38., 12/20/2020 Family History Cancer: Mother. Emphysema of lung: Brother. Heart attack: Father, Sister and Brother. High blood pressure: Sister. Pneumonia: Brother. Health Status Family Member(s) Immunizations No qualifying data available. Code Status No qualifying data available. Digitally Signed by ULICES RUDOLPH MD on 12/13/2024 11:41 PM Digitally Signed by ULICES RUDOLPH MD on 12/13/2024 11:56 PM Digitally Signed by ULICES RUDOLPH MD on 12/14/2024 12:04 AM Digitally Signed by ULICES RUDOLPH MD on 12/14/2024 12:18 AM Digitally Signed by ULICES RUDOLPH MD on 12/14/2024 03:21 AM Digitally Signed by BRIE MENDOZA MD on 12/14/2024 10:26 AM [facility] [id number] Nephrology Consult note Date of Service 12 14 24 Reason for Consultation Hyponatremia Referring Physician Reji History of Present Illness 69-year-old female who presented to hospital yesterday with nausea vomiting and severe hyponatremiapatient has no previous history of any dyspnea tremulous she does nothing makes better nothing makes it worse she did have a total surgery of her shoulder on Wednesday since that time she has been sickvariance the nausea vomiting she was not eating much was drinking at least 60 ounces of pure water a day her initial sodium was noted to be 116 with a chloride of 82 lipase was 11 at 2200 a serum osmolality was done which was 254 with a urine osmolality of 94 and a urine sodium of 24 ethanol level is less than 10 at that time her sodium was 124 with a chloride of 89 glucose of 111 at the time of this consultation her sodium was 130 with a chloride of 94 patient initially was receiving fluids had received some normal saline subsequently was placed on D5W and has received a dose of desmopressinshe is feeling much better at this point she is feeling hungry she was feeling very tired and fatigued prior to admission as well she does live in the [facility]. Review of Systems Review of systems is negative 10 other than what noted in HPI. Physical Exam Vitals and Measurements T: 36.8 C (Oral) TMIN: 36.7 C (Oral) TMAX: 37.0 C (Oral) HR: 58 (Monitored) RR: 24 BP: 132/55 SpO2:96% HT: 152.4 cm WT: 59.6 kg BMI: 25.66 Weight Dosing Weight: 59.6 kg (12/13/24) General: Alert and oriented 3 Sister at bedside Head: Normocephalic HEENT: Pupils equal reactive to light, extraocular muscles intact, membranes are moist, no icterus Neck: JVP CV: S1 S2 without murmur, no rub RESP: CTAB, no crackles or wheezing, no accessory muscle use, air exchange equal ABDOMINAL: Bowels sounds present soft negative rebound rigidity guarding or tenderness EXT: No cyanosis clubbing or edema left shoulder with sling noted NEURO:Cranial nerves II through XII grossly intact, no dysarthric speech detected, DTRs +2 out of 4 Vascular: Pulses +2 out of 4 and equal Skin:[warm and dry : Deferred Rectal:Deferred Breast:Deferred Lab Results 12/14 10:07 Glucose Level: 130 H Sodium Level: 130 L Potassium Level: 3.7 BUN: <5.0 L Creatinine Lvl (s): 0.48 L 12/14 06:30 Glucose Level: 93 Sodium Level: 133 L Potassium Level: 3.6 BUN: 5.0 L Creatinine Lvl (s): 0.47 L 12/14 02:49 WBC: 9.5 Hgb: 12.7 Hct: 37.4 Platelet: 227 Neutrophil %: 75.7 H Glucose Level: 97 Sodium Level: 128 L Potassium Level: 3.5 BUN: 5.0 L Creatinine Lvl (s): 0.50 12/13 22:28 WBC: 8.8 Hgb: 12.4 Hct: 35.8 Platelet: 210 Neutrophil %: 82.3 H Glucose Level: 111 Sodium Level: 124 L Potassium Level: 3.4 L BUN: 6.0 L Creatinine Lvl (s): 0.46 L Assessment/Plan 1. Hypovolemic hyponatremia Agree with serial checks of BMP May need to discontinue desmopressin as she is also getting D5W She also should not be on a fluid restriction Discussed with patient and her sister in detail No neurological deficits are noted Discussed with patient in detail they had no further questions or concerns thank you for allowing me to participate in the care of this patient This document was transcribed via voice recognition software and may contain typographical errors. 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 Arthroplasty of right shoulder: 01/07/21 Tonsillectomy Laparoscopic right ovarian cystectomy Nasal septoplasty Bunionectomy Urethroplasty, reconstruction of female urethra Colonoscopy Medications Inpatient D5W 1,000 mL, 1000 mL, Intravenous DDAVP, 2 mcg= 0.5 mL, IV Push, q8h Dextrose, 25 gram(s)= 50 mL, IV Push, AsDirected, PRN heparin 5000 units/mL injection, 5000 unit(s)= 1 mL, Subcutaneous, q8h HumuLIN R, sliding scale insulin, Subcutaneous, q4h, PRN oxyCODONE 5 mg oral tablet ( IMMEDIATE release ), 5 mg= 1 tab(s), Oral, q4h, PRN Tylenol, 650 mg= 2 tab(s), Oral, q4h, PRN Zofran, 2 mg= 1 mL, IV Push, q6h, PRN Home aspirin 81 mg oral delayed release tablet, 81 mg= 1 tab(s), Oral, BID Benadryl 25 mg oral capsule, 25 mg= 1 cap(s), Oral, q6hr, PRN famotidine 20 mg oral tablet, 20 mg= 1 tab(s), Oral, qDay herbal/nutritional product, 1 capsule, Oral, Daily hydroCHLOROthiazide 25 mg oral tablet, 25 mg= 1 tab(s), Oral, Daily lisinopril 20 mg oral tablet, 20 mg= 1 tab(s), Oral, Daily meloxicam 7.5 mg oral tablet, 7.5 mg= 1 tab(s), Oral, BID Milk of Magnesia 8% oral suspension, 2.4 gram(s)= 30 mL, Oral, qHS, PRN omeprazole 40 mg oral delayed release capsule (NF), 40 mg= 1 cap(s), Oral, qDayAC ondansetron 4 mg oral tablet, disintegrating, 4 mg= 1 tab(s), Oral, TID, PRN oxyCODONE 5 mg oral tablet ( IMMEDIATE release ), 5 mg= 1 tab(s), Oral, q4h, PRN Senokot 8.6 mg oral tablet, 17.2 mg= 2 tab(s), Oral, BID, PRN Synthroid 88 mcg (0.088 mg) oral tablet, 88 mcg= 1 tab(s), Oral, qDayAC traZODone 100 mg oral tablet, 100 mg= 1 tab(s), Oral, qHS Tylenol Extra Strength 500 mg oral tablet, 1000 mg= 2 tab(s), Oral, TID Vitamin D3, 100 mcg= 1 tab(s), Oral, Daily Allergies amoxicillin Hives Social History Smoking Status - 07/15/2015 Former smoker Alcohol Use: Current. Frequency: 1-2 times per month., 12/20/2020 Home/Environment Domestic Concerns: None. Living situation: Home/Independent. 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 Lives In: Multilevel home, 2nd floor bedroom, 2nd floor bathroom. Current Home Treatments None. Professional Skilled Services or Special Community Resources None. Marital Status: Unmarried., 12/20/2020 Nutrition/Health Type of diet: Regular. Appetite Good. Eating Difficulties None. Skin Breakdown No., 12/20/2020 Substance Abuse Use: Never., 12/20/2020 Tobacco Nicotine Use: 5-9 cigarettes (between 1/4 to 1/2 pack)/day in last 30 days. Type: Cigarettes. Number of years: 38., 12/20/2020 Family History Cancer: Mother. Emphysema of lung: Brother. Heart attack: Father, Sister and Brother. High blood pressure: Sister. Pneumonia: Brother. Health Status Family Member(s) Immunizations No qualifying data available. Digitally Signed by MIGUEL ANGEL DUCKWORTH DO on 12/14/2024 12:54 PM [facility] [id number] Hospital Discharge instructions Patient Education 12/13/2024 19:26:55 Dehydration Dehydration The human body is comprised largely of water. If you lose more fluids than you take in, you can become dehydrated. This means there are not enough fluids in your body for it to function right. Mild dehydration can cause weakness, confusion, or muscle cramps. In extreme cases, it can lead to brain damage and even . That's why prompt treatment is crucial. Risk factors Anyone can become dehydrated. But infants, children, and older adults are at greatest risk. You aremost likely to lose fluids with severe vomiting, diarrhea, or a fever. Exercising or working hard especially in hot weather can also cause excess fluid loss. What to do Drinking liquids is the best way to prevent dehydration. Water is best, but juice or frozen pops can also help. For adults, don't use liquids that contain caffeine or alcohol to rehydrate. Your doctor may suggest electrolyte solutions for sick infants and young children. When to go to the emergency room (ER) Go to an ER right away for these symptoms: Adults Very dark urine and little urine output Dizziness, weakness, confusion, fainting Children Sunken eyes Little or no urine output (for infants, no wet diaper in 8 hours) Very dark urine Skin that doesn't bounce back quickly when pinched Crying without tears Lethargy, decreased activity, or increased sleepiness What to expect in the emergency room Your blood pressure, temperature, and heart rate will be checked. You may have blood or urine tests. The main treatment for dehydration is fluids. You may be given these to drink. Or, you may receivethem through a vein in your arm. You also may be treated for diarrhea, vomiting, or a high fever. [id number] [employer]. [address] [place] [id number]. All rights reserved. This information is not intended as a substitute for professional medical care. Always follow yourhealthcare professional's instructions. Follow Up Care 12/13/2024 17:05:34 With:ANTIONE TALLEY MD Address: [address] [address] [phone] When:2-4 days [facility] 06-11-2025 History and physical note Date of Service 12/13/2024 Chief Complaint Patient states that she had left-sided shoulder surgery yesterday and has been since experiencing nausea and vomiting. History of Present Illness 87-year-old female with past medical history significant for hypertension, hypothyroidism, depression, constipation presented to [facility] today secondary to abdominal pain, nausea and vomiting. Patient states the abdominal pain started acutely when she woke up this morning and had multipleepisodes of nonbloody emesis. Patient states her abdominal pain is diffusely present, 8 out of 10 intensity, burning and stabbing in nature, nonradiating and associated with nausea and vomiting. She also endorses increasing urinary frequency for the past 3 to 4 days but denies any burning with urination. Patient denies any ill contacts, recent illness, changes in bowel habits but states she had left shoulder surgery on Wednesday this week. Patient denies smoking history but endorses drinking 2 glasses of whiskey 3 times a week and denies recreational drug use. At [facility] blood pressure was 147/76, respiratory rate 18, heart rate 60, afebrile and saturating 96% on room air. CBC significant for white count of 12.8 otherwise unremarkable. CMP significant for sodium [address] otherwise [address]. Lipase 11. CT abdomen pelvis with contrast showed cholelithiasis without gross cholecystitis. Moderate sigmoid diverticulosis without diverticulitis. Mild bilateral perinephric stranding. EKG shows normal sinus rhythm. At [facility] ED patient received 2 L normalsaline bolus, morphine and Zofran. Given hyponatremia patient will be transferred to [place] [facility]U for further evaluation and management. Review of Systems Negative other than HPI Physical Exam Vitals and Measurements No qualifying data available. General: Alert, oriented x3, NAD Head: Normocephalic and atraumatic Neck: Supple, trachea midline Eyes: Extraocular movements intact Respiratory: CTAP, no rhonchi, wheezing or diminished breath sounds. Cardiovascular: Regular rate and rhythm, no MGR Abdomen: Positive bowel sounds, nondistended, soft, diffusely tender on palpation, no guarding. No CVA tenderness Musculoskeletal: Left shoulder in a sling Skin: Hair: No color changes, Pigmentation or edema. Neurologic: No FND's, normal speech Psych: Cooperative and appropriate mood and affect. Lab Results No 36 Hour Lab Data Assessment/Plan Severe hyponatremia Intractable nausea and vomiting Intractable abdominal pain Bilateral perinephric stranding Concern for urinary tract infection Cholelithiasis without gross cholecystitis Leukocytosis History of hypertension, hypothyroidism, depression and constipation Plan Patient will be admitted to MICU Patient received 2 L normal saline bolus at [facility]. Will get STAT labs to follow-up on sodium and decide on further need for fluids. Will hold off on further IV fluids for now. Will obtain serum osmolality, urine osmolality, urine sodium, urine creatinine TSH and lipid panel Will obtain urinalysis Repeat BMP every 4 hours. If repeat BMP shows sodium of 128 or greater we will start D5W at 500 cc and/or desmopressin. Nephrology consulted. Goal to increase sodium initially by no more than 4 to 6 mEq/L during first 24 hours to prevent therisk of osmotic demyelination syndrome. If patient experiences seizures, altered mental status or respiratory distress can consider hypertonic 3% saline at a rate of 15 to 30 mL/h. Patient does take diuretics HCTZ and trazodone at home; could have contributed to hyponatremia. Will hold for now. Zofran IV ordered for nausea Patient did present with abdominal pain associated with nausea and vomiting which started suddenly today. CT abdomen pelvis with contrast showed mild bilateral perinephric stranding. Endorses urinaryfrequency for the past 3 to 4 days however denies any burning with urination. Will obtain urinalysis to further evaluate. If continues to have abdominal pain, can consider general surgery consult in AM. DVT prophylaxis heparin subcu CODE STATUS Full Diet n.p.o. Case discussed with gas distribution and emergency clerk, and additional information via addendum. 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 Arthroplasty of right shoulder: 01/07/21 Tonsillectomy Laparoscopic right ovarian cystectomy Nasal septoplasty Bunionectomy Urethroplasty, reconstruction of female urethra Colonoscopy Medications Home Medications (16) Active aspirin 81 mg oral delayed release tablet 81 mg = 1 tab(s), Oral, BID Benadryl 25 mg oral capsule 25 mg = 1 cap(s), PRN, Oral, q6hr famotidine 20 mg oral tablet 20 mg = 1 tab(s), Oral, qDay herbal/nutritional product 1 capsule, Oral, Daily hydroCHLOROthiazide 25 mg oral tablet 25 mg = 1 tab(s), Oral, Daily lisinopril 20 mg oral tablet 20 mg = 1 tab(s), Oral, Daily meloxicam 7.5 mg oral tablet 7.5 mg = 1 tab(s), Oral, BID Milk of Magnesia 8% oral suspension 2.4 gram(s) = 30 mL, PRN, Oral, qHS omeprazole 40 mg oral delayed release capsule (NF) 40 mg = 1 cap(s), Oral, qDayAC ondansetron 4 mg oral tablet, disintegrating 4 mg = 1 tab(s), PRN, Oral, TID oxyCODONE 5 mg oral tablet ( IMMEDIATE release ) 5 mg = 1 tab(s), PRN, Oral, q4h Senokot 8.6 mg oral tablet 17.2 mg = 2 tab(s), PRN, Oral, BID Synthroid 88 mcg (0.088 mg) oral tablet 88 mcg = 1 tab(s), Oral, qDayAC traZODone 100 mg oral tablet 100 mg = 1 tab(s), Oral, qHS Tylenol Extra Strength 500 mg oral tablet 1,000 mg = 2 tab(s), Oral, TID Vitamin D3 100 mcg = 1 tab(s), Oral, Daily Allergies amoxicillin Hives Social History Smoking Status - 07/15/2015 Former smoker Alcohol Use: Current. Frequency: 1-2 times per month., 12/20/2020 Home/Environment Domestic Concerns: None. Living situation: Home/Independent. 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 Lives In: Multilevel home, 2nd floor bedroom, 2nd floor bathroom. Current Home Treatments None. Professional Skilled Services or Special Community Resources None. Marital Status: Unmarried., 12/20/2020 Nutrition/Health Type of diet: Regular. Appetite Good. Eating Difficulties None. Skin Breakdown No., 12/20/2020 Substance Abuse Use: Never., 12/20/2020 Tobacco Nicotine Use: 5-9 cigarettes (between 1/4 to 1/2 pack)/day in last 30 days. Type: Cigarettes. Number of years: 38., 12/20/2020 Family History Cancer: Mother. Emphysema of lung: Brother. Heart attack: Father, Sister and Brother. High blood pressure: Sister. Pneumonia: Brother. Health Status Family Member(s) Immunizations No qualifying data available. Code Status No qualifying data available. Digitally Signed by ULICES RUDOLPH MD on 12/13/2024 11:41 PM Digitally Signed by ULICES RUDOLPH MD on 12/13/2024 11:56 PM Digitally Signed by ULICES RUDOLPH MD on 12/14/2024 12:04 AM Digitally Signed by ULICES RUDOLPH MD on 12/14/2024 12:18 AM Digitally Signed by ULICES RUDOLPH MD on 12/14/2024 03:21 AM Digitally Signed by BRIE MENDOZA MD on 12/14/2024 10:26 AM [id number] Nurse Progress note transport arranged 60-90 min ETA Digitally Signed by Steffanie Garcia RN on 12/13/2024 07:30 PM [facility]06-11-2025 Note* Exam Date Time Procedure Performing Provider Status 12/13/24 6:[address] Abd/Pelvis w/ IV Contrast Only CON GOMEZ MD; Auth (Verified) [id number] ORIGINAL EXAMINATION: CT OF THE ABDOMEN AND PELVIS WITH CONTRAST 12/13/2024 6:20 pm TECHNIQUE: CT of the abdomen and pelvis was performed with the administration of intravenous contrast. Multiplanar reformatted images are provided for review. Automated exposure control, iterative reconstruction, and/or weight based adjustment of the mA/kV was utilized to reduce the radiation dose to as low as reasonably achievable. COMPARISON: None. HISTORY: ORDERING SYSTEM PROVIDED HISTORY: Reason for Exam: Abdominal pain, acute, nonlocalized FINDINGS: Lower Chest: Lower thorax demonstrates small right basilar effusion. There is mild bibasilar atelectasis. There are coronary arterial calcifications. Correlation with clinical findings may be useful. Organs: There is normal in size without biliary duct dilatation. There is mild periportal edema. There is small hypodense region at the anterior liver adjacent to falciform fissure compatible with focal fatty infiltration. There are small calcified gallstones without gross wall thickening. There is small volume fluid at the liver hilum in gallbladder fossa. The pancreas demonstrates no evidence of mass, ductal dilatation, or inflammatory process. Spleen is normal in size. Adrenal glands are normal in size. The kidneys demonstrate no hydronephrosis or renal calculi. There are small bilateral renal cortical hypodense cysts, largest at the medial left kidney measuring 1.2 x 1.1 cm. There is mild bilateral perinephric stranding. Ureters are normal in caliber bilaterally. GI/Bowel: Stomach and duodenal sweep demonstrate no acute abnormality. Small bowel and colon are normal in caliber. There is moderate sigmoid diverticulosis without diverticulitis. Appendix is normal in caliber without gross wall thickening or inflammatory change. Pelvis: Urinary bladder is within normal limits. Uterus and ovaries are grossly normal in morphology. Peritoneum/Retroperitoneum: Aorta is normal in caliber without acute abnormality. There are moderate calcified plaques of the aorta. Bones/Soft Tissues: Osseous structures are intact with degenerative changes. IMPRESSION: 1. Cholelithiasis without gross cholecystitis. Follow-up ultrasound study may be useful for further evaluation, as clinically indicated. 2. Moderate sigmoid diverticulosis without diverticulitis. 3. Mild bilateral perinephric stranding. Correlate with urinalysis to exclude urinary tract infection. Interpreted by: Con Gomez Preliminary Report By: Con Gomez Electronically signed By Con Gomez Dictated Date: 12/13/2024 6:36:19 PM Prelim Date: 12/13/2024 6:48:05 PM Sign Date: 12/13/2024 6:48:05 PM Ordering Provider: PATTI LEIJA [facility]06-11-2025 Evaluation + Plan noteExtracted from: Title:History and Physical Author:ULICES RUDOLPH MD Date:12/13/24 Severe hyponatremia Intractable nausea and vomiting Intractable abdominal pain Bilateral perinephric stranding Concern for urinary tract infection Cholelithiasis without gross cholecystitis Leukocytosis History of hypertension, hypothyroidism, depression and constipation Plan Patient will be admitted to MICU Patient received 2 L normal saline bolus at [facility]. Will get STAT labs to follow-up on sodium and decide on further need for fluids. Will hold off on further IV fluids for now. Will obtain serum osmolality, urine osmolality, urine sodium, urine creatinine TSH and lipid panel Will obtain urinalysis Repeat BMP every 4 hours. If repeat BMP shows sodium of 128 or greater we will start D5W at 500 cc and/or desmopressin. Nephrology consulted. Goal to increase sodium initially by no more than 4 to 6 mEq/L during first 24 hours to prevent the risk of osmotic demyelination syndrome. If patient experiences seizures, altered mental status or respiratory distress can consider hypertonic 3% saline at a rate of 15 to 30 mL/h. Patient does take diuretics HCTZ and trazodone at home; could have contributed to hyponatremia. Will hold for now. Zofran IV ordered for nausea Patient did present with abdominal pain associated with nausea and vomiting which started suddenly today. CT abdomen pelvis with contrast showed mild bilateral perinephric stranding. Endorses urinary frequency for the past 3 to 4 days however denies any burning with urination. Will obtain urinalysis to further evaluate. If continues to have abdominal pain, can consider general surgery consult in AM. DVT prophylaxis heparin subcu CODE STATUS Full Diet n.p.o. Case discussed with gas distribution and emergency clerk, and additional information via addendum. Addendum by JORY BREEN MD on December 14, 2024 16:06:09 EDT Patient was evaluated by me and discussed with MICU/MTS Team. I agree with their above findings, exam, assessment, and plan. This is a 69-year-old female who is currently admitted to the medical ICU for severe hyponatremia. The patient reportedly had intractable nausea and vomiting and abdominal pain after increasing her water consumption prior to a shoulder surgery. Initial serum sodium was very low she was given IV fluids and rapidly corrected. She was on a desmopressin and free water. Sodium correction rate has stabilized. Assessment: Severe hyponatremia secondary to water intoxication, rapid correction now normalizing Recent shoulder surgery with postoperative pain We will plan to stop her desmopressin. We will continue her on some D5 water at a low rate to prevent continued overcorrection. At this point she can drink freely and she will be started on a diet. Given rate of correction has normalized, we will plan to transfer out of the medical ICU with ongoing follow-up by nephrology. 35 minutes of critical care time Future Appointments Appointment Date:12/27/2024 08:00:00 AM Scheduled Provider:Juan Jose Lamas PT Location:[facility] Appointment Type:PT Outpatient Evaluation [facility] 06-10-2025 Hospital Discharge instructions Patient Education 12/12/2024 11:18:35 How to Use Compression Stockings How to Use Compression Stockings Compression stockings are elastic socks that squeeze the legs. They help increase blood flow (circulation) to the legs, decrease swelling in the legs, and reduce the chance of developing blood clots in the lower legs. Compression stockings are often used by people who: Are recovering from surgery. Have poor circulation in their legs. Tend to get blood clots in their legs. Have bulging (varicose) veins. Sit or stay in bed for long periods of time. Follow instructions from your health care provider about how and when to wear your compression stockings. How to wear compression stockings Before you put on your compression stockings: Make sure that they are the correct size and degree of compression. If you do not know your size orrequired grade of compression, ask your health care provider and follow the landscape designer's instructions that come with the stockings. Make sure that they are clean, dry, and in good condition. Check them for rips and tears. Do not put them on if they are ripped or torn. Put your stockings on first thing in the morning, before you get out of bed. Keep them on for as long as your health care provider advises. When you are wearing your stockings: Keep them as smooth as possible. Do not allow them to bunch up. It is especially important to prevent the stockings from bunching up around your toes or behind your knees. Do not roll the stockings downward and leave them rolled down. This can decrease blood flow to yourleg. Change them right away if they become wet or dirty. When you take off your stockings, inspect your legs and feet. Check for: Open sores. Red spots. Swelling. General tips Do not stop wearing compression stockings without talking to your health care provider first. Wash your stockings every day with mild detergent in cold or warm water. Do not use bleach. Air-dryyour stockings or dry them in a clothes dryer on low heat. It may be helpful to have two pairs so that you have a pair to wear while the other is being washed. Replace your stockings every 3 6 months. If skin moisturizing is part of your treatment plan, apply lotion or cream at night so that your skin will be dry when you put on the stockings in the morning. It is harder to put the stockings on when you have lotion on your legs or feet. Wear nonskid shoes or slip-resistant socks when walking while wearing compression stockings. Contact a health care provider and remove your stockings if you have: A feeling of pins and needles in your feet or legs. Open sores, red spots, or other skin changes on your feet or legs. Swelling or pain that gets worse. Get help right away if you have: Numbness or tingling in your lower legs that does not get better right after you take the stockingsoff. Toes or feet that are unusually cold or turn a bluish color. A warm or red area on your leg. New swelling or soreness in your leg. Shortness of breath. Chest pain. A fast or irregular heartbeat. Light-headedness. Dizziness. Summary Compression stockings are elastic socks that squeeze the legs. They help increase blood flow (circulation) to the legs, decrease swelling in the legs, and reduce the chance of developing blood clots in the lower legs. Follow instructions from your health care provider about how and when to wear your compression stockings. Do not stop wearing your compression stockings without talking to your health care provider first. This information is not intended to replace advice given to you by your health care provider. Make sure you discuss any questions you have with your health care provider. Document Released: 04/18/2010 Document Revised: 06/23/2018 Document Reviewed: 06/23/2018 [employer] Patient Education 2020 [employer] 12/12/2024 11:18:21 How to Use an Incentive Spirometer How To Use an Incentive Spirometer An incentive spirometer is a tool that measures how well you are filling your lungs with each breath. Learning to take long, deep breaths using this tool can help you keep your lungs clear and active. This may help to reverse or lessen your chance of developing breathing (pulmonary) problems, especially infection. You may be asked to use a spirometer: After a surgery. If you have a lung problem or a history of smoking. After a long period of time when you have been unable to move or be active. If the spirometer includes an indicator to show the highest number that you have reached, your health care provider or respiratory therapist will help you set a goal. Keep a list (log) of your progress as told by your health care provider. What are the risks? Breathing too quickly may cause dizziness or cause you to pass out. Take your time so you do not get dizzy or light-headed. If you are in pain, you may need to take pain medicine before doing incentive spirometry. It is harder to take a deep breath if you are having pain. How to use your incentive spirometer 1.Sit up on the edge of your bed or on a chair. 2.Hold the incentive spirometer so that it is in an upright position. 3.Before you use the spirometer, breathe out normally. 4.Place the mouthpiece in your mouth. Make sure your lips are closed tightly around it. 5.Breathe in slowly and as deeply as you can through your mouth, causing the piston or the ball to rise toward the top of the chamber. 6.Hold your breath for 3 5 seconds, or for as long as possible. If the spirometer includes a personal development coach indicator, use this to guide you in breathing. Slow down your breathing if the indicator goes above the marked areas. 7.Remove the mouthpiece from your mouth and breathe out normally. The piston or ball will return tothe bottom of the chamber. 8.Rest for a few seconds, then repeat the steps 10 or more times. Take your time and take a few normal breaths between deep breaths so that you do not get dizzy or light-headed. Do this every 1 2 hours when you are awake. 9.If the spirometer includes a goal marker to show the highest number you have reached (best effort), use this as a goal to work toward during each repetition. 10.After each set of 10 deep breaths, cough a few times. This will help to make sure that your lungs are clear. If you have an incision on your chest or abdomen from surgery, place a pillow or a rolled-up towel firmly against the incision when you cough. This can help to reduce pain from coughing. General tips When you become able to get out of bed, walk around often and continue to cough to help clear your lungs. Keep using the incentive spirometer until your health care provider says it is okay to stop using it. If you have been in the hospital, you may be told to keep using the spirometer at home. Contact a health care provider if: You are having difficulty using the spirometer. You have trouble using the spirometer as often as instructed. Your pain medicine is not giving enough relief for you to use the spirometer as told. You have a fever. You develop shortness of breath. Get help right away if: You develop a cough with bloody mucus from the lungs (bloody sputum). You have fluid or blood coming from an incision site after you cough. Summary An incentive spirometer is a tool that can help you learn to take long, deep breaths to keep your lungs clear and active. You may be asked to use a spirometer after a surgery, if you have a lung problem or a history of smoking, or if you have been inactive for a long period of time. Use your incentive spirometer as instructed every 1 2 hours while you are awake. If you have an incision on your chest or abdomen, place a pillow or a rolled-up towel firmly against your incision when you cough. This will help to reduce pain. This information is not intended to replace advice given to you by your health care provider. Make sure you discuss any questions you have with your health care provider. Document Released: 11/01/2007 Document Revised: 07/14/2018 Document Reviewed: 05/04/2018 [employer] Patient Education 2020 [employer] 12/12/2024 10:02:27 Interscalene Nerve Block, Care After Interscalene Nerve Block, Care After This sheet gives you information about how to care for yourself after your procedure. Your health care provider may also give you more specific instructions. If you have problems or questions, contact your health care provider. What can I expect after the procedure? After the procedure, it is common to have: Soreness or tenderness in your neck. Numbness in your shoulder, upper arm, and some fingers. Weakness in your shoulder and arm muscles. The feeling and strength in your shoulder, arm, and fingers should return to normal within hours after your procedure. Follow these instructions at home: For at least 24 hours after the procedure: Do not: ?Participate in activities in which you could fall or become injured. ?Drive. ?Use heavy machinery. ?Drink alcohol. ?Take sleeping pills or medicines that cause drowsiness. ?Make important decisions or sign legal documents. ?Take care of children on your own. Rest. Eating and drinking If you vomit, drink water, juice, or soup when you can drink without vomiting. Make sure you have little or no nausea before eating solid foods. Follow the diet that is recommended by your health care provider. If you have a sling: Wear it as told by your health care provider. Remove it only as told by your health care provider. Loosen the sling if your fingers tingle, become numb, or turn cold and blue. Make sure that your entire arm, including your wrist, is supported. Do not allow your wrist to dangle over the end of the sling. Do not let your sling get wet if it is not waterproof. Keep the sling clean. Bathing Do not take baths, swim, or use a hot tub until your health care provider approves. If you have a nerve block catheter in place, keep the incision site and tubing dry. Injection site care Wash your hands with soap and water before you change your bandage (dressing). If soap and water are not available, use hand billing spec. Change your dressing as told by your health care provider. Keep your dressing dry. Check your nerve block injection site every day for signs of infection. Check for: ?Redness, swelling, or pain. ?Fluid or blood. ?Warmth. Activity Do not perform complex or risky activities while taking prescription pain medicine and until you have fully recovered. Return to your normal activities as told by your health care provider and as you can tolerate them.Ask your health care provider what activities are safe for you. Rest and take it easy. This will help you heal and recover more quickly and fully. Be very cautious until you have regained strength and sensation. General instructions Have a responsible adult stay with you until you are awake and alert. Do not drive or use heavy machinery while taking prescription pain medicine and until you have fully recovered. Ask your health care provider when it is safe to drive. Take guuf-fnr-gxjvbac and prescription medicines only as told by your health care provider. If you smoke, do not smoke without supervision. Do not expose your arm or shoulder to very cold or very hot temperatures until you have full feeling back. If you have a nerve block catheter in place: ?Try to keep the catheter from getting kinked or pinched. ?Avoid pulling or tugging on the catheter. Keep all follow-up visits as told by your health care provider. This is important. Contact a health care provider if: You have chills or fever. You have redness, swelling, or pain around your injection site. You have fluid or blood coming from the injection site. The skin around the injection site is warm to the touch. There is a bad smell coming from your dressing. You have hoarseness or a drooping or dry eye that lasts more than a few days. You have pain that is poorly controlled with the block or with pain medicine. You have numbness, tingling, or weakness in your shoulder or arm that lasts for more than one week. Get help right away if: You have severe pain. You lose or do not regain strength and sensation in your arm even after the nerve block medicine has stopped. You have trouble breathing. You have a nerve block catheter still in place and you begin to shiver. You have a nerve block catheter still in place and you are getting more and more numb or weak. This information is not intended to replace advice given to you by your health care provider. Make sure you discuss any questions you have with your health care provider. Document Released: 06/12/2016 Document Revised: 06/24/2018 Document Reviewed: 02/19/2017 [employer] Patient Education 2020 [employer] 12/12/2024 09:58:53 Shoulder Joint Replacement, Care After Shoulder Joint Replacement, Care After This sheet gives you information about how to care for yourself after your procedure. Your health care provider may also give you more specific instructions. If you have problems or questions, contact your health care provider. What can I expect after the procedure? After your procedure, it is common to have: A bruised and stiff shoulder. A bruised and stiff arm. Some pain. Follow these instructions at home: If you have a sling: Wear the sling as told by your health care provider. Remove it only as told by your health care provider. Loosen the sling if your fingers tingle, become numb, or turn cold and blue. Keep the sling clean. If the sling is not waterproof: ?Do not let it get wet. ?Cover it with a watertight covering when you take a bath or a shower. Bathing Do not take baths, swim, or use a hot tub until your health care provider approves. Ask your healthcare provider if you can take showers. You may only be allowed to take sponge baths for bathing. If your sling is not waterproof, cover it with a watertight covering when you take a bath or a shower. Keep the bandage (dressing) dry until your health care provider says it can be removed. Managing pain, stiffness, and swelling If directed, put ice on the affected area. ?If you have a removable sling, remove it as told by your health care provider. ?Put ice in a plastic bag. ?Place a towel between your skin and the bag. ?Leave the ice on for 20 minutes, 2 3 times a day. Move your fingers often to avoid stiffness and to lessen swelling. Driving Do not drive or use heavy machinery while taking prescription pain medicine. Do not drive for 2 4 weeks after surgery or as told by your health care provider. Medicine Take znan-vhx-bvxurxf and prescription medicines only as told by your health care provider. If you were prescribed an antibiotic medicine, use it as told by your health care provider. Do not stop using the antibiotic even if you start to feel better. Incision care Follow instructions from your health care provider about how to take care of your incision area. Make sure you: ?Wash your hands with soap and water before you change your bandage (dressing). If soap and water are not available, use hand billing spec. ?Change your dressing as told by your health care provider. ?Leave nova, stitches (sutures), skin glue, or adhesive strips in place. These skin closures mayneed to stay in place for 2 weeks or longer. If adhesive strip edges start to loosen and curl up, you may trim the loose edges. Do not remove adhesive strips completely unless your health care provider tells you to do that. If you have a tube to remove drainage, follow instructions from your health care provider about caring for it. Do not remove the drain tube or any dressings around the tube opening unless your healthcare provider approves. Check your incision area every day for signs of infection. Check for: ?More redness, swelling, or pain. ?More fluid or blood. ?Warmth. ?Pus or a bad smell. Activity Do not use your arm to push yourself up in bed or from a chair. This requires too much muscle. Follow lifting restrictions as told: ?Do not lift anything that is heavier than a cup of coffee for the first 6 weeks after surgery, or as told by your health care provider. ?Do not lift anything that is heavier than 10 lb (4.5 kg) for 6 months, or as told by your health care provider. Do exercises, including physical therapy, as told by your health care provider. Try not to overuse your shoulder. This includes repetitive pushing or pulling. Early overuse of theshoulder may result in later problems. (Overusing the shoulder is easy to do when your pain goes away for the first time.) Avoid overstretching your arm for 6 weeks after surgery, or as told by your health care provider. Avoid sitting for a long time without moving. Get up and move around one or more times every few hours. Ask for help with some activities. Your health care provider may be able to suggest a clinic or agency for this if you do not have home support. Do not participate in contact sports. General instructions Keep all follow-up visits as told by your health care provider. This is important. Do not use any products that contain nicotine or tobacco, such as cigarettes and e-cigarettes. These can delay healing. If you need help quitting, ask your health care provider. Contact a health care provider if: You develop a rash. You have a fever. You have more redness, swelling, or pain in the incision area. You have more fluid or blood coming from your incision area. You have more pain when moving your shoulder. Get help right away if: Your incision area feels warm to the touch. You have pus or a bad smell coming from your incision area. The edges of the incision site break open after sutures have been removed. You have chest pain or shortness of breath. Summary It is common to have pain and stiffness in your shoulder and arm after the procedure. Put ice on the affected area and take pain medicine as told by your health care provider. Do not use your arm to push yourself up in bed or from a chair. Do exercises, including physical therapy, as told by your health care provider. Check your incision area daily. Call your health care provider if you see signs of infection. This information is not intended to replace advice given to you by your health care provider. Make sure you discuss any questions you have with your health care provider. Document Released: 01/08/2006 Document Revised: 10/13/2019 Document Reviewed: 04/05/2017 [employer] Patient Education 2020 [email or web address] 12/12/2024 09:58:28 General Anesthesia, Adult, Care After General Anesthesia, Adult, Care After This sheet gives you information about how to care for yourself after your procedure. Your health care provider may also give you more specific instructions. If you have problems or questions, contact your health care provider. What can I expect after the procedure? After the procedure, the following side effects are common: Pain or discomfort at the IV site. Nausea. Vomiting. Sore throat. Trouble concentrating. Feeling cold or chills. Weak or tired. Sleepiness and fatigue. Soreness and body aches. These side effects can affect parts of the body that were not involved in surgery. Follow these instructions at home: For at least 24 hours after the procedure: Have a responsible adult stay with you. It is important to have someone help care for you until youare awake and alert. Rest as needed. Do not: ?Participate in activities in which you could fall or become injured. ?Drive. ?Use heavy machinery. ?Drink alcohol. ?Take sleeping pills or medicines that cause drowsiness. ?Make important decisions or sign legal documents. ?Take care of children on your own. Eating and drinking Follow any instructions from your health care provider about eating or drinking restrictions. When you feel hungry, start by eating small amounts of foods that are soft and easy to digest (bland), such as toast. Gradually return to your regular diet. Drink enough fluid to keep your urine pale yellow. If you vomit, rehydrate by drinking water, juice, or clear broth. General instructions If you have sleep apnea, surgery and certain medicines can increase your risk for breathing problems. Follow instructions from your health care provider about wearing your sleep device: ?Anytime you are sleeping, including during daytime naps. ?While taking prescription pain medicines, sleeping medicines, or medicines that make you drowsy. Return to your normal activities as told by your health care provider. Ask your health care provider what activities are safe for you. Take mtrt-qtq-olbtzop and prescription medicines only as told by your health care provider. If you smoke, do not smoke without supervision. Keep all follow-up visits as told by your health care provider. This is important. Contact a health care provider if: You have nausea or vomiting that does not get better with medicine. You cannot eat or drink without vomiting. You have pain that does not get better with medicine. You are unable to pass urine. You develop a skin rash. You have a fever. You have redness around your IV site that gets worse. Get help right away if: You have difficulty breathing. You have chest pain. You have blood in your urine or stool, or you vomit blood. Summary After the procedure, it is common to have a sore throat or nausea. It is also common to feel tired. Have a responsible adult stay with you for the first 24 hours after general anesthesia. It is important to have someone help care for you until you are awake and alert. When you feel hungry, start by eating small amounts of foods that are soft and easy to digest (bland), such as toast. Gradually return to your regular diet. Drink enough fluid to keep your urine pale yellow. Return to your normal activities as told by your health care provider. Ask your health care provider what activities are safe for you. This information is not intended to replace advice given to you by your health care provider. Make sure you discuss any questions you have with your health care provider. Document Released: 09/27/2001 Document Revised: 06/24/2018 Document Reviewed: 02/04/2018 [employer] Patient Education 2020 [email or web address]. Follow Up Care 09/25/2024 07:19:06 With:KELLI CALLEJAS PA-C, Orthopedic Address: [address] [place] [address], [address] [facility] [place] [address]- [phone] When:12/26/2024 14:45:00 Comments:Follow-up as scheduled [facility] 06-10-2025 Note Discharge Instructions Thank you for allowing [facility] to assist you with your healthcare needs. The following is importantdischarge information regarding your hospital visit. Your Care Team GERRI HENSLEY, ANTIONE George Your Diagnosis Postop total shoulder replacement What to do next Scheduled Follow-Up Appointments Appointment Type When With Where Contact Information StatusPT Outpatient Evaluation 12/27/2024 08:00 AM EDT Juan Jose Lamas PT [facility] [phone] Confirmed Follow Up Appointments Follow Up with KELLI CALLEJAS PA-C, Orthopedic When:12/26/2024 02:45 PM EDT Where:[address] [facility], [place], [address] [facility], [facility] [place] [address]- [phone] Additional Information: Follow-up as scheduled The Following Activity and Diet Have Been Ordered for You Resume regular diet. Follow activity instructions per physical therapy. Allergies amoxicillin Hives Medications Please ask your primary doctor or pharmacist before taking any other medication not listed, including over the counter drugs, herbal medications, vitamins and or supplements as they may interact withyour home medications. What How Much When Instructions Last Dose Unchanged acetaminophen (Tylenol Extra Strength 500 mg oral tablet) 2 tab(s) by mouth Three (3) times a day not to exceed 3000 mg/ day Unchanged aspirin (aspirin 81 mg oral delayed release tablet) 1 tab(s) by mouth Two (2) times a day Duration: 14 Days Unchanged cholecalciferol (Vitamin D3) 100 Microgram by mouth Every day Unchanged diphenhydrAMINE (Benadryl 25 mg oral capsule) 1 cap by mouth Every 6 hours as needed for as needed for itching Unchanged famotidine (famotidine 20 mg oral tablet) 1 tab(s) by mouth Once a day Duration: 14 Days Unchanged herbal/ nutritional product 1 capsule by mouth Every day Unchanged hydroCHLOROthiazide (hydroCHLOROthiazide 25 mg oral tablet) 1 tab(s) by mouth Every day Unchanged levothyroxine (Synthroid 88 mcg (0.088 mg) oral tablet) 1 tab(s) by mouth Once a day before a meal Unchanged lisinopril (lisinopril 20 mg oral tablet) 1 tab(s) by mouth Every day Unchanged magnesium hydroxide (Milk of Magnesia 8% oral suspension) 30 Milliliter by mouth Daily at bedtime as needed for for constipation Unchanged meloxicam (meloxicam 7.5 mg oral tablet) 1 tab(s) by mouth Two (2) times a day Take with food/ milk. Start Unchanged omeprazole (NF) (omeprazole 40 mg oral delayed release capsule (NF)) 1 cap by mouth Once a day before a meal Unchanged ondansetron (ondansetron 4 mg oral tablet, disintegrating) 1 tab(s) by mouth Three (3) times a day as needed for Pain 1-2 tabs Unchanged oxyCODONE (oxyCODONE 5 mg oral tablet ( IMMEDIATE release )) 1 tab(s) by mouth Every 4 hours as needed for as needed for pain 1-2 tabs Unchanged senna (Senokot 8.6 mg oral tablet) 2 tab(s) by mouth Two (2) times a day as needed for as needed for constipation Unchanged traZODone (traZODone 100 mg oral tablet) 1 tab(s) by mouth Daily at bedtime Please take this list to your next doctor s visit. Bring all medications you take, including over the counter medications, herbals and other supplements with you to your doctor s visit. Patients and families are reminded to discard old lists and to update any records with all medication providers or retail pharmacies. Education Materials How to Use Compression Stockings Compression stockings are elastic socks that squeeze the legs. They help increase blood flow (circulation) to the legs, decrease swelling in the legs, and reduce the chance of developing blood clots in the lower legs. Compression stockings are often used by people who: Are recovering from surgery. Have poor circulation in their legs. Tend to get blood clots in their legs. Have bulging (varicose) veins. Sit or stay in bed for long periods of time. Follow instructions from your health care provider about how and when to wear your compression stockings. How to wear compression stockings Before you put on your compression stockings: Make sure that they are the correct size and degree of compression. If you do not know your size orrequired grade of compression, ask your health care provider and follow the landscape designer's instructions that come with the stockings. Make sure that they are clean, dry, and in good condition. Check them for rips and tears. Do not put them on if they are ripped or torn. Put your stockings on first thing in the morning, before you get out of bed. Keep them on for as long as your health care provider advises. When you are wearing your stockings: Keep them as smooth as possible. Do not allow them to bunch up. It is especially important to prevent the stockings from bunching up around your toes or behind your knees. Do not roll the stockings downward and leave them rolled down. This can decrease blood flow to yourleg. Change them right away if they become wet or dirty. When you take off your stockings, inspect your legs and feet. Check for: Open sores. Red spots. Swelling. General tips Do not stop wearing compression stockings without talking to your health care provider first. Wash your stockings every day with mild detergent in cold or warm water. Do not use bleach. Air-dryyour stockings or dry them in a clothes dryer on low heat. It may be helpful to have two pairs so that you have a pair to wear while the other is being washed. Replace your stockings every 3 6 months. If skin moisturizing is part of your treatment plan, apply lotion or cream at night so that your skin will be dry when you put on the stockings in the morning. It is harder to put the stockings on when you have lotion on your legs or feet. Wear nonskid shoes or slip-resistant socks when walking while wearing compression stockings. Contact a health care provider and remove your stockings if you have: A feeling of pins and needles in your feet or legs. Open sores, red spots, or other skin changes on your feet or legs. Swelling or pain that gets worse. Get help right away if you have: Numbness or tingling in your lower legs that does not get better right after you take the stockingsoff. Toes or feet that are unusually cold or turn a bluish color. A warm or red area on your leg. New swelling or soreness in your leg. Shortness of breath. Chest pain. A fast or irregular heartbeat. Light-headedness. Dizziness. Summary Compression stockings are elastic socks that squeeze the legs. They help increase blood flow (circulation) to the legs, decrease swelling in the legs, and reduce the chance of developing blood clots in the lower legs. Follow instructions from your health care provider about how and when to wear your compression stockings. Do not stop wearing your compression stockings without talking to your health care provider first. This information is not intended to replace advice given to you by your health care provider. Make sure you discuss any questions you have with your health care provider. Document Released: 04/18/2010 Document Revised: 06/23/2018 Document Reviewed: 06/23/2018 [employer] Patient Education 2020 [employer] How To Use an Incentive Spirometer An incentive spirometer is a tool that measures how well you are filling your lungs with each breath. Learning to take long, deep breaths using this tool can help you keep your lungs clear and active. This may help to reverse or lessen your chance of developing breathing (pulmonary) problems, especially infection. You may be asked to use a spirometer: After a surgery. If you have a lung problem or a history of smoking. After a long period of time when you have been unable to move or be active. If the spirometer includes an indicator to show the highest number that you have reached, your health care provider or respiratory therapist will help you set a goal. Keep a list (log) of your progress as told by your health care provider. What are the risks? Breathing too quickly may cause dizziness or cause you to pass out. Take your time so you do not get dizzy or light-headed. If you are in pain, you may need to take pain medicine before doing incentive spirometry. It is harder to take a deep breath if you are having pain. How to use your incentive spirometer 1. Sit up on the edge of your bed or on a chair. 2. Hold the incentive spirometer so that it is in an upright position. 3. Before you use the spirometer, breathe out normally. 4. Place the mouthpiece in your mouth. Make sure your lips are closed tightly around it. 5. Breathe in slowly and as deeply as you can through your mouth, causing the piston or the ball to rise toward the top of the chamber. 6. Hold your breath for 3 5 seconds, or for as long as possible. If the spirometer includes a personal development coach indicator, use this to guide you in breathing. Slow down your breathing if the indicator goes above the marked areas. 7. Remove the mouthpiece from your mouth and breathe out normally. The piston or ball will return to the bottom of the chamber. 8. Rest for a few seconds, then repeat the steps 10 or more times. Take your time and take a few normal breaths between deep breaths so that you do not get dizzy or light-headed. Do this every 1 2 hours when you are awake. 9. If the spirometer includes a goal marker to show the highest number you have reached (best effort),use this as a goal to work toward during each repetition. 10. After each set of 10 deep breaths, cough a few times. This will help to make sure that your lungs are clear. If you have an incision on your chest or abdomen from surgery, place a pillow or a rolled-up towel firmly against the incision when you cough. This can help to reduce pain from coughing. General tips When you become able to get out of bed, walk around often and continue to cough to help clear your lungs. Keep using the incentive spirometer until your health care provider says it is okay to stop using it. If you have been in the hospital, you may be told to keep using the spirometer at home. Contact a health care provider if: You are having difficulty using the spirometer. You have trouble using the spirometer as often as instructed. Your pain medicine is not giving enough relief for you to use the spirometer as told. You have a fever. You develop shortness of breath. Get help right away if: You develop a cough with bloody mucus from the lungs (bloody sputum). You have fluid or blood coming from an incision site after you cough. Summary An incentive spirometer is a tool that can help you learn to take long, deep breaths to keep your lungs clear and active. You may be asked to use a spirometer after a surgery, if you have a lung problem or a history of smoking, or if you have been inactive for a long period of time. Use your incentive spirometer as instructed every 1 2 hours while you are awake. If you have an incision on your chest or abdomen, place a pillow or a rolled-up towel firmly against your incision when you cough. This will help to reduce pain. This information is not intended to replace advice given to you by your health care provider. Make sure you discuss any questions you have with your health care provider. Document Released: 11/01/2007 Document Revised: 07/14/2018 Document Reviewed: 05/04/2018 [employer] Patient Education 2020 [employer] Interscalene Nerve Block, Care After This sheet gives you information about how to care for yourself after your procedure. Your health care provider may also give you more specific instructions. If you have problems or questions, contact your health care provider. What can I expect after the procedure? After the procedure, it is common to have: Soreness or tenderness in your neck. Numbness in your shoulder, upper arm, and some fingers. Weakness in your shoulder and arm muscles. The feeling and strength in your shoulder, arm, and fingers should return to normal within hours after your procedure. Follow these instructions at home: For at least 24 hours after the procedure: Do not: ? Participate in activities in which you could fall or become injured. ? Drive. ? Use heavy machinery. ? Drink alcohol. ? Take sleeping pills or medicines that cause drowsiness. ? Make important decisions or sign legal documents. ? Take care of children on your own. Rest. Eating and drinking If you vomit, drink water, juice, or soup when you can drink without vomiting. Make sure you have little or no nausea before eating solid foods. Follow the diet that is recommended by your health care provider. If you have a sling: Wear it as told by your health care provider. Remove it only as told by your health care provider. Loosen the sling if your fingers tingle, become numb, or turn cold and blue. Make sure that your entire arm, including your wrist, is supported. Do not allow your wrist to dangle over the end of the sling. Do not let your sling get wet if it is not waterproof. Keep the sling clean. Bathing Do not take baths, swim, or use a hot tub until your health care provider approves. If you have a nerve block catheter in place, keep the incision site and tubing dry. Injection site care Wash your hands with soap and water before you change your bandage (dressing). If soap and water are not available, use hand billing spec. Change your dressing as told by your health care provider. Keep your dressing dry. Check your nerve block injection site every day for signs of infection. Check for: ? Redness, swelling, or pain. ? Fluid or blood. ? Warmth. Activity Do not perform complex or risky activities while taking prescription pain medicine and until you have fully recovered. Return to your normal activities as told by your health care provider and as you can tolerate them.Ask your health care provider what activities are safe for you. Rest and take it easy. This will help you heal and recover more quickly and fully. Be very cautious until you have regained strength and sensation. General instructions Have a responsible adult stay with you until you are awake and alert. Do not drive or use heavy machinery while taking prescription pain medicine and until you have fully recovered. Ask your health care provider when it is safe to drive. Take qzuo-bta-rbhxowk and prescription medicines only as told by your health care provider. If you smoke, do not smoke without supervision. Do not expose your arm or shoulder to very cold or very hot temperatures until you have full feeling back. If you have a nerve block catheter in place: ? Try to keep the catheter from getting kinked or pinched. ? Avoid pulling or tugging on the catheter. Keep all follow-up visits as told by your health care provider. This is important. Contact a health care provider if: You have chills or fever. You have redness, swelling, or pain around your injection site. You have fluid or blood coming from the injection site. The skin around the injection site is warm to the touch. There is a bad smell coming from your dressing. You have hoarseness or a drooping or dry eye that lasts more than a few days. You have pain that is poorly controlled with the block or with pain medicine. You have numbness, tingling, or weakness in your shoulder or arm that lasts for more than one week. Get help right away if: You have severe pain. You lose or do not regain strength and sensation in your arm even after the nerve block medicine has stopped. You have trouble breathing. You have a nerve block catheter still in place and you begin to shiver. You have a nerve block catheter still in place and you are getting more and more numb or weak. This information is not intended to replace advice given to you by your health care provider. Make sure you discuss any questions you have with your health care provider. Document Released: 06/12/2016 Document Revised: 06/24/2018 Document Reviewed: 02/19/2017 [employer] Patient Education 2020 [employer] Shoulder Joint Replacement, Care After This sheet gives you information about how to care for yourself after your procedure. Your health care provider may also give you more specific instructions. If you have problems or questions, contact your health care provider. What can I expect after the procedure? After your procedure, it is common to have: A bruised and stiff shoulder. A bruised and stiff arm. Some pain. Follow these instructions at home: If you have a sling: Wear the sling as told by your health care provider. Remove it only as told by your health care provider. Loosen the sling if your fingers tingle, become numb, or turn cold and blue. Keep the sling clean. If the sling is not waterproof: ? Do not let it get wet. ? Cover it with a watertight covering when you take a bath or a shower. Bathing Do not take baths, swim, or use a hot tub until your health care provider approves. Ask your healthcare provider if you can take showers. You may only be allowed to take sponge baths for bathing. If your sling is not waterproof, cover it with a watertight covering when you take a bath or a shower. Keep the bandage (dressing) dry until your health care provider says it can be removed. Managing pain, stiffness, and swelling If directed, put ice on the affected area. ? If you have a removable sling, remove it as told by your health care provider. ? Put ice in a plastic bag. ? Place a towel between your skin and the bag. ? Leave the ice on for 20 minutes, 2 3 times a day. Move your fingers often to avoid stiffness and to lessen swelling. Driving Do not drive or use heavy machinery while taking prescription pain medicine. Do not drive for 2 4 weeks after surgery or as told by your health care provider. Medicine Take trmz-zuq-ktqfsyd and prescription medicines only as told by your health care provider. If you were prescribed an antibiotic medicine, use it as told by your health care provider. Do not stop using the antibiotic even if you start to feel better. Incision care Follow instructions from your health care provider about how to take care of your incision area. Make sure you: ? Wash your hands with soap and water before you change your bandage (dressing). If soap and water are not available, use hand billing spec. ? Change your dressing as told by your health care provider. ? Leave nova, stitches (sutures), skin glue, or adhesive strips in place. These skin closures may need to stay in place for 2 weeks or longer. If adhesive strip edges start to loosen and curl up, you may trim the loose edges. Do not remove adhesive strips completely unless your health care provider tells you to do that. If you have a tube to remove drainage, follow instructions from your health care provider about caring for it. Do not remove the drain tube or any dressings around the tube opening unless your healthcare provider approves. Check your incision area every day for signs of infection. Check for: ? More redness, swelling, or pain. ? More fluid or blood. ? Warmth. ? Pus or a bad smell. Activity Do not use your arm to push yourself up in bed or from a chair. This requires too much muscle. Follow lifting restrictions as told: ? Do not lift anything that is heavier than a cup of coffee for the first 6 weeks after surgery, or as told by your health care provider. ? Do not lift anything that is heavier than 10 lb (4.5 kg) for 6 months, or as told by your health care provider. Do exercises, including physical therapy, as told by your health care provider. Try not to overuse your shoulder. This includes repetitive pushing or pulling. Early overuse of theshoulder may result in later problems. (Overusing the shoulder is easy to do when your pain goes away for the first time.) Avoid overstretching your arm for 6 weeks after surgery, or as told by your health care provider. Avoid sitting for a long time without moving. Get up and move around one or more times every few hours. Ask for help with some activities. Your health care provider may be able to suggest a clinic or agency for this if you do not have home support. Do not participate in contact sports. General instructions Keep all follow-up visits as told by your health care provider. This is important. Do not use any products that contain nicotine or tobacco, such as cigarettes and e-cigarettes. These can delay healing. If you need help quitting, ask your health care provider. Contact a health care provider if: You develop a rash. You have a fever. You have more redness, swelling, or pain in the incision area. You have more fluid or blood coming from your incision area. You have more pain when moving your shoulder. Get help right away if: Your incision area feels warm to the touch. You have pus or a bad smell coming from your incision area. The edges of the incision site break open after sutures have been removed. You have chest pain or shortness of breath. Summary It is common to have pain and stiffness in your shoulder and arm after the procedure. Put ice on the affected area and take pain medicine as told by your health care provider. Do not use your arm to push yourself up in bed or from a chair. Do exercises, including physical therapy, as told by your health care provider. Check your incision area daily. Call your health care provider if you see signs of infection. This information is not intended to replace advice given to you by your health care provider. Make sure you discuss any questions you have with your health care provider. Document Released: 01/08/2006 Document Revised: 10/13/2019 Document Reviewed: 04/05/2017 [employer] Patient Education 2020 [email or web address]. General Anesthesia, Adult, Care After This sheet gives you information about how to care for yourself after your procedure. Your health care provider may also give you more specific instructions. If you have problems or questions, contact your health care provider. What can I expect after the procedure? After the procedure, the following side effects are common: Pain or discomfort at the IV site. Nausea. Vomiting. Sore throat. Trouble concentrating. Feeling cold or chills. Weak or tired. Sleepiness and fatigue. Soreness and body aches. These side effects can affect parts of the body that were not involved in surgery. Follow these instructions at home: For at least 24 hours after the procedure: Have a responsible adult stay with you. It is important to have someone help care for you until youare awake and alert. Rest as needed. Do not: ? Participate in activities in which you could fall or become injured. ? Drive. ? Use heavy machinery. ? Drink alcohol. ? Take sleeping pills or medicines that cause drowsiness. ? Make important decisions or sign legal documents. ? Take care of children on your own. Eating and drinking Follow any instructions from your health care provider about eating or drinking restrictions. When you feel hungry, start by eating small amounts of foods that are soft and easy to digest (bland), such as toast. Gradually return to your regular diet. Drink enough fluid to keep your urine pale yellow. If you vomit, rehydrate by drinking water, juice, or clear broth. General instructions If you have sleep apnea, surgery and certain medicines can increase your risk for breathing problems. Follow instructions from your health care provider about wearing your sleep device: ? Anytime you are sleeping, including during daytime naps. ? While taking prescription pain medicines, sleeping medicines, or medicines that make you drowsy. Return to your normal activities as told by your health care provider. Ask your health care provider what activities are safe for you. Take bqrb-rbh-dlnmhjf and prescription medicines only as told by your health care provider. If you smoke, do not smoke without supervision. Keep all follow-up visits as told by your health care provider. This is important. Contact a health care provider if: You have nausea or vomiting that does not get better with medicine. You cannot eat or drink without vomiting. You have pain that does not get better with medicine. You are unable to pass urine. You develop a skin rash. You have a fever. You have redness around your IV site that gets worse. Get help right away if: You have difficulty breathing. You have chest pain. You have blood in your urine or stool, or you vomit blood. Summary After the procedure, it is common to have a sore throat or nausea. It is also common to feel tired. Have a responsible adult stay with you for the first 24 hours after general anesthesia. It is important to have someone help care for you until you are awake and alert. When you feel hungry, start by eating small amounts of foods that are soft and easy to digest (bland), such as toast. Gradually return to your regular diet. Drink enough fluid to keep your urine pale yellow. Return to your normal activities as told by your health care provider. Ask your health care provider what activities are safe for you. This information is not intended to replace advice given to you by your health care provider. Make sure you discuss any questions you have with your health care provider. Document Released: 09/27/2001 Document Revised: 06/24/2018 Document Reviewed: 02/04/2018 [employer] Patient Education 2020 [employer] Additional Information VACCINATE! IT SAVES LIVES! Members of the community who have not yet received the COVID-19 vaccine and would like to receive it can visit one of [facility] vaccine clinics. There are many vaccine clinic locations within the [facility]. For locations and available times, please visit https://gettheshot.coronavirus.[place].gov/. It is important to note that some COVID mobile vaccine clinics are held outdoors and may be canceled in rainy or stormy conditions. To learn more about pediatric vaccinations (ages 5-11), we invite you to visit the [facility] webpage. [email or web address]/[email or web address] [email or web address] learn more about the COVID-19 vaccine, we invite you to visit the CDC website for a list of frequently asked questions.https://www.cdc.gov/coronavirus/2019-ncov/vaccines/faq.html [employer] Patient Portal Access Instructions: Stay connected with your healthcare team and access your personal medical information anytime with the [employer] Patient Portal. Please follow the directions below to create your [employer] account: 1.Access the email account you provided upon registration to the hospital/physician office.2.Look for an invitation email from [facility].3.Open the email and access the invitation link: AcceptInvitation to [employer].4.Fill in the required fine to create your account. To access your account, visit [employer]. Click the blue button labeled Access Patient Portal and then log in with the username and password that you created in the steps above. You will be able to view your test results, lab results, a summary of your visits, upcoming appointments and more. There is also a convenient messaging option where you can send secure messages to your p rovider. In addition, you will have the ability to download any documents or summaries to your computer and/or send the information securely to a physician. Remember that your healthcare information is confidential, so carefully consider who you will allowto register on the [employer] Patient Portal for access to your information. You can also access the [employer] Patient Portal on the [employer] diana. Simply click on Patient Portal and then log into your account. If you would like to receive a full copy of your medical records, please contact the [facility] Medical Records Department by calling [phone], Wednesday through Wednesday between 8 a.m. and 4:30 p.m. HOW TO SAFELY DISPOSE OF PRESCRIPTION MEDICATIONS Please use one of the following methods to safely dispose of your unused medications. 1.Use a drug disposal kit: the drug disposal pouch allows you to safely discard your old and unuseddrugs. Ask your nurse to give you one when you are discharged.2.Visit a local take-back location: Many local pharmacies and police departments have programs that collect old and unwanted prescriptiondrugs. Call your local pharmacy or go to http://[employer]/0U2Dm3t to find one close to you.3.Make use of household items: Use cat litter or old coffee grounds to dispose medications if other options arenot available. Mix your drugs with these household products, seal them in an airtight container andthrow it into the garbage. Call [facility]: [phone] to be sure your drugs can be disposed of in this way. Some medicines may require a different approach.4.Never flush your medications down the toilet. IF YOU HAVE BEEN PRESCRIBED AN OPIOID FOR PAIN If you have been prescribed an opioid (such as hydrocodone, oxycodone or morphine), it is critical to understand the possible side effects and risks of opioid pain medications. Even when taken as directed, opioids can have several side effects including: Tolerance, meaning you might need to take more of a medication for the same pain relief. Nausea, vomiting and/or constipation. Sleepiness, dizziness, dry mouth, confusion, depression or itching. Physical dependence, meaning you have withdrawal symptoms when a medication is stopped, can develop within a few days. KNOW YOUR RESPONSIBILITIES It is important to know exactly how much and how often to take the opioid pain medications you are prescribed. Never take opioids in higher amounts or more often than prescribed. Do not combine opioids with alcohol or other drugs that cause drowsiness, such as benzodiazepines, also known as benzos, including diazepam and alprazolam, muscle relaxants or sleep aids. Never sell or share prescription opioids. This is illegal. Store opioids in a secure place and out of reach of others (including children, family, friends and visitors). The last page of this document has been signed and retained as a CHART COPY. Signatures Patient Education Materials How to Use Compression Stockings How to Use an Incentive Spirometer Interscalene Nerve Block, Care After Shoulder Joint Replacement, Care After General Anesthesia, Adult, Care After Medication Leaflets My discharge plan and instructions have been reviewed and explained to me and IMALU ANGEL understand my current condition and have read and understand these discharge instructions. I have received a written copy of the plan/instructions. If I have questions, I am aware that I should contact my doc tor. Patient/[employer] 2Nd Shift Signature: Date/Time: Relationship to Patient: Witness Name/Signature: Date/Time: [facility]06-10-2025 Anesthesiology Consult note Patient: GLORIA TORIBIO Age: 69 years Sex: Female : 1955 Associated Diagnoses: None Author: DANIEL CARSON APRN-PHOTO PRODUCER Assessment Postanesthesia assessment Vitals: Vital signs from flowsheet : Vital Signs 12/12/2024 9:30 EDT Respiratory Rate - Anes 0 br/min br/min 12/12/2024 9:25 EDT Heart Rate Monitored 70 bpm bpm Respiratory Rate - Anes 19 br/min br/min 12/12/2024 9:20 EDT Heart Rate Monitored 72 bpm bpm Respiratory Rate - Anes 21 br/min br/min Systolic Blood Pressure Non-Invasive 135 mmHg mmHg Diastolic Blood Pressure Non-Invasive 76 mmHg mmHg 12/12/2024 9:15 EDT Temperature (Route Not Specified) 36 DegC DegC Heart Rate Monitored 53 bpm bpm Respiratory Rate - Anes 22 br/min br/min Systolic Blood Pressure Non-Invasive 123 mmHg mmHg Diastolic Blood Pressure Non-Invasive 65 mmHg mmHg 12/12/2024 9:10 EDT Heart Rate Monitored 53 bpm bpm Respiratory Rate - Anes 22 br/min br/min Systolic Blood Pressure Non-Invasive 123 mmHg mmHg Diastolic Blood Pressure Non-Invasive 67 mmHg mmHg 12/12/2024 9:05 EDT Heart Rate Monitored 54 bpm bpm Respiratory Rate - Anes 21 br/min br/min Systolic Blood Pressure Non-Invasive 127 mmHg mmHg Diastolic Blood Pressure Non-Invasive 64 mmHg mmHg 12/12/2024 9:00 EDT Temperature (Route Not Specified) 36 DegC DegC Heart Rate Monitored 54 bpm bpm Respiratory Rate - Anes 20 br/min br/min Systolic Blood Pressure Non-Invasive 121 mmHg mmHg Diastolic Blood Pressure Non-Invasive 63 mmHg mmHg 12/12/2024 8:55 EDT Heart Rate Monitored 53 bpm bpm Respiratory Rate - Anes 19 br/min br/min Systolic Blood Pressure Non-Invasive 114 mmHg mmHg Diastolic Blood Pressure Non-Invasive 64 mmHg mmHg 12/12/2024 8:50 EDT Heart Rate Monitored 52 bpm bpm Respiratory Rate - Anes 8 br/min br/min Systolic Blood Pressure Non-Invasive 107 mmHg mmHg Diastolic Blood Pressure Non-Invasive 59 mmHg mmHg 12/12/2024 8:45 EDT Temperature (Route Not Specified) 36 DegC DegC Heart Rate Monitored 51 bpm bpm Respiratory Rate - Anes 8 br/min br/min Systolic Blood Pressure Non-Invasive 109 mmHg mmHg Diastolic Blood Pressure Non-Invasive 70 mmHg mmHg 12/12/2024 8:40 EDT Heart Rate Monitored 53 bpm bpm Respiratory Rate - Anes 10 br/min br/min Systolic Blood Pressure Non-Invasive 101 mmHg mmHg Diastolic Blood Pressure Non-Invasive 56 mmHg mmHg 12/12/2024 8:35 EDT Heart Rate Monitored 51 bpm bpm Respiratory Rate - Anes 8 br/min br/min Systolic Blood Pressure Non-Invasive 101 mmHg mmHg Diastolic Blood Pressure Non-Invasive 58 mmHg mmHg 12/12/2024 8:30 EDT Temperature (Route Not Specified) 36 DegC DegC Heart Rate Monitored 52 bpm bpm Respiratory Rate - Anes 8 br/min br/min Systolic Blood Pressure Non-Invasive 101 mmHg mmHg Diastolic Blood Pressure Non-Invasive 58 mmHg mmHg 12/12/2024 8:25 EDT Heart Rate Monitored 56 bpm bpm Respiratory Rate - Anes 8 br/min br/min Systolic Blood Pressure Non-Invasive 112 mmHg mmHg Diastolic Blood Pressure Non-Invasive 64 mmHg mmHg 12/12/2024 8:20 EDT Heart Rate Monitored 51 bpm bpm Respiratory Rate - Anes 8 br/min br/min Systolic Blood Pressure Non-Invasive 113 mmHg mmHg Diastolic Blood Pressure Non-Invasive 64 mmHg mmHg 12/12/2024 8:15 EDT Temperature (Route Not Specified) 36 DegC DegC Heart Rate Monitored 48 bpm bpm Respiratory Rate - Anes 8 br/min br/min Systolic Blood Pressure Non-Invasive 89 mmHg mmHg Diastolic Blood Pressure Non-Invasive 58 mmHg mmHg 12/12/2024 8:10 EDT Heart Rate Monitored 49 bpm bpm Respiratory Rate - Anes 8 br/min br/min Systolic Blood Pressure Non-Invasive 98 mmHg mmHg Diastolic Blood Pressure Non-Invasive 79 mmHg mmHg 12/12/2024 8:05 EDT Heart Rate Monitored 50 bpm bpm Respiratory Rate - Anes 8 br/min br/min Systolic Blood Pressure Non-Invasive 135 mmHg mmHg Diastolic Blood Pressure Non-Invasive 116 mmHg mmHg 12/12/2024 8:00 EDT Heart Rate Monitored 48 bpm bpm Respiratory Rate - Anes 4 br/min br/min Systolic Blood Pressure Non-Invasive 176 mmHg mmHg Diastolic Blood Pressure Non-Invasive 79 mmHg mmHg 12/12/2024 7:55 EDT Heart Rate Monitored 54 bpm bpm Respiratory Rate - Anes 0 br/min br/min Systolic Blood Pressure Non-Invasive 178 mmHg mmHg Diastolic Blood Pressure Non-Invasive 78 mmHg mmHg 12/12/2024 7:20 EDT Temperature Temporal Artery 37.2 DegC Peripheral Pulse Rate 62 bpm Respiratory Rate 13 br/min LOW Systolic Blood Pressure Non-Invasive 146 mmHg HI Diastolic Blood Pressure Non-Invasive 72 mmHg , Measurements from flowsheet . Mental status: alert & oriented x 4. Respiratory function: respirations are non-labored. Respiratory support: none. CV function: Normal rate. Cardiovascular support: none. Pain. Nausea status: see nursing documentation of medications. Postoperative hydration status: within normal limits. Digitally Signed by DANIEL CARSON on 12/12/2024 09:33 AM [facility]06-10-2025 Anesthesiology Consult note Patient: GLORIA TORIBIO Age: 69 years Sex: Female : 1955 Associated Diagnoses: None Author: DANIEL CARSON Preoperative Information Time of last food or liquid consumption: 12/12/2024 00:00:00 Anesthesia history Patient's history: negative. Family's history: negative. Health Status Allergies: Allergic Reactions (Selected) Severity Not Documented Amoxicillin- Hives., Allergies (1) ActiveSeverityReaction amoxicillinHives Current medications: (Selected) Inpatient Medications Ordered Bolus LR 1000 mL: 1,000 mL, IV Bolus, PREOP pharm Decadron: 10 mg, 1 mL, IV Push, AsDirected LR 1,000 mL: 20 mL/hr, Intravenous, Stop: 12/12/24 23:59:00 EDT tranexamic acid 1 g / 100 mL 0.7% NaCl PMX: 1 gram(s), 100 mL, 300 mL/hr, IV Piggyback, AsDirected tranexamic acid 1 g / 100 mL 0.7% NaCl PMX: 1 gram(s), 100 mL, 300 mL/hr, IV Piggyback, AsDirected Documented Medications Documented Synthroid 88 mcg (0.088 mg) oral tablet: 88 mcg, 1 tab(s), Oral, qDayAC, 0 Refill(s) Vitamin D3: 100 mcg, 1 tab(s), Oral, Daily, 90 tab(s), 0 Refill(s) herbal/nutritional product: 1 capsule, Oral, Daily, 0 Refill(s) hydroCHLOROthiazide 25 mg oral tablet: 25 mg, 1 tab(s), Oral, Daily, 0 Refill(s) lisinopril 20 mg oral tablet: 20 mg, 1 tab(s), Oral, Daily meloxicam 7.5 mg oral tablet: 7.5 mg, 1 tab(s), Oral, BID, Take with food/milk, 30 tab(s), 0 Refill(s) omeprazole 40 mg oral delayed release capsule (NF): 40 mg, 1 cap(s), Oral, qDayAC traZODone 100 mg oral tablet: 100 mg, 1 tab(s), Oral, qHS, 0 Refill(s), Medications (5) Active Scheduled: (4) dexamethasone 10 mg/mL (1mL) SDV 10 mg 1 mL, IV Push, AsDirected Lactated Ringers Injection 1000 mL * Bolus * 1,000 mL, IV Bolus, PREOP pharm tranexamic acid PMX 1 gram(s) 100 mL, IV Piggyback, AsDirected tranexamic acid PMX 1 gram(s) 100 mL, IV Piggyback, AsDirected Continuous: (1) Lactated Ringers 1,000 mL 1,000 mL, Intravenous, 20 mL/hr PRN: (0) Problem list: Medical GERD (gastroesophageal reflux disease) / SNOMED CT 671078610 / Confirmed HTN (hypertension) / SNOMED CT 0931558700 / Confirmed Hyponatremia / SNOMED CT 250325416 / Confirmed Hypothyroidism / SNOMED CT 03740523 / Confirmed, Active Problems (9) Anxiety COPD (chronic obstructive pulmonary disease) GERD (gastroesophageal reflux disease) HTN (hypertension) Hyponatremia Hypothyroidism Neck pain Osteoarthritis Tobacco use Histories Past Medical History: Active Hyponatremia (830241367): Onset on 07/15/2015 at 60 years. HTN (hypertension) (7567263990) GERD (gastroesophageal reflux disease) (142364497) Hypothyroidism (86485596) Family History: Emphysema of lung Brother High blood pressure Sister Heart attack Father Brother Sister Pneumonia Brother Cancer Mother Procedure history: History of reverse prosthetic total arthroplasty of left shoulder (0730165480) on 12/12/2024 at 69 Years. Arthroplasty of right shoulder (3892731051) on 01/07/2021 at 65 Years. Tonsillectomy (625156665). Laparoscopic right ovarian cystectomy (4321897076). Bunionectomy (71453962). Comments: 12/20/2020 9:10 Sindi Benavides RN Left CTR - Carpal tunnel release (614441871). Comments: 12/20/2020 9:10 Sindi Benavides RN Right Nasal septoplasty (28766174). Colonoscopy (435677978). Urethroplasty, reconstruction of female urethra (41050). 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 Lives In 2nd floor bathroom, 2nd floor bedroom, Multilevel home Current Home Treatments None Special Services and Community Resources None Marital Status of Patient if Patient Independent Adult: Unmarried Nutrition/Health 12/20/2020 Type of diet: Regular Appetite Good Eating Difficulties None Skin Breakdown/Decubitus Ulcers No Physical Examination Vital Signs 12/12/2024 8:25 EDT Heart Rate Monitored 56 bpm bpm Respiratory Rate - Anes 8 br/min br/min Systolic Blood Pressure Non-Invasive 112 mmHg mmHg Diastolic Blood Pressure Non-Invasive 64 mmHg mmHg 12/12/2024 8:20 EDT Heart Rate Monitored 51 bpm bpm Respiratory Rate - Anes 8 br/min br/min Systolic Blood Pressure Non-Invasive 113 mmHg mmHg Diastolic Blood Pressure Non-Invasive 64 mmHg mmHg 12/12/2024 8:15 EDT Heart Rate Monitored 48 bpm bpm Respiratory Rate - Anes 8 br/min br/min Systolic Blood Pressure Non-Invasive 89 mmHg mmHg Diastolic Blood Pressure Non-Invasive 58 mmHg mmHg 12/12/2024 8:10 EDT Heart Rate Monitored 49 bpm bpm Respiratory Rate - Anes 8 br/min br/min Systolic Blood Pressure Non-Invasive 98 mmHg mmHg Diastolic Blood Pressure Non-Invasive 79 mmHg mmHg 12/12/2024 8:05 EDT Heart Rate Monitored 50 bpm bpm Respiratory Rate - Anes 8 br/min br/min Systolic Blood Pressure Non-Invasive 135 mmHg mmHg Diastolic Blood Pressure Non-Invasive 116 mmHg mmHg 12/12/2024 8:00 EDT Heart Rate Monitored 48 bpm bpm Respiratory Rate - Anes 4 br/min br/min Systolic Blood Pressure Non-Invasive 176 mmHg mmHg Diastolic Blood Pressure Non-Invasive 79 mmHg mmHg 12/12/2024 7:55 EDT Heart Rate Monitored 54 bpm bpm Respiratory Rate - Anes 0 br/min br/min Systolic Blood Pressure Non-Invasive 178 mmHg mmHg Diastolic Blood Pressure Non-Invasive 78 mmHg mmHg 12/12/2024 7:20 EDT Temperature Temporal Artery 37.2 DegC Peripheral Pulse Rate 62 bpm Respiratory Rate 13 br/min LOW Systolic Blood Pressure Non-Invasive 146 mmHg HI Diastolic Blood Pressure Non-Invasive 72 mmHg Vital Signs (last 24 hrs) Last Charted Temp Akabplia21.2 DegC (DEC 12 07:20) Heart Rate Qyvvoodfw11 bpm (DEC 12 08:25) PMQ933 mmHg (DEC 12 08:25) DBP64 mmHg (DEC 12 08:25) Measurements from flowsheet : Measurements 12/12/2024 7:20 EDT Height 153 cm Admission Weight 53 kg [place] Body Weight 46.04 kg Pain assessment: Pain Assessment 12/12/2024 7:11 EDT Primary Pain Location Shoulder Primary Pain Laterality Left Primary Pain Intensity 6 Primary Pain Quality Aching Pain Scale Type 0-10 Pain scale . General: Alert and oriented. Airway: Normal temporomandibular joint mobility, Normal mouth, Normal neck range of motion. Mallampati classification: II (soft palate, fauces, uvula visible). Dentition Evaluation: Denies loose/chipped teeth. Respiratory: Respirations are non-labored. Cardiovascular: Normal rate. Neurologic: Alert, Oriented. Review / Management Results review: No qualifying data available , Lab results 12/12/2024 8:29 EDT SN - Cul - Culture Type No Specimen per Surgeon 12/12/2024 8:25 EDT SN - CTm - Surgery Start 12/12/2024 8:24 12/12/2024 8:25 EDT Heart Rate Monitored 56 bpm bpm Respiratory Rate - Anes 8 br/min br/min Systolic Blood Pressure Non-Invasive 112 mmHg mmHg Diastolic Blood Pressure Non-Invasive 64 mmHg mmHg Oxygen Saturation 99 % % Set Rate Anes 8 br/min br/min 12/12/2024 8:24 EDT SN - CTm - Surgery Start Surgery Start 12/12/2024 8:20 EDT Heart Rate Monitored 51 bpm bpm Respiratory Rate - Anes 8 br/min br/min Systolic Blood Pressure Non-Invasive 113 mmHg mmHg Diastolic Blood Pressure Non-Invasive 64 mmHg mmHg Oxygen Saturation 100 % % Set Rate Anes 8 br/min br/min 12/12/2024 8:15 EDT Heart Rate Monitored 48 bpm bpm Respiratory Rate - Anes 8 br/min br/min Systolic Blood Pressure Non-Invasive 89 mmHg mmHg Diastolic Blood Pressure Non-Invasive 58 mmHg mmHg Oxygen Saturation 100 % % Set Rate Anes 8 br/min br/min 12/12/2024 8:10 EDT Heart Rate Monitored 49 bpm bpm Respiratory Rate - Anes 8 br/min br/min Systolic Blood Pressure Non-Invasive 98 mmHg mmHg Diastolic Blood Pressure Non-Invasive 79 mmHg mmHg Oxygen Saturation 100 % % Set Rate Anes 8 br/min br/min 12/12/2024 8:05 EDT Heart Rate Monitored 50 bpm bpm Respiratory Rate - Anes 8 br/min br/min Systolic Blood Pressure Non-Invasive 135 mmHg mmHg Diastolic Blood Pressure Non-Invasive 116 mmHg mmHg Oxygen Saturation 100 % % cefazolin 2 gram(s) gram(s) Sodium Chloride 0.9% 100 mL mL Set Rate Anes 8 br/min br/min 12/12/2024 8:04 EDT US Anesthesia Block US ANESTHESIA BLOCK 12/12/2024 8:00 EDT Heart Rate Monitored 48 bpm bpm Respiratory Rate - Anes 4 br/min br/min Systolic Blood Pressure Non-Invasive 176 mmHg mmHg Diastolic Blood Pressure Non-Invasive 79 mmHg mmHg Oxygen Saturation 100 % % 12/12/2024 7:55 EDT Heart Rate Monitored 54 bpm bpm Respiratory Rate - Anes 0 br/min br/min Systolic Blood Pressure Non-Invasive 178 mmHg mmHg Diastolic Blood Pressure Non-Invasive 78 mmHg mmHg Oxygen Saturation 94 % % 12/12/2024 7:50 EDT SN - CTm - Anesthesia Start Time Anesthesia Start 12/12/2024 7:44 EDT SN - Preop - CTm Pt Ready for OR/Proced 12/12/2024 7:44 12/12/2024 7:38 EDT dexAMETHasone 10 mg mg ROPivacaine 140 mg mg 12/12/2024 7:31 EDT SN - PP - Body Position Supine Standard Intra-op 12/12/2024 7:30 EDT SN - Proc - Anesthesia Type General SN - Proc - Actual Procedure LEFT REVERSE TOTAL SHOULDER ARTHROPLASTY 12/12/2024 7:28 EDT Bedside Procedure Nerve Block Provider #1 Bedside Time Out DANIEL CARSON APRN-PHOTO PRODUCER Provider #2 Bedside Time Out Elba Stout RN 12/12/2024 7:26 EDT fentaNYL 50 mcg mcg midazolam 1 mg mg 12/12/2024 7:20 EDT Height 153 cm Admission Weight 53 kg [place] Body Weight 46.04 kg Temperature Temporal Artery 37.2 DegC Peripheral Pulse Rate 62 bpm Respiratory Rate 13 br/min LOW Systolic Blood Pressure Non-Invasive 146 mmHg HI Diastolic Blood Pressure Non-Invasive 72 mmHg Time Out Procedure Verified Time Out Procedure Site Verified Yes Time Out Procedure Site Marked Yes Time Out Correct Patient Position Yes Heart Rhythm Regular Oxygen Therapy Room air Oxygen Saturation 94 % Bowel Sounds All Quadrants Present Urinary Elimination Voiding, no difficulties Skin Description Normal for ethnicity Skin Integrity Intact IV Present Present Extremity Movement Equal Characteristics of Speech Clear Level of Consciousness Alert Strength All Extremities Moderate Affect/Behavior Appropriate, Calm, Cooperative Orientation Oriented x 4 Allergies Yes Anesthesia Extension Set Applied Yes Clinical Appeals Specialist On Yes Consent Form Signed Yes Patient Dressed In Hospital gown Pre-op Preparation Glasses removed, Jewelry removed CHG Preoperative Wash/Wipe Night before procedure, Day of procedure, Site specific wipe Preop Nasal Swab Povidone-Iodine History & Physical Update On Chart Yes History & Physical On Chart Yes Belongings At Bedside Glasses, Pants, Shirt, Shoes, Socks, Undergarments Positioning Repositions self Sequential Compression Device bilateral knee high applied/on Antiembolism Stocking On/Re-applied bilateral thigh high NPO Status Maintained, More than 8 hours Standard Safety ID band on, Allergy Band on, Call device within reach, Bed in low position, Wheels locked, Visitor at bedside, Safety level maintained Allergy Band on and Verified Yes Patient ID Band on and Verified Yes Implants Verified Yes Site Verified by Patient/Family Yes Anesthesia Consent Signed Yes Blood Consent Signed Yes Last Fluid Intake 12/11/2024 23:00 Last Food Intake 12/11/2024 20:00 Last Void 12/12/2024 6:30 12/12/2024 7:19 EDT SN - Preop - CTm Pt in SDS Room 12/12/2024 6:35 12/12/2024 7:16 EDT SN - Irl - Irrigant Sterile Water SN - Irl - Irrigant Normal Saline SN - IrI - Volume In 450 mL SN - IrI - Volume In 450 mL SN - Irl - Additive IRRIGATION CHG 0.05% IRRISEPT / [id number] SN - Irl - Additive BETADINE (POVIDONE IODINE) SOLUT SN - IrI - Volume Out 450 mL SN - IrI - Volume Out 450 mL 12/12/2024 7:15 EDT SN - SP - Prep Agents Chloraprep SN - SP - HR - Method Clipped 12/12/2024 7:15 EDT Designated Person #1 We May Share OLIVE Harvey [phone] Designated Person #1 Relationship Sibling Privacy Restrictions Requested None Status No, per patient Continuous IV Infusions lr Hand Right 12/12/2024 20 gauge Peripheral IV Activity: Insert new site Peripheral IV Dressing Condition: Clean, Dry, Intact Peripheral IV Dressing Activity: Applied, Transparent dressing Peripheral IV Line Status/Patency: Flushes easily Peripheral IV Line Care: Secured with tape Peripheral IV Site Condition: No complications Peripheral IV Equipment: Extension set, PRN Adaptor Peripheral IV Number of Attempts: 1 Sensory Deficits None Sleep Apnea Snore No Sleep Apnea Tired Yes Sleep Apnea Obstruction No Sleep Apnea Pressure Yes Sleep Apnea BMI No Sleep Apnea Age Yes Sleep Apnea Neck No Sleep Apnea Gender No Sleep Apnea Score 3 Diagnosed With Sleep Apnea No Advanced Directives Yes Advance Directive Type [place] Durable Power of Printing Press Operator for [place], [place] Declaration (Living Will) Advance Directive Location Indicates that [place] has been given copy Infectious Disease Symptoms Patient states no symptoms Infectious Disease Recent Exposure No Alcohol and Drug Use No Employee of Institutional Living No Health Care Employee No History of Exposure to TB No History of Positive Chest X-Ray for TB No History of Positive TB Skin Test No Homeless No Known Immunosuppression No Recent Immigrant No Resident of Institutional Living No Bloody Sputum No Fatigue No Fever No Loss of Appetite No Night Sweats No Persistent Cough > 3 Weeks No Weight Loss No Pre-Op Patient Education NPO after midnight, No smoking after midnight, No makeup, No jewelry, Aware of surgery location, Pre-op education done, 1 bottle CHG wash with instructions given, Instructed to take ordered medications, Anesthesia block education provided SN - Preprocedure Comments Spoke with patient, Verbalizes/Nonverbally indicates understanding, Other: pantoprazole, LEVOTHYROXINE Barriers to Learning None evident Teaching Method Explanation, Printed materials Preferred Spoken Language Romanian Preferred Written Language Romanian Teaching Evaluation No further teaching needed Total Joint Book Given Yes Safety Brochure Information Reviewed Yes Jayne Hu Video Viewed No Patient's Current Physicians Patient's Current Physicians History of Malignant Hyperthermia No Discharge To, Anticipated Home with family care Prev Test Positive/Diagnosis w/COVID-19 No Current Quarantine/Isolated any Illness No Any Contact with Sick Animals/Birds No Traveled Anywhere in Last 30 Days No Lost Weight Unintentionally Recently No Eat Poorly Due to Decreased Appetite No Total MST Score 0 No Personal Devices, Patient Valuables Glasses Anesthesia/Transfusions Prior anesthesia Admission Note-Nursing Same Day Patient History 12/12/2024 7:11 EDT Primary Pain Location Shoulder Primary Pain Laterality Left Primary Pain Intensity 6 Primary Pain Quality Aching Pain Scale Type 0-10 Pain scale famotidine 20 mg mg meloxicam 15 mg mg oxyCODONE 10 mg mg 12/12/2024 7:03 EDT SN - PTCare - Anti-thromboembolism Sarah Sequential Compression Device (SCD) 12/12/2024 6:59 EDT SN - Assess - LOC Alert, Awake SN - Assess - Orientation Oriented X 3 SN - Assess - Post-op Skin Integrity Intact/Dry 12/12/2024 6:59 EDT SN - GCD - Post-operative Diagnosis PRIMARY OSTEOARTHRITIS, LEFT SHOULDER SN - GCD - Case Level Level 4 12/12/2024 6:59 EDT ABO/Rh Interp A NEG ABSC Interp (Gel) Negative ABSC 12/12/2024 6:56 EDT SN - CAt - Case Attendee SN - CAt - Case Attendee SN - CAt - Case Attendee SN - CAt - Case Attendee SN - CAt - Case Attendee SN - CAt - Case Attendee SN - CAt - Case Attendee SN - CAt - Case Attendee SN - CAt - Case Attendee SN - CAt - Case Attendee SN - CAt - Case Attendee SN - CAt - Case Attendee SN - CAt - Case Attendee SN - CAt - Case Attendee SN - CAt - Role Performed Primary Surgeon SN - CAt - Role Performed Transformer Maker 1 SN - CAt - Role Performed Scrub 1 SN - CAt - Role Performed Research Lab Assistant 1 SN - CAt - Role Performed PHOTO PRODUCER SN - CAt - Role Performed Physician Reinforcing Iron Worker Helper SN - CAt - Role Performed Channel Opener Outsoles . Assessment and Plan [place] [employer]esthesi[employer] (ASA) physical status classification: Class III. Anesthetic Preoperative Plan Anesthetic technique: General. Informed consent: signed by patient. Digitally Signed by DANIEL CARSON on 12/12/2024 08:34 AM [facility]06-10-2025 Note* Exam Date Time Procedure Performing Provider Status 12/12/24 8:04 AM US Anesthesia Block Auth (Verified) [id number] ORIGINAL Images acquired, not reported on this accession number. [facility]05-12-2025 Note* Exam Date Time Procedure Performing Provider Status 11/13/24 2:[address] Shoulder w/o Contrast Left TAB NICHOLAS MD; Auth (Verified) [id number] ORIGINAL EXAMINATION: CT OF THE LEFT SHOULDER WITHOUT CONTRAST 11/13/2024 2:33 pm TECHNIQUE: CT of the left shoulder was performed without the administration of intravenous contrast. Multiplanar reformatted images are provided for review. Automated exposure control, iterative reconstruction, and/or weight based adjustment of the mA/kV was utilized to reduce the radiation dose to as low as reasonably achievable. COMPARISON: None. HISTORY ORDERING SYSTEM PROVIDED HISTORY: Reason for Exam: OSTEOARTHRITIS OF LEFT SHOULDER chronic shoulder pain. 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 There is no suspicious lytic or blastic osseous lesion. There is no aggressive periosteal reaction. Mild AC joint degenerative changes. Severe joint degenerative change most pronounced in the posterior joint space where there is subchondral sclerosis, bony hypertrophy and subchondral cysts. Type 1 acromial undersurface. There is no evidence of solid or cystic soft tissue mass. No definite joint effusion. Limited evaluation of the neurovascular structures lack of contrast. Aortic atherosclerosis. Partially visualized coronary artery calcifications. There is a 4 mm left apical subpleural ground-glass opacity on series 3, image 55 IMPRESSION: 1. Severe glenohumeral joint degenerative change in patient presenting for preop planning. 2. 4 mm left apical subpleural ground-glass opacity. 3. Additional incidental findings as above. Interpreted by: Tab Nicholas Preliminary Report By: Tab Nicholas Electronically signed By Tab Nicholas Dictated Date: 11/13/2024 2:46:36 PM Prelim Date: 11/13/2024 2:53:21 PM Sign Date: 11/13/2024 2:53:21 PM Ordering Provider: [place] [id number] Radiology Diagnostic study note [facility] Imaging Services [address] [place] [address] [id number] Foot min 3 Views MR#: [id number] Acct: [id number] Name: GLORIA TORIBIO Rep #: [id number] : 1955 F 69 From: Pet er Peer DO PCP: Dr. Antione Talley MD Status: REG ER Study:Foot min 3 Views Date of Exam: 12/27 Exam# [id number] Ordering Dr: Tuan Jean DO EXAM: Left foot radiographic evaluation, three views CLINICAL HISTORY: Bruise on top and bottom left foot after fall on . Initial encounter. COMPARISON: None. TECHNIQUE: AP frontal, oblique and lateral radiographs obtained of the left foot. FINDINGS: Oblique fracture, mildly displaced goes through the distal half of the 5th metatarsal. No dislocation. RAD/Foot min 3 Views IMPRESSION: See above. Reading [facility] CC: Dr. Antione Talley MD; Dr. 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 requesting records of EGD/colonoscopy OV notes and pathology from 2022. Electronically faxed to . Kleli Cruz RN August 11, 2024 4:22 PM [facility]02-07-2025 Miscellaneous Notes* Telephone Encounter - Kelli Cruz RN - 08/11/2024 4:20 PM EST Fax received from [facility] requesting records of EGD/colonoscopy OV notes and pathology from 2022. Electronically faxed to . Kelli Cruz RN August 11, 2024 4:22 PM [facility] Instructions* Patient Instructions* Kylee Rizo PA-C - 09/01/2022 3:11 PM EST The following instructions are important for you related to your office visit today with the [facility] General Surgeons. INSTRUCTIONS FOLLOWING A NORMAL COLONOSCOPY W/ FAMILY HX COLON CANCER 5YR I discussed with you the findings of your colonoscopy. Since there were no worrisome abnormalities,I recommend you undergo repeat endoscopic screening every 5 years due to your family history of colon cancer. This is the current recommendation for colon cancer screening. If you note bleeding, change in bowel habits, or other suspicious colon related symptoms before that time, those symptoms should be evaluated as necessary. INSTRUCTIONS FOR PEPTIC ULCER DISEASE - ESOPHAGITIS I discussed with you the findings of your upper endoscopy. Your upper endoscopy demonstrated esophagitis Esophagitis may be a form of peptic irritation, with acid moving from the stomach to the esophagus (gastroesophageal reflux) Factors that increase acid production include smoking and stress. If you smoke, stopping smoking will often cure these issues without needing other medications. Over the counter medications including antiacids and acid reducing medications including H2 blockers (Zantac and the like) and proton pump inhibitors (prilosec, prevacid and the like) neutralize or prevent acid production. Prescription strength proton pump inhibitors (PPIs) may be necessary if your symptoms persist. Carafate may be added to PPI treatment in refractory cases. Avoiding smoking, alcohol and antiinflammatory medications are important in the successful treatment of reflux esophagitis and peptic diseases. Other factors that contribute to GERD and esophagitis are being overweight, eating large meals before laying down and certain foods. Weight loss will help improve many GERD complaints. Remaining upright after eating large meals and having a small supper will also help symptoms. Avoiding food that contribute to reflux - chocolate, caffeine, cheddar cheese may also help. Follow up upper endoscopy may be recommended to assure healing of the esophagus. New or worsening symptoms such are epigastric pain, burning, difficulty swallowing or food stickingshould be relayed to your physician. Feeling full early after eating, or black, tarry, foul smelling stools are also worrisome. If you have any difficulties or concerns, you should contact our office immediately. If you note any additional difficulties, questions, or concerns, you should contact our office immediately @ [phone] and ask to be transferred to the General Surgery department. documented in [facility]Cl[facility] History of Present illness Narrative* Kylee Rizo PA-C - 09/01/2022 3:01 PM EST FOLLOW UP VISIT - ENDOSCOPY NAME: Gloria Corona [facility] NO.: [id number] DATE OF SERVICE: 09/01/2022 : 1955 REFERRING PHYSICIAN: Antione Talley MD Gloria is a patient I am following for family history of colon cancer, GERD, gastritis with IM on previous biopsy, and long-term PPI use. Dr. Pedraza performed upper and lower endoscopy on 08/25/22. The patient was found to have normal examined jejunum, duodenum and stomach, mildly severe reflux esophagus. Pathology demonstrated: FINAL DIAGNOSIS A. Stomach, biopsy: - Antral mucosa with foveolar hyperplasia and minimal chronic inflammation. - No evidence of H. pylori. B. Esophagus, distal, biopsy: - Inflamed cardiac mucosa. - No evidence of intestinal metaplasia or dysplasia. C. Esophagus, mid, biopsy: - Squamous mucosa with no diagnostic alteration. - No evidence of eosinophilic esophagitis. Colonoscopy showed diverticulosis, otherwise normal. The patient notes no new complaints since the procedure. She made note that she was more aware of her procedures this time and had some discomfort. VITALS: Blood pressure 138/88, pulse 83, temperature 36.9 C (98.4 F), height 152.4 cm (5'), weight 50.3 kg (111 lb), last menstrual period 07/05/2002, SpO2 97 %. General: patient is alert, cooperative, pleasant and in no acute distress On examination, the abdomen is benign. Assessment IMPRESSION: GERD and gastritis, family history of colon cancer PLAN: The operative findings and pathology report were reviewed with the patient, and the patient has hadthe opportunity to ask questions and have questions answered. If the patient notes any problems or changes in bowel function, the patient should contact me immediately. Otherwise I recommend follow up endoscopy in 5 years for surveillance. updated and recall letter generated. MAC for next colonoscopy based on recall and discomfort Patient verbalized understanding of all above and agreed with the plan Diagnoses: (Z80.0) Family history of colon cancer (primary encounter diagnosis) (K21.00) Gastroesophageal reflux disease with esophagitis without hemorrhage (K29.30) Chronic superficial gastritis without bleeding I spent a total of 25 minutes on the date of the service which included preparing to see the patient, [id number] patient care, completing clinical documentation, obtaining and/or reviewing separately obtained history, counseling and educating the patient/family/caregiver, independently interpretin g results (not separately reported), and communicating results to the patient/family/caregiver. Kylee Rizo PA-C [facility] Note* Toya Stearns RN - 04/15/2022 2:28 PM EDT REVIEW OF SYSTEMS: General: The patient denies fatigue, denies weight loss, denies weight gain, denies feeling hot, and denies feelings of cold. Eyes: The patient denies glaucoma, denies eye injury/surgery, wears glasses or contacts. Ear/Nose/Throat: The patient denies allergies, NOTES hayfever, denies ear infections, and denies bloody noses. Cardiovascular: The patient denies chest pain, denies heart disease, NOTES high blood pressure,denies cardiac stent, denies prior heart attack, denies irregular heart beat, denies high cholesterol, denies poor circulation, denies heart failure, other cardiac issues, denies claudication, denies coldfeet, denies peripheral arterial stent. Respiratory: The patient denies tuberculosis, denies pneumonia, denies frequent cough, denies pulmonary embolism, denies shortness of breath, and denies coughing up blood. Gastrointestinal: The patient denies difficulty swallowing, NOTES acid reflux, NOTES ulcers, deniesvomiting, denies jaundice/hepatitis, denies gallbladder problems, denies black or tarry stools, denies hemorrhoids, denies bleeding from rectum, denies diverticulitis, denies constipation, denies diarrhea, denies loss of stool control, and NOTES hernias. Kidney/Bladder: The patient denies kidney stones, NOTES urine infections, and denies bloody urine. Skin: The patient denies a history of skin cancer, denies bleeding/changing moles, and denies a history of skin rash. Neurologic: The patient denies a history of epilepsy/convulsions, denies headaches, denies head/spinal injuries, and denies stroke/TIA. Psychiatric: The patient denies psychiatric medications, denies depression, and denies voices, denies substance abuse. Endocrine: The patient NOTES thyroid disorders, denies diabetes, and denies hormonal problems. Hematologic: The patient denies a history of bruising, denies bleeding, and denies anemia, denies blood clots. Infections: The patient denies a history of measles and mumps, denies rheumatic fever, and denies sexually transmitted diseases. Musculoskeletal: The patient denies back pain/injury, denies back problems, denies sciatica, deniesknee/foot trouble, denies arthritis, or denies gout. When was patient's last Mammogram screening? Unknown Last Colonoscopy: 04/02/2017 Toya Stearns RN [facility] History of Present illness Narrative* Kylee Rizo PA-C - 04/15/2022 1:39 PM EDT HISTORY AND PHYSICAL Gloria Corona Seel 1955 REFERRING PHYSICIAN: Self CHIEF COMPLAINT: Consult (Colonoscopy consult, last colon 2017-repeat 5 years) HPI: The patient is a 66 year old female referred for endoscopy. Gloria notes no colon complaints. Patient denies any change in bowel habits, weight changes, blood in stools, black tarry stools or abdominal pain. NOTES family history of colon cancer-mother. The patient notes a history of gastritis and long-term PPI use. Of note, patient's biopsies from EGD in 2011 showed intestinal metaplasia. Patient denies any further EGDs since that time. Most recentcolonoscopy 04/02/[address] Pedraza with no concerning findings. Patient denies chest pain, shortness of breath or recent hospitalizations. Denies problems with sedation in the past. PAST MEDICAL HISTORY Diagnosis Date Allergic rhinitis, cause unspecified Diaphragmatic hernia without mention of obstruction or gangrene Esophageal reflux Essential hypertension, benign PMH - PAST MEDICAL HISTORY OF Patient has had 2 bleeding ulcers Snoring Tension headache at times migraines Tobacco use disorder Unspecified hypothyroidism Unspecified menopausal and postmenopausal disorder PAST SURGICAL HISTORY Procedure Laterality Date CARPAL TUNNEL RIGHT WRIST 2000 repair COLONOSCOPY FLX DX W/COLLJ SPEC WHEN PFRMD 2005 normal COLONOSCOPY FLX DX W/COLLJ SPEC WHEN PFRMD 04/02/2017 Colonoscopy - normal-family history-5 year follow-up LAPS VAGINAL HYSTERECTOMY UTERUS 250 GM/< 1999 ovarian ringer left OVARIAN CYSTECTOMY 1993 left PAST SURGICAL HISTORY OF 1992 nerome left foot x 2 PAST SURGICAL HISTORY OF 1997 unroofing of the urethra SEPTOPLASTY/SUBMUCOUS RESECJ W/WO CARTILAGE GRF 09/2005 deviated septum Current Outpatient Medications Medication Sig SYNTHROID 88 mcg tablet Take 88 mcg by mouth once daily. iron/vit B comp/liver extract (ECBE-S60-[id number] ORAL) Take 2,500 mcg by mouth once daily. calcium carbonate/vitamin D3 (CALCIUM WITH VITAMIN D3 ORAL) Take by mouth once daily. hydrochlorothiazide (HYDRODIURIL, ESIDRIX) 25 mg tablet Take 1 tablet by mouth once daily. lisinopril (ZESTRIL, PRINIVIL) 20 mg tablet Take 1 tablet by mouth once daily. Omeprazole (PRILOSEC) 40 mg capsule Take 1 capsule by mouth once daily. traZODone (DESYREL) 50 mg tablet Take 1 tablet by mouth daily at bedtime. traZODone (DESYREL) 100 mg tablet Take 50 mg by mouth daily at bedtime. (Patient not taking: Reported on 04/15/2022) No current facility-administered medications for this visit. ALLERGIES: Patient has no known allergies. PERSONAL HISTORY: Social History Tobacco Use Smoking status: Former Packs/day: 0.50 Years: 30.00 Pack years: 15.00 Types: Cigarettes Smokeless tobacco: Never Tobacco comments: now 1/2 ppd or less Vaping Use Vaping Use: Never used Substance Use Topics Alcohol use: Yes Alcohol/week: 7.5 standard drinks Types: 3 Mixed Drinks per week Comment: occasional Drug use: No FAMILY HISTORY: FAMILY HISTORY Problem Relation Age of Onset Cancer Mother colon Heart Father HI 61 Stroke Sister Heart Sister bypass Coronary Artery Disease Brother HI 58 Heart Brother angioplasty Cancer Maternal Aunt LUNG Breast Cancer Maternal Aunt x 2 REVIEW OF SYMPTOMS: The review of systems data was entered by the nurse and reviewed by or Nursing Notes: Toya Stearns RN 04/15/2022 2:29 PM Signed REVIEW OF SYSTEMS: General: The patient denies fatigue, denies weight loss, denies weight gain, denies feeling hot, and denies feelings of cold. Eyes: The patient denies glaucoma, denies eye injury/surgery, wears glasses or contacts. Ear/Nose/Throat: The patient denies allergies, NOTES hayfever, denies ear infections, and denies bloody noses. Cardiovascular: The patient denies chest pain, denies heart disease, NOTES high blood pressure,denies cardiac stent, denies prior heart attack, denies irregular heart beat, denies high cholesterol, denies poor circulation, denies heart failure, other cardiac issues, denies claudication, denies coldfeet, denies peripheral arterial stent. Respiratory: The patient denies tuberculosis, denies pneumonia, denies frequent cough, denies pulmonary embolism, denies shortness of breath, and denies coughing up blood. Gastrointestinal: The patient denies difficulty swallowing, NOTES acid reflux, NOTES ulcers, deniesvomiting, denies jaundice/hepatitis, denies gallbladder problems, denies black or tarry stools, denies hemorrhoids, denies bleeding from rectum, denies diverticulitis, denies constipation, denies diarrhea, denies loss of stool control, and NOTES hernias. Kidney/Bladder: The patient denies kidney stones, NOTES urine infections, and denies bloody urine. Skin: The patient denies a history of skin cancer, denies bleeding/changing moles, and denies a history of skin rash. Neurologic: The patient denies a history of epilepsy/convulsions, denies headaches, denies head/spinal injuries, and denies stroke/TIA. Psychiatric: The patient denies psychiatric medications, denies depression, and denies voices, denies substance abuse. Endocrine: The patient NOTES thyroid disorders, denies diabetes, and denies hormonal problems. Hematologic: The patient denies a history of bruising, denies bleeding, and denies anemia, denies blood clots. Infections: The patient denies a history of measles and mumps, denies rheumatic fever, and denies sexually transmitted diseases. Musculoskeletal: The patient denies back pain/injury, denies back problems, denies sciatica, deniesknee/foot trouble, denies arthritis, or denies gout. When was patient's last Mammogram screening? Unknown Last Colonoscopy: 04/02/2017 Toya Stearns RN PHYSICAL EXAMINATION: General: The patient is 66 year old female, well nourished, well hydrated in no acute distress. Thepatient is oriented to time, place, and person. VITALS: Blood pressure 177/92, pulse 67, temperature 36.4 C (97.6 F), height 154.3 cm (5' 0.75), weight 50.2 kg (110 lb 9.6 oz), last menstrual period 07/05/2002, SpO2 96 %. Body mass index is 21.07kg/m . HEENT: Normal cephalic, ataumatic, pupils are equally round, sclera are anicteric, mucous membranesare moist, oropharynx is clear. Neck has no masses, asymmetry or lymphadenopathy. Respiratory: Clear to auscultation and percussion. Normal respiratory excursion and pattern. Cardiac: Examination is regular rate and rhythm. Normal S1/S2 Abdominal exam: Soft, nontender, with no palpable masses. No hepatosplenomegaly. No palpable hernias. Extremities: no clubbing, cyanosis or edema. No adenopathy. LABORATORY VALUES: As Noted RADIOLOGIC STUDIES: As Noted Assessment IMPRESSION: family history of colon cancer, encounter for colonoscopy. History of gastritis with intestinal metaplasia-recommend EGD in addition to colonoscopy PLAN: I have reviewed my findings with the surgeon. Will plan for upper and lower endoscopy. We discussed the risks and benefits of the planned endoscopy. I have informed the patient that complications can occur including failure to complete the endoscopy and perforation. The patient had the opportunity to ask questions concerning the planned endoscopy. My staff has also explained the procedure to the patient in understandable terms and has given the patient printed material concerning the procedure. The patient freely consents to surgery. The patient was offered a [facility]/procedure at a [facility] facility. I have counseled the patient regarding the risk of exposure to and/or potential harm posed by the COVID-19 virus with having a surgery/procedure at this time versus the risk of delaying the surgery/procedure. It is not possible to know either the risk of delaying the surgery or procedure or chance of getting an infection with perfect accuracy, but a joint decision was made between the patient and myself to proceed at this time with endoscopy. I plan to use Miralax/dulcolax bowel preparation Diagnoses: (K29.70, K31.A0) Gastritis with intestinal metaplasia of stomach (primary encounter diagnosis) (Z79.899) Current use of proton pump inhibitor I spent a total of 47 minutes on the date of the service which included preparing to see the patient, [id number] patient care, completing clinical documentation, obtaining and/or reviewing separately obtained history, performing a medically appropriate examination, counseling and educating the pat ient/family/caregiver, ordering medications, tests, or procedures, and communicating with other HCPs (not separately reported). Kylee Rizo PA-C [facility] History of Past illness Narrative* Problem Noted Date Resolved Date Cellulitis and abscess of unspecified site 09/0208/12/2011 documented as of this encounter (statuses as of 04/21/2022) [facility] History of Past illness Narrative* Problem Noted Date Resolved Date Cellulitis and abscess of unspecified site 09/0208/12/2011 documented as of this encounter (statuses as of 09/08/2022) [facility] Future Appointments Appointment Date:04/17/2021 11:00:00 AM Scheduled Provider: Location:[facility] Appointment Type:PT Treatment - [place] Evaluation + Plan note Future Appointments [facility] Evaluation + Plan note Future Appointments Appointment Date:12/27/2024 08:00:00 AM Scheduled Provider:Juan Jose Lamas PT Location:[facility] Appointment Type:PT Outpatient Evaluation [facility] Evaluation note* Diagnosis Gastritis with intestinal metaplasia of stomach- Primary Current use of proton pump inhibitor Encounter for long-term (current) use of other medications Family history of colon cancer Family history of malignant neoplasm of gastrointestinal tract Encounter for screening for malignant neoplasm of colon Special screening for malignant neoplasms, colon documented in this encounter [facility] noteNo assessment information availableWWooster Community [facility] Work Phone: Evaluation note* Diagnosis Family history of colon cancer- Primary Family history of malignant neoplasm of gastrointestinal tract Gastroesophageal reflux disease with esophagitis without hemorrhage Chronic superficial gastritis without bleeding Atrophic gastritis without mention of hemorrhage documented in this encounter [facility] course Narrative No data available for this section [facility] Discharge instructions No data available for this section [facility] Progress note No data available for this section [facility] Reason for referral (narrative)* Outpatient Procedure (Routine) - Pending Review Specialty Diagnoses / Procedures Referred By Sari t Referred To Contact [facility] Diagnoses Gastritis with intestinal metaplasia of stomach Current use of proton pump inhibitor Procedures EGD DIAGNOSTIC ESOPHAGOGASTRODUODENOSC OPY TRANSORAL DIAGNOSTIC Kylee Rizo PA-C [address] [place] [address] [facility] [place] [address] [facility] [place] [address] Referral ID Status Reason Start Date Expiration Date Visits Requested Visits Authorized [id number] Pending Review Auto-Generat ed Referral 2 04/21/2023 1 1 [facility] for referral (narrative)No reason for referral information availableWWooster Community Hospital Work Phone: Summary Purpose Family History No Family History Records FoundNo Family History Records FoundNo Family History Records Found No data available for this section No data available for this section No data available for this section No data available for this section No data available for this section No Family History Records FoundNo Family History Records Found Advance Directives No Advanced Directives Records Found Advance Directive Response Recorded Date/ Time Living Will No July 15 2:45am Power of Printing Press Operator No July 15, 2015 2:45am Advance Directive Response Recorded Date/ Time Living Will No July 15 1:45am Power of Printing Press Operator No July 15, 2015 1:45am Advance Directive Response Recorded Date/ Time Living Will No October 08, 2024 9:40am Do you have a Healthcare Power of Printing Press Operator? No October 08, 2024 9:40am Chief Complaint and Reason for Visit Chief Complaint INT LABS Chief Complaint INT LABS SCREENING Chief Complaint Admit Date Personal history of nicotine dependence August 04, 2024 2:48pm SCREENING August 15, 2024 2:59pm left foot pain October 08, 2024 9:23 am Additional Source Comments INFORMATION SOURCE (unrecogn ized section and content) DATE CREATED AUTHOR 2021 [facility] ([place]) DATE CREATED AUTHOR AUTHOR'S ORGANIZ ATION 08/14/2024 [facility] DATE CREATED AUTHOR AUTHOR'S ORGANIZ ATION 10/13/2024 [facility] DATE CREATED AUTHOR AUTHOR'S ORGANIZ ATION 12/18/2024 [facility] DATE CREATED AUTHOR AUTHOR'S ORGANIZ ATION 12/28/2024 [facility] Source Comments (unrecognize d section and content) In the event this informatio n is protected by the Federal Confidentiality of Alcohol and Drug Abuse Patient Records regulations: The Federal rules restrict any use of the information to criminally investigate or prosecute any alcohol or drug abuse patient.[facility] Hospital[facility] the event this information is protected by the Federal Confidentiality of Alcohol and Drug Abuse Patient Records regulations: The Federal rules restrict any use of the information to criminally investigate or prosecute any alcohol or drug abuse patient.[facility] HospitalIn the event this information is protected by the Federal Confidentiality of Alcohol and Drug Abuse Patient Records regulations: The Federal rules restrict any use of the information to criminally investigate or prosecute any alcohol or drug abuse patient.[facility] Reason for Visit (unrecogniz ed section and content) Reason Comments Consult Colonoscopy consult, last colon 2017-repeat 5 years Reason Comments Follow Up Colonoscopy and EGD 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 Calvin Talley MD Family Provider Active Dr. Calvin Talley MD Primary Care Provider Activ e Team Status: Inactive Member Role Status Dates Dr. Calvin Talley MD Primary Care Provider, Atte nding Provider Active Donkey Doctor Relationship Specialty Start Date End Date Antione Talley MD [address] [place], [place] [address] [place] [address] PCP - General Family Medicine 03/02/17 Team Status: Active Member Role Status Dates Dr. Antione Talley MD Primary Care Provider Acti ve Team Status: Inactive Member Role Status Dates Dr. Antione Talley MD Primary Care Provider Acti ve Start: July 29, 2024 End: July 29, 2024 Dr. Antione Talley MD Attending Provider Active Start: July 29, 2024 End: July 29, 2024 Dr. Antione Talley MD Referring Provider Active Start: July 29, 2024 End: July 29, 2024 Team Status: Inactive Member Role Status Dates Dr. Antione Talley MD Primary Care Provider Acti ve Start: August 04, 2024 End: August 04, 2024 Dr. Antione Talley MD Attending Provider Active Start: August 04, 2024 End: August 04, 2024 Dr. Antione Talley MD Referring Provider Active Start: August 04, 2024 End: August 04, 2024 Team Status: Inactive Member Role Status Dates Dr. Antione Talley MD Primary Care Provider Acti ve Start: August 15, 2024 End: August 15, 2024 Dr. Antione Talley MD Attending Provider Active Start: August 15, 2024 End: August 15, 2024 Dr. Antione Talley MD Referring Provider Active Start: August 15, 2024 End: August 15, 2024 Team Status: Inactive Member Role Status Dates Dr. Antione Talley MD Primary Care Provider Acti ve Start: October 08, 2024 End: October 08, 2024 Dr. Tuan Jean DO Emergency Provider Active Start: October 08, 2024 End: October 08, 2024 Goals (unrecognized section and content) Goals may be documented in a n alternate section FOR RECORDS PERTAINING TO PATIENTS WHO ARE OR HAVE BEEN ENROLLED IN A CHEMICAL DEPENDENCY/SUBSTANCEABUSE PROGRAM, SOME INFORMATION MAY BE OMITTED. This clinical summary was aggregated from multiple sources. Caution should be exercised in using it in the provision of clinical care. This summary normalizes information from multiple sources, and as a consequence, information in this document may materially change the coding, format and clinical context of patient data. In addition, data may be omitted in some cases. CLINICAL DECISIONS SHOULD BE BASED ON THE PRIMARY CLINICAL RECORDS. [employer] [facility]. provides no warranty or guarantee of the accuracy or completeness of information in this document.
== END | disposition home or self-care (01) ==
LOC: LAB 14:05
PROVIDERS: PCP Family Medicine; Referring Provider Family Medicine; Visit Provider Family Medicine
DX: D64.9 Anemia, unspecified (principal); E03.9 Hypothyroidism, unspecified
CPT/HCPCS: 36415; 80048; 82728; 83540; 84439; 84443; 85027; 85045

== ENCOUNTER → 2025-02-14 | Outpatient (CLI) | payer BC, SELFPAY ==
--- NOTE | 2025-02-14 15:01 | MRI_ITS ---
PROCEDURE: LOWER EXT/NO JT/W/O 02/14/2025 REASON FOR EXAM: LEFT 5TH METATARSAL FRACTURE TECHNIQUE: T1, T2, stir, LOWER EXT/NO JT/W/O Multiplanar and multisequence images were obtained without IV contrast administration. 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 There is marrow edema in the distal 5th metatarsal diaphysis with a healing fracture present, with visible callus, with overriding of 0.5 cm and slight angulation. There is cortical irregularity and articular collapse at the distal 2nd metatarsal, with the appearance of an old healed fracture. There are no findings to suggest osteomyelitis. The Lisfranc articulation is aligned. The sesamoids are aligned. There is no plantar plate injury. Effusion: There is a moderate effusion partly visible at the talonavicular articulation. There is no significant joint effusion in the forefoot. There is no abscess collection, or evidence of cellulitis. Soft Tissues: There is no soft tissue mass. The plantar musculature appears intact. The flexor and extensor tendons appear intact. 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 There is marrow edema in the distal 5th metatarsal diaphysis with a healing fra cture present, with visible callus, with overriding of 0.5 cm and slight angulation. There is cortical irregularity and articular collapse at the distal 2nd metatar joanna, with the appearance of an old healed fracture. There is a moderate effusion partly visible at the talonavicular articulation. There are no findings to suggest osteomyelitis. Reading Location: [facility]
== END | disposition home or self-care (01) ==
LOC: OPMRI 15:00
PROVIDERS: PCP Family Medicine; Referring Provider Podiatrist; Visit Provider Podiatrist
DX: S92.352G Displaced fracture of fifth metatarsal bone, left foot, subsequent encounter for fracture with delayed healing (principal); M79.672 Pain in left foot; M72.2 Plantar fascial fibromatosis; X58.XXXA Exposure to other specified factors, initial encounter
CPT/HCPCS: 73718

== ENCOUNTER → 2025-02-19 | Outpatient (CLI) | payer BC, SELFPAY ==
[2025-02-19 11:06] LABS: Anion Gap 11 (5-15); BUN 5 mg/dL (4-19); BUN/Creat Ratio 7.8 RATIO (10-20); Calcium,Total 10.2 mg/dL (7.6-11.0); Carbon Dioxide 28.3 mmol/L (21.0-32.0); Chloride 98 mmol/L (98-108); Glucose 105 mg/dL (70-99); Potassium 3.8 mmol/L (3.3-5.1)
== END | disposition home or self-care (01) ==
LOC: LAB 09:51
PROVIDERS: PCP Family Medicine; Referring Provider Family Medicine; Visit Provider Family Medicine
DX: E03.9 Hypothyroidism, unspecified (principal)
CPT/HCPCS: 36415; 80048; 84439; 84443

== ENCOUNTER → 2025-04-04 | Outpatient (CLI) | payer BC, SELFPAY ==
[2025-04-04 18:24] LABS: Hematocrit 43.1 % (37-47); Hemoglobin 14.6 g/dL (12.0-15.0); Immature Granulocytes Count 0.030 X10^3/uL (0.0-0.0); Mean Corp Hgb Conc 33.9 g/dL (32-36); Mean Corpuscular Volume 89.4 fL (81-99); Mean Platelet Vol. 10.3 fl (6.2-12.0); NRBC Flagged by Analyzer 0 % (0-5); Platelet Count 305 K/mm3 (150-450); RBC Distribution Width CV 12.3 % (11.6-14.6); RBC Distribution Width SD 40.4 fl (35.1-43.9); Red Blood Count 4.82 M/mm3 (4.2-5.4); White Blood Count 8.2 K/mm3 (4.4-11.0)
[2025-04-04 18:35] LABS: AST(SGOT) 14 U/L (<=31); Alanine Aminotransfer ALT/SGPT 10 U/L (<=34); Albumin, Serum 4.2 g/dL (3.4-4.8); Alkaline Phosphatase 66 U/L (35-104); Anion Gap 11 (5-15); BUN 9 mg/dL (4-19); BUN/Creat Ratio 12.6 RATIO (10-20); CORTISOL PM 8.65 ug/dL (2.68-10.50); Calcium,Total 10.1 mg/dL (7.6-11.0); Carbon Dioxide 27.8 mmol/L (21.0-32.0); Chloride 102 mmol/L (98-108); Ferritin 56 ng/mL (22-378); Free T3 2.6 pg/mL (2.18-3.98); Globulin 2.0 g/dL (2.2-4.2); Glucose 154 mg/dL (70-99); Potassium 4.1 mmol/L (3.3-5.1); Vitamin B12 464 pg/mL (180-914); Vitamin D,25 Hydroxy 38.3 ng/mL (30-100)
[2025-04-04 19:29] LABS: CRP < 3.00 mg/L (0.0-3.0); Iron 70 ug/dL (50-170)
[2025-04-06 13:08] LABS: ANTINUCLEAR ANTIBODIES DIRECT Negative (Negative)
== END | disposition home or self-care (01) ==
LOC: MTLAB 16:49
PROVIDERS: PCP Family Medicine; Referring Provider Family Medicine; Visit Provider Family Medicine
DX: E03.9 Hypothyroidism, unspecified (principal); L65.9 Nonscarring hair loss, unspecified; R63.1 Polydipsia; R53.83 Other fatigue
CPT/HCPCS: 36415; 80053; 82306; 82533; 82607; 82728; 83540; 84439; 84443; 84481; 85025; 85652; 86038; 86140

== ENCOUNTER → 2025-06-26 | Outpatient (CLI) | payer BC, SELFPAY ==
[2025-06-26 17:58] LABS: Hematocrit 40.6 % (37-47); Hemoglobin 14.1 g/dL (12.0-15.0); Immature Granulocytes Count 0.040 X10^3/uL (0.0-0.0); Mean Corp Hgb Conc 34.7 g/dL (32-36); Mean Corpuscular Volume 88.8 fL (81-99); Mean Platelet Vol. 9.9 fl (6.2-12.0); NRBC Flagged by Analyzer 0 % (0-5); Platelet Count 261 K/mm3 (150-450); RBC Distribution Width CV 12.1 % (11.6-14.6); RBC Distribution Width SD 39.4 fl (35.1-43.9); Red Blood Count 4.57 M/mm3 (4.2-5.4); White Blood Count 7.1 K/mm3 (4.4-11.0)
[2025-06-26 18:22] LABS: AST(SGOT) 16 U/L (<=31); Alanine Aminotransfer ALT/SGPT 13 U/L (<=34); Albumin, Serum 4.4 g/dL (3.4-4.8); Alkaline Phosphatase 61 U/L (35-104); Anion Gap 10 (7-18); BUN 8 mg/dL (4-19); BUN/Creat Ratio 11.1 RATIO (10-20); Calcium,Total 10.3 mg/dL (7.6-11.0); Carbon Dioxide 30.8 mmol/L (20.0-29.0); Chloride 96 mmol/L (96-106); Ferritin 68 ng/mL (22-378); Globulin 2.1 g/dL (2.2-4.2); Glucose 105 mg/dL (70-99); PTHIN 68 pg/mL (11-61); Potassium 3.4 mmol/L (3.5-5.1); Vitamin D,25 Hydroxy 41.8 ng/mL (30-100)
[2025-06-26 18:33] LABS: CRP < 3.00 mg/L (0.0-3.0); Magnesium 2.1 mg/dL (1.5-2.2)
[2025-06-26 18:47] LABS: Iron 123 ug/dL (50-170)
[2025-06-29 11:08] LABS: ANTINUCLEAR ANTIBODIES DIRECT Negative (Negative)
[2025-07-03 04:07] LABS: Arsenic 7245 1 ug/L (0-9); Lead, Blood 1.9 ug/dL (0.0-3.4); Mercury, Blood 85324 2.0 ug/L (0.0-14.9); PROEL- A/G Ratio 1.7 (0.7-1.7); PROEL- Albumin 3.8 g/dL (2.9-4.4); PROEL- Alpha-1 Globulin 0.2 g/dL (0.0-0.4); PROEL- Alpha-2 Globulin 0.6 g/dL (0.4-1.0); PROEL- Beta Globulin 0.8 g/dL (0.7-1.3); PROEL- Gamma Globulin 0.6 g/dL (0.4-1.8); PROEL- Globulin, Total 2.2 g/dL (2.2-3.9); PROEL- TOTAL PROTEIN 6.0 g/dL (6.0-8.5); PROEL-M-Spike Not Observed g/dL (Not Observed)
== END | disposition home or self-care (01) ==
LOC: MTLAB 15:36
PROVIDERS: PCP Family Medicine; Referring Provider Family Medicine; Visit Provider Family Medicine
DX: G62.9 Polyneuropathy, unspecified (principal)
CPT/HCPCS: 36415; 80053; 82175; 82306; 82728; 83540; 83655; 83735; 83825; 83970; 84165; 85025; 85652; 86038; 86140; 86431